=== PATIENT | male | born 1970 | race Caucasian/White ===

== ENCOUNTER 2017-11-04 12:44 | Inpatient (IN) | payer OTHER ==
[2017-11-04 14:03] VITALS: BMI 29.7
--- NOTE | 2017-11-04 16:39 | HP ---
CIWA Score - CIWA Score Nausea/Vomitin Muscle Tremors: 3 Anxiety: 3 Agitation: 2 Paroxysmal Sweats: 4-Forehead w/Sweat Beads Orientation: 0-Oriented Tacttile Disturbances: 1-Very Mild Itch/Numbness Auditory Disturbances: 0-None Visual Disturbances: 0-None Headache: 2-Mild CIWA-Ar Total Score: 20 Admission ROS BHS - HPI Chief Complaint: alcohol withdrawal symptoms Allergies/Adverse Reactions: Allergies Allergy/AdvReac Type Severity Reaction Status Date / Time No Known Allergies Allergy Verified 11/04/17 16:18 History of Present Illness: 47 yo male with hx of nicotine, cocaine and alcohol dependence is here seeking detox. Last detox 10 years ago [facility]. PMHX: HTN, hypelipidemia, anxiety. Denies suicidal / homicidal ideation. Denies hx of suicide attempts. Denies hx seizures, reports frequent blackouts unable to recall last episode. Reports no significant period of sobriety . Exam Limitations: No Limitations - Ebola screening Have you traveled outside of the country in the last 21 days: No (N) Have you had contact with anyone from an Ebola affected area: No Have you been sick,other than usual withdrawal symptoms: No Do you have a fever: No - Review of Systems Constitutional: Diaphoresis, Changes in sleep, Unintentional Wgt. Loss EENT: reports: Blurred Vision Respiratory: reports: No Symptoms reported Cardiac: reports: No Symptoms Reported GI: reports: Diarrhea, Nausea, Poor Appetite, Poor Fluid Intake, Vomiting, Abdominal cramping : reports: No Symptoms Reported Musculoskeletal: reports: Back Pain, Joint Pain Integumentary: reports: No Symptoms Reported Neuro: reports: See HPI, Headache Endocrine: reports: Increased Thirst Hematology: reports: No Symptoms Reported Psychiatric: reports: Orientated x3, Anxious Other Systems: Reviewed and Negative Patient History - Patient Medical History Hx Anemia: No Hx Asthma: No Hx Chronic Obstructive Pulmonary Disease (COPD): No Hx Cancer: No Hx Cardiac Disorders: No Hx Congestive Heart Failure: No Hx Hypertension: Yes (non compliant with meds.) Hx Hypercholesterolemia: Yes Hx Pacemaker: No HX Cerebrovascular Accident: No Hx Seizures: No Hx Dementia: No Hx Diabetes: No Hx Gastrointestinal Disorders: No Hx Genitourinary Disorders: No Hx Sexually Transmitted Disorders: No Hx Renal Disease (ESRD): No Hx Thyroid Disease: No Hx Human Immunodeficiency Virus (HIV): No Hx Hepatitis C: No Hx Depression: No Hx Suicide Attempt: No Hx Bipolar Disorder: No Hx Schizophrenia: No - Patient Surgical History Past Surgical History: No - PPD History Previous Implant?: Yes Documented Results: Negative w/o proof Implanted On Prior [facility] Admission?: No PPD to be Administered?: Yes - Smoking Cessation Smoking history: Current some day smoker Have you smoked in the past 12 months: Yes Aproximately how many cigarettes per day: 20 Hx Chewing Tobacco Use: No Initiated information on smoking cessation: Yes 'Breaking Loose' booklet given: 11/04/17 - Substance & Tx. History Hx Alcohol Use: Yes Hx Substance Use: Yes Substance Use Type: Alcohol, Cocaine Hx Substance Use Treatment: Yes (Last detox 10 years ago ) - Substances Abused Alcohol Route: Oral Frequency: Daily Amount used: 20 BEERS Age of first use: 13 Date of Last Use: 11/04/17 Cocaine Route: Inhalation Frequency: 1-3 times last 30 days Amount used: $200 Age of first use: 13 Date of Last Use: 11/03/17 Family Disease History - Family Disease History Family Disease History: Other: Father (alive, hx of chronic alcoholism ), Mother (, HIV) Admission Physical Exam BHS - Vital Signs Vital Signs: Vital Signs - 24 hr 11/04/17 14:00 Temperature 97.6 F Pulse Rate 96 H Respiratory 20 Rate Blood Pressure 154/86 - Physical General Appearance: Yes: Appropriately Dressed, Mild Distress, Tremorous, Sweating, Anxious HEENTM: Yes: Hearing grossly Normal, Normal ENT Inspection, Normocephalic, Normal Voice, ALEXA Respiratory: Yes: Chest Non-Tender, Lungs Clear, Normal Breath Sounds, No Respiratory Distress, No Accessory Muscle Use Neck: Yes: No masses,lesions,Nodules, Trachea in good position Breast: Yes: Breast Exam Deferred Cardiology: Yes: Regular Rhythm, Regular Rate Abdominal: Yes: Normal Bowel Sounds, Non Tender, Soft, Protuberent Genitourinary: Yes: Within Normal Limits Back: Yes: Normal Inspection Musculoskeletal: Yes: full range of Motion, Gait Steady, Pelvis Stable, Back pain Extremities: Yes: Normal Capillary Refill, Normal Inspection, Normal Range of Motion Neurological: Yes: concrete rubber II-XII NML intact, 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, Alert, Motor Strength 5/5, Depressed Affect Integumentary: Yes: Normal Color, Warm, Diaphoresis Lymphatic: Yes: Within Normal Limits - Diagnostic (1) Alcohol dependence with withdrawal Current Visit: Yes Status: Acute Qualifiers: Complication of substance-induced condition: uncomplicated Qualified Code(s ): F10.230 - Alcohol dependence with withdrawal, uncomplicated (2) Anxious mood Current Visit: Yes Status: Acute (3) Nausea and vomiting Current Visit: Yes Status: Acute Qualifiers: Vomiting type: unspecified Vomiting Intractability: unspecified Qualified Code(s): R11.2 - Nausea with vomiting, unspecified (4) Back pain Current Visit: Yes Status: Acute Qualifiers: Back pain location: low back pain Back pain laterality: midline Sciatica presence: without sciatica (5) Hypertension Current Visit: Yes Status: Chronic Qualifiers: Hypertension type: essential hypertension Qualified Code(s): I10 - Essential (primary) hypertension Cleared for Admission S - [facility] Level of Care: Medically Managed Detox Regimen/Protocol: Librium S Breath Alcohol Content Breath Alcohol Content: 0 Urine Drug Screen - Results Drug Screen Negative: No Urine Drug Screen Results: RICKI-Cocaine
[2017-11-04] MEDS ORDERED: MENTHOL/PHENOL 1 EACH UD MM PRN (16:41)
[2017-11-04] MEDS ORDERED: MAGNESIUM HYDROX 2400MG/30ML ORAL SUSPENSION 30 ML CUP PO PRN (16:41)
[2017-11-04] MEDS ORDERED: IBUPROFEN 400 MG TABLET (FP) PO PRN (16:41)
[2017-11-04] MEDS ORDERED: MAGNESIUM CITRATE 300 ML BOTTLE PO PRN (16:41)
[2017-11-04] MEDS ORDERED: NICOTINE POLACRILEX 2 MG GUM BC PRN (16:41)
[2017-11-04] MEDS ORDERED: ACETAMINOPHEN 325 MG TABLET (FP) PO PRN (16:41)
[2017-11-04] MEDS ORDERED: LOPERAMIDE HCL 2 MG CAPSULE PO PRN (16:41)
[2017-11-04] MEDS ORDERED: chlordiazePOXIDE HCL 25 MG CAPSULE PO PRN (16:41)
[2017-11-04] MEDS ORDERED: guaiFENesin/D-METHORPHAN HB 10 ML UNIT-DOSE CUPS PO PRN (16:41)
[2017-11-04] MEDS ORDERED: MAG HYDROX/AL HYDROX/SIMETH 30 ML UNIT-DOSE CUP PO PRN (16:41)
[2017-11-04] MEDS ORDERED: P-EPHED 60MG/TRIPROLIDI 2.5MG TABLET PO PRN (16:41)
[2017-11-04] MEDS ORDERED: ONDANSETRON *ODT* 4 MG TABLET SL PRN (16:53)
[2017-11-04] MEDS ORDERED: chlordiazePOXIDE HCL 25 MG CAPSULE PO ONE (18:00)
[2017-11-04] MEDS: LIDOCAINE 5% TOPICAL PATCH TP SCH (20:28)
[2017-11-04] MEDS ORDERED: MELATONIN 5 MG TABLETS PO PRN (22:00)
[2017-11-04] MEDS ORDERED: CYCLOBENZAPRINE HCL 10 MG TABLET (FP) PO SCH (22:00)
[2017-11-04] MEDS: THIAMINE HCL 100 MG TABLET (FP) PO SCH (22:38)
[2017-11-04] MEDS: LORATADINE 10 MG TABLET PO SCH (22:39)
[2017-11-04] MEDS: chlordiazePOXIDE HCL 25 MG CAPSULE PO SCH (22:40)
[2017-11-04] MEDS: LIDOCAINE PATCH REMOVAL MC SCH (22:40)
[2017-11-05] MEDS: chlordiazePOXIDE HCL 25 MG CAPSULE PO SCH ×4 (06:23→22:32)
[2017-11-05] MEDS: CYCLOBENZAPRINE HCL 5 MG TABLET PO SCH ×3 (06:23→22:32)
[2017-11-05 09:35] LABS: HEMATOCRIT 41.3 % (35.4-49); HEMOGLOBIN 13.7 GM/dL (11.7-16.9); MCH 28.6 pg (25.7-33.7); MCHC 33.1 g/dl (32.0-35.9); MEAN CELL VOLUME 86.4 fl (80-96); MEAN PLT VOLUME 10.2 fl (7.5-11.1); PLATELET COUNT 190 K/MM3 (134-434); RBC 4.78 M/mm3 (4.00-5.60); RDW 14.5 % (11.9-15.9); WHITE BLOOD COUNT 9.8 K/mm3 (4.0-10.0)
[2017-11-05 09:39] LABS: ALBUMIN 3.1 g/dl (3.4-5.0); ANION GAP 7 (8-16); BLOOD UREA NITROGEN 13 mg/dL (7-18); CALCIUM 7.9 mg/dL (8.5-10.1); CHLORIDE 104 mmol/L (98-107); CO2 31 mmol/L (21-32); CREATININE 0.8 mg/dL (0.7-1.3); GLUCOSE,RANDOM 87 mg/dL (74-106); POTASSIUM 3.8 mmol/L (3.5-5.1); SGOT/AST 17 U/L (15-37); SGPT/ALT 24 U/L (12-78); SODIUM 142 mmol/L (136-145)
[2017-11-05 09:41] LABS: ALK PHOS 94 U/L (45-117); BILIRUBIN,TOTAL 0.2 mg/dL (0.2-1.0); TOT PROT 6.5 g/dl (6.4-8.2)
--- NOTE | 2017-11-05 10:13 | CONSULT ---
[facility] Psychiatric Consult - Data Date of interview: 11/05/17 Admission source: [facility] Identifying data: Patient is a 47 year old single male, father of six, unemployed and currently homeless. This is patient's first admission to detox. Pt. admitted to for alcohol dependence. Substance Abuse History: Smoking Cessation. Smoking history: Current some day smoker. Have you smoked in the past 12 months: Yes. Aproximately how many cigarettes per day: 20. Hx Chewing Tobacco Use: No. Initiated information on smoking cessation: Yes. 'Breaking Loose' booklet given: 11/04/17. - Substance & Tx. History. Hx Alcohol Use: Yes. Hx Substance Use: Yes. Substance Use Type : Alcohol, Cocaine. Hx Substance Use Treatment: Yes (Last detox 10 years ago [facility] - Substances Abused. Alcohol. Route: Oral. Frequency: Daily. Amount used: 20 BEERS. Age of first use: 13. Date of Last Use: . Cocaine. Route: Inhalation. Frequency: 1-3 times last 30 days. Amount used: $200. Age of first use: 13. Date of Last Use: 11/03/17 Medical History: hypertension, hypercholesterolemia Psychiatric History: Patient denies h/o psychiatric hospitalization, outpatient care, and suicide attempt. Physical/Sexual Abuse/Trauma History: Denies. Mental Status Exam - Mental Status Exam Alert and Oriented to: Time, Place, Person Cognitive Function: Good Patient Appearance: Well Groomed Mood: Withdrawn Affect: Mood Congruent Patient Behavior: Fatigued, Asleep (Patient awaken several times to complete interview. ) Speech Pattern: Delayed Voice Loudness: Moderately Soft/Quiet Thought Process: Intact Thought Disorder: Not Present Hallucinations: Denies Suicidal Ideation: Denies Homicidal Ideation: Denies Insight/Judgement: Poor Sleep: Well Appetite: Good Muscle strength/Tone: Normal Gait/Station: Other (Did not observe patient's gait.) Psychiatric Findings - Problem List ([place] 1, 2,3) (1) Cocaine dependence Current Visit: Yes Status: Acute (2) Alcohol dependence with withdrawal Current Visit: Yes Status: Acute Qualifiers: Complication of substance-induced condition: uncomplicated Qualified Code(s ): F10.230 - Alcohol dependence with withdrawal, uncomplicated (3) Hypertension Current Visit: Yes Status: Chronic Qualifiers: Hypertension type: essential hypertension Qualified Code(s): I10 - Essential (primary) hypertension - Initial Treatment Plan Initial Treatment Plan: Psychoeducation provided. Detoxification in progress. Observation.
[2017-11-05] MEDS: LORATADINE 10 MG TABLET PO SCH (11:28)
[2017-11-05] MEDS: PRENATAL VITAMINS W/ FOLIC ACID TABLET (FP) PO SCH (11:28)
[2017-11-05] MEDS: NICOTINE 14 MG/24 HOURS TOPICAL PATCH TD SCH (11:29)
[2017-11-05] MEDS: LIDOCAINE 5% TOPICAL PATCH TP SCH (11:29)
--- NOTE | 2017-11-05 15:46 | EKG ---
Test Reason : Blood Pressure : / mmHG Vent. Rate : 075 BPM Atrial Rate : 075 BPM P-R Int : 106 ms QRS Dur : 094 ms QT Int : 432 ms P-R-T Axes : 057 026 072 degrees QTc Int : 482 ms SINUS RHYTHM WITH SHORT DC NONSPECIFIC T WAVE ABNORMALITY PROLONGED QT ABNORMAL ECG NO PREVIOUS ECGS AVAILABLE Confirmed by ADI GUAN MD ([id number]) on 11/05/2017 3:46:23 PM Referred By: Confirmed By:ADI GUAN MD
--- NOTE | 2017-11-05 16:44 | PN ---
[facility] CIWA - CIWA Score Nausea/Vomitin-No Nausea/No Vomiting Muscle Tremors: None Anxiety: 4-Mod. Anxious/Guarded Agitation: 3 Paroxysmal Sweats: 3 Orientation: 0-Oriented Tacttile Disturbances: 3-Moderate Itch/Numb/Burn Auditory Disturbances: 2-Mild Harshness/Frighten Visual Disturbances: 1-Very Mild Sensitivity Headache: 0-None Present CIWA-Ar Total Score: 16 BHS Progress Note (SOAP) Subjective: Sweating, Fatigue, Body Aches. Objective: PATIENT A & O X 3. NO ACUTE DISTRESS. 11/05/17 16:43 Vital Signs Temperature 98.2 F 11/05/17 14:08 Pulse Rate 70 11/05/17 14:08 Respiratory Rate 18 11/05/17 14:08 Blood Pressure 112/80 11/05/17 14:08 O2 Sat by Pulse Oximetry (%) Laboratory Tests 11/05/17 11/05/17 11/05/17 08:00 08:00 08:00 WBC 9.8 RBC 4.78 Hgb 13.7 Hct 41.3 MCV 86.4 MCH 28.6 MCHC 33.1 RDW 14.5 Plt Count 190 MPV 10.2 Sodium 142 Potassium 3.8 Chloride 104 Carbon Dioxide 31 Anion Gap 7 L BUN 13 Creatinine 0.8 Creat Clearance w eGFR > 60 Random Glucose 87 Calcium 7.9 L Total Bilirubin 0.2 AST 17 ALT 24 Alkaline Phosphatase 94 Total Protein 6.5 Albumin 3.1 L RPR Titer Nonreactive LABS NOTED. UA RESULTS PENDING. 11/05/17 16:44 Assessment: 11/05/17 16:44 WITHDRAWAL SYMPTOMS. Plan: CONTINUE DETOX.
[2017-11-05] MEDS: THIAMINE HCL 100 MG TABLET (FP) PO SCH (22:32)
[2017-11-05] MEDS: LIDOCAINE PATCH REMOVAL MC SCH (22:33)
[2017-11-06] MEDS: chlordiazePOXIDE HCL 25 MG CAPSULE PO SCH ×3 (06:00→18:22)
[2017-11-06] MEDS: CYCLOBENZAPRINE HCL 5 MG TABLET PO SCH ×3 (06:37→23:46)
--- NOTE | 2017-11-06 13:07 | PN ---
S CIWA - CIWA Score Nausea/Vomitin Muscle Tremors: 3 Anxiety: 3 Agitation: 2 Paroxysmal Sweats: 3 Orientation: 2-Disoriented Date<2 days Tacttile Disturbances: 0-None Auditory Disturbances: 0-None Visual Disturbances: 0-None Headache: 0-None Present CIWA-Ar Total Score: 16 BHS Progress Note (SOAP) Subjective: Nausea, Tremors, Body Aches, Fatigue, Sweating. Objective: PATIENT A & O X 2 (UNCERTAIN ABOUT CURRENT DAY / DATE). PATIENT OBSERVED AMBULATING ON UNIT. NO ACUTE DISTRESS. 11/06/17 13:05 Vital Signs Temperature 96.4 F L 11/06/17 09:24 Pulse Rate 76 11/06/17 09:24 Respiratory Rate 16 11/06/17 09:24 Blood Pressure 124/75 11/06/17 09:24 O2 Sat by Pulse Oximetry (%) Laboratory Tests 11/05/17 11/05/17 11/05/17 08:00 08:00 08:00 WBC 9.8 RBC 4.78 Hgb 13.7 Hct 41.3 MCV 86.4 MCH 28.6 MCHC 33.1 RDW 14.5 Plt Count 190 MPV 10.2 Sodium 142 Potassium 3.8 Chloride 104 Carbon Dioxide 31 Anion Gap 7 L BUN 13 Creatinine 0.8 Creat Clearance w eGFR > 60 Random Glucose 87 Calcium 7.9 L Total Bilirubin 0.2 AST 17 ALT 24 Alkaline Phosphatase 94 Total Protein 6.5 Albumin 3.1 L RPR Titer Nonreactive LABS NOTED. UA RESULTS PENDING. 11/06/17 13:06 Assessment: 11/06/17 13:05 WITHDRAWAL SYMPTOMS. Plan: CONTINUE DETOX. ENCOURAGE AMBULATION. INCREASE DAILY PO FLUID INTAKE.
[2017-11-06] MEDS: LIDOCAINE 5% TOPICAL PATCH TP SCH (13:28)
[2017-11-06] MEDS: LORATADINE 10 MG TABLET PO SCH (13:28)
[2017-11-06] MEDS: NICOTINE 14 MG/24 HOURS TOPICAL PATCH TD SCH (13:29)
[2017-11-06] MEDS: PRENATAL VITAMINS W/ FOLIC ACID TABLET (FP) PO SCH (13:29)
[2017-11-06] MEDS: LIDOCAINE PATCH REMOVAL MC SCH (23:46)
[2017-11-06] MEDS: chlordiazePOXIDE 5 MG CAPSULE PO SCH (23:46)
[2017-11-06] MEDS: THIAMINE HCL 100 MG TABLET (FP) PO SCH (23:46)
[2017-11-07] MEDS: chlordiazePOXIDE 5 MG CAPSULE PO SCH ×3 (06:35→17:34)
[2017-11-07] MEDS: CYCLOBENZAPRINE HCL 5 MG TABLET PO SCH ×3 (08:11→22:37)
[2017-11-07] MEDS: PRENATAL VITAMINS W/ FOLIC ACID TABLET (FP) PO SCH (10:15)
[2017-11-07] MEDS: LORATADINE 10 MG TABLET PO SCH (10:15)
[2017-11-07] MEDS: NICOTINE 14 MG/24 HOURS TOPICAL PATCH TD SCH (10:16)
[2017-11-07] MEDS: LIDOCAINE 5% TOPICAL PATCH TP SCH (10:16)
[2017-11-07] MEDS: hydrOXYzine PAMOATE 50 MG CAPSULE (FP) PO PRN ×2 (11:59→15:24)
--- NOTE | 2017-11-07 13:50 | PN ---
BHS Progress Note (SOAP) Subjective: Sweating, Nausea, Anxious, Tremors. Objective: PATIENT A & O X 3, OBSERVED AMBULATING ON UNIT. NO ACUTE DISTRESS. 11/07/17 13:48 Vital Signs Temperature 98.7 F 11/07/17 13:11 Pulse Rate 90 11/07/17 13:11 Respiratory Rate 16 11/07/17 13:11 Blood Pressure 145/95 11/07/17 13:11 O2 Sat by Pulse Oximetry (%) Laboratory Tests 11/05/17 11/05/17 11/05/17 08:00 08:00 08:00 WBC 9.8 RBC 4.78 Hgb 13.7 Hct 41.3 MCV 86.4 MCH 28.6 MCHC 33.1 RDW 14.5 Plt Count 190 MPV 10.2 Sodium 142 Potassium 3.8 Chloride 104 Carbon Dioxide 31 Anion Gap 7 L BUN 13 Creatinine 0.8 Creat Clearance w eGFR > 60 Random Glucose 87 Calcium 7.9 L Total Bilirubin 0.2 AST 17 ALT 24 Alkaline Phosphatase 94 Total Protein 6.5 Albumin 3.1 L RPR Titer Nonreactive LABS NOTED. UA RESULTS PENDING. 11/07/17 13:49 Assessment: 11/07/17 13:49 WITHDRAWAL SYMPTOMS. Plan: CONTINUE DETOX. INCREASE DAILY PO FLUID INTAKE. CLONIDINE, 0.1 MG PO X 1 FOR ELEVATED BP AND FOR WITHDRAWAL SYMPTOMS. PATIENT SCHEDULED FOR D/C TOMORROW.
[2017-11-07] MEDS ORDERED: cloNIDine HCL 0.1 MG TABLET PO ONE (14:00)
[2017-11-07] MEDS: LIDOCAINE PATCH REMOVAL MC SCH (21:47)
[2017-11-07] MEDS: THIAMINE HCL 100 MG TABLET (FP) PO SCH (22:37)
[2017-11-07] MEDS: chlordiazePOXIDE HCL 10 MG CAPSULE PO SCH (22:38)
[2017-11-08 06:18] VITALS: BP 96/60; PULSE 75; TEMP 97.1
[2017-11-08] MEDS: CYCLOBENZAPRINE HCL 5 MG TABLET PO SCH (07:02)
[2017-11-08] MEDS: chlordiazePOXIDE HCL 10 MG CAPSULE PO SCH (07:02)
--- NOTE | 2017-11-08 17:50 | PN ---
S Progress Note (SOAP) Subjective: Patient denies current Detox symptoms and reports that he feels well overall. Objective: PATIENT A & O X 3, OBSERVED AMBULATING ON UNIT. NO ACUTE DISTRESS. 11/08/17 17:49 Vital Signs Temperature 97.1 F L 11/08/17 06:17 Pulse Rate 75 11/08/17 06:17 Respiratory Rate 20 11/08/17 06:17 Blood Pressure 96/60 11/08/17 06:17 O2 Sat by Pulse Oximetry (%) Laboratory Tests 11/05/17 11/05/17 11/05/17 08:00 08:00 08:00 WBC 9.8 RBC 4.78 Hgb 13.7 Hct 41.3 MCV 86.4 MCH 28.6 MCHC 33.1 RDW 14.5 Plt Count 190 MPV 10.2 Sodium 142 Potassium 3.8 Chloride 104 Carbon Dioxide 31 Anion Gap 7 L BUN 13 Creatinine 0.8 Creat Clearance w eGFR > 60 Random Glucose 87 Calcium 7.9 L Total Bilirubin 0.2 AST 17 ALT 24 Alkaline Phosphatase 94 Total Protein 6.5 Albumin 3.1 L RPR Titer Nonreactive LABS NOTED. Assessment: 11/08/17 17:50 COMPLETION OF DETOX REGIMEN. Plan: PATIENT SCHEDULED FOR DISCHARGE FROM DETOX UNIT TODAY.
--- NOTE | 2017-11-08 17:54 | DS ---
[facility] Detox Discharge Summary Admission Date: 11/04/17 Discharge Date: 11/08/17 - History Present History: Alcohol Dependence, Cocaine Dependence Additional Comments: PATIENT GOING TO [facility] ([place], [place] FOR AFTERCARE. PATIENT WAS DISCHARGED FROM DETOX UNIT IN STABLE MEDICAL CONDITION. Pertinent Past History: HTN, Nausea / Vomiting, Anxiety, Back Pain. - Physical Exam Results Vital Signs: Vital Signs Temperature 97.1 F L 11/08/17 06:17 Pulse Rate 75 11/08/17 06:17 Respiratory Rate 20 11/08/17 06:17 Blood Pressure 96/60 11/08/17 06:17 O2 Sat by Pulse Oximetry (%) Pertinent Admission Physical Exam Findings: WITHDRAWAL SYMPTOMS. Laboratory Tests 11/05/17 11/05/17 11/05/17 08:00 08:00 08:00 WBC 9.8 RBC 4.78 Hgb 13.7 Hct 41.3 MCV 86.4 MCH 28.6 MCHC 33.1 RDW 14.5 Plt Count 190 MPV 10.2 Sodium 142 Potassium 3.8 Chloride 104 Carbon Dioxide 31 Anion Gap 7 L BUN 13 Creatinine 0.8 Creat Clearance w eGFR > 60 Random Glucose 87 Calcium 7.9 L Total Bilirubin 0.2 AST 17 ALT 24 Alkaline Phosphatase 94 Total Protein 6.5 Albumin 3.1 L RPR Titer Nonreactive LABS NOTED. - Treatment Hospital Course: Detox Protocol Followed, Detoxed Safely, Responded well, Discharged Condition Good, Rehab Referral Accepted Patient has Accepted a Rehab Referral to: [facility] ([place], [place] - Medication Discharge Medications: Ambulatory Orders NK [No Known Home Medication] 11/04/17 - Diagnosis (1) Alcohol dependence with withdrawal Status: Acute Qualifiers: Complication of substance-induced condition: uncomplicated Qualified Code(s ): F10.230 - Alcohol dependence with withdrawal, uncomplicated (2) Anxious mood Status: Acute (3) Back pain Status: Acute Qualifiers: Back pain location: low back pain Chronicity: acute Back pain laterality : midline Sciatica presence: without sciatica Qualified Code(s): M54.5 - Low back pain (4) Nausea and vomiting Status: Acute Qualifiers: Vomiting type: unspecified Vomiting Intractability: unspecified Qualified Code(s): R11.2 - Nausea with vomiting, unspecified (5) Hypertension Status: Chronic Qualifiers: Hypertension type: essential hypertension Qualified Code(s): I10 - Essential (primary) hypertension (6) Cocaine dependence Status: Acute Qualifiers: Substance use status: uncomplicated Qualified Code(s): F14.20 - Cocaine dependence, uncomplicated - AMA Did Patient Leave Against Medical Advice: No
== END 2017-11-08 09:50 | disposition home or self-care (01) | DRG 774 ==
LOC: YASAS 12:44 → Y3N 17:27
PROVIDERS: ADMIT Surgery; ATTEND Surgery
PROC: HZ2ZZZZ Detoxification Services for Substance Abuse Treatment (ICD-10-PCS; principal; 2017-11-04)
DX: F10.230 Alcohol dependence with withdrawal, uncomplicated (principal); F14.20 Cocaine dependence, uncomplicated; F41.9 Anxiety disorder, unspecified; I10 Essential (primary) hypertension; E78.00 Pure hypercholesterolemia, unspecified; R11.2 Nausea with vomiting, unspecified; M54.5 Low back pain
CPT/HCPCS: 36415; 80053; 85027; 86593; 93005; 93010; J0735

== ENCOUNTER 2018-02-22 16:54 | Inpatient (IN) | payer OTHER ==
[2018-02-22 18:32] VITALS: BMI 29.9
[2018-02-22] MEDS ORDERED: MAG HYDROX/AL HYDROX/SIMETH 30 ML UNIT-DOSE CUP PO PRN (20:39)
[2018-02-22] MEDS ORDERED: MAGNESIUM HYDROX 2400MG/30ML ORAL SUSPENSION 30 ML CUP PO PRN (20:39)
[2018-02-22] MEDS ORDERED: IBUPROFEN 400 MG TABLET (FP) PO PRN (20:39)
[2018-02-22] MEDS ORDERED: MAGNESIUM CITRATE 300 ML BOTTLE PO PRN (20:39)
[2018-02-22] MEDS ORDERED: NICOTINE POLACRILEX 4 MG GUM BC PRN (20:39)
[2018-02-22] MEDS ORDERED: MENTHOL/PHENOL 1 EACH UD MM PRN (20:39)
[2018-02-22] MEDS ORDERED: hydrOXYzine PAMOATE 25 MG CAPSULE (FP) PO PRN (20:39)
[2018-02-22] MEDS ORDERED: ACETAMINOPHEN 325 MG TABLET (FP) PO PRN (20:39)
[2018-02-22] MEDS ORDERED: chlordiazePOXIDE HCL 25 MG CAPSULE PO PRN (20:39)
[2018-02-22] MEDS ORDERED: guaiFENesin/D-METHORPHAN HB 10 ML UNIT-DOSE CUPS PO PRN (20:39)
[2018-02-22] MEDS ORDERED: chlordiazePOXIDE HCL 25 MG CAPSULE PO ONE (20:39)
[2018-02-22] MEDS ORDERED: P-EPHED 60MG/TRIPROLIDI 2.5MG TABLET PO PRN (20:39)
[2018-02-22] MEDS ORDERED: LOPERAMIDE HCL 2 MG CAPSULE PO PRN (20:39)
--- NOTE | 2018-02-22 20:46 | HP ---
CIWA Score - CIWA Score Nausea/Vomitin Muscle Tremors: 3 Anxiety: 2 Agitation: 2 Paroxysmal Sweats: 3 Orientation: 0-Oriented Tacttile Disturbances: 2-Mild Itch/Numbness/Burn Auditory Disturbances: 2-Mild Harshness/Frighten Visual Disturbances: 2-Mild Sensitivity Headache: 2-Mild CIWA-Ar Total Score: 20 Admission ROS BHS - HPI Allergies/Adverse Reactions: Allergies Allergy/AdvReac Type Severity Reaction Status Date / Time No Known Allergies Allergy Verified 02/22/18 20:25 - Ebola screening Have you traveled outside of the country in the last 21 days: No Have you had contact with anyone from an Ebola affected area: No Have you been sick,other than usual withdrawal symptoms: No Do you have a fever: No Patient History - Patient Medical History Hx Anemia: No Hx Asthma: No Hx Chronic Obstructive Pulmonary Disease (COPD): No Hx Cancer: No Hx Cardiac Disorders: No Hx Congestive Heart Failure: No Hx Hypertension: No Hx Hypercholesterolemia: Yes Hx Pacemaker: No HX Cerebrovascular Accident: No Hx Seizures: Yes (WITHDRAWAL SEIZURES - LAST EPISODE 2 WKS AGO) Hx Dementia: No Hx Diabetes: No Hx Gastrointestinal Disorders: No Hx Genitourinary Disorders: No Hx Sexually Transmitted Disorders: No Hx Renal Disease (ESRD): No Hx Thyroid Disease: No Hx Human Immunodeficiency Virus (HIV): No Hx Hepatitis C: No Hx Depression: No Hx Suicide Attempt: No Hx Bipolar Disorder: No Hx Schizophrenia: No - Patient Surgical History Past Surgical History: No Hx Neurologic Surgery: No Hx Cataract Extraction: No Hx Cardiac Surgery: No Hx Lung Surgery: No Hx Breast Surgery: No Hx Breast Biopsy: No Hx Abdominal Surgery: No Hx Appendectomy: No Hx Cholecystectomy: No Hx Genitourinary Surgery: No Hx Section: No Hx Orthopedic Surgery: No Anesthesia Reaction: No - PPD History Previous Implant?: Yes Date: 11/07/17 - Smoking Cessation Smoking history: Current some day smoker Have you smoked in the past 12 months: Yes Aproximately how many cigarettes per day: 20 Hx Chewing Tobacco Use: No Initiated information on smoking cessation: Yes 'Breaking Loose' booklet given: 02/22/18 - Substance & Tx. History Hx Alcohol Use: Yes Hx Substance Use: Yes Substance Use Type: Alcohol, Cocaine Hx Substance Use Treatment: Yes - Substances Abused Alcohol Route: Oral Frequency: Daily Amount used: 1 gallon of [place] daily Age of first use: 13 Date of Last Use: 02/21/18 Cocaine Route: Inhalation Frequency: Daily Amount used: $80/D Age of first use: 16 Date of Last Use: 02/22/18 Family Disease History - Family Disease History Family Disease History: Other: Father (alive, hx of chronic alcoholism ), Mother (, HIV) Admission Physical Exam [facility] - Vital Signs Vital Signs: Vital Signs - 24 hr 02/22/18 18:28 Temperature 97.5 F L Pulse Rate 92 H Respiratory 16 Rate Blood Pressure 141/83 - Physical General Appearance: Yes: No Apparent Distress, Nourished, Appropriately Dressed , Tremorous, Sweating, Anxious HEENTM: Yes: Hearing grossly Normal, Normocephalic, Normal Voice, ALEXA, Pharynx Normal Respiratory: Yes: Chest Non-Tender, Lungs Clear, Normal Breath Sounds, No Respiratory Distress, No Accessory Muscle Use Neck: Yes: No masses,lesions,Nodules, Supple, Trachea in good position Breast: Yes: Breast Exam Deferred, Axillae without masses Cardiology: Yes: Regular Rhythm, S1, S2, Tachycardia Abdominal: Yes: Normal Bowel Sounds, Non Tender, Protuberent Back: Yes: Normal Inspection Musculoskeletal: Yes: full range of Motion, Muscle Pain, Muscle weakness Extremities: Yes: Normal Capillary Refill, Tremors Neurological: Yes: 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, Alert, Normal Response, Depressed Affect Integumentary: Yes: Warm, Moist Lymphatic: Yes: Within Normal Limits - Diagnostic (1) Nicotine dependence Current Visit: Yes Status: Chronic Qualifiers: Nicotine product type: cigarettes (2) Alcohol dependence with withdrawal Current Visit: No Status: Chronic Qualifiers: Complication of substance-induced condition: uncomplicated (3) Cocaine dependence Current Visit: No Status: Chronic Qualifiers: Substance use status: uncomplicated Cleared for Admission [facility] - Detox or Rehab [facility] Level of Care: Medically Managed Detox Regimen/Protocol: Librium [facility] Breath Alcohol Content Breath Alcohol Content: 0 Urine Drug Screen - Results Drug Screen Negative: No Urine Drug Screen Results: RICKI-Cocaine
[2018-02-22] MEDS: chlordiazePOXIDE HCL 25 MG CAPSULE PO SCH (21:49)
[2018-02-22] MEDS: THIAMINE HCL 100 MG TABLET (FP) PO SCH (22:50)
[2018-02-23] MEDS: chlordiazePOXIDE HCL 25 MG CAPSULE PO SCH ×4 (06:03→22:24)
[2018-02-23] MEDS: NICOTINE 21 MG/24 HOURS TOPICAL PATCH TD SCH (10:42)
[2018-02-23] MEDS: PRENATAL VITAMINS W/ FOLIC ACID TABLET (FP) PO SCH (10:42)
[2018-02-23 11:14] LABS: HEMATOCRIT 46.4 % (35.4-49); HEMOGLOBIN 15.2 GM/dL (11.7-16.9); MCH 27.6 pg (25.7-33.7); MCHC 32.7 g/dl (32.0-35.9); MEAN CELL VOLUME 84.4 fl (80-96); MEAN PLT VOLUME 9.9 fl (7.5-11.1); PLATELET COUNT 170 K/MM3 (134-434); RDW 14.3 % (11.9-15.9); WHITE BLOOD COUNT 8.7 K/mm3 (4.0-10.0)
[2018-02-23 11:31] LABS: ALBUMIN 3.4 g/dl (3.4-5.0); ALK PHOS 80 U/L (45-117); ANION GAP 6 MMOL/L (8-16); BILIRUBIN,TOTAL 0.6 mg/dL (0.2-1); BLOOD UREA NITROGEN 16 mg/dL (7-18); CALCIUM 8.1 mg/dL (8.5-10.1); CHLORIDE 104 mmol/L (98-107); CO2 28 mmol/L (21-32); CREATININE 0.8 mg/dL (0.55-1.3); GLUCOSE,RANDOM 109 mg/dL (74-106); POTASSIUM 3.9 mmol/L (3.5-5.1); SGOT/AST 17 U/L (15-37); SGPT/ALT 25 U/L (13-61); SODIUM 137 mmol/L (136-145); TOT PROT 6.9 g/dl (6.4-8.2)
--- NOTE | 2018-02-23 14:33 | PN ---
[facility] CIWA - CIWA Score Nausea/Vomitin-Mild Nausea/No Vomiting Muscle Tremors: 4-Moderate,w/Arms Extend Anxiety: 3 Agitation: 3 Paroxysmal Sweats: 1-Minimal Palms Moist Orientation: 1-Uncertain about Date Tacttile Disturbances: 1-Very Mild Itch/Numbness Auditory Disturbances: 0-None Visual Disturbances: 0-None Headache: 0-None Present CIWA-Ar Total Score: 14 BHS Progress Note (SOAP) Subjective: sweat tremor gi distress diarrhea anxiety Objective: 02/23/18 14:34 Vital Signs Temperature 97.9 F 02/23/18 14:20 Pulse Rate 81 02/23/18 14:20 Respiratory Rate 20 02/23/18 14:20 Blood Pressure 100/59 L 02/23/18 14:20 O2 Sat by Pulse Oximetry (%) Laboratory Last Values WBC 8.7 K/mm3 (4.0-10.0) 02/23/18 07:20 RBC 5.50 M/mm3 (4.00-5.60) 02/23/18 07:20 Hgb 15.2 GM/dL (11.7-16.9) 02/23/18 07:20 Hct 46.4 % (35.4-49) 02/23/18 07:20 MCV 84.4 fl (80-96) 02/23/18 07:20 MCH 27.6 pg (25.7-33.7) 02/23/18 07:20 MCHC 32.7 g/dl (32.0-35.9) 02/23/18 07:20 RDW 14.3 % (11.9-15.9) 02/23/18 07:20 Plt Count 170 K/MM3 (134-434) 02/23/18 07:20 MPV 9.9 fl (7.5-11.1) 02/23/18 07:20 Sodium 137 mmol/L (136-145) 02/23/18 07:20 Potassium 3.9 mmol/L (3.5-5.1) 02/23/18 07:20 Chloride 104 mmol/L (98-107) 02/23/18 07:20 Carbon Dioxide 28 mmol/L (21-32) 02/23/18 07:20 Anion Gap 6 MMOL/L (8-16) L 02/23/18 07:20 BUN 16 mg/dL (7-18) 02/23/18 07:20 Creatinine 0.8 mg/dL (0.55-1.3) 02/23/18 07:20 Creat Clearance w eGFR > 60 (>60) 02/23/18 07:20 Random Glucose 109 mg/dL (74-106) H 02/23/18 07:20 Calcium 8.1 mg/dL (8.5-10.1) L 02/23/18 07:20 Total Bilirubin 0.6 mg/dL (0.2-1) 02/23/18 07:20 AST 17 U/L (15-37) 02/23/18 07:20 ALT 25 U/L (13-61) 02/23/18 07:20 Alkaline Phosphatase 80 U/L (45-117) 02/23/18 07:20 Total Protein 6.9 g/dl (6.4-8.2) 02/23/18 07:20 Albumin 3.4 g/dl (3.4-5.0) 02/23/18 07:20 RPR Titer Nonreactive (NONREACTIVE) 02/23/18 07:20 lab noted Assessment: 02/23/18 14:35 withdrawal sx Plan: continue detox
[2018-02-23] MEDS: THIAMINE HCL 100 MG TABLET (FP) PO SCH (22:24)
[2018-02-24] MEDS: chlordiazePOXIDE HCL 25 MG CAPSULE PO SCH ×3 (07:23→17:26)
[2018-02-24] MEDS: NICOTINE 21 MG/24 HOURS TOPICAL PATCH TD SCH (12:24)
[2018-02-24] MEDS: PRENATAL VITAMINS W/ FOLIC ACID TABLET (FP) PO SCH (12:24)
--- NOTE | 2018-02-24 12:43 | PN ---
S CIWA - CIWA Score Nausea/Vomitin-No Nausea/No Vomiting Muscle Tremors: 1-None Visible, but [place] Anxiety: 2 Agitation: 2 Paroxysmal Sweats: 3 Orientation: 0-Oriented Tacttile Disturbances: 0-None Auditory Disturbances: 0-None Visual Disturbances: 0-None Headache: 0-None Present CIWA-Ar Total Score: 8 BHS Progress Note (SOAP) Subjective: PATIENT WITH SHAKES AND SWEATING. Objective: 02/24/18 12:40 Vital Signs Temperature 98.7 F 02/24/18 09:36 Pulse Rate 75 02/24/18 09:36 Respiratory Rate 20 02/24/18 09:36 Blood Pressure 144/76 02/24/18 09:36 O2 Sat by Pulse Oximetry (%) Laboratory Tests 02/23/18 02/23/18 02/23/18 07:20 07:20 07:20 WBC 8.7 RBC 5.50 Hgb 15.2 Hct 46.4 MCV 84.4 MCH 27.6 MCHC 32.7 RDW 14.3 Plt Count 170 MPV 9.9 Sodium 137 Potassium 3.9 Chloride 104 Carbon Dioxide 28 Anion Gap 6 L BUN 16 Creatinine 0.8 Creat Clearance w eGFR > 60 Random Glucose 109 H Calcium 8.1 L Total Bilirubin 0.6 AST 17 ALT 25 Alkaline Phosphatase 80 Total Protein 6.9 Albumin 3.4 RPR Titer Nonreactive SKIN WARM AND MOIST, +FLUSHING CAR S1S2 RESP CTA BL EXT FULL ROM Assessment: 02/24/18 12:42 WITHDRAWAL SX Plan: CONTINUE DETOX ORDERED CONTINUE TO MONITOR
[2018-02-24] MEDS: chlordiazePOXIDE 5 MG CAPSULE PO SCH (22:42)
[2018-02-24] MEDS: THIAMINE HCL 100 MG TABLET (FP) PO SCH (22:42)
[2018-02-24] MEDS: MELATONIN 5 MG TABLETS PO PRN (22:43)
[2018-02-24 23:45] LABS: URINE APPEARANCE CLEAR; URINE BILIRUBIN NEGATIVE (<2.0 mg/dL); URINE COLOR LTYELLOW; URINE GLUCOSE (UA) NEGATIVE (NEGATIVE); URINE KETONE NEGATIVE (NEGATIVE); URINE LEUK ESTERASE NEGATIVE (NEGATIVE); URINE NITRITE NEGATIVE (NEGATIVE); URINE PROTEIN NEGATIVE (NEGATIVE); URINE UROBILINOGEN NEGATIVE mg/dL (0.2-1.0)
[2018-02-25] MEDS: chlordiazePOXIDE 5 MG CAPSULE PO SCH ×3 (06:13→18:30)
--- NOTE | 2018-02-25 10:40 | PN ---
[facility] Progress Note (SOAP) Subjective: interrupted sleep, shakes, nausea Objective: 02/25/18 10:36 Vital Signs Temperature 97.7 F 02/25/18 09:29 Pulse Rate 87 02/25/18 09:29 Respiratory Rate 18 02/25/18 09:29 Blood Pressure 121/81 02/25/18 09:29 O2 Sat by Pulse Oximetry (%) Laboratory Tests 02/23/18 02/23/18 02/23/18 07:20 07:20 07:20 WBC 8.7 RBC 5.50 Hgb 15.2 Hct 46.4 MCV 84.4 MCH 27.6 MCHC 32.7 RDW 14.3 Plt Count 170 MPV 9.9 Sodium 137 Potassium 3.9 Chloride 104 Carbon Dioxide 28 Anion Gap 6 L BUN 16 Creatinine 0.8 Creat Clearance w eGFR > 60 Random Glucose 109 H Calcium 8.1 L Total Bilirubin 0.6 AST 17 ALT 25 Alkaline Phosphatase 80 Total Protein 6.9 Albumin 3.4 Urine Color Urine Appearance Urine pH Ur Specific [place] Urine Protein Urine Glucose (UA) Urine Ketones Urine Blood Urine Nitrite Urine Bilirubin Urine Urobilinogen Ur Leukocyte Esterase RPR Titer Nonreactive 02/24/18 Unknown WBC RBC Hgb Hct MCV MCH MCHC RDW Plt Count MPV Sodium Potassium Chloride Carbon Dioxide Anion Gap BUN Creatinine Creat Clearance w eGFR Random Glucose Calcium Total Bilirubin AST ALT Alkaline Phosphatase Total Protein Albumin Urine Color Ltyellow Urine Appearance Clear Urine pH 6.0 Ur Specific [place] 1.018 Urine Protein Negative Urine Glucose (UA) Negative Urine Ketones Negative Urine Blood Negative Urine Nitrite Negative Urine Bilirubin Negative Urine Urobilinogen Negative Ur Leukocyte Esterase Negative RPR Titer pt aox3 in nad ambulating Assessment: 02/25/18 10:37 withdrawal sx's Plan: cont. detox increase fluids
[2018-02-25] MEDS: NICOTINE 21 MG/24 HOURS TOPICAL PATCH TD SCH (10:53)
[2018-02-25] MEDS: PRENATAL VITAMINS W/ FOLIC ACID TABLET (FP) PO SCH (10:53)
[2018-02-25] MEDS ORDERED: BACITRACIN 0.9 GM PACKET TP SCH (22:00)
[2018-02-25] MEDS: MELATONIN 5 MG TABLETS PO PRN (22:03)
[2018-02-25] MEDS: chlordiazePOXIDE HCL 10 MG CAPSULE PO SCH (22:03)
[2018-02-25] MEDS: THIAMINE HCL 100 MG TABLET (FP) PO SCH (22:03)
[2018-02-25 22:20] VITALS: TEMP 97.5
[2018-02-26] MEDS: chlordiazePOXIDE HCL 10 MG CAPSULE PO SCH (06:30)
[2018-02-26 07:48] VITALS: BP 149/95; PULSE 84
--- NOTE | 2018-02-26 08:53 | DS ---
[facility] Detox Discharge Summary Admission Date: 02/22/18 Discharge Date: 02/26/18 - History Present History: Alcohol Dependence Additional Comments: 48 years old male admitted on 02/22/18 for alcohol withdrawal sx completed alcohol detox regimen tolerated well denies alcohol withdrawal sx alert oriented x 3 no acute distress aftercare [facility] - Physical Exam Results Vital Signs: Vital Signs Temperature 97.5 F L 02/26/18 07:12 Pulse Rate 84 02/26/18 07:47 Respiratory Rate 20 02/26/18 07:47 Blood Pressure 149/95 02/26/18 07:47 O2 Sat by Pulse Oximetry (%) Pertinent Admission Physical Exam Findings: alcohol withdrawal sx Vital Signs Temperature 97.5 F L 02/26/18 07:12 Pulse Rate 84 02/26/18 07:47 Respiratory Rate 20 02/26/18 07:47 Blood Pressure 149/95 02/26/18 07:47 O2 Sat by Pulse Oximetry (%) Laboratory Last Values WBC 8.7 K/mm3 (4.0-10.0) 02/23/18 07:20 RBC 5.50 M/mm3 (4.00-5.60) 02/23/18 07:20 Hgb 15.2 GM/dL (11.7-16.9) 02/23/18 07:20 Hct 46.4 % (35.4-49) 02/23/18 07:20 MCV 84.4 fl (80-96) 02/23/18 07:20 MCH 27.6 pg (25.7-33.7) 02/23/18 07:20 MCHC 32.7 g/dl (32.0-35.9) 02/23/18 07:20 RDW 14.3 % (11.9-15.9) 02/23/18 07:20 Plt Count 170 K/MM3 (134-434) 02/23/18 07:20 MPV 9.9 fl (7.5-11.1) 02/23/18 07:20 Sodium 137 mmol/L (136-145) 02/23/18 07:20 Potassium 3.9 mmol/L (3.5-5.1) 02/23/18 07:20 Chloride 104 mmol/L (98-107) 02/23/18 07:20 Carbon Dioxide 28 mmol/L (21-32) 02/23/18 07:20 Anion Gap 6 MMOL/L (8-16) L 02/23/18 07:20 BUN 16 mg/dL (7-18) 02/23/18 07:20 Creatinine 0.8 mg/dL (0.55-1.3) 02/23/18 07:20 Creat Clearance w eGFR > 60 (>60) 02/23/18 07:20 Random Glucose 109 mg/dL (74-106) H 02/23/18 07:20 Calcium 8.1 mg/dL (8.5-10.1) L 02/23/18 07:20 Total Bilirubin 0.6 mg/dL (0.2-1) 02/23/18 07:20 AST 17 U/L (15-37) 02/23/18 07:20 ALT 25 U/L (13-61) 02/23/18 07:20 Alkaline Phosphatase 80 U/L (45-117) 02/23/18 07:20 Total Protein 6.9 g/dl (6.4-8.2) 02/23/18 07:20 Albumin 3.4 g/dl (3.4-5.0) 02/23/18 07:20 Urine Color Ltyellow 02/24/18 Unknown Urine Appearance Clear 02/24/18 Unknown Urine pH 6.0 (5.0-8.0) 02/24/18 Unknown Ur Specific [place] 1.018 (1.010-1.035) 02/24/18 Unknown Urine Protein Negative (NEGATIVE) 02/24/18 Unknown Urine Glucose (UA) Negative (NEGATIVE) 02/24/18 Unknown Urine Ketones Negative (NEGATIVE) 02/24/18 Unknown Urine Blood Negative (NEGATIVE) 02/24/18 Unknown Urine Nitrite Negative (NEGATIVE) 02/24/18 Unknown Urine Bilirubin Negative (<2.0 mg/dL) 02/24/18 Unknown Urine Urobilinogen Negative mg/dL (0.2-1.0) 02/24/18 Unknown Ur Leukocyte Esterase Negative (NEGATIVE) 02/24/18 Unknown RPR Titer Nonreactive (NONREACTIVE) 02/23/18 07:20 lab noted calcium rich food - Treatment Hospital Course: Detox Protocol Followed, Detoxed Safely, Responded well, Discharged Condition Good, Rehab Referral Accepted Patient has Accepted a Rehab Referral to: [facility] - Medication Discharge Medications: Ambulatory Orders NK [No Known Home Medication] 11/04/17 - Diagnosis (1) Alcohol dependence with withdrawal Status: Acute Qualifiers: Complication of substance-induced condition: uncomplicated (2) Hypertension Status: Chronic Qualifiers: Hypertension type: essential hypertension Qualified Code(s): I10 - Essential (primary) hypertension (3) Nicotine dependence Status: Acute Qualifiers: Nicotine product type: cigarettes Substance use status: in withdrawal Qualified Code(s): F17.213 - Nicotine dependence, cigarettes, with withdrawal - AMA Did Patient Leave Against Medical Advice: No
== END 2018-02-26 08:59 | disposition home or self-care (01) | DRG 774 ==
LOC: YASAS 16:54 → Y6N 20:51
PROC: HZ2ZZZZ Detoxification Services for Substance Abuse Treatment (ICD-10-PCS; principal; 2018-02-22)
DX: F10.230 Alcohol dependence with withdrawal, uncomplicated (principal); F14.20 Cocaine dependence, uncomplicated; F17.213 Nicotine dependence, cigarettes, with withdrawal; I10 Essential (primary) hypertension; R00.0 Tachycardia, unspecified; Z86.69 Personal history of other diseases of the nervous system and sense organs
CPT/HCPCS: 36415; 80053; 81003; 85027; 86593

== ENCOUNTER 2018-06-03 13:51 | Inpatient (IN) | payer OTHER ==
[2018-06-03 14:27] VITALS: BMI 30.1
--- NOTE | 2018-06-03 15:01 | HP ---
CIWA Score Nausea/Vomitin-Mild Nausea/No Vomiting Muscle Tremors: 4-Moderate,w/Arms Extend Anxiety: 3 Agitation: 3 Paroxysmal Sweats: 1-Minimal Palms Moist Orientation: 1-Uncertain about Date Tacttile Disturbances: 0-None Auditory Disturbances: 0-None Visual Disturbances: 0-None Headache: 0-None Present CIWA-Ar Total Score: 13 - Admission Criteria OASAS Guidelines: Admission for Medically Managed Detox: Requires at least one of the followin. CIWA greater than 12 2. Seizures within the past 24 hours 3. Delirium tremens within the past 24 hours 4. Hallucinations within the past 24 hours 5. Acute intervention needed for co occurring medical disorder 6. Acute intervention needed for co occurring psychiatric disorder 7. Severe withdrawal that cannot be handled at a lower level of care (continued vomiting, continued diarrhea, abnormal vital signs) requiring intravenous medication and/or fluids 8. Patient presents the following: Seizures, delirium tremens or hallucinations in the past 12 hours Admission Criteria Met: Admission criteria met Admission ROS S - HPI Chief Complaint: alcohol withdrawal sx Allergies/Adverse Reactions: Allergies Allergy/AdvReac Type Severity Reaction Status Date / Time No Known Allergies Allergy Verified 02/22/18 20:25 History of Present Illness: 48 years old male with long history of alcohol misuse beer 40 oz x 24 can / cognac 1 pint since age 13 last drink 06/03/18 taking claritin for running nose and "sometimes has elevated blood pressure" no taking antihypertensant medication denies mental illness denies taking psychotropic medication alcohol withdrawal induced seizure early 2017 no follow up treatment Exam Limitations: No Limitations - Ebola screening Have you traveled outside of the country in the last 21 days: No Have you had contact with anyone from an Ebola affected area: No Have you been sick,other than usual withdrawal symptoms: No Do you have a fever: No - Review of Systems Constitutional: See HPI, Changes in sleep EENT: reports: No Symptoms Reported Respiratory: reports: SOB with Exertion Cardiac: reports: No Symptoms Reported GI: reports: Nausea, Poor Fluid Intake, Indigestion, Abdominal cramping : reports: No Symptoms Reported Musculoskeletal: reports: Back Pain, Joint Pain (legs arms), Muscle Pain ( scoliosis) Integumentary: reports: No Symptoms Reported Neuro: reports: Seizure (2018), Tremors Endocrine: reports: No Symptoms Reported Hematology: reports: No Symptoms Reported Psychiatric: reports: Judgement Intact, Anxious, Depressed Other Systems: Reviewed and Negative Patient History - Patient Medical History Hx Anemia: No Hx Asthma: No Hx Chronic Obstructive Pulmonary Disease (COPD): No Hx Cancer: No Hx Cardiac Disorders: No Hx Congestive Heart Failure: No Hx Hypertension: No Hx Hypercholesterolemia: Yes (no treatment) Hx Pacemaker: No HX Cerebrovascular Accident: No Hx Seizures: Yes (WITHDRAWAL SEIZURES - LAST EPISODE 2 WKS AGO) Hx Dementia: No Hx Diabetes: No Hx Gastrointestinal Disorders: No Hx Liver Disease: No Hx Genitourinary Disorders: No Hx Sexually Transmitted Disorders: No Hx Renal Disease (ESRD): No Hx Thyroid Disease: No Hx Human Immunodeficiency Virus (HIV): No Hx Hepatitis C: No Hx Depression: No Hx Suicide Attempt: No Hx Bipolar Disorder: No Hx Schizophrenia: No - Patient Surgical History Past Surgical History: No Hx Neurologic Surgery: No Hx Cataract Extraction: No Hx Cardiac Surgery: No Hx Lung Surgery: No Hx Breast Surgery: No Hx Breast Biopsy: No Hx Abdominal Surgery: No Hx Appendectomy: No Hx Cholecystectomy: No Hx Genitourinary Surgery: No Hx Orthopedic Surgery: No Anesthesia Reaction: No - PPD History Previous Implant?: Yes Documented Results: Negative w/proof Implanted On Prior R Admission?: No Date: 11/07/17 PPD to be Administered?: No - Smoking Cessation Smoking history: Current some day smoker Have you smoked in the past 12 months: Yes Aproximately how many cigarettes per day: 20 Hx Chewing Tobacco Use: No Initiated information on smoking cessation: Yes 'Breaking Loose' booklet given: 06/03/18 - Substance & Tx. History Hx Alcohol Use: Yes Hx Substance Use: Yes Substance Use Type: Alcohol, Cocaine Hx Substance Use Treatment: Yes (02/2018) - Substances Abused Alcohol Route: Oral Frequency: Daily Amount used: beer 40oz x 24 Age of first use: 13 Date of Last Use: 06/03/18 Cocaine Route: Inhalation Frequency: 1-2 times per week Amount used: 50$ Age of first use: 13 Date of Last Use: 06/02/18 Family Disease History - Family Disease History Family Disease History: Other: Father (alive, hx of chronic alcoholism ), Mother (, HIV) Admission Physical Exam [facility] - Vital Signs Vital Signs: Vital Signs - 24 hr 06/03/18 14:25 Temperature 98.0 F Pulse Rate 84 Respiratory 18 Rate Blood Pressure 158/96 - Physical General Appearance: Yes: Nourished, Appropriately Dressed, Mild Distress, Alcohol on Breath, Tremorous, Irritable, Sweating, Anxious HEENTM: Yes: Hearing grossly Normal, Normocephalic, Normal Voice Respiratory: Yes: Chest Non-Tender, Lungs Clear, Normal Breath Sounds, No Respiratory Distress, No Accessory Muscle Use Neck: Yes: Supple, Trachea in good position Breast: Yes: Breasts Symetrical, No Discharge Cardiology: Yes: Regular Rate, S1, S2 Abdominal: Yes: Non Tender, Soft, Increased Bowel Sounds Genitourinary: Yes: Within Normal Limits Back: Yes: Normal Inspection Musculoskeletal: Yes: full range of Motion, Gait Steady, Back pain, Muscle Pain Extremities: Yes: Normal Inspection, Normal Range of Motion, Non-Tender, Tremors Neurological: Yes: Alert, Motor Strength 5/5, Normal Response, Depressed Affect Integumentary: Yes: Normal Color, Warm Lymphatic: Yes: Within Normal Limits - Diagnostic (1) Seasonal allergic rhinitis Current Visit: Yes Status: Chronic (2) Alcohol dependence with withdrawal Current Visit: Yes Status: Acute Qualifiers: Complication of substance-induced condition: uncomplicated (3) Nicotine dependence Current Visit: Yes Status: Acute Qualifiers: Nicotine product type: cigarettes Substance use status: in withdrawal Qualified Code(s): F17.213 - Nicotine dependence, cigarettes, with withdrawal (4) Cocaine dependence Current Visit: Yes Status: Chronic Qualifiers: Substance use status: uncomplicated (5) Hypertension Current Visit: Yes Status: Chronic Qualifiers: Hypertension type: essential hypertension Qualified Code(s): I10 - Essential (primary) hypertension Cleared for Admission [facility] - Detox or Rehab [facility] Level of Care: Medically Managed Detox Regimen/Protocol: Librium [facility] Breath Alcohol Content Breath Alcohol Content: 0.074 Urine Drug Screen - Results Drug Screen Negative: No Urine Drug Screen Results: RICKI-Cocaine
[2018-06-03] MEDS ORDERED: NICOTINE POLACRILEX 4 MG GUM BC PRN (15:23)
[2018-06-03] MEDS ORDERED: MENTHOL/PHENOL 1 EACH UD MM PRN (15:23)
[2018-06-03] MEDS ORDERED: ACETAMINOPHEN 325 MG TABLET (FP) PO PRN (15:23)
[2018-06-03] MEDS ORDERED: LOPERAMIDE HCL 2 MG CAPSULE PO PRN (15:23)
[2018-06-03] MEDS ORDERED: IBUPROFEN 400 MG TABLET (FP) PO PRN (15:23)
[2018-06-03] MEDS ORDERED: guaiFENesin/D-METHORPHAN HB 10 ML UNIT-DOSE CUPS PO PRN (15:23)
[2018-06-03] MEDS ORDERED: P-EPHED 60MG/TRIPROLIDI 2.5MG TABLET PO PRN (15:23)
[2018-06-03] MEDS ORDERED: MAGNESIUM HYDROX 2400MG/30ML ORAL SUSPENSION 30 ML CUP PO PRN (15:23)
[2018-06-03] MEDS ORDERED: MAGNESIUM CITRATE 300 ML BOTTLE PO PRN (15:23)
[2018-06-03] MEDS ORDERED: MAG HYDROX/AL HYDROX/SIMETH 30 ML UNIT-DOSE CUP PO PRN (15:23)
[2018-06-03] MEDS ORDERED: chlordiazePOXIDE HCL 25 MG CAPSULE PO PRN (15:23)
[2018-06-03] MEDS: chlordiazePOXIDE HCL 25 MG CAPSULE PO SCH ×2 (18:22→23:44)
[2018-06-03] MEDS: LISINOPRIL 20 MG TABLET (FP) PO SCH (18:23)
[2018-06-03] MEDS: NICOTINE 21 MG/24 HOURS TOPICAL PATCH TD SCH (18:23)
[2018-06-03] MEDS: LORATADINE 10 MG TABLET PO SCH (18:23)
[2018-06-03] MEDS ORDERED: MELATONIN 5 MG TABLETS PO PRN (22:00)
[2018-06-03] MEDS: THIAMINE HCL 100 MG TABLET (FP) PO SCH (23:44)
[2018-06-04] MEDS: chlordiazePOXIDE HCL 25 MG CAPSULE PO SCH ×4 (05:09→22:31)
[2018-06-04 10:30] LABS: HEMATOCRIT 44.1 % (35.4-49); MCH 29.7 pg (25.7-33.7); MCHC 34.1 g/dl (32.0-35.9); PLATELET COUNT 195 K/MM3 (134-434); RBC 5.07 M/mm3 (4.00-5.60); RDW 14.7 % (11.9-15.9); WHITE BLOOD COUNT 12.2 K/mm3 (4.0-10.0)
--- NOTE | 2018-06-04 10:42 | PN ---
S CIWA - CIWA Score Nausea/Vomitin-No Nausea/No Vomiting Muscle Tremors: 4-Moderate,w/Arms Extend Anxiety: 3 Agitation: 3 Paroxysmal Sweats: 3 Orientation: 0-Oriented Tacttile Disturbances: 0-None Auditory Disturbances: 0-None Visual Disturbances: 0-None Headache: 0-None Present CIWA-Ar Total Score: 13 [facility] Progress Note (SOAP) Subjective: sweats tired sleepy interrupted sleep irritable nausea i have a rash on the shaft of my private area (penis) Objective: 06/04/18 10:38 Vital Signs Temperature 97.9 F 06/04/18 09:28 Pulse Rate 80 06/04/18 09:28 Respiratory Rate 18 06/04/18 09:28 Blood Pressure 140/73 06/04/18 09:28 O2 Sat by Pulse Oximetry (%) Laboratory Tests 06/04/18 06:00 WBC 12.2 H RBC 5.07 Hgb 15.0 Hct 44.1 MCV 87.0 MCH 29.7 MCHC 34.1 RDW 14.7 Plt Count 195 MPV 11.0 D labs pending aaox3 ambulating no acute distress Assessment: 06/04/18 10:42 withdrawal sx Plan: continue detox increase fluids nystatin cream labs pending
[2018-06-04] MEDS: PRENATAL VITAMINS W/ FOLIC ACID TABLET (FP) PO SCH (10:56)
[2018-06-04] MEDS: LORATADINE 10 MG TABLET PO SCH (10:56)
[2018-06-04] MEDS: NICOTINE 21 MG/24 HOURS TOPICAL PATCH TD SCH (10:56)
[2018-06-04] MEDS: LISINOPRIL 20 MG TABLET (FP) PO SCH (10:59)
[2018-06-04] MEDS ORDERED: ONDANSETRON *ODT* 4 MG TABLET SL PRN (11:06)
[2018-06-04 11:13] LABS: ALBUMIN 4.1 g/dl (3.4-5.0); ALK PHOS 93 U/L (45-117); ANION GAP 9 MMOL/L (8-16); BILIRUBIN,TOTAL 0.5 mg/dL (0.2-1); BLOOD UREA NITROGEN 9 mg/dL (7-18); CHLORIDE 104 mmol/L (98-107); CO2 26 mmol/L (21-32); CREATININE 0.8 mg/dL (0.55-1.3); GLUCOSE,RANDOM 101 mg/dL (74-106); SGOT/AST 21 U/L (15-37); SGPT/ALT 36 U/L (13-61); SODIUM 140 mmol/L (136-145)
[2018-06-04] MEDS: NYSTATIN/TRIAMCINOLONE TOPICAL CREAM 15 GM TUBE TP SCH ×2 (13:19→22:30)
[2018-06-04] MEDS: THIAMINE HCL 100 MG TABLET (FP) PO SCH (22:30)
[2018-06-05] MEDS: chlordiazePOXIDE HCL 25 MG CAPSULE PO SCH ×2 (07:36→10:09)
[2018-06-05] MEDS: LORATADINE 10 MG TABLET PO SCH (10:09)
[2018-06-05] MEDS: PRENATAL VITAMINS W/ FOLIC ACID TABLET (FP) PO SCH (10:09)
[2018-06-05] MEDS: LISINOPRIL 20 MG TABLET (FP) PO SCH (10:09)
[2018-06-05] MEDS: NICOTINE 21 MG/24 HOURS TOPICAL PATCH TD SCH (10:09)
[2018-06-05] MEDS: NYSTATIN/TRIAMCINOLONE TOPICAL CREAM 15 GM TUBE TP SCH ×2 (10:10→23:22)
--- NOTE | 2018-06-05 12:00 | PN ---
[facility] CIWA - CIWA Score Nausea/Vomitin-No Nausea/No Vomiting Muscle Tremors: 3 Anxiety: 3 Agitation: 3 Paroxysmal Sweats: 2 Orientation: 0-Oriented Tacttile Disturbances: 0-None Auditory Disturbances: 0-None Visual Disturbances: 0-None Headache: 0-None Present CIWA-Ar Total Score: 11 S Progress Note (SOAP) Subjective: tired feeling much better some sweats Objective: 06/05/18 11:58 Vital Signs Temperature 98.8 F 06/05/18 09:56 Pulse Rate 76 06/05/18 09:56 Respiratory Rate 16 06/05/18 09:56 Blood Pressure 147/91 06/05/18 09:56 O2 Sat by Pulse Oximetry (%) Laboratory Tests 06/04/18 06/04/18 06/04/18 06:00 06:00 06:00 WBC 12.2 H RBC 5.07 Hgb 15.0 Hct 44.1 MCV 87.0 MCH 29.7 MCHC 34.1 RDW 14.7 Plt Count 195 MPV 11.0 D Sodium 140 Potassium 4.0 Chloride 104 Carbon Dioxide 26 Anion Gap 9 BUN 9 Creatinine 0.8 Creat Clearance w eGFR > 60 Random Glucose 101 Calcium 9.0 Total Bilirubin 0.5 AST 21 ALT 36 Alkaline Phosphatase 93 Total Protein 8.0 Albumin 4.1 RPR Titer Nonreactive aaox3 ambulating no acute distress Assessment: 06/05/18 11:59 withdrawal sx Plan: continue detox increase fluids
[2018-06-05] MEDS ORDERED: CYCLOBENZAPRINE HCL 10 MG TABLET (FP) PO PRN (15:53)
[2018-06-05] MEDS: chlordiazePOXIDE 5 MG CAPSULE PO SCH ×2 (17:27→23:22)
[2018-06-05] MEDS: THIAMINE HCL 100 MG TABLET (FP) PO SCH (23:22)
[2018-06-06] MEDS: chlordiazePOXIDE 5 MG CAPSULE PO SCH (06:23)
[2018-06-06 06:48] VITALS: BP 146/60; PULSE 64; TEMP 97
[2018-06-06] MEDS: PRENATAL VITAMINS W/ FOLIC ACID TABLET (FP) PO SCH (09:55)
[2018-06-06] MEDS: LISINOPRIL 20 MG TABLET (FP) PO SCH (09:55)
[2018-06-06] MEDS: NYSTATIN/TRIAMCINOLONE TOPICAL CREAM 15 GM TUBE TP SCH (09:56)
[2018-06-06] MEDS: LORATADINE 10 MG TABLET PO SCH (09:56)
[2018-06-06] MEDS: NICOTINE 21 MG/24 HOURS TOPICAL PATCH TD SCH (09:56)
--- NOTE | 2018-06-06 15:30 | DS ---
[facility] Detox Discharge Summary Admission Date: 06/03/18 Discharge Date: 06/06/18 - History Present History: Alcohol Dependence Pertinent Past History: Hypercholesteremia, seizures related to withdrawal - Physical Exam Results Vital Signs: Vital Signs Temperature 97 F L 06/06/18 06:48 Pulse Rate 64 06/06/18 06:48 Respiratory Rate 18 06/06/18 06:48 Blood Pressure 146/60 06/06/18 06:48 O2 Sat by Pulse Oximetry (%) Pertinent Admission Physical Exam Findings: Withdrawal sx Laboratory Last Values WBC 12.2 K/mm3 (4.0-10.0) H 06/04/18 06:00 RBC 5.07 M/mm3 (4.00-5.60) 06/04/18 06:00 Hgb 15.0 GM/dL (11.7-16.9) 06/04/18 06:00 Hct 44.1 % (35.4-49) 06/04/18 06:00 MCV 87.0 fl (80-96) 06/04/18 06:00 MCH 29.7 pg (25.7-33.7) 06/04/18 06:00 MCHC 34.1 g/dl (32.0-35.9) 06/04/18 06:00 RDW 14.7 % (11.9-15.9) 06/04/18 06:00 Plt Count 195 K/MM3 (134-434) 06/04/18 06:00 MPV 11.0 fl (7.5-11.1) D 06/04/18 06:00 Sodium 140 mmol/L (136-145) 06/04/18 06:00 Potassium 4.0 mmol/L (3.5-5.1) 06/04/18 06:00 Chloride 104 mmol/L (98-107) 06/04/18 06:00 Carbon Dioxide 26 mmol/L (21-32) 06/04/18 06:00 Anion Gap 9 MMOL/L (8-16) 06/04/18 06:00 BUN 9 mg/dL (7-18) 06/04/18 06:00 Creatinine 0.8 mg/dL (0.55-1.3) 06/04/18 06:00 Creat Clearance w eGFR > 60 (>60) 06/04/18 06:00 Random Glucose 101 mg/dL (74-106) 06/04/18 06:00 Calcium 9.0 mg/dL (8.5-10.1) 06/04/18 06:00 Total Bilirubin 0.5 mg/dL (0.2-1) 06/04/18 06:00 AST 21 U/L (15-37) 06/04/18 06:00 ALT 36 U/L (13-61) 06/04/18 06:00 Alkaline Phosphatase 93 U/L (45-117) 06/04/18 06:00 Total Protein 8.0 g/dl (6.4-8.2) 06/04/18 06:00 Albumin 4.1 g/dl (3.4-5.0) 06/04/18 06:00 RPR Titer Nonreactive (NONREACTIVE) 06/04/18 06:00 Labs noted - Medication Discharge Medications: Ambulatory Orders NK [No Known Home Medication] 11/04/17 - Diagnosis (1) Alcohol dependence with withdrawal Status: Acute Qualifiers: Complication of substance-induced condition: uncomplicated (2) Back pain Status: Acute Qualifiers: Back pain location: low back pain Chronicity: acute Back pain laterality : midline Sciatica presence: without sciatica Qualified Code(s): M54.5 - Low back pain (3) Nicotine dependence Status: Acute Qualifiers: Nicotine product type: cigarettes Substance use status: in withdrawal Qualified Code(s): F17.213 - Nicotine dependence, cigarettes, with withdrawal (4) Cocaine dependence Status: Chronic Qualifiers: Substance use status: uncomplicated (5) Hypertension Status: Chronic Qualifiers: Hypertension type: essential hypertension Qualified Code(s): I10 - Essential (primary) hypertension (6) Hypercholesteremia Status: Acute - AMA Did Patient Leave Against Medical Advice: Yes
[2018-06-06] MEDS ORDERED: chlordiazePOXIDE HCL 10 MG CAPSULE PO SCH (17:00)
== END 2018-06-06 09:57 | disposition left against medical advice (07) | DRG 770 ==
LOC: YASAS 13:51 → Y6N 17:16
PROVIDERS: ADMIT Neuromusculoskeletal Medicine & OMM; ATTEND Neuromusculoskeletal Medicine & OMM
PROC: HZ2ZZZZ Detoxification Services for Substance Abuse Treatment (ICD-10-PCS; principal; 2018-06-03)
DX: F10.230 Alcohol dependence with withdrawal, uncomplicated (principal); F14.20 Cocaine dependence, uncomplicated; F17.213 Nicotine dependence, cigarettes, with withdrawal; I10 Essential (primary) hypertension; E78.00 Pure hypercholesterolemia, unspecified; M54.5 Low back pain; N48.89 Other specified disorders of penis; J30.2 Other seasonal allergic rhinitis; Z86.69 Personal history of other diseases of the nervous system and sense organs
CPT/HCPCS: 36415; 80053; 85027; 86593

== ENCOUNTER 2018-07-03 14:37 | Inpatient (IN) | payer OTHER ==
--- NOTE | 2018-07-03 20:57 | HP ---
CIWA Score Nausea/Vomitin Muscle Tremors: 7-Severe,w/o Arm Extended Anxiety: 4-Mod. Anxious/Guarded Agitation: 4-Moderately Restless Paroxysmal Sweats: 3 (Increased facial moisture) Orientation: 2-Disoriented Date<2 days Tacttile Disturbances: 0-None Auditory Disturbances: 0-None Visual Disturbances: 0-None Headache: 2-Mild CIWA-Ar Total Score: 25 - Admission Criteria OASAS Guidelines: Admission for Medically Managed Detox: Requires at least one of the followin. CIWA greater than 12 2. Seizures within the past 24 hours 3. Delirium tremens within the past 24 hours 4. Hallucinations within the past 24 hours 5. Acute intervention needed for co occurring medical disorder 6. Acute intervention needed for co occurring psychiatric disorder 7. Severe withdrawal that cannot be handled at a lower level of care (continued vomiting, continued diarrhea, abnormal vital signs) requiring intravenous medication and/or fluids 8. Patient presents the following: CIWA greater than 12 Admission Criteria Met: Admission criteria met Admission ROS S - [facility] Chief Complaint: Here wioth alcohol withdrawal symptoms. Allergies/Adverse Reactions: Allergies Allergy/AdvReac Type Severity Reaction Status Date / Time No Known Allergies Allergy Verified 07/03/18 21:19 History of Present Illness: States I came for detox, but I'm not sure if I want to stay. Alcohol use since age 13. Drinks as much as can get. Nicotine use since age 13. Cocaine use - intermittent since age 20. UDS positive for cocaine and benzo's. Hx seizures - last 1 year ago. Hx Blackouts. Longest length of sobriety less than 1 week. States family stress and anger triggers relapse. PMH: HTN (sometimes), Arthritis - generalized, Takes oxycodone for pain. Frequent SOB relieved w/ inhaler. (medicates self using unprescribed MDI) States never told he has asthma or given a precription for asthma or COPD meds. Hands swollen x 1 day. Denies current medications. MHHx: Denies depression, thoughts of harming self or others. Last EKG 11/2017 @ [facility] abnormal: Patient's tremors are extensive, will order EKG for am. Patient Name: Jorge Dhillon Date: 1970 Address: [address] [place] [address] Sex: Male Rx Written Rx Dispensed Drug Quantity Days Supply Prescriber Name 05/06/2018 05/06/2018 oxycodone-acetaminophen 10-325 mg tab 90 30 Jonathan Goodman M D 04/06/2018 04/06/2018 oxycodone-acetaminophen 10-325 mg tab 90 30 Jonathan Goodman M D 03/06/2018 03/06/2018 oxycodone-acetaminophen 10-325 mg tab 90 30 Jonathan Goodman M D 02/03/2018 02/04/2018 oxycodone-acetaminophen 10-325 mg tab 90 30 Jonathan Goodman M D 12/25/2017 12/26/2017 oxycodone-acetaminophen 10-325 mg tab 60 30 Jonathan Goodman M D Patient Name: Jorge Dhillon Date: 1970 Address: [address] [place] [address] Sex: Male Rx Written Rx Dispensed Drug Quantity Days Supply Prescriber Name 10/10/2017 10/13/2017 oxycodone hcl 15 mg tablet 60 30 Rodríguez Estrada MD 09/09/2017 09/10/2017 oxycodone hcl 15 mg tablet 60 30 Rodríguez Estrada MD 08/12/2017 08/12/2017 oxycodone hcl 15 mg tablet 60 30 Rodríguez Estrada MD 07/08/2017 07/12/2017 oxycodone hcl 15 mg tablet 60 30 Rodríguez Estrada MD Exam Limitations: No Limitations - Ebola screening Have you traveled outside of the country in the last 21 days: No Have you had contact with anyone from an Ebola affected area: No Have you been sick,other than usual withdrawal symptoms: No Do you have a fever: No - Review of Systems Constitutional: Diaphoresis, Changes in sleep (Difficulty falling and staying asleep) EENT: reports: Blurred Vision Respiratory: reports: Shortness of Breath (State throat locks up sometimes) Cardiac: reports: Edema (My hands are swollen x 1 day.) GI: reports: Diarrhea, Nausea, Vomiting : reports: No Symptoms Reported Musculoskeletal: reports: No Symptoms Reported Integumentary: reports: No Symptoms Reported Neuro: reports: Headache, Tremors Endocrine: reports: Intolerance to Heat, Increased Thirst Hematology: reports: No Symptoms Reported Psychiatric: reports: Judgement Intact, Agitated, Anxious, Disorientated Patient History - Patient Medical History Hx Anemia: No Hx Asthma: No Hx Chronic Obstructive Pulmonary Disease (COPD): No Hx Cancer: No Hx Cardiac Disorders: No Hx Congestive Heart Failure: No Hx Hypertension: No Hx Hypercholesterolemia: Yes (no treatment) Hx Pacemaker: No HX Cerebrovascular Accident: No Hx Seizures: Yes (WITHDRAWAL SEIZURES - LAST EPISODE 2 WKS AGO) Hx Dementia: No Hx Diabetes: No Hx Gastrointestinal Disorders: No Hx Liver Disease: No Hx Genitourinary Disorders: No Hx Sexually Transmitted Disorders: No Hx Renal Disease (ESRD): No Hx Thyroid Disease: No Hx Human Immunodeficiency Virus (HIV): No Hx Hepatitis C: No Hx Depression: No Hx Suicide Attempt: No Hx Bipolar Disorder: No Hx Schizophrenia: No - Patient Surgical History Past Surgical History: No Hx Neurologic Surgery: No Hx Cataract Extraction: No Hx Cardiac Surgery: No Hx Lung Surgery: No Hx Breast Surgery: No Hx Breast Biopsy: No Hx Abdominal Surgery: No Hx Appendectomy: No Hx Cholecystectomy: No Hx Genitourinary Surgery: No Hx Section: No Hx Orthopedic Surgery: No Anesthesia Reaction: No - PPD History Previous Implant?: Yes Documented Results: Negative w/proof Implanted On Prior R Admission?: Yes Date: 11/07/17 PPD to be Administered?: No - Smoking Cessation Smoking history: Current some day smoker Have you smoked in the past 12 months: Yes Aproximately how many cigarettes per day: 20 Hx Chewing Tobacco Use: No Initiated information on smoking cessation: Yes 'Breaking Loose' booklet given: 07/03/18 - Substance & Tx. History Hx Alcohol Use: Yes Hx Substance Use: Yes Substance Use Type: Alcohol, Cocaine Hx Substance Use Treatment: Yes (multiple detox admissions) - Substances Abused Alcohol Route: Oral Frequency: Daily Amount used: LIQUOR- 3 PINTS Age of first use: 13 Date of Last Use: 07/03/18 Family Disease History - Family Disease History Family Disease History: Other: Father (alive, hx of chronic alcoholism ), Mother (, HIV) Admission Physical Exam [facility] - Physical General Appearance: Yes: Nourished, Severe Distress, Tremorous, Sweating, Anxious HEENTM: Yes: EOMI, Hearing grossly Normal, Normal Voice, ALEXA, Pharynx Normal Respiratory: Yes: Lungs Clear, Normal Breath Sounds, No Respiratory Distress Neck: Yes: No masses,lesions,Nodules, Supple Breast: Yes: Breast Exam Deferred Cardiology: Yes: Regular Rhythm, Regular Rate, S1, S2 Abdominal: Yes: Soft, Increased Bowel Sounds, Protuberent (Increased abdominal adiposity.), Tenderness (Abdominal tendederness (L) and (R) upper quadrants upon deep palpation. No rebound tenderness. No guarding.) Genitourinary: Yes: Within Normal Limits Back: Yes: Normal Inspection Musculoskeletal: Yes: full range of Motion, Other (Gait unsteady.) Extremities: Yes: Normal Capillary Refill, Normal Range of Motion, Tremors ( Gross tremors at rest and increases w/ movement.) Neurological: Yes: pyrometer temperature regulator II-XII NML intact, Motor Strength 5/5 Integumentary: Yes: Normal Color, Warm, Other (Swelling of hands noted. Cap refill < 3 sec. Fingers warm and mobile.) Lymphatic: Yes: Within Normal Limits - Diagnostic (1) Alcohol dependence with withdrawal Current Visit: Yes Status: Acute Qualifiers: Complication of substance-induced condition: uncomplicated Qualified Code(s ): F10.230 - Alcohol dependence with withdrawal, uncomplicated (2) Nicotine dependence Current Visit: Yes Status: Chronic Qualifiers: Nicotine product type: cigarettes Substance use status: in withdrawal Qualified Code(s): F17.213 - Nicotine dependence, cigarettes, with withdrawal (3) Cocaine dependence Current Visit: Yes Status: Chronic Qualifiers: Substance use status: uncomplicated Qualified Code(s): F14.20 - Cocaine dependence, uncomplicated (4) Hypertension Current Visit: Yes Status: Chronic Qualifiers: Hypertension type: unspecified Qualified Code(s): I10 - Essential (primary ) hypertension (5) Unspecified osteoarthritis, unspecified site Current Visit: Yes Status: Chronic Qualifiers: Osteoarthritis location: unspecified site Osteoarthritis type: unspecified Qualified Code(s): M19.90 - Unspecified osteoarthritis, unspecified site Comment: States has arthritis in back and joints. (6) Nonspecific abdominal pain Current Visit: Yes Status: Chronic Cleared for Admission [facility] - Detox or Rehab [facility] Level of Care: Medically Managed Detox Regimen/Protocol: Librium [facility] Breath Alcohol Content Breath Alcohol Content: 0.074 Inpatient Rehab Admission - Rehab Decision to Admit Inpatient rehab admission?: No
[2018-07-03 21:18] VITALS: BMI 31.9
[2018-07-03] MEDS ORDERED: LOPERAMIDE HCL 2 MG CAPSULE PO PRN (21:54)
[2018-07-03] MEDS ORDERED: chlordiazePOXIDE HCL 25 MG CAPSULE PO PRN (21:54)
[2018-07-03] MEDS ORDERED: NICOTINE POLACRILEX 2 MG GUM BC PRN (21:54)
[2018-07-03] MEDS ORDERED: MAGNESIUM CITRATE 300 ML BOTTLE PO PRN (21:54)
[2018-07-03] MEDS ORDERED: MAGNESIUM HYDROX 2400MG/30ML ORAL SUSPENSION 30 ML CUP PO PRN (21:54)
[2018-07-03] MEDS ORDERED: MENTHOL/PHENOL 1 EACH UD MM PRN (21:54)
[2018-07-03] MEDS ORDERED: chlordiazePOXIDE HCL 25 MG CAPSULE PO ONE (21:54)
[2018-07-03] MEDS ORDERED: ACETAMINOPHEN 325 MG TABLET (FP) PO PRN (21:54)
[2018-07-03] MEDS ORDERED: MAG HYDROX/AL HYDROX/SIMETH 30 ML UNIT-DOSE CUP PO PRN (21:54)
[2018-07-03] MEDS ORDERED: MELATONIN 5 MG TABLETS PO PRN (22:00)
[2018-07-03] MEDS: THIAMINE HCL 100 MG TABLET (FP) PO SCH (22:41)
[2018-07-03] MEDS: chlordiazePOXIDE HCL 25 MG CAPSULE PO SCH (23:03)
[2018-07-04] MEDS: chlordiazePOXIDE HCL 25 MG CAPSULE PO SCH ×4 (06:48→22:43)
[2018-07-04 10:34] LABS: ALBUMIN 3.2 g/dl (3.4-5.0); ALK PHOS 94 U/L (45-117); ANION GAP 6 MMOL/L (8-16); BILIRUBIN,TOTAL 0.4 mg/dL (0.2-1); BLOOD UREA NITROGEN 11 mg/dL (7-18); CALCIUM 8.1 mg/dL (8.5-10.1); CHLORIDE 104 mmol/L (98-107); CO2 28 mmol/L (21-32); CREATININE 0.8 mg/dL (0.55-1.3); GLUCOSE,RANDOM 98 mg/dL (74-106); POTASSIUM 3.9 mmol/L (3.5-5.1); SGOT/AST 26 U/L (15-37); SGPT/ALT 25 U/L (13-61); SODIUM 138 mmol/L (136-145); TOT PROT 6.5 g/dl (6.4-8.2)
[2018-07-04 10:51] LABS: HEMATOCRIT 43.3 % (35.4-49); HEMOGLOBIN 14.9 GM/dL (11.7-16.9); MCH 30.5 pg (25.7-33.7); MCHC 34.5 g/dl (32.0-35.9); MEAN CELL VOLUME 88.4 fl (80-96); WHITE BLOOD COUNT 9.9 K/mm3 (4.0-10.0)
[2018-07-04] MEDS: PRENATAL VITAMINS W/ FOLIC ACID TABLET (FP) PO SCH (11:17)
[2018-07-04] MEDS: NICOTINE 21 MG/24 HOURS TOPICAL PATCH TD SCH (11:17)
[2018-07-04 13:05] LABS: PLATELET COUNT 166 K/MM3 (134-434)
--- NOTE | 2018-07-04 14:38 | PN ---
S CIWA - CIWA Score Nausea/Vomitin-No Nausea/No Vomiting Muscle Tremors: 4-Moderate,w/Arms Extend Anxiety: 3 Agitation: 1-Slight > Activity Paroxysmal Sweats: 3 Orientation: 0-Oriented Tacttile Disturbances: 1-Very Mild Itch/Numbness Auditory Disturbances: 0-None Visual Disturbances: 3-Moderate Sensitivity Headache: 0-None Present CIWA-Ar Total Score: 15 BHS Progress Note (SOAP) Subjective: Anxious, Fatigue, Tremors, Sweating. Objective: PATIENT A & O X 3. IN NO ACUTE DISTRESS. 07/04/18 14:39 Vital Signs Temperature 98.3 F 07/04/18 13:58 Pulse Rate 77 07/04/18 13:58 Respiratory Rate 18 07/04/18 13:58 Blood Pressure 116/65 07/04/18 13:58 O2 Sat by Pulse Oximetry (%) Laboratory Tests 07/04/18 07/04/18 07/04/18 07:50 07:50 07:50 WBC 9.9 RBC 4.90 Hgb 14.9 Hct 43.3 MCV 88.4 MCH 30.5 MCHC 34.5 RDW 14.0 Plt Count 166 MPV 11.0 Manual Slide Review Sodium 138 Potassium 3.9 Chloride 104 Carbon Dioxide 28 Anion Gap 6 L BUN 11 Creatinine 0.8 Creat Clearance w eGFR > 60 Random Glucose 98 Calcium 8.1 L Total Bilirubin 0.4 AST 26 ALT 25 Alkaline Phosphatase 94 Total Protein 6.5 Albumin 3.2 L RPR Titer Nonreactive LABS NOTED. Assessment: 07/04/18 14:40 WITHDRAWAL SYMPTOMS. Plan: CONTINUE DETOX. INCREASE DAILY PO FLUID INTAKE.
[2018-07-04] MEDS: THIAMINE HCL 100 MG TABLET (FP) PO SCH (23:11)
[2018-07-05] MEDS: chlordiazePOXIDE HCL 25 MG CAPSULE PO SCH ×3 (06:15→17:45)
[2018-07-05] MEDS: PRENATAL VITAMINS W/ FOLIC ACID TABLET (FP) PO SCH (11:28)
[2018-07-05] MEDS: NICOTINE 21 MG/24 HOURS TOPICAL PATCH TD SCH (11:28)
[2018-07-05] MEDS: IBUPROFEN 400 MG TABLET (FP) PO PRN (12:33)
--- NOTE | 2018-07-05 15:07 | PN ---
[facility] CIWA - CIWA Score Nausea/Vomitin-No Nausea/No Vomiting Muscle Tremors: 3 Anxiety: 2 Agitation: 3 Paroxysmal Sweats: 1-Minimal Palms Moist Orientation: 1-Uncertain about Date Tacttile Disturbances: 0-None Auditory Disturbances: 0-None Visual Disturbances: 0-None Headache: 1-Very Mild CIWA-Ar Total Score: 11 S Progress Note (SOAP) Subjective: tremor sweating low energy but tolerate food and fluid well Objective: 07/05/18 15:09 Vital Signs Temperature 97.9 F 07/05/18 14:34 Pulse Rate 91 H 07/05/18 14:34 Respiratory Rate 18 07/05/18 14:34 Blood Pressure 135/90 07/05/18 14:34 O2 Sat by Pulse Oximetry (%) Laboratory Last Values WBC 9.9 K/mm3 (4.0-10.0) 07/04/18 07:50 RBC 4.90 M/mm3 (4.00-5.60) 07/04/18 07:50 Hgb 14.9 GM/dL (11.7-16.9) 07/04/18 07:50 Hct 43.3 % (35.4-49) 07/04/18 07:50 MCV 88.4 fl (80-96) 07/04/18 07:50 MCH 30.5 pg (25.7-33.7) 07/04/18 07:50 MCHC 34.5 g/dl (32.0-35.9) 07/04/18 07:50 RDW 14.0 % (11.9-15.9) 07/04/18 07:50 Plt Count 166 K/MM3 (134-434) 07/04/18 07:50 MPV 11.0 fl (7.5-11.1) 07/04/18 07:50 Manual Slide Review 07/04/18 07:50 Sodium 138 mmol/L (136-145) 07/04/18 07:50 Potassium 3.9 mmol/L (3.5-5.1) 07/04/18 07:50 Chloride 104 mmol/L (98-107) 07/04/18 07:50 Carbon Dioxide 28 mmol/L (21-32) 07/04/18 07:50 Anion Gap 6 MMOL/L (8-16) L 07/04/18 07:50 BUN 11 mg/dL (7-18) 07/04/18 07:50 Creatinine 0.8 mg/dL (0.55-1.3) 07/04/18 07:50 Creat Clearance w eGFR > 60 (>60) 07/04/18 07:50 Random Glucose 98 mg/dL (74-106) 07/04/18 07:50 Calcium 8.1 mg/dL (8.5-10.1) L 07/04/18 07:50 Total Bilirubin 0.4 mg/dL (0.2-1) 07/04/18 07:50 AST 26 U/L (15-37) 07/04/18 07:50 ALT 25 U/L (13-61) 07/04/18 07:50 Alkaline Phosphatase 94 U/L (45-117) 07/04/18 07:50 Total Protein 6.5 g/dl (6.4-8.2) 07/04/18 07:50 Albumin 3.2 g/dl (3.4-5.0) L 07/04/18 07:50 RPR Titer Nonreactive (NONREACTIVE) 07/04/18 07:50 lab noted Assessment: 07/05/18 15:09 withdrawal sx Plan: continue detox
[2018-07-05] MEDS: LORATADINE 10 MG TABLET PO SCH (15:12)
[2018-07-05] MEDS: chlordiazePOXIDE 5 MG CAPSULE PO SCH (23:22)
[2018-07-05] MEDS: THIAMINE HCL 100 MG TABLET (FP) PO SCH (23:23)
[2018-07-06] MEDS: chlordiazePOXIDE 5 MG CAPSULE PO SCH ×3 (05:51→17:31)
[2018-07-06 09:56] LABS: URINE APPEARANCE SLCLOUDY; URINE BILIRUBIN NEGATIVE (<2.0 mg/dL); URINE COLOR YELLOW; URINE GLUCOSE (UA) NEGATIVE (NEGATIVE); URINE KETONE NEGATIVE (NEGATIVE); URINE LEUK ESTERASE NEGATIVE (NEGATIVE); URINE NITRITE NEGATIVE (NEGATIVE); URINE PROTEIN NEGATIVE (NEGATIVE); URINE UROBILINOGEN 4.0 E.U/dl mg/dL (0.2-1.0)
--- NOTE | 2018-07-06 10:09 | PN ---
[facility] CIWA - CIWA Score Nausea/Vomitin-No Nausea/No Vomiting Muscle Tremors: 2 Anxiety: 1-Mildly Anxious Agitation: 1-Slight > Activity Paroxysmal Sweats: 1-Minimal Palms Moist Orientation: 1-Uncertain about Date Tacttile Disturbances: 0-None Auditory Disturbances: 0-None Visual Disturbances: 0-None Headache: 1-Very Mild CIWA-Ar Total Score: 7 S Progress Note (SOAP) Subjective: feeling better less tremor mild sweating feeling sad without apparent reason denies suicidal ideation no history of psychiatric hospitalization never on psychotropic medication Objective: 07/06/18 10:08 Vital Signs Temperature 97.2 F L 07/06/18 09:22 Pulse Rate 94 H 07/06/18 09:22 Respiratory Rate 18 07/06/18 09:22 Blood Pressure 134/87 07/06/18 09:22 O2 Sat by Pulse Oximetry (%) Laboratory Last Values WBC 9.9 K/mm3 (4.0-10.0) 07/04/18 07:50 RBC 4.90 M/mm3 (4.00-5.60) 07/04/18 07:50 Hgb 14.9 GM/dL (11.7-16.9) 07/04/18 07:50 Hct 43.3 % (35.4-49) 07/04/18 07:50 MCV 88.4 fl (80-96) 07/04/18 07:50 MCH 30.5 pg (25.7-33.7) 07/04/18 07:50 MCHC 34.5 g/dl (32.0-35.9) 07/04/18 07:50 RDW 14.0 % (11.9-15.9) 07/04/18 07:50 Plt Count 166 K/MM3 (134-434) 07/04/18 07:50 MPV 11.0 fl (7.5-11.1) 07/04/18 07:50 Manual Slide Review 07/04/18 07:50 Sodium 138 mmol/L (136-145) 07/04/18 07:50 Potassium 3.9 mmol/L (3.5-5.1) 07/04/18 07:50 Chloride 104 mmol/L (98-107) 07/04/18 07:50 Carbon Dioxide 28 mmol/L (21-32) 07/04/18 07:50 Anion Gap 6 MMOL/L (8-16) L 07/04/18 07:50 BUN 11 mg/dL (7-18) 07/04/18 07:50 Creatinine 0.8 mg/dL (0.55-1.3) 07/04/18 07:50 Creat Clearance w eGFR > 60 (>60) 07/04/18 07:50 Random Glucose 98 mg/dL (74-106) 07/04/18 07:50 Calcium 8.1 mg/dL (8.5-10.1) L 07/04/18 07:50 Total Bilirubin 0.4 mg/dL (0.2-1) 07/04/18 07:50 AST 26 U/L (15-37) 07/04/18 07:50 ALT 25 U/L (13-61) 07/04/18 07:50 Alkaline Phosphatase 94 U/L (45-117) 07/04/18 07:50 Total Protein 6.5 g/dl (6.4-8.2) 07/04/18 07:50 Albumin 3.2 g/dl (3.4-5.0) L 07/04/18 07:50 RPR Titer Nonreactive (NONREACTIVE) 07/04/18 07:50 lab noted Assessment: 07/06/18 10:09 mild alcohol withdrawal sx Plan: continue detox
[2018-07-06] MEDS: PRENATAL VITAMINS W/ FOLIC ACID TABLET (FP) PO SCH (10:19)
[2018-07-06] MEDS: NICOTINE 21 MG/24 HOURS TOPICAL PATCH TD SCH (10:19)
[2018-07-06] MEDS: LORATADINE 10 MG TABLET PO SCH (10:19)
--- NOTE | 2018-07-06 13:59 | EKG ---
Test Reason : Blood Pressure : / mmHG Vent. Rate : 081 BPM Atrial Rate : 081 BPM P-R Int : 116 ms QRS Dur : 094 ms QT Int : 404 ms P-R-T Axes : 057 020 048 degrees QTc Int : 469 ms NORMAL SINUS RHYTHM MINIMAL VOLTAGE CRITERIA FOR LVH, MAY BE NORMAL VARIANT NONSPECIFIC T WAVE ABNORMALITY PROLONGED QT ABNORMAL ECG WHEN COMPARED WITH ECG OF 04-NOV-2017 20:01, NO SIGNIFICANT CHANGE WAS FOUND Confirmed by TAMIKA BENITES, PAYAM ([id number]) on 07/06/2018 1:59:23 PM Referred By: Confirmed By:PAYAM LUNDBERG MD
[2018-07-06] MEDS: chlordiazePOXIDE HCL 10 MG CAPSULE PO SCH (22:17)
[2018-07-06] MEDS: THIAMINE HCL 100 MG TABLET (FP) PO SCH (22:17)
[2018-07-07] MEDS: chlordiazePOXIDE HCL 10 MG CAPSULE PO SCH (06:59)
[2018-07-07] MEDS: IBUPROFEN 400 MG TABLET (FP) PO PRN (08:37)
[2018-07-07 09:20] VITALS: BP 132/88; PULSE 94; TEMP 97.2
[2018-07-07] MEDS ORDERED: LIDOCAINE 5% TOPICAL PATCH TP SCH (10:00)
--- NOTE | 2018-07-07 10:03 | DS ---
[facility] Detox Discharge Summary Admission Date: 07/03/18 Discharge Date: 07/07/18 - History Present History: Alcohol Dependence Additional Comments: 48 years old male admitted on 07/03/18 for alcohol withdrawal stabilization completed alcohol detox regimen [facility] Pertinent Past History: patient reported that he is in pain management program x 6 months taking prococet daily for chronic back pain health teaching on negative consequences of opiate based medication - Physical Exam Results Vital Signs: Vital Signs Temperature 97.2 F L 07/07/18 09:19 Pulse Rate 94 H 07/07/18 09:19 Respiratory Rate 18 07/07/18 09:19 Blood Pressure 132/88 07/07/18 09:19 O2 Sat by Pulse Oximetry (%) Pertinent Admission Physical Exam Findings: alcohol withdrawal sx Laboratory Last Values WBC 9.9 K/mm3 (4.0-10.0) 07/04/18 07:50 RBC 4.90 M/mm3 (4.00-5.60) 07/04/18 07:50 Hgb 14.9 GM/dL (11.7-16.9) 07/04/18 07:50 Hct 43.3 % (35.4-49) 07/04/18 07:50 MCV 88.4 fl (80-96) 07/04/18 07:50 MCH 30.5 pg (25.7-33.7) 07/04/18 07:50 MCHC 34.5 g/dl (32.0-35.9) 07/04/18 07:50 RDW 14.0 % (11.9-15.9) 07/04/18 07:50 Plt Count 166 K/MM3 (134-434) 07/04/18 07:50 MPV 11.0 fl (7.5-11.1) 07/04/18 07:50 Manual Slide Review 07/04/18 07:50 Sodium 138 mmol/L (136-145) 07/04/18 07:50 Potassium 3.9 mmol/L (3.5-5.1) 07/04/18 07:50 Chloride 104 mmol/L (98-107) 07/04/18 07:50 Carbon Dioxide 28 mmol/L (21-32) 07/04/18 07:50 Anion Gap 6 MMOL/L (8-16) L 07/04/18 07:50 BUN 11 mg/dL (7-18) 07/04/18 07:50 Creatinine 0.8 mg/dL (0.55-1.3) 07/04/18 07:50 Creat Clearance w eGFR > 60 (>60) 07/04/18 07:50 Random Glucose 98 mg/dL (74-106) 07/04/18 07:50 Calcium 8.1 mg/dL (8.5-10.1) L 07/04/18 07:50 Total Bilirubin 0.4 mg/dL (0.2-1) 07/04/18 07:50 AST 26 U/L (15-37) 07/04/18 07:50 ALT 25 U/L (13-61) 07/04/18 07:50 Alkaline Phosphatase 94 U/L (45-117) 07/04/18 07:50 Total Protein 6.5 g/dl (6.4-8.2) 07/04/18 07:50 Albumin 3.2 g/dl (3.4-5.0) L 07/04/18 07:50 Urine Color Yellow 07/06/18 08:00 Urine Appearance Slcloudy 07/06/18 08:00 Urine pH 6.0 (5.0-8.0) 07/06/18 08:00 Ur Specific [place] 1.020 (1.010-1.035) 07/06/18 08:00 Urine Protein Negative (NEGATIVE) 07/06/18 08:00 Urine Glucose (UA) Negative (NEGATIVE) 07/06/18 08:00 Urine Ketones Negative (NEGATIVE) 07/06/18 08:00 Urine Blood Negative (NEGATIVE) 07/06/18 08:00 Urine Nitrite Negative (NEGATIVE) 07/06/18 08:00 Urine Bilirubin Negative (<2.0 mg/dL) 07/06/18 08:00 Urine Urobilinogen 4.0 e.u/dl mg/dL (0.2-1.0) 07/06/18 08:00 Ur Leukocyte Esterase Negative (NEGATIVE) 07/06/18 08:00 RPR Titer Nonreactive (NONREACTIVE) 07/04/18 07:50 lab noted - Treatment Hospital Course: Detox Protocol Followed, Detoxed Safely, Responded well, Discharged Condition Good, Rehab Referral Accepted Patient has Accepted a Rehab Referral to: [facility] - Medication Discharge Medications: Ambulatory Orders NK [No Known Home Medication] 11/04/17 - Diagnosis (1) Alcohol dependence with withdrawal Current Visit: Yes Status: Acute Qualifiers: Complication of substance-induced condition: uncomplicated Qualified Code(s ): F10.230 - Alcohol dependence with withdrawal, uncomplicated (2) Hypertension Current Visit: Yes Status: Chronic Qualifiers: Hypertension type: unspecified Qualified Code(s): I10 - Essential (primary ) hypertension (3) Nicotine dependence Current Visit: Yes Status: Acute Qualifiers: Nicotine product type: cigarettes Substance use status: in withdrawal Qualified Code(s): F17.213 - Nicotine dependence, cigarettes, with withdrawal - AMA Did Patient Leave Against Medical Advice: No
[2018-07-07] MEDS ORDERED: LIDOCAINE PATCH REMOVAL MC SCH (22:00)
== END 2018-07-07 09:42 | disposition home or self-care (01) | DRG 774 ==
LOC: YASAS 14:37 → Y3N 21:17
PROVIDERS: ADMIT Surgery; ATTEND Surgery
PROC: HZ2ZZZZ Detoxification Services for Substance Abuse Treatment (ICD-10-PCS; principal; 2018-07-03)
DX: F10.230 Alcohol dependence with withdrawal, uncomplicated (principal); F14.20 Cocaine dependence, uncomplicated; F17.210 Nicotine dependence, cigarettes, uncomplicated; I10 Essential (primary) hypertension; G40.509 Epileptic seizures related to external causes, not intractable, without status epilepticus; M12.9 Arthropathy, unspecified; E78.00 Pure hypercholesterolemia, unspecified; R10.9 Unspecified abdominal pain
CPT/HCPCS: 36415; 80053; 81003; 85027; 86593; 93005; 93010

== ENCOUNTER 2018-08-11 10:01 | Inpatient (IN) | payer OTHER ==
[2018-08-11 10:54] VITALS: BMI 29.7
--- NOTE | 2018-08-11 11:20 | HP ---
"CIWA Score Nausea/Vomitin-Int. Nausea w/Dry Heave Muscle Tremors: 2 Anxiety: 4-Mod. Anxious/Guarded Agitation: 1-Slight > Activity Paroxysmal Sweats: 3 Orientation: 0-Oriented Tacttile Disturbances: 1-Very Mild Itch/Numbness Auditory Disturbances: 2-Mild Harshness/Frighten Visual Disturbances: 3-Moderate Sensitivity Headache: 4-Moderately Severe CIWA-Ar Total Score: 24 - Admission Criteria OASAS Guidelines: Admission for Medically Managed Detox: Requires at least one of the followin. CIWA greater than 12 2. Seizures within the past 24 hours 3. Delirium tremens within the past 24 hours 4. Hallucinations within the past 24 hours 5. Acute intervention needed for co occurring medical disorder 6. Acute intervention needed for co occurring psychiatric disorder 7. Severe withdrawal that cannot be handled at a lower level of care (continued vomiting, continued diarrhea, abnormal vital signs) requiring intravenous medication and/or fluids 8. Admission ROS [facility] Allergies/Adverse Reactions: Allergies Allergy/AdvReac Type Severity Reaction Status Date / Time No Known Allergies Allergy Verified 08/11/18 10:31 History of Present Illness: pt here requesting detox from etoh use , reports 1/4 liquor daily , starts drinking around noon , first age of use 13 , current symptoms as above , + w /d seizure years ago , occasional blackouts, reports tremors if not drinking . Pt is very irritable when questioned about use etc. latest reported etoh use : today tobacco : 1 ppd meds : Percocet , Claritin Search Terms: jennifer dhillon, 1970 Search Date: 08/11/2018 11:22:15 AM The Drug Utilization Report below displays all of the controlled substance prescriptions, if any, that your patient has filled in the last twelve months. The information displayed on this report is compiled from pharmacy submissions to the Department, and accurately reflects the information as submitted by the pharmacies. This report was requested by: Lindsey Brewster | Reference #: [id number] Others' Prescriptions Patient Name: Jennifer Dhillon Date: 1970 Address: [address] [place] [address] Sex: Male Rx Written Rx Dispensed Drug Quantity Days Supply Prescriber Name 05/06/2018 05/06/2018 oxycodone-acetaminophen 10-325 mg tab 90 30 Jonathan Goodman M D 04/06/2018 04/06/2018 oxycodone-acetaminophen 10-325 mg tab 90 30 Jonathan Goodman M D 03/06/2018 03/06/2018 oxycodone-acetaminophen 10-325 mg tab 90 30 Jonathan Goodman M D 02/03/2018 02/04/2018 oxycodone-acetaminophen 10-325 mg tab 90 30 Jonathan Goodman M D 12/25/2017 12/26/2017 oxycodone-acetaminophen 10-325 mg tab 60 30 Jonathan Goodman M D Patient Name: Jennifer Dhillon Date: 1970 Address: [address] [place] [address] Sex: Male Rx Written Rx Dispensed Drug Quantity Days Supply Prescriber Name 10/10/2017 10/13/2017 oxycodone hcl 15 mg tablet 60 30 Rodríguez Estrada MD 09/09/2017 09/10/2017 oxycodone hcl 15 mg tablet 60 30 Rodríguez Estrada MD 08/12/2017 08/12/2017 oxycodone hcl 15 mg tablet 60 30 Rodríguez Estrada MD * - Drugs marked with an asterisk are compound drugs. If the compound drug is made up of more than one controlled substance, then each controlled Exam Limitations: Clinical Condition - Ebola screening Have you traveled outside of the country in the last 21 days: No (N) Have you had contact with anyone from an Ebola affected area: No Do you have a fever: No - Review of Systems Constitutional: See HPI EENT: reports: See HPI Respiratory: reports: No Symptoms reported Cardiac: reports: No Symptoms Reported GI: reports: See HPI : reports: No Symptoms Reported Musculoskeletal: reports: Back Pain Integumentary: reports: No Symptoms Reported Neuro: reports: See HPI Endocrine: reports: No Symptoms Reported Psychiatric: reports: Orientated x3, Anxious Patient History - Patient Medical History Hx Anemia: No Hx Asthma: No Hx Chronic Obstructive Pulmonary Disease (COPD): No Hx Cancer: No Hx Cardiac Disorders: No Hx Congestive Heart Failure: No Hx Hypertension: No Hx Hypercholesterolemia: Yes (no treatment) Hx Pacemaker: No HX Cerebrovascular Accident: No Hx Seizures: Yes (WITHDRAWAL SEIZURES - LAST EPISODE 2 WKS AGO) Hx Dementia: No Hx Diabetes: No Hx Gastrointestinal Disorders: No Hx Liver Disease: No Hx Genitourinary Disorders: No Hx Sexually Transmitted Disorders: No Hx Renal Disease (ESRD): No Hx Thyroid Disease: No Hx Human Immunodeficiency Virus (HIV): No Hx Hepatitis C: No Hx Depression: No Hx Suicide Attempt: No Hx Bipolar Disorder: No Hx Schizophrenia: No - Patient Surgical History Past Surgical History: No Hx Neurologic Surgery: No Hx Cataract Extraction: No Hx Cardiac Surgery: No Hx Lung Surgery: No Hx Breast Surgery: No Hx Breast Biopsy: No Hx Abdominal Surgery: No Hx Appendectomy: No Hx Cholecystectomy: No Hx Genitourinary Surgery: No Hx Section: No Hx Orthopedic Surgery: No Anesthesia Reaction: No - PPD History Date: 11/07/17 - Smoking Cessation Smoking history: Current some day smoker Have you smoked in the past 12 months: Yes Aproximately how many cigarettes per day: 20 Hx Chewing Tobacco Use: No Initiated information on smoking cessation: No - Substances abused Alcohol Substance route: Oral Frequency: Daily Amount used: liter irasema/cognac/ beer 2 beers 40oz Age of first use: 13 Date of last use: 08/11/18 Family Disease History - Family Disease History Family Disease History: Other: Father (alive, hx of chronic alcoholism ), Mother (, HIV) Admission Physical Exam BHS - Vital Signs Vital Signs: Vital Signs - 24 hr 08/11/18 08/11/18 10:38 11:06 Temperature 98.6 F Pulse Rate 93 H 93 H Respiratory 18 18 Rate Blood Pressure 153/85 153/85 - Physical General Appearance: Yes: Moderate Distress, Irritable, Anxious HEENTM: Yes: EOMI, Hearing grossly Normal, Normocephalic, Normal Voice Respiratory: Yes: Chest Non-Tender, Lungs Clear, Normal Breath Sounds, No Respiratory Distress Neck: Yes: No masses,lesions,Nodules, Trachea in good position Cardiology: Yes: Regular Rhythm, Regular Rate, S1, S2, Tachycardia Abdominal: Yes: Non Tender, Soft, Protuberent Back: Yes: Other (chronic back pain) Musculoskeletal: Yes: Back pain Extremities: Yes: Non-Tender, Tremors Neurological: Yes: 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, Motor Strength 5/5, Finger to Nose ( difficulty completing), Depressed Affect Integumentary: Yes: Normal Color, Warm - Diagnostic (1) Alcohol dependence with withdrawal Current Visit: Yes Status: Acute Qualifiers: Complication of substance-induced condition: uncomplicated Qualified Code(s ): F10.230 - Alcohol dependence with withdrawal, uncomplicated (2) Nicotine dependence Current Visit: Yes Status: Chronic Qualifiers: Nicotine product type: cigarettes (3) Cocaine dependence Current Visit: No Status: Chronic Qualifiers: Breathalyzer - Breathalyzer Breathalyzer: 0.082 Urine Drug Screen - Test Device Lot number: [id number] Expiration date: 04/03/20 - Control Is test valid?: Yes - Results Drug screen NEGATIVE: No Urine drug screen results: [facility] Inpatient Re[facility] Admission - Rehab Decision to Admit Inpatient rehab admission?: No"
[2018-08-11] MEDS ORDERED: MAGNESIUM CITRATE 300 ML BOTTLE PO PRN (11:38)
[2018-08-11] MEDS ORDERED: MAGNESIUM HYDROX 2400MG/30ML ORAL SUSPENSION 30 ML CUP PO PRN (11:38)
[2018-08-11] MEDS ORDERED: IBUPROFEN 400 MG TABLET (FP) PO PRN (11:38)
[2018-08-11] MEDS ORDERED: chlordiazePOXIDE HCL 10 MG CAPSULE PO PRN (11:38)
[2018-08-11] MEDS ORDERED: MENTHOL/PHENOL 1 EACH UD MM PRN (11:38)
[2018-08-11] MEDS ORDERED: ACETAMINOPHEN 325 MG TABLET (FP) PO PRN ×2 (11:38)
[2018-08-11] MEDS ORDERED: METHOCARBAMOL 500 MG TABLET PO PRN (11:38)
[2018-08-11] MEDS ORDERED: NICOTINE POLACRILEX 2 MG GUM BUC PRN (11:38)
[2018-08-11] MEDS ORDERED: MELATONIN 5 MG TABLETS PO PRN (11:38)
[2018-08-11] MEDS ORDERED: BISMUTH SUBSALICYLATE 262 MG/15 ML BTL PO PRN (11:38)
[2018-08-11] MEDS ORDERED: MAG HYDROX/AL HYDROX/SIMETH 30 ML UNIT-DOSE CUP PO PRN (11:38)
[2018-08-11] MEDS: chlordiazePOXIDE HCL 25 MG CAPSULE PO SCH ×2 (13:12→22:42)
[2018-08-11 15:11] LABS: HEMATOCRIT 47.1 % (35.4-49); HEMOGLOBIN 15.7 GM/dL (11.7-16.9); MCH 28.5 pg (25.7-33.7); MCHC 33.4 g/dl (32.0-35.9); MEAN CELL VOLUME 85.2 fl (80-96); MEAN PLT VOLUME 10.7 fl (7.5-11.1); PLATELET COUNT 193 K/MM3 (134-434); RBC 5.53 M/mm3 (4.00-5.60); RDW 13.9 % (11.9-15.9); WHITE BLOOD COUNT 14.9 K/mm3 (4.0-10.0)
[2018-08-11 15:59] LABS: ALBUMIN 4.2 g/dl (3.4-5.0); ALK PHOS 92 U/L (45-117); ANION GAP 12 MMOL/L (8-16); BILIRUBIN,TOTAL 0.9 mg/dL (0.2-1); BLOOD UREA NITROGEN 13 mg/dL (7-18); CALCIUM 8.8 mg/dL (8.5-10.1); CHLORIDE 103 mmol/L (98-107); CO2 23 mmol/L (21-32); CREATININE 0.9 mg/dL (0.55-1.3); GLUCOSE,RANDOM 81 mg/dL (74-106); POTASSIUM 3.7 mmol/L (3.5-5.1); SGOT/AST 35 U/L (15-37); SGPT/ALT 26 U/L (13-61); SODIUM 138 mmol/L (136-145); TOT PROT 8.2 g/dl (6.4-8.2)
[2018-08-11] MEDS: THIAMINE HCL 100 MG TABLET (FP) PO SCH (22:43)
[2018-08-12] MEDS: chlordiazePOXIDE HCL 25 MG CAPSULE PO SCH (06:11)
[2018-08-12] MEDS: PRENATAL VITAMINS W/ FOLIC ACID TABLET (FP) PO SCH ×2 (11:09→11:10)
--- NOTE | 2018-08-12 11:41 | PN ---
S CIWA - CIWA Score Nausea/Vomitin-No Nausea/No Vomiting Muscle Tremors: 3 Anxiety: 3 Agitation: 3 Paroxysmal Sweats: 3 Orientation: 0-Oriented Tacttile Disturbances: 0-None Auditory Disturbances: 0-None Visual Disturbances: 0-None Headache: 0-None Present CIWA-Ar Total Score: 12 BHS Progress Note (SOAP) Subjective: sweats shakes tired interrupted sleep body aches Objective: 08/12/18 11:40 Vital Signs Temperature 97.3 F L 08/12/18 09:01 Pulse Rate 71 08/12/18 09:01 Respiratory Rate 18 08/12/18 09:01 Blood Pressure 123/70 08/12/18 09:01 O2 Sat by Pulse Oximetry (%) Laboratory Tests 08/11/18 08/11/18 08/11/18 12:15 12:15 12:15 WBC 14.9 H RBC 5.53 Hgb 15.7 Hct 47.1 MCV 85.2 MCH 28.5 MCHC 33.4 RDW 13.9 Plt Count 193 MPV 10.7 Sodium 138 Potassium 3.7 Chloride 103 Carbon Dioxide 23 Anion Gap 12 BUN 13 Creatinine 0.9 Creat Clearance w eGFR 90.06 Random Glucose 81 Calcium 8.8 Total Bilirubin 0.9 AST 35 ALT 26 Alkaline Phosphatase 92 Total Protein 8.2 Albumin 4.2 RPR Titer Nonreactive HIV 1&2 Antibody Screen HIV P24 Antigen 08/11/18 12:15 WBC RBC Hgb Hct MCV MCH MCHC RDW Plt Count MPV Sodium Potassium Chloride Carbon Dioxide Anion Gap BUN Creatinine Creat Clearance w eGFR Random Glucose Calcium Total Bilirubin AST ALT Alkaline Phosphatase Total Protein Albumin RPR Titer HIV 1&2 Antibody Screen Negative HIV P24 Antigen Negative aaox3 ambulating no acute distress Assessment: 08/12/18 11:40 withdrawal sx Plan: continue detox increase fluids
[2018-08-12] MEDS: chlordiazePOXIDE 5 MG CAPSULE PO SCH ×2 (14:39→23:27)
[2018-08-12] MEDS: THIAMINE HCL 100 MG TABLET (FP) PO SCH (23:28)
[2018-08-13] MEDS: chlordiazePOXIDE 5 MG CAPSULE PO SCH (06:23)
[2018-08-13] MEDS: PRENATAL VITAMINS W/ FOLIC ACID TABLET (FP) PO SCH (10:34)
--- NOTE | 2018-08-13 11:41 | PN ---
[facility] CIWA - CIWA Score Nausea/Vomitin-No Nausea/No Vomiting Muscle Tremors: 3 Anxiety: 2 Agitation: 3 Paroxysmal Sweats: 2 Orientation: 0-Oriented Tacttile Disturbances: 0-None Auditory Disturbances: 0-None Visual Disturbances: 0-None Headache: 0-None Present CIWA-Ar Total Score: 10 S Progress Note (SOAP) Subjective: sweats tired interrupted sleep body aches Objective: 08/13/18 11:47 Vital Signs Temperature 97.0 F L 08/13/18 09:23 Pulse Rate 66 08/13/18 09:23 Respiratory Rate 18 08/13/18 09:23 Blood Pressure 124/68 08/13/18 09:23 O2 Sat by Pulse Oximetry (%) Laboratory Tests 08/11/18 08/11/18 08/11/18 12:15 12:15 12:15 WBC 14.9 H RBC 5.53 Hgb 15.7 Hct 47.1 MCV 85.2 MCH 28.5 MCHC 33.4 RDW 13.9 Plt Count 193 MPV 10.7 Sodium 138 Potassium 3.7 Chloride 103 Carbon Dioxide 23 Anion Gap 12 BUN 13 Creatinine 0.9 Creat Clearance w eGFR 90.06 Random Glucose 81 Calcium 8.8 Total Bilirubin 0.9 AST 35 ALT 26 Alkaline Phosphatase 92 Total Protein 8.2 Albumin 4.2 RPR Titer Nonreactive HIV 1&2 Antibody Screen HIV P24 Antigen 08/11/18 12:15 WBC RBC Hgb Hct MCV MCH MCHC RDW Plt Count MPV Sodium Potassium Chloride Carbon Dioxide Anion Gap BUN Creatinine Creat Clearance w eGFR Random Glucose Calcium Total Bilirubin AST ALT Alkaline Phosphatase Total Protein Albumin RPR Titer HIV 1&2 Antibody Screen Negative HIV P24 Antigen Negative aaox3 ambulating no acute distress Assessment: 08/13/18 11:47 withdrawal sx Plan: continue detox increase fluids
[2018-08-13] MEDS ORDERED: chlordiazePOXIDE HCL 10 MG CAPSULE PO PRN (13:00)
[2018-08-13] MEDS: chlordiazePOXIDE HCL 10 MG CAPSULE PO SCH ×2 (13:33→22:29)
--- NOTE | 2018-08-13 13:48 | PN ---
[facility] Progress Note Note: pt states he was exposed to chlamydia before coming to detox. Pt states his penile area is lalito and it burn when he voids. Pt states this has happened before and was examined by his doctor and he was exposed to same STD. Pt insisting on ABX and will follow up with his PCP. Pt was ordered 1gm of Azithromycin single dose po x one. pt was advised to see his PCP and follow up after his completion of detox. pt in agreement.
[2018-08-13] MEDS ORDERED: LORATADINE 10 MG TABLET PO SCH (14:30)
[2018-08-13] MEDS ORDERED: AZITHROMYCIN 250 MG TABLET PO ONE (14:45)
[2018-08-13] MEDS: THIAMINE HCL 100 MG TABLET (FP) PO SCH (22:29)
[2018-08-14] MEDS: chlordiazePOXIDE HCL 10 MG CAPSULE PO SCH (06:36)
[2018-08-14 07:15] VITALS: BP 140/78; PULSE 78; TEMP 97
== END 2018-08-14 06:42 | disposition home or self-care (01) | DRG 774 ==
LOC: YASAS 10:01 → Y6N 11:49
PROVIDERS: ADMIT Surgery; ATTEND Surgery
PROC: HZ2ZZZZ Detoxification Services for Substance Abuse Treatment (ICD-10-PCS; principal; 2018-08-11)
DX: F10.230 Alcohol dependence with withdrawal, uncomplicated (principal); F14.20 Cocaine dependence, uncomplicated; F17.210 Nicotine dependence, cigarettes, uncomplicated; Z20.2 Contact with and (suspected) exposure to infections with a predominantly sexual mode of transmission; Z86.69 Personal history of other diseases of the nervous system and sense organs
CPT/HCPCS: 36415; 80053; 85027; 86593; 87389

== ENCOUNTER 2018-09-21 11:55 | Inpatient (IN) | payer OTHER ==
[2018-09-21 19:28] VITALS: BMI 28.8
--- NOTE | 2018-09-21 20:34 | HP ---
CIWA Score Nausea/Vomitin Muscle Tremors: 4-Moderate,w/Arms Extend Anxiety: 2 Agitation: 2 Paroxysmal Sweats: 1-Minimal Palms Moist Orientation: 0-Oriented Tacttile Disturbances: 0-None Auditory Disturbances: 0-None Visual Disturbances: 0-None Headache: 1-Very Mild CIWA-Ar Total Score: 12 - Admission Criteria OASAS Guidelines: Admission for Medically Managed Detox: Requires at least one of the followin. CIWA greater than 12 2. Seizures within the past 24 hours 3. Delirium tremens within the past 24 hours 4. Hallucinations within the past 24 hours 5. Acute intervention needed for co occurring medical disorder 6. Acute intervention needed for co occurring psychiatric disorder 7. Severe withdrawal that cannot be handled at a lower level of care (continued vomiting, continued diarrhea, abnormal vital signs) requiring intravenous medication and/or fluids 8. Admission ROS [facility] Chief Complaint: alcohol detox, cocaine use 48 yo with no chronic medical problems, left detox in 08/2018, says he was rejected by [facility] rehab b/c of "dirty urine". Pt states he restarted drinking alcohol immediately. c/o itchy feet and also c/o allergies PCP- Dr. Choi [address] Alcohol- 1 pint of liquor plus beers daily, one seizure episode last year and no DT's cocaine- $200/week denies other drug use UTox- pos for cocaine BRYAN-0.10 Allergies/Adverse Reactions: Allergies Allergy/AdvReac Type Severity Reaction Status Date / Time No Known Allergies Allergy Verified 09/21/18 19:23 - Ebola screening Have you traveled outside of the country in the last 21 days: No (N) Have you had contact with anyone from an Ebola affected area: No Do you have a fever: No Patient History - Patient Medical History Hx Anemia: No Hx Asthma: No Hx Chronic Obstructive Pulmonary Disease (COPD): No Hx Cancer: No Hx Cardiac Disorders: No Hx Congestive Heart Failure: No Hx Hypertension: No Hx Hypercholesterolemia: Yes (no treatment) Hx Pacemaker: No HX Cerebrovascular Accident: No Hx Seizures: Yes (WITHDRAWAL SEIZURES - LAST EPISODE 2 WKS AGO) Hx Dementia: No Hx Diabetes: No Hx Gastrointestinal Disorders: No Hx Liver Disease: No Hx Genitourinary Disorders: No Hx Sexually Transmitted Disorders: No Hx Renal Disease (ESRD): No Hx Thyroid Disease: No Hx Human Immunodeficiency Virus (HIV): No Hx Hepatitis C: No Hx Depression: No Hx Suicide Attempt: No Hx Bipolar Disorder: No Hx Schizophrenia: No - Patient Surgical History Past Surgical History: No Hx Neurologic Surgery: No Hx Cataract Extraction: No Hx Cardiac Surgery: No Hx Lung Surgery: No Hx Breast Surgery: No Hx Breast Biopsy: No Hx Abdominal Surgery: No Hx Appendectomy: No Hx Cholecystectomy: No Hx Genitourinary Surgery: No Hx Section: No Hx Orthopedic Surgery: No Anesthesia Reaction: No - PPD History Date: 11/07/17 - Smoking Cessation Smoking history: Current some day smoker Have you smoked in the past 12 months: Yes Aproximately how many cigarettes per day: 20 Hx Chewing Tobacco Use: No Initiated information on smoking cessation: Yes 'Breaking Loose' booklet given: 09/21/18 - Substance & Tx. History Hx Alcohol Use: Yes Hx Substance Use: Yes Substance Use Type: Alcohol, Cocaine - Substances abused Alcohol Substance route: Oral Frequency: Daily Amount used: liter irasema/cognac/ beer 2 beers 40oz Age of first use: 13 Date of last use: 09/21/18 Cocaine Substance route: Inhalation Frequency: Daily Amount used: $50-200 Age of first use: 15 Date of last use: 09/20/18 Family Disease History - Family Disease History Family Disease History: Other: Father (alive, hx of chronic alcoholism ), Mother (, HIV) Admission Physical Exam BHS - Vital Signs Vital Signs: Vital Signs - 24 hr 09/21/18 19:25 Temperature 97.5 F L Pulse Rate 67 Respiratory 20 Rate Blood Pressure 136/86 - Physical General Appearance: Yes: Moderate Distress, Irritable, Anxious HEENTM: Yes: Within Normal Limits, EOMI, Hearing grossly Normal, Normal ENT Inspection, Pharynx Normal Respiratory: Yes: Within Normal Limits, Lungs Clear Neck: Yes: Within Normal Limits, No masses,lesions,Nodules Cardiology: Yes: Within Normal Limits, Regular Rhythm, Regular Rate Abdominal: Yes: Within Normal Limits, Normal Bowel Sounds, Non Tender Back: Yes: Within Normal Limits, Normal Inspection Musculoskeletal: Yes: Within Normal Limits, full range of Motion Extremities: Yes: Within Normal Limits Neurological: Yes: Within Normal Limits Integumentary: Yes: Within Normal Limits, Other (normal feet) Lymphatic: Yes: Within Normal Limits - Diagnostic (1) Tinea pedis Current Visit: Yes Status: Acute (2) Alcohol dependence with withdrawal Current Visit: No Status: Acute Qualifiers: Complication of substance-induced condition: uncomplicated Qualified Code(s ): F10.230 - Alcohol dependence with withdrawal, uncomplicated (3) Anxious mood Current Visit: No Status: Acute (4) Cocaine dependence Current Visit: No Status: Chronic Qualifiers: (5) Nicotine dependence Current Visit: No Status: Chronic Qualifiers: Nicotine product type: cigarettes (6) Seasonal allergic rhinitis Current Visit: No Status: Chronic Breathalyzer - Breathalyzer Breathalyzer: 0.010 Urine Drug Screen - Test Device Lot number: [id number] Expiration date: 08/02/19 - Control Is test valid?: Yes - Results Drug screen NEGATIVE: No Urine drug screen results: [facility] Inpatient Rehab Admission - Rehab Decision to Admit Inpatient rehab admission?: No
[2018-09-21] MEDS ORDERED: MENTHOL/PHENOL 1 EACH UD MM PRN (20:35)
[2018-09-21] MEDS ORDERED: BISMUTH SUBSALICYLATE 524 MG/30 ML UD PO PRN (20:35)
[2018-09-21] MEDS ORDERED: hydrOXYzine PAMOATE 25 MG CAPSULE (FP) PO PRN (20:35)
[2018-09-21] MEDS ORDERED: MAG HYDROX/AL HYDROX/SIMETH 30 ML UNIT-DOSE CUP PO PRN (20:35)
[2018-09-21] MEDS ORDERED: chlordiazePOXIDE HCL 25 MG CAPSULE PO ONE (20:35)
[2018-09-21] MEDS ORDERED: MAGNESIUM HYDROX 2400MG/30ML ORAL SUSPENSION 30 ML CUP PO PRN (20:35)
[2018-09-21] MEDS ORDERED: METHOCARBAMOL 500 MG TABLET PO PRN (20:35)
[2018-09-21] MEDS ORDERED: MELATONIN 5 MG TABLETS PO PRN (20:35)
[2018-09-21] MEDS ORDERED: chlordiazePOXIDE HCL 25 MG CAPSULE PO PRN (20:35)
[2018-09-21] MEDS ORDERED: IBUPROFEN 400 MG TABLET (FP) PO PRN (20:35)
[2018-09-21] MEDS ORDERED: ACETAMINOPHEN 325 MG TABLET (FP) PO PRN ×2 (20:35)
[2018-09-21] MEDS ORDERED: MAGNESIUM CITRATE 300 ML BOTTLE PO PRN (20:35)
[2018-09-21] MEDS ORDERED: LORATADINE 10 MG TABLET PO ONE (20:37)
[2018-09-21] MEDS: THIAMINE HCL 100 MG TABLET (FP) PO SCH (21:43)
[2018-09-21] MEDS: chlordiazePOXIDE HCL 25 MG CAPSULE PO SCH (22:26)
[2018-09-21 23:06] LABS: PH,URINE 5.5 (5.0-8.0); URINE APPEARANCE CLEAR; URINE BILIRUBIN NEGATIVE (NEGATIVE); URINE COLOR YELLOW; URINE GLUCOSE (UA) NEGATIVE (NEGATIVE); URINE KETONE NEGATIVE (NEGATIVE); URINE LEUK ESTERASE NEGATIVE (NEGATIVE); URINE NITRITE NEGATIVE (NEGATIVE); URINE PROTEIN NEGATIVE (NEGATIVE); URINE UROBILINOGEN 0.2 mg/dL (0.2-1.0)
[2018-09-21] MEDS: CLOTRIMAZOLE 1% CREAM 15 GM TUBE TP SCH (23:17)
[2018-09-22] MEDS: chlordiazePOXIDE HCL 25 MG CAPSULE PO SCH ×4 (06:27→22:08)
[2018-09-22 10:08] LABS: ALBUMIN 3.3 g/dl (3.4-5.0); BILIRUBIN,TOTAL 0.4 mg/dL (0.2-1); CALCIUM 8.6 mg/dL (8.5-10.1); CREATININE 0.8 mg/dL (0.55-1.3); HEMATOCRIT 43.6 % (35.4-49); HEMOGLOBIN 14.6 GM/dL (11.7-16.9); MCHC 33.5 g/dl (32.0-35.9); MEAN CELL VOLUME 86.6 fl (80-96); PLATELET COUNT 190 K/MM3 (134-434); RBC 5.03 M/mm3 (4.00-5.60); RDW 14.6 % (11.9-15.9); TOT PROT 6.5 g/dl (6.4-8.2); WHITE BLOOD COUNT 9.4 K/mm3 (4.0-10.0)
[2018-09-22] MEDS: LORATADINE 10 MG TABLET PO SCH (11:45)
[2018-09-22] MEDS: PRENATAL VITAMINS W/ FOLIC ACID TABLET (FP) PO SCH (11:45)
[2018-09-22] MEDS: NICOTINE 21 MG/24 HOURS TOPICAL PATCH TD SCH (11:45)
[2018-09-22] MEDS: CLOTRIMAZOLE 1% CREAM 15 GM TUBE TP SCH ×2 (11:45→22:08)
--- NOTE | 2018-09-22 12:54 | PN ---
S CIWA - CIWA Score Nausea/Vomitin-Mild Nausea/No Vomiting Muscle Tremors: 3 Anxiety: 2 Agitation: 2 Paroxysmal Sweats: 1-Minimal Palms Moist Orientation: 2-Disoriented Date<2 days Tacttile Disturbances: 0-None Auditory Disturbances: 0-None Visual Disturbances: 0-None Headache: 1-Very Mild CIWA-Ar Total Score: 12 BHS Progress Note (SOAP) Subjective: tremor tired preferring resting on bed Objective: 09/22/18 12:55 Vital Signs Temperature 96.6 F L 09/22/18 09:15 Pulse Rate 83 09/22/18 09:15 Respiratory Rate 16 09/22/18 09:15 Blood Pressure 112/66 09/22/18 09:15 O2 Sat by Pulse Oximetry (%) Laboratory Last Values WBC 9.4 K/mm3 (4.0-10.0) 09/22/18 07:00 RBC 5.03 M/mm3 (4.00-5.60) 09/22/18 07:00 Hgb 14.6 GM/dL (11.7-16.9) 09/22/18 07:00 Hct 43.6 % (35.4-49) 09/22/18 07:00 MCV 86.6 fl (80-96) 09/22/18 07:00 MCH 29.0 pg (25.7-33.7) 09/22/18 07:00 MCHC 33.5 g/dl (32.0-35.9) 09/22/18 07:00 RDW 14.6 % (11.9-15.9) 09/22/18 07:00 Plt Count 190 K/MM3 (134-434) 09/22/18 07:00 MPV 10.0 fl (7.5-11.1) 09/22/18 07:00 Sodium 138 mmol/L (136-145) 09/22/18 07:00 Potassium 4.0 mmol/L (3.5-5.1) 09/22/18 07:00 Chloride 105 mmol/L (98-107) 09/22/18 07:00 Carbon Dioxide 28 mmol/L (21-32) 09/22/18 07:00 Anion Gap 5 MMOL/L (8-16) L 09/22/18 07:00 BUN 12 mg/dL (7-18) 09/22/18 07:00 Creatinine 0.8 mg/dL (0.55-1.3) 09/22/18 07:00 Est GFR (CKD-EPI)AfAm 122.43 09/22/18 07:00 Est GFR (CKD-EPI)NonAf 105.63 09/22/18 07:00 Random Glucose 90 mg/dL (74-106) 09/22/18 07:00 Calcium 8.6 mg/dL (8.5-10.1) 09/22/18 07:00 Total Bilirubin 0.4 mg/dL (0.2-1) 09/22/18 07:00 AST 18 U/L (15-37) 09/22/18 07:00 ALT 23 U/L (13-61) 09/22/18 07:00 Alkaline Phosphatase 78 U/L (45-117) 09/22/18 07:00 Total Protein 6.5 g/dl (6.4-8.2) 09/22/18 07:00 Albumin 3.3 g/dl (3.4-5.0) L 09/22/18 07:00 Urine Color Yellow 09/21/18 23:00 Urine Appearance Clear 09/21/18 23:00 Urine pH 5.5 (5.0-8.0) 09/21/18 23:00 Ur Specific [place] 1.019 (1.010-1.035) 09/21/18 23:00 Urine Protein Negative (NEGATIVE) 09/21/18 23:00 Urine Glucose (UA) Negative (NEGATIVE) 09/21/18 23:00 Urine Ketones Negative (NEGATIVE) 09/21/18 23:00 Urine Blood Negative (NEGATIVE) 09/21/18 23:00 Urine Nitrite Negative (NEGATIVE) 09/21/18 23:00 Urine Bilirubin Negative (NEGATIVE) 09/21/18 23:00 Urine Urobilinogen 0.2 mg/dL (0.2-1.0) 09/21/18 23:00 Ur Leukocyte Esterase Negative (NEGATIVE) 09/21/18 23:00 RPR Titer Nonreactive (NONREACTIVE) 09/22/18 07:00 lab noted Assessment: 09/22/18 12:55 withdrawal sx Plan: continue detox
[2018-09-22] MEDS: THIAMINE HCL 100 MG TABLET (FP) PO SCH (22:08)
[2018-09-23] MEDS: chlordiazePOXIDE HCL 25 MG CAPSULE PO SCH ×3 (06:32→17:19)
[2018-09-23] MEDS: CLOTRIMAZOLE 1% CREAM 15 GM TUBE TP SCH ×2 (10:11→23:10)
[2018-09-23] MEDS: LORATADINE 10 MG TABLET PO SCH (10:11)
[2018-09-23] MEDS: PRENATAL VITAMINS W/ FOLIC ACID TABLET (FP) PO SCH (10:11)
[2018-09-23] MEDS: NICOTINE 21 MG/24 HOURS TOPICAL PATCH TD SCH (10:13)
--- NOTE | 2018-09-23 12:37 | PN ---
[facility] CIWA - CIWA Score Nausea/Vomitin-Mild Nausea/No Vomiting Muscle Tremors: 3 Anxiety: 2 Agitation: 2 Paroxysmal Sweats: 1-Minimal Palms Moist Orientation: 0-Oriented Tacttile Disturbances: 0-None Auditory Disturbances: 0-None Visual Disturbances: 0-None Headache: 1-Very Mild CIWA-Ar Total Score: 10 [facility] Progress Note (SOAP) Subjective: trouble sleep at night otherwise doing ok with librium detox regimen Objective: 09/23/18 12:38 Vital Signs Temperature 96.3 F L 09/23/18 09:36 Pulse Rate 84 09/23/18 09:36 Respiratory Rate 18 09/23/18 09:36 Blood Pressure 132/75 09/23/18 09:36 O2 Sat by Pulse Oximetry (%) Laboratory Last Values WBC 9.4 K/mm3 (4.0-10.0) 09/22/18 07:00 RBC 5.03 M/mm3 (4.00-5.60) 09/22/18 07:00 Hgb 14.6 GM/dL (11.7-16.9) 09/22/18 07:00 Hct 43.6 % (35.4-49) 09/22/18 07:00 MCV 86.6 fl (80-96) 09/22/18 07:00 MCH 29.0 pg (25.7-33.7) 09/22/18 07:00 MCHC 33.5 g/dl (32.0-35.9) 09/22/18 07:00 RDW 14.6 % (11.9-15.9) 09/22/18 07:00 Plt Count 190 K/MM3 (134-434) 09/22/18 07:00 MPV 10.0 fl (7.5-11.1) 09/22/18 07:00 Sodium 138 mmol/L (136-145) 09/22/18 07:00 Potassium 4.0 mmol/L (3.5-5.1) 09/22/18 07:00 Chloride 105 mmol/L (98-107) 09/22/18 07:00 Carbon Dioxide 28 mmol/L (21-32) 09/22/18 07:00 Anion Gap 5 MMOL/L (8-16) L 09/22/18 07:00 BUN 12 mg/dL (7-18) 09/22/18 07:00 Creatinine 0.8 mg/dL (0.55-1.3) 09/22/18 07:00 Est GFR (CKD-EPI)AfAm 122.43 09/22/18 07:00 Est GFR (CKD-EPI)NonAf 105.63 09/22/18 07:00 Random Glucose 90 mg/dL (74-106) 09/22/18 07:00 Calcium 8.6 mg/dL (8.5-10.1) 09/22/18 07:00 Total Bilirubin 0.4 mg/dL (0.2-1) 09/22/18 07:00 AST 18 U/L (15-37) 09/22/18 07:00 ALT 23 U/L (13-61) 09/22/18 07:00 Alkaline Phosphatase 78 U/L (45-117) 09/22/18 07:00 Total Protein 6.5 g/dl (6.4-8.2) 09/22/18 07:00 Albumin 3.3 g/dl (3.4-5.0) L 09/22/18 07:00 Urine Color Yellow 09/21/18 23:00 Urine Appearance Clear 09/21/18 23:00 Urine pH 5.5 (5.0-8.0) 09/21/18 23:00 Ur Specific [place] 1.019 (1.010-1.035) 09/21/18 23:00 Urine Protein Negative (NEGATIVE) 09/21/18 23:00 Urine Glucose (UA) Negative (NEGATIVE) 09/21/18 23:00 Urine Ketones Negative (NEGATIVE) 09/21/18 23:00 Urine Blood Negative (NEGATIVE) 09/21/18 23:00 Urine Nitrite Negative (NEGATIVE) 09/21/18 23:00 Urine Bilirubin Negative (NEGATIVE) 09/21/18 23:00 Urine Urobilinogen 0.2 mg/dL (0.2-1.0) 09/21/18 23:00 Ur Leukocyte Esterase Negative (NEGATIVE) 09/21/18 23:00 RPR Titer Nonreactive (NONREACTIVE) 09/22/18 07:00 lab noted Assessment: 09/23/18 12:38 withdrawal sx Plan: continue detox
[2018-09-23] MEDS ORDERED: QUEtiapine FUMARATE 50 MG TABLET PO ONE (22:00)
[2018-09-23] MEDS ORDERED: chlordiazePOXIDE HCL 10 MG CAPSULE PO PRN (23:00)
[2018-09-23] MEDS: THIAMINE HCL 100 MG TABLET (FP) PO SCH (23:11)
[2018-09-23] MEDS: chlordiazePOXIDE HCL 10 MG CAPSULE PO SCH (23:11)
[2018-09-24] MEDS: chlordiazePOXIDE HCL 10 MG CAPSULE PO SCH ×3 (06:10→18:15)
[2018-09-24] MEDS: NICOTINE 21 MG/24 HOURS TOPICAL PATCH TD SCH (11:21)
[2018-09-24] MEDS: PRENATAL VITAMINS W/ FOLIC ACID TABLET (FP) PO SCH (11:21)
[2018-09-24] MEDS: LORATADINE 10 MG TABLET PO SCH (11:21)
[2018-09-24] MEDS: CLOTRIMAZOLE 1% CREAM 15 GM TUBE TP SCH ×2 (11:21→22:31)
--- NOTE | 2018-09-24 16:10 | PN ---
[facility] CIWA - CIWA Score Nausea/Vomitin-Mild Nausea/No Vomiting Muscle Tremors: 1-None Visible, but [place] Anxiety: 2 Agitation: 2 Paroxysmal Sweats: 1-Minimal Palms Moist Orientation: 0-Oriented Tacttile Disturbances: 0-None Auditory Disturbances: 0-None Visual Disturbances: 0-None Headache: 0-None Present CIWA-Ar Total Score: 7 S Progress Note (SOAP) Subjective: feeling ok today discuss aftercare with staff encourage to attend community 12 step group Objective: 09/24/18 16:10 Vital Signs Temperature 96.8 F L 09/24/18 13:30 Pulse Rate 60 09/24/18 13:30 Respiratory Rate 20 09/24/18 13:30 Blood Pressure 108/78 09/24/18 13:30 O2 Sat by Pulse Oximetry (%) Laboratory Last Values WBC 9.4 K/mm3 (4.0-10.0) 09/22/18 07:00 RBC 5.03 M/mm3 (4.00-5.60) 09/22/18 07:00 Hgb 14.6 GM/dL (11.7-16.9) 09/22/18 07:00 Hct 43.6 % (35.4-49) 09/22/18 07:00 MCV 86.6 fl (80-96) 09/22/18 07:00 MCH 29.0 pg (25.7-33.7) 09/22/18 07:00 MCHC 33.5 g/dl (32.0-35.9) 09/22/18 07:00 RDW 14.6 % (11.9-15.9) 09/22/18 07:00 Plt Count 190 K/MM3 (134-434) 09/22/18 07:00 MPV 10.0 fl (7.5-11.1) 09/22/18 07:00 Sodium 138 mmol/L (136-145) 09/22/18 07:00 Potassium 4.0 mmol/L (3.5-5.1) 09/22/18 07:00 Chloride 105 mmol/L (98-107) 09/22/18 07:00 Carbon Dioxide 28 mmol/L (21-32) 09/22/18 07:00 Anion Gap 5 MMOL/L (8-16) L 09/22/18 07:00 BUN 12 mg/dL (7-18) 09/22/18 07:00 Creatinine 0.8 mg/dL (0.55-1.3) 09/22/18 07:00 Est GFR (CKD-EPI)AfAm 122.43 09/22/18 07:00 Est GFR (CKD-EPI)NonAf 105.63 09/22/18 07:00 Random Glucose 90 mg/dL (74-106) 09/22/18 07:00 Calcium 8.6 mg/dL (8.5-10.1) 09/22/18 07:00 Total Bilirubin 0.4 mg/dL (0.2-1) 09/22/18 07:00 AST 18 U/L (15-37) 09/22/18 07:00 ALT 23 U/L (13-61) 09/22/18 07:00 Alkaline Phosphatase 78 U/L (45-117) 09/22/18 07:00 Total Protein 6.5 g/dl (6.4-8.2) 09/22/18 07:00 Albumin 3.3 g/dl (3.4-5.0) L 09/22/18 07:00 Urine Color Yellow 09/21/18 23:00 Urine Appearance Clear 09/21/18 23:00 Urine pH 5.5 (5.0-8.0) 09/21/18 23:00 Ur Specific [place] 1.019 (1.010-1.035) 09/21/18 23:00 Urine Protein Negative (NEGATIVE) 09/21/18 23:00 Urine Glucose (UA) Negative (NEGATIVE) 09/21/18 23:00 Urine Ketones Negative (NEGATIVE) 09/21/18 23:00 Urine Blood Negative (NEGATIVE) 09/21/18 23:00 Urine Nitrite Negative (NEGATIVE) 09/21/18 23:00 Urine Bilirubin Negative (NEGATIVE) 09/21/18 23:00 Urine Urobilinogen 0.2 mg/dL (0.2-1.0) 09/21/18 23:00 Ur Leukocyte Esterase Negative (NEGATIVE) 09/21/18 23:00 RPR Titer Nonreactive (NONREACTIVE) 09/22/18 07:00 lab noted Assessment: 09/24/18 16:10 withdrawal sx Plan: continue detox
[2018-09-24] MEDS: THIAMINE HCL 100 MG TABLET (FP) PO SCH (22:30)
[2018-09-24] MEDS ORDERED: chlordiazePOXIDE HCL 10 MG CAPSULE PO SCH (23:00)
[2018-09-25 09:18] VITALS: BP 150/97; PULSE 93; TEMP 98.1
--- NOTE | 2018-09-25 19:18 | DS ---
[facility] Detox Discharge Summary Admission Date: 09/21/18 Discharge Date: 09/25/18 - History Present History: Alcohol Dependence, Cocaine Dependence Additional Comments: PAT[facility]ING [facility] ([place], [place]) FOR AFTERCARE. PATIENT WAS DISCHARGED FROM DETOX UNIT IN STABLE MEDICAL CONDITION. Pertinent Past History: History Of Seizures (Due To Withdrawal), History Of Allergic Rhinitis, Tinea Pedis, History Of Hypercholesterolemia, Anxiety, Nicotine Dependence. - Physical Exam Results Vital Signs: Vital Signs Temperature 98.1 F 09/25/18 09:17 Pulse Rate 93 H 09/25/18 09:17 Respiratory Rate 18 09/25/18 09:17 Blood Pressure 150/97 09/25/18 09:17 O2 Sat by Pulse Oximetry (%) Pertinent Admission Physical Exam Findings: WITHDRAWAL SYMPTOMS. Laboratory Tests 09/21/18 09/22/18 09/22/18 23:00 07:00 07:00 WBC 9.4 RBC 5.03 Hgb 14.6 Hct 43.6 MCV 86.6 MCH 29.0 MCHC 33.5 RDW 14.6 Plt Count 190 MPV 10.0 Sodium 138 Potassium 4.0 Chloride 105 Carbon Dioxide 28 Anion Gap 5 L BUN 12 Creatinine 0.8 Est GFR (CKD-EPI)AfAm 122.43 Est GFR (CKD-EPI)NonAf 105.63 Random Glucose 90 Calcium 8.6 Total Bilirubin 0.4 AST 18 ALT 23 Alkaline Phosphatase 78 Total Protein 6.5 Albumin 3.3 L Urine Color Yellow Urine Appearance Clear Urine pH 5.5 Ur Specific [place] 1.019 Urine Protein Negative Urine Glucose (UA) Negative Urine Ketones Negative Urine Blood Negative Urine Nitrite Negative Urine Bilirubin Negative Urine Urobilinogen 0.2 Ur Leukocyte Esterase Negative RPR Titer 09/22/18 07:00 WBC RBC Hgb Hct MCV MCH MCHC RDW Plt Count MPV Sodium Potassium Chloride Carbon Dioxide Anion Gap BUN Creatinine Est GFR (CKD-EPI)AfAm Est GFR (CKD-EPI)NonAf Random Glucose Calcium Total Bilirubin AST ALT Alkaline Phosphatase Total Protein Albumin Urine Color Urine Appearance Urine pH Ur Specific [place] Urine Protein Urine Glucose (UA) Urine Ketones Urine Blood Urine Nitrite Urine Bilirubin Urine Urobilinogen Ur Leukocyte Esterase RPR Titer Nonreactive LABS NOTED. - Treatment Hospital Course: Detox Protocol Followed, Detoxed Safely, Responded well, Discharged Condition Good Patient has Accepted a Rehab Referral to: [facility] ([place], [place]) - Medication Discharge Medications: Ambulatory Orders NK [No Known Home Medication] 09/21/18 - Diagnosis (1) Alcohol dependence with withdrawal Status: Acute Qualifiers: Complication of substance-induced condition: uncomplicated Qualified Code(s ): F10.230 - Alcohol dependence with withdrawal, uncomplicated (2) Anxious mood Status: Acute (3) Tinea pedis Status: Acute Qualifiers: Laterality: unspecified laterality Qualified Code(s): B35.3 - Tinea pedis (4) Cocaine dependence Status: Chronic Qualifiers: Substance use status: in withdrawal Qualified Code(s): F14.23 - Cocaine dependence with withdrawal (5) Nicotine dependence Status: Chronic Qualifiers: Nicotine product type: cigarettes Substance use status: uncomplicated Qualified Code(s): F17.210 - Nicotine dependence, cigarettes, uncomplicated (6) Seasonal allergic rhinitis Status: Chronic Qualifiers: Allergic rhinitis trigger: unspecified Qualified Code(s): J30.2 - Other seasonal allergic rhinitis - AMA Did Patient Leave Against Medical Advice: No
== END 2018-09-25 08:58 | disposition home or self-care (01) | DRG 774 ==
LOC: YASAS 11:55 → Y3N 20:46
PROVIDERS: ADMIT Surgery; ATTEND Surgery
PROC: HZ2ZZZZ Detoxification Services for Substance Abuse Treatment (ICD-10-PCS; principal; 2018-09-21)
DX: F10.230 Alcohol dependence with withdrawal, uncomplicated (principal); F14.20 Cocaine dependence, uncomplicated; F17.210 Nicotine dependence, cigarettes, uncomplicated; F41.9 Anxiety disorder, unspecified; G40.509 Epileptic seizures related to external causes, not intractable, without status epilepticus; J30.9 Allergic rhinitis, unspecified; E78.00 Pure hypercholesterolemia, unspecified; B35.3 Tinea pedis
CPT/HCPCS: 36415; 80053; 81003; 85027; 86593

== ENCOUNTER 2019-01-24 09:02 | Inpatient (IN) | payer OTHER ==
[2019-01-24 09:49] VITALS: BMI 31.9
--- NOTE | 2019-01-24 10:13 | HP ---
CIWA Score Nausea/Vomitin-Int. Nausea w/Dry Heave Muscle Tremors: 3 Anxiety: 7-Acute Panic/Severe Agitation: 2 Paroxysmal Sweats: 2 Orientation: 1-Uncertain about Date Tacttile Disturbances: 0-None Auditory Disturbances: 0-None Visual Disturbances: 3-Moderate Sensitivity Headache: 3-Moderate CIWA-Ar Total Score: 25 - Admission Criteria OASAS Guidelines: Admission for Medically Managed Detox: Requires at least one of the followin. CIWA greater than 12 2. Seizures within the past 24 hours 3. Delirium tremens within the past 24 hours 4. Hallucinations within the past 24 hours 5. Acute intervention needed for co occurring medical disorder 6. Acute intervention needed for co occurring psychiatric disorder 7. Severe withdrawal that cannot be handled at a lower level of care (continued vomiting, continued diarrhea, abnormal vital signs) requiring intravenous medication and/or fluids 8. Patient presents the following: CIWA greater than 12 Admission Criteria Met: Admission criteria met Admission ROS S - HPI Chief Complaint: IM GIVING MYSELF THIS GIFT Allergies/Adverse Reactions: Allergies Allergy/AdvReac Type Severity Reaction Status Date / Time No Known Allergies Allergy Verified 01/24/19 09:45 History of Present Illness: LAST DETOX 09/20 1 MO ABSTINENCE DENIES OTHER HO TX DECREASED COCAINE BUT ONGING HENESSEY 1 BOTTLE DAILY AND 12 BEERS - Ebola screening Have you traveled outside of the country in the last 21 days: No (N) Have you had contact with anyone from an Ebola affected area: No Do you have a fever: No - Review of Systems Constitutional: Changes in sleep EENT: reports: No Symptoms Reported Respiratory: reports: No Symptoms reported Cardiac: reports: No Symptoms Reported GI: reports: Nausea, Vomiting : reports: No Symptoms Reported Musculoskeletal: reports: No Symptoms Reported Integumentary: reports: No Symptoms Reported Neuro: reports: No Symptoms reported Endocrine: reports: No Symptoms Reported Hematology: reports: No Symptoms Reported Psychiatric: reports: Agitated, Anxious Patient History - Patient Medical History Hx Anemia: No Hx Asthma: No Hx Chronic Obstructive Pulmonary Disease (COPD): No Hx Cancer: No Hx Cardiac Disorders: No Hx Congestive Heart Failure: No Hx Hypertension: No Hx Hypercholesterolemia: Yes (no treatment) Hx Pacemaker: No HX Cerebrovascular Accident: No Hx Seizures: Yes (WITHDRAWAL SEIZURES 3 MOS AGO) Hx Dementia: No Hx Diabetes: No Hx Gastrointestinal Disorders: No Hx Liver Disease: No Hx Genitourinary Disorders: No Hx Sexually Transmitted Disorders: No Hx Renal Disease (ESRD): No Hx Thyroid Disease: No Hx Human Immunodeficiency Virus (HIV): No Hx Hepatitis C: No Hx Depression: No Hx Suicide Attempt: No Hx Bipolar Disorder: No Hx Schizophrenia: No - Patient Surgical History Past Surgical History: No Hx Neurologic Surgery: No Hx Cataract Extraction: No Hx Cardiac Surgery: No Hx Lung Surgery: No Hx Breast Surgery: No Hx Breast Biopsy: No Hx Abdominal Surgery: No Hx Appendectomy: No Hx Cholecystectomy: No Hx Genitourinary Surgery: No Hx Section: No Hx Orthopedic Surgery: No Anesthesia Reaction: No - PPD History Date: 11/07/17 - Smoking Cessation Smoking history: Current some day smoker Have you smoked in the past 12 months: Yes Aproximately how many cigarettes per day: 20 Hx Chewing Tobacco Use: No Initiated information on smoking cessation: Yes 'Breaking Loose' booklet given: 01/24/19 - Substances abused Alcohol Substance route: Oral Frequency: Daily Amount used: liter irasema/cognac/ beer 2 beers 40oz Age of first use: 13 Date of last use: 01/24/19 Cocaine Substance route: Inhalation Frequency: Daily Amount used: $10-20 Age of first use: 15 Date of last use: 01/23/19 Admission Physical Exam BHS - Vital Signs Vital Signs: Vital Signs - 24 hr 01/24/19 09:44 Temperature 97.4 F L Pulse Rate 106 H Respiratory 18 Rate Blood Pressure 150/95 - Physical General Appearance: Yes: Tremorous, Irritable, Sweating, Anxious HEENTM: Yes: EOMI, Normocephalic Respiratory: Yes: Decreased Breath Sounds (DECREASED INSP EFFORT) Neck: Yes: Within Normal Limits Breast: Yes: Breast Exam Deferred Cardiology: Yes: Within Normal Limits, Regular Rhythm, Regular Rate, S1, S2 Abdominal: Yes: Normal Bowel Sounds, Non Tender Back: Yes: Within Normal Limits, Normal Inspection Musculoskeletal: Yes: Within Normal Limits, full range of Motion, Gait Steady Extremities: Yes: Within Normal Limits, Normal Range of Motion, Non-Tender Neurological: Yes: Other (TEARFUL) Integumentary: Yes: Normal Color, Dry Lymphatic: Yes: Within Normal Limits - Diagnostic (1) Alcohol dependence with withdrawal Current Visit: Yes Status: Acute Qualifiers: Complication of substance-induced condition: with unspecified complication Qualified Code(s): F10.239 - Alcohol dependence with withdrawal, unspecified (2) Anxious mood Current Visit: Yes Status: Acute (3) Nausea and vomiting Current Visit: Yes Status: Acute Qualifiers: Vomiting type: unspecified Vomiting Intractability: unspecified Qualified Code(s): R11.2 - Nausea with vomiting, unspecified (4) Cocaine dependence Current Visit: Yes Status: Chronic Qualifiers: Substance use status: in withdrawal Qualified Code(s): F14.23 - Cocaine dependence with withdrawal Breathalyzer - Breathalyzer Breathalyzer: 0 Urine Drug Screen - Test Device Lot number: [id number] Expiration date: 10/02/20 - Control Is test valid?: Yes - Results Drug screen NEGATIVE: No Urine drug screen results: [facility]ICKI-Cocaine Inpatient Rehab Admission - Rehab Decision to Admit Inpatient rehab admission?: No
[2019-01-24] MEDS ORDERED: MAGNESIUM HYDROX 2400MG/30ML ORAL SUSPENSION 30 ML CUP PO PRN (10:24)
[2019-01-24] MEDS ORDERED: hydrOXYzine PAMOATE 25 MG CAPSULE (FP) PO PRN (10:24)
[2019-01-24] MEDS ORDERED: MENTHOL/PHENOL 1 EACH UD MM PRN (10:24)
[2019-01-24] MEDS ORDERED: IBUPROFEN 400 MG TABLET (FP) PO PRN (10:24)
[2019-01-24] MEDS ORDERED: BISMUTH SUBSALICYLATE 524 MG/30 ML UD PO PRN (10:24)
[2019-01-24] MEDS ORDERED: MAGNESIUM CITRATE 300 ML BOTTLE PO PRN (10:24)
[2019-01-24] MEDS ORDERED: MELATONIN 5 MG TABLETS PO PRN (10:24)
[2019-01-24] MEDS ORDERED: METHOCARBAMOL 500 MG TABLET PO PRN (10:24)
[2019-01-24] MEDS ORDERED: MAG HYDROX/AL HYDROX/SIMETH 30 ML UNIT-DOSE CUP PO PRN (10:24)
[2019-01-24] MEDS ORDERED: ACETAMINOPHEN 325 MG TABLET (FP) PO PRN ×2 (10:24)
[2019-01-24] MEDS ORDERED: chlordiazePOXIDE HCL 25 MG CAPSULE PO PRN (10:24)
[2019-01-24] MEDS: chlordiazePOXIDE HCL 25 MG CAPSULE PO SCH ×3 (11:14→22:40)
[2019-01-24] MEDS: THIAMINE HCL 100 MG TABLET (FP) PO SCH (22:41)
[2019-01-25] MEDS: chlordiazePOXIDE HCL 25 MG CAPSULE PO SCH ×4 (06:40→22:21)
[2019-01-25 10:38] LABS: HEMATOCRIT 46.4 % (35.4-49); HEMOGLOBIN 15.3 GM/dL (11.7-16.9); MCH 28.2 pg (25.7-33.7); MCHC 33.1 g/dl (32.0-35.9); MEAN CELL VOLUME 85.2 fl (80-96); MEAN PLT VOLUME 10.3 fl (7.5-11.1); PLATELET COUNT 154 K/MM3 (134-434); RBC 5.44 M/mm3 (4.00-5.60); RDW 14.3 % (11.9-15.9); WHITE BLOOD COUNT 13.3 K/mm3 (4.0-10.0)
[2019-01-25 10:58] LABS: ALBUMIN 3.6 g/dl (3.4-5.0); BILIRUBIN,TOTAL 0.8 mg/dL (0.2-1); BLOOD UREA NITROGEN 18.9 mg/dL (7-18); CALCIUM 8.7 mg/dL (8.5-10.1); CREATININE 0.9 mg/dL (0.55-1.3); POTASSIUM 3.7 mmol/L (3.5-5.1); TOT PROT 7.1 g/dl (6.4-8.2)
[2019-01-25] MEDS: PRENATAL VITAMINS W/ FOLIC ACID TABLET (FP) PO SCH (11:18)
--- NOTE | 2019-01-25 12:05 | PN ---
[facility] CIWA - CIWA Score Nausea/Vomitin-Mild Nausea/No Vomiting Muscle Tremors: 4-Moderate,w/Arms Extend Anxiety: 4-Mod. Anxious/Guarded Agitation: 3 Paroxysmal Sweats: 2 Orientation: 2-Disoriented Date<2 days Tacttile Disturbances: 1-Very Mild Itch/Numbness Auditory Disturbances: 0-None Visual Disturbances: 0-None Headache: 3-Moderate CIWA-Ar Total Score: 20 BHS Progress Note (SOAP) Subjective: doing well with librium detox regimen tolerate food and fluid well mild nausea moderate headache Objective: 01/25/19 12:03 Vital Signs Temperature 97.0 F L 01/25/19 09:33 Pulse Rate 99 H 01/25/19 09:33 Respiratory Rate 20 01/25/19 09:33 Blood Pressure 131/79 01/25/19 09:33 O2 Sat by Pulse Oximetry (%) Laboratory Last Values WBC 13.3 K/mm3 (4.0-10.0) H 01/25/19 08:30 RBC 5.44 M/mm3 (4.00-5.60) 01/25/19 08:30 Hgb 15.3 GM/dL (11.7-16.9) 01/25/19 08:30 Hct 46.4 % (35.4-49) 01/25/19 08:30 MCV 85.2 fl (80-96) 01/25/19 08:30 MCH 28.2 pg (25.7-33.7) 01/25/19 08:30 MCHC 33.1 g/dl (32.0-35.9) 01/25/19 08:30 RDW 14.3 % (11.9-15.9) 01/25/19 08:30 Plt Count 154 K/MM3 (134-434) 01/25/19 08:30 MPV 10.3 fl (7.5-11.1) 01/25/19 08:30 Sodium 137 mmol/L (136-145) 01/25/19 08:30 Potassium 3.7 mmol/L (3.5-5.1) 01/25/19 08:30 Chloride 100 mmol/L (98-107) 01/25/19 08:30 Carbon Dioxide 28 mmol/L (21-32) 01/25/19 08:30 Anion Gap 10 MMOL/L (8-16) 01/25/19 08:30 BUN 18.9 mg/dL (7-18) H 01/25/19 08:30 Creatinine 0.9 mg/dL (0.55-1.3) 01/25/19 08:30 Est GFR (CKD-EPI)AfAm 116.65 01/25/19 08:30 Est GFR (CKD-EPI)NonAf 100.64 01/25/19 08:30 Random Glucose 122 mg/dL (74-106) H 01/25/19 08:30 Calcium 8.7 mg/dL (8.5-10.1) 01/25/19 08:30 Total Bilirubin 0.8 mg/dL (0.2-1) 01/25/19 08:30 AST 80 U/L (15-37) H 01/25/19 08:30 ALT 42 U/L (13-61) 01/25/19 08:30 Alkaline Phosphatase 80 U/L (45-117) 01/25/19 08:30 Total Protein 7.1 g/dl (6.4-8.2) 01/25/19 08:30 Albumin 3.6 g/dl (3.4-5.0) 01/25/19 08:30 RPR Titer Nonreactive (NONREACTIVE) 01/25/19 08:30 lab noted glucose elevation fasting glucose Assessment: 01/25/19 12:04 alcohol withdrawal sx Plan: continue librium detox regimen
[2019-01-25] MEDS: THIAMINE HCL 100 MG TABLET (FP) PO SCH (22:21)
[2019-01-26] MEDS: chlordiazePOXIDE HCL 25 MG CAPSULE PO SCH ×4 (06:47→22:49)
[2019-01-26] MEDS: PRENATAL VITAMINS W/ FOLIC ACID TABLET (FP) PO SCH (10:27)
[2019-01-26] MEDS ORDERED: LORATADINE 10 MG TABLET PO SCH (11:15)
--- NOTE | 2019-01-26 11:17 | PN ---
S CIWA - CIWA Score Nausea/Vomitin-Mild Nausea/No Vomiting Muscle Tremors: 3 Anxiety: 4-Mod. Anxious/Guarded Agitation: 3 Paroxysmal Sweats: 2 Orientation: 0-Oriented Tacttile Disturbances: 1-Very Mild Itch/Numbness Auditory Disturbances: 0-None Visual Disturbances: 0-None Headache: 1-Very Mild CIWA-Ar Total Score: 15 BHS Progress Note (SOAP) Subjective: c/o running nose taking claritin at home continue claritin 10 mg po daily c/o coughing none productive cough clear lung sound bilaterally on auscultation mucinx po bid patient requests treatment for chlymidia urine chlymida gono trichlo ordered encourage treatment for partner Objective: 01/26/19 11:16 Vital Signs Temperature 98.0 F 01/26/19 09:32 Pulse Rate 87 01/26/19 09:32 Respiratory Rate 16 01/26/19 09:32 Blood Pressure 118/71 01/26/19 09:32 O2 Sat by Pulse Oximetry (%) Laboratory Last Values WBC 13.3 K/mm3 (4.0-10.0) H 01/25/19 08:30 RBC 5.44 M/mm3 (4.00-5.60) 01/25/19 08:30 Hgb 15.3 GM/dL (11.7-16.9) 01/25/19 08:30 Hct 46.4 % (35.4-49) 01/25/19 08:30 MCV 85.2 fl (80-96) 01/25/19 08:30 MCH 28.2 pg (25.7-33.7) 01/25/19 08:30 MCHC 33.1 g/dl (32.0-35.9) 01/25/19 08:30 RDW 14.3 % (11.9-15.9) 01/25/19 08:30 Plt Count 154 K/MM3 (134-434) 01/25/19 08:30 MPV 10.3 fl (7.5-11.1) 01/25/19 08:30 Sodium 137 mmol/L (136-145) 01/25/19 08:30 Potassium 3.7 mmol/L (3.5-5.1) 01/25/19 08:30 Chloride 100 mmol/L (98-107) 01/25/19 08:30 Carbon Dioxide 28 mmol/L (21-32) 01/25/19 08:30 Anion Gap 10 MMOL/L (8-16) 01/25/19 08:30 BUN 18.9 mg/dL (7-18) H 01/25/19 08:30 Creatinine 0.9 mg/dL (0.55-1.3) 01/25/19 08:30 Est GFR (CKD-EPI)AfAm 116.65 01/25/19 08:30 Est GFR (CKD-EPI)NonAf 100.64 01/25/19 08:30 Random Glucose 122 mg/dL (74-106) H 01/25/19 08:30 Calcium 8.7 mg/dL (8.5-10.1) 01/25/19 08:30 Total Bilirubin 0.8 mg/dL (0.2-1) 01/25/19 08:30 AST 80 U/L (15-37) H 01/25/19 08:30 ALT 42 U/L (13-61) 01/25/19 08:30 Alkaline Phosphatase 80 U/L (45-117) 01/25/19 08:30 Total Protein 7.1 g/dl (6.4-8.2) 01/25/19 08:30 Albumin 3.6 g/dl (3.4-5.0) 01/25/19 08:30 RPR Titer Nonreactive (NONREACTIVE) 01/25/19 08:30 lab noted Assessment: 01/26/19 11:17 alcohol withdrawal sx Plan: continue librium detox regimen
[2019-01-26] MEDS: guaiFENesin 600 MG TABLET.ER (FP) PO SCH ×2 (11:38→22:48)
[2019-01-26] MEDS: THIAMINE HCL 100 MG TABLET (FP) PO SCH (22:49)
[2019-01-27] MEDS ORDERED: chlordiazePOXIDE HCL 10 MG CAPSULE PO PRN
[2019-01-27] MEDS ORDERED: chlordiazePOXIDE HCL 10 MG CAPSULE PO SCH (05:00)
[2019-01-27 06:46] VITALS: BP 124/70; PULSE 82; TEMP 97
--- NOTE | 2019-01-27 08:24 | DS ---
[facility] Detox Discharge Summary Admission Date: 01/24/19 Discharge Date: 01/27/19 - History Present History: Alcohol Dependence Additional Comments: received counselor reported that patient had verbal altercation around 0715 AM today patient prefers to leave the detox that he can follow up with [facility] today met with the patient at counselor's office patient is alert oriented x 3 denies pain report had verbal argument with a peer no physical contact cardiac S1S2 regular rate rhythm respiratory clear lung sound bilaterally extremities full range of motion Pertinent Past History: patient agrees to return to his primary care provider for chlamydia testing as well as hypertension and mental issues - Physical Exam Results Vital Signs: Vital Signs Temperature 97.0 F L 01/27/19 06:46 Pulse Rate 82 01/27/19 06:46 Respiratory Rate 18 01/27/19 06:46 Blood Pressure 124/70 01/27/19 06:46 O2 Sat by Pulse Oximetry (%) Pertinent Admission Physical Exam Findings: alcohol withdrawal sx Laboratory Last Values WBC 13.3 K/mm3 (4.0-10.0) H 01/25/19 08:30 RBC 5.44 M/mm3 (4.00-5.60) 01/25/19 08:30 Hgb 15.3 GM/dL (11.7-16.9) 01/25/19 08:30 Hct 46.4 % (35.4-49) 01/25/19 08:30 MCV 85.2 fl (80-96) 01/25/19 08:30 MCH 28.2 pg (25.7-33.7) 01/25/19 08:30 MCHC 33.1 g/dl (32.0-35.9) 01/25/19 08:30 RDW 14.3 % (11.9-15.9) 01/25/19 08:30 Plt Count 154 K/MM3 (134-434) 01/25/19 08:30 MPV 10.3 fl (7.5-11.1) 01/25/19 08:30 Sodium 137 mmol/L (136-145) 01/25/19 08:30 Potassium 3.7 mmol/L (3.5-5.1) 01/25/19 08:30 Chloride 100 mmol/L (98-107) 01/25/19 08:30 Carbon Dioxide 28 mmol/L (21-32) 01/25/19 08:30 Anion Gap 10 MMOL/L (8-16) 01/25/19 08:30 BUN 18.9 mg/dL (7-18) H 01/25/19 08:30 Creatinine 0.9 mg/dL (0.55-1.3) 01/25/19 08:30 Est GFR (CKD-EPI)AfAm 116.65 01/25/19 08:30 Est GFR (CKD-EPI)NonAf 100.64 01/25/19 08:30 Random Glucose 122 mg/dL (74-106) H 01/25/19 08:30 Calcium 8.7 mg/dL (8.5-10.1) 01/25/19 08:30 Total Bilirubin 0.8 mg/dL (0.2-1) 01/25/19 08:30 AST 80 U/L (15-37) H 01/25/19 08:30 ALT 42 U/L (13-61) 01/25/19 08:30 Alkaline Phosphatase 80 U/L (45-117) 01/25/19 08:30 Total Protein 7.1 g/dl (6.4-8.2) 01/25/19 08:30 Albumin 3.6 g/dl (3.4-5.0) 01/25/19 08:30 RPR Titer Nonreactive (NONREACTIVE) 01/25/19 08:30 patient agrees to bring in lab report to primary care provider for follow up "I think I have chlamydia" discuss safe sex and partner treatment of chlamydia - Treatment Hospital Course: Detox Protocol Followed, Detoxed Safely, Responded well, Discharged Condition Good, Rehab Referral Accepted Patient has Accepted a Rehab Referral to: [facility] - Medication Discharge Medications: Ambulatory Orders NK [No Known Home Medication] 09/21/18 - Diagnosis (1) Alcohol dependence with withdrawal Status: Acute Qualifiers: Complication of substance-induced condition: uncomplicated Qualified Code(s ): F10.230 - Alcohol dependence with withdrawal, uncomplicated (2) Hypertension Status: Chronic Qualifiers: Hypertension type: essential hypertension Qualified Code(s): I10 - Essential (primary) hypertension (3) Nicotine dependence Status: Acute Qualifiers: Nicotine product type: cigarettes Substance use status: in withdrawal Qualified Code(s): F17.213 - Nicotine dependence, cigarettes, with withdrawal (4) Seasonal allergic rhinitis Status: Chronic Qualifiers: Allergic rhinitis trigger: unspecified Qualified Code(s): J30.2 - Other seasonal allergic rhinitis - AMA Did Patient Leave Against Medical Advice: No CIWA Score - CIWA Score Nausea/Vomitin-No Nausea/No Vomiting Muscle Tremors: 2 Anxiety: 3 Agitation: 2 Paroxysmal Sweats: 1-Minimal Palms Moist Orientation: 0-Oriented Tacttile Disturbances: 1-Very Mild Itch/Numbness Auditory Disturbances: 0-None Visual Disturbances: 0-None Headache: 1-Very Mild CIWA-Ar Total Score: 10
[2019-01-28] MEDS ORDERED: chlordiazePOXIDE HCL 10 MG CAPSULE PO SCH (05:00)
[2019-01-29] MEDS ORDERED: chlordiazePOXIDE HCL 10 MG CAPSULE PO ONE (05:00)
== END 2019-01-27 09:05 | disposition home or self-care (01) | DRG 774 ==
LOC: YASAS 09:02 → Y3N 10:37
PROVIDERS: ADMIT Surgery; ATTEND Surgery
PROC: HZ2ZZZZ Detoxification Services for Substance Abuse Treatment (ICD-10-PCS; principal; 2019-01-24)
DX: F10.230 Alcohol dependence with withdrawal, uncomplicated (principal); F14.23 Cocaine dependence with withdrawal; F17.213 Nicotine dependence, cigarettes, with withdrawal; F41.9 Anxiety disorder, unspecified; I10 Essential (primary) hypertension; J30.2 Other seasonal allergic rhinitis; R11.2 Nausea with vomiting, unspecified; Z86.69 Personal history of other diseases of the nervous system and sense organs
CPT/HCPCS: 36415; 80053; 85027; 86593; 87491; 87591

== ENCOUNTER 2019-04-03 10:26 | Inpatient (IN) | payer OTHER ==
[2019-04-03 11:30] VITALS: BMI 31.1
--- NOTE | 2019-04-03 12:30 | HP ---
CIWA Score Nausea/Vomitin Muscle Tremors: 4-Moderate,w/Arms Extend Anxiety: 3 Agitation: 1-Slight > Activity Paroxysmal Sweats: 1-Minimal Palms Moist Orientation: 1-Uncertain about Date Tacttile Disturbances: 0-None Auditory Disturbances: 1-Very Mild Visual Disturbances: 1-Very Mild Sensitivity Headache: 3-Moderate CIWA-Ar Total Score: 17 - Admission Criteria OASAS Guidelines: Admission for Medically Managed Detox: Requires at least one of the followin. CIWA greater than 12 2. Seizures within the past 24 hours 3. Delirium tremens within the past 24 hours 4. Hallucinations within the past 24 hours 5. Acute intervention needed for co occurring medical disorder 6. Acute intervention needed for co occurring psychiatric disorder 7. Severe withdrawal that cannot be handled at a lower level of care (continued vomiting, continued diarrhea, abnormal vital signs) requiring intravenous medication and/or fluids 8. 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 (seizure was years ago) Psych: Yes: Addictions - Past Surgical History Past Surgical History: Yes: None - Smoking History Smoking history: Current every day smoker Have you smoked in the past 12 months: Yes Aproximately how many cigarettes per day: 20 - Alcohol/Substance Use Hx Alcohol Use: Yes History of Substance Use: reports: Cocaine - Social History Usual Living Arrangement: Yes: With Spouse Admission ROS [facility] Chief Complaint: I can't stop, I need help, I'm so sick Allergies/Adverse Reactions: Allergies Allergy/AdvReac Type Severity Reaction Status Date / Time No Known Allergies Allergy Verified 04/03/19 11:01 History of Present Illness: 49yo gentleman here for detox from alcohol. This is one of several admissions for detox. Patient last here 01/24-01/27/19. History of alcohol related seizure. He takes percocet for back pain (see [facility]) but urine tox negative for oxy and he cannot remember when he last took iit 'I've been drinking so much I can't remember hardly anything'. History of black outs, gets sick if he cannot have a drink. Lives with but not sure he can go back to her as that seems to trigger relapse. He is aware he will receive non opiate pain management while here. [facility] Others' Prescriptions Patient Name: Jorge Dhillon Jr Date: 1970 Address: [address] [place] [address] Sex: Male Rx Written Rx Dispensed Drug Quantity Days Supply Prescriber Name 03/23/2019 03/29/2019 oxycodone-acetaminophen 10-325 mg tab 90 30 Jose Eduardoabi Mariella Aamya 03/27/2019 03/27/2019 oxycodone-acetaminophen 10-325 mg tab 15 5 [facility] Patient Name: Jorge Dhillon Date: 1970 Address: [address] [place] [id number] Sex: Male Rx Written Rx Dispensed Drug Quantity Days Supply Prescriber Name 01/12/2019 01/12/2019 oxycodone-acetaminophen 10-325 mg tab 60 30 Jose Luis Jolly M 12/11/2018 12/11/2018 oxycodone-acetaminophen 10-325 mg tab 60 30 Amaya Robbin 11/30/2018 11/30/2018 oxycodone-acetaminophen 10-325 mg tab 21 7 DO Tasha Mckee Charles 05/06/2018 05/06/2018 oxycodone-acetaminophen 10-325 mg tab 90 30 Jonathan Goodman M D Exam Limitations: Clinical Condition - Ebola screening Have you traveled outside of the country in the last 21 days: No Have you had contact with anyone from an Ebola affected area: No - Review of Systems Constitutional: Loss of Appetite, Malaise, Night Sweats, Changes in sleep, Weakness EENT: reports: No Symptoms Reported Respiratory: reports: No Symptoms reported Cardiac: reports: No Symptoms Reported GI: reports: Nausea, Poor Appetite, Poor Fluid Intake, Indigestion : reports: Frequency Musculoskeletal: reports: Back Pain, Muscle Pain Integumentary: reports: Dryness, Sweating Neuro: reports: Headache, Tremors Endocrine: reports: No Symptoms Reported Hematology: reports: No Symptoms Reported Psychiatric: reports: Judgement Intact, Mood/Affect Appropiate, Anxious Other Systems: Reviewed and Negative Patient History - Patient Medical History Hx Anemia: No Hx Asthma: No Hx Chronic Obstructive Pulmonary Disease (COPD): No Hx Cancer: No Hx Cardiac Disorders: No Hx Congestive Heart Failure: No Hx Hypertension: No Hx Hypercholesterolemia: Yes (no treatment) Hx Pacemaker: No HX Cerebrovascular Accident: No Hx Seizures: Yes (03/2018) Hx Dementia: No Hx Diabetes: No Hx Gastrointestinal Disorders: No Hx Liver Disease: No Hx Genitourinary Disorders: No Hx Sexually Transmitted Disorders: No Hx Renal Disease (ESRD): No Hx Thyroid Disease: No Hx Human Immunodeficiency Virus (HIV): No Hx Hepatitis C: No Hx Depression: No Hx Suicide Attempt: No (denies) Hx Bipolar Disorder: No Hx Schizophrenia: No - Patient Surgical History Past Surgical History: No Hx Neurologic Surgery: No Hx Cataract Extraction: No Hx Cardiac Surgery: No Hx Lung Surgery: No Hx Breast Surgery: No Hx Breast Biopsy: No Hx Abdominal Surgery: No Hx Appendectomy: No Hx Cholecystectomy: No Hx Genitourinary Surgery: No Hx Section: No Hx Orthopedic Surgery: No Anesthesia Reaction: No - PPD History Previous Implant?: Yes Documented Results: Negative w/proof Implanted On Prior R Admission?: Yes Date: 11/07/17 PPD to be Administered?: Yes - Reproductive History Patient is a Female of Child Bearing Age (11 -55 yrs old): No - Smoking Cessation Smoking history: Current some day smoker Have you smoked in the past 12 months: Yes Aproximately how many cigarettes per day: 20 Hx Chewing Tobacco Use: No Initiated information on smoking cessation: Yes 'Breaking Loose' booklet given: 04/03/19 (give on floor) - Substance & Tx. History Hx Alcohol Use: Yes Hx Substance Use: Yes Substance Use Type: Alcohol, Cocaine Hx Substance Use Treatment: Yes (detox, rehab) - Substances abused Alcohol Substance route: Oral Frequency: Daily Amount used: 1 liter of hennesy and 6 12oz beers Age of first use: 13 Date of last use: 04/03/19 Cocaine Substance route: Inhalation Frequency: Daily Amount used: $10-20 Age of first use: 15 Date of last use: 04/03/19 Admission Physical Exam [facility] - Vital Signs Vital Signs: Vital Signs - 24 hr 04/03/19 11:25 Temperature 98.0 F Pulse Rate 96 H Respiratory 18 Rate Blood Pressure 157/98 - Physical General Appearance: Yes: Nourished, Appropriately Dressed, Moderate Distress, Tremorous, Irritable, Anxious HEENTM: Yes: EOMI, Hearing grossly Normal, Normocephalic, Normal Voice, Pharynx Normal, Other (tongue coated) Respiratory: Yes: Normal Breath Sounds, No Respiratory Distress Neck: Yes: No masses,lesions,Nodules, Supple Breast: Yes: Breast Exam Deferred Cardiology: Yes: Regular Rhythm, Regular Rate Abdominal: Yes: Soft Genitourinary: Yes: Frequency Back: Yes: Normal Inspection Musculoskeletal: Yes: full range of Motion, Gait Steady, Back pain, Muscle Pain Extremities: Yes: Normal Inspection, Non-Tender, Tremors Neurological: Yes: 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, Alert, Motor Strength 5/5, Normal Mood/Affect , Normal Response Integumentary: Yes: Normal Color, Dry, Warm, Other (c/o penile rash - none visible upon exam - no sores noted - patient denies discharge - states it gets really red after intercourse - he is requesting testing for GC,Chlamydia) Lymphatic: Yes: Within Normal Limits - Diagnostic (1) Alcohol dependence with withdrawal Current Visit: Yes Status: Chronic Qualifiers: Complication of substance-induced condition: uncomplicated Qualified Code(s ): F10.230 - Alcohol dependence with withdrawal, uncomplicated (2) Cocaine dependence Current Visit: Yes Status: Chronic Qualifiers: Substance use status: in withdrawal Qualified Code(s): F14.23 - Cocaine dependence with withdrawal (3) Back pain Current Visit: Yes Status: Chronic Qualifiers: Back pain location: low back pain Chronicity: acute Back pain laterality : midline Sciatica presence: without sciatica Qualified Code(s): M54.5 - Low back pain (4) Nicotine dependence Current Visit: Yes Status: Acute Qualifiers: Nicotine product type: cigarettes Substance use status: in withdrawal Qualified Code(s): F17.213 - Nicotine dependence, cigarettes, with withdrawal (5) Penile rash Current Visit: Yes Status: Acute Cleared for Admission S - Detox or Rehab [facility] Level of Care: Medically Managed Detox Regimen/Protocol: Not Applicable (ativan) Breathalyzer - Breathalyzer Breathalyzer: 0 Urine Drug Screen - Test Device Lot number: [id number] Expiration date: 12/02/20 - Control Is test valid?: Yes - Results Drug screen NEGATIVE: No Urine drug screen results: RICKI-Cocaine Inpatient Rehab Admission - Rehab Decision to Admit Inpatient rehab admission?: No
[2019-04-03] MEDS ORDERED: MAGNESIUM HYDROX 2400MG/30ML ORAL SUSPENSION 30 ML CUP PO PRN (12:44)
[2019-04-03] MEDS ORDERED: MAGNESIUM CITRATE 300 ML BOTTLE PO PRN (12:44)
[2019-04-03] MEDS ORDERED: IBUPROFEN 400 MG TABLET (FP) PO PRN (12:44)
[2019-04-03] MEDS ORDERED: BISMUTH SUBSALICYLATE 524 MG/30 ML UD PO PRN (12:44)
[2019-04-03] MEDS ORDERED: MAG HYDROX/AL HYDROX/SIMETH 30 ML UNIT-DOSE CUP PO PRN (12:44)
[2019-04-03] MEDS ORDERED: ACETAMINOPHEN 325 MG TABLET (FP) PO PRN ×2 (12:44)
[2019-04-03] MEDS ORDERED: LORazepam 1 MG TABLET PO PRN (12:44)
[2019-04-03] MEDS ORDERED: MELATONIN 5 MG TABLETS PO PRN (12:44)
[2019-04-03] MEDS ORDERED: MENTHOL/PHENOL 1 EACH UD MM PRN (12:44)
[2019-04-03] MEDS ORDERED: METHOCARBAMOL 500 MG TABLET PO PRN (12:44)
[2019-04-03] MEDS ORDERED: NICOTINE POLACRILEX 4 MG GUM BUC PRN (12:48)
[2019-04-03] MEDS ORDERED: LORazepam 2 MG TABLET PO ONE (13:00)
[2019-04-03] MEDS: LORATADINE 10 MG TABLET PO SCH (13:26)
[2019-04-03] MEDS: LIDOCAINE 5% TOPICAL PATCH TP SCH (13:34)
[2019-04-03] MEDS: LORazepam 2 MG TABLET PO SCH ×2 (18:29→22:09)
[2019-04-03] MEDS: THIAMINE HCL 100 MG TABLET (FP) PO SCH (22:09)
[2019-04-03] MEDS: LIDOCAINE PATCH REMOVAL MC SCH (22:10)
[2019-04-04] MEDS: LORazepam 2 MG TABLET PO SCH ×4 (05:57→22:28)
[2019-04-04] MEDS: PRENATAL VITAMINS W/ FOLIC ACID TABLET (FP) PO SCH (10:45)
[2019-04-04] MEDS: LORATADINE 10 MG TABLET PO SCH (10:45)
[2019-04-04] MEDS: LIDOCAINE 5% TOPICAL PATCH TP SCH (10:46)
--- NOTE | 2019-04-04 12:26 | PN ---
S CIWA - CIWA Score Nausea/Vomitin-No Nausea/No Vomiting Muscle Tremors: 3 Anxiety: 3 Agitation: 4-Moderately Restless Paroxysmal Sweats: 1-Minimal Palms Moist Orientation: 0-Oriented Tacttile Disturbances: 0-None Auditory Disturbances: 0-None Visual Disturbances: 0-None Headache: 0-None Present CIWA-Ar Total Score: 11 BHS Progress Note (SOAP) Subjective: irritable restless agitation interrupted sleep Objective: 04/04/19 12:25 Vital Signs Temperature 98.1 F 04/04/19 10:30 Pulse Rate 96 H 04/04/19 10:30 Respiratory Rate 18 04/04/19 10:30 Blood Pressure 145/78 04/04/19 10:30 O2 Sat by Pulse Oximetry (%) pending labs aaox3 ambulating no acute distress Assessment: 04/04/19 12:26 withdrawals Plan: continue detox
[2019-04-04 12:42] LABS: HEMATOCRIT 43.8 % (35.4-49); HEMOGLOBIN 14.6 GM/dL (11.7-16.9); MCH 28.8 pg (25.7-33.7); MCHC 33.4 g/dl (32.0-35.9); MEAN CELL VOLUME 86.2 fl (80-96); MEAN PLT VOLUME 10.3 fl (7.5-11.1); PLATELET COUNT 167 K/MM3 (134-434); RBC 5.08 M/mm3 (4.00-5.60); RDW 14.2 % (11.9-15.9); WHITE BLOOD COUNT 10.1 K/mm3 (4.0-10.0)
[2019-04-04 12:49] LABS: ALBUMIN 3.3 g/dl (3.4-5.0); BILIRUBIN,TOTAL 0.6 mg/dL (0.2-1); BLOOD UREA NITROGEN 11.3 mg/dL (7-18); CALCIUM 8.7 mg/dL (8.5-10.1); CREATININE 0.8 mg/dL (0.55-1.3); POTASSIUM 3.9 mmol/L (3.5-5.1); TOT PROT 6.6 g/dl (6.4-8.2)
--- NOTE | 2019-04-04 12:53 | PN ---
[facility] Progress Note Note: pt was sent to 3N detox unit because he became belligerent, threatening, and states I am going to spit and chop your head off if you are near me. Pt was contracted and told by disciplinary team that those chose of words and threatening behaviour is unacceptable. Pt agreed to go to another unit to complete his detox.
[2019-04-04] MEDS: THIAMINE HCL 100 MG TABLET (FP) PO SCH (22:28)
[2019-04-04] MEDS: LIDOCAINE PATCH REMOVAL MC SCH (22:43)
[2019-04-05] MEDS: LORazepam 1 MG TABLET PO SCH ×4 (06:59→22:22)
[2019-04-05] MEDS: LORATADINE 10 MG TABLET PO SCH (10:30)
[2019-04-05] MEDS: PRENATAL VITAMINS W/ FOLIC ACID TABLET (FP) PO SCH (10:30)
[2019-04-05] MEDS: LIDOCAINE 5% TOPICAL PATCH TP SCH (11:36)
--- NOTE | 2019-04-05 12:01 | EKG ---
Test Reason : Blood Pressure : / mmHG Vent. Rate : 084 BPM Atrial Rate : 084 BPM P-R Int : 114 ms QRS Dur : 092 ms QT Int : 412 ms P-R-T Axes : 064 027 034 degrees QTc Int : 486 ms NORMAL SINUS RHYTHM PROLONGED QT ABNORMAL ECG WHEN COMPARED WITH ECG OF 04-JUL-2018 10:08, NO SIGNIFICANT CHANGE WAS FOUND Confirmed by PAYAM LUNDBERG MD ([id number]) on 04/05/2019 12:00:38 PM Referred By: Confirmed By:PAYAM LUNDBERG MD
--- NOTE | 2019-04-05 12:32 | PN ---
S CIWA - CIWA Score Nausea/Vomitin-No Nausea/No Vomiting Muscle Tremors: 2 Anxiety: 2 Agitation: 2 Paroxysmal Sweats: No Perspiration Orientation: 0-Oriented Tacttile Disturbances: 0-None Auditory Disturbances: 0-None Visual Disturbances: 0-None Headache: 0-None Present CIWA-Ar Total Score: 6 BHS Progress Note (SOAP) Subjective: 49 years old male admitted on 04/03/19 for alcohol withdrawal sx management treated with ativan detox regimen ate breakfast resting on bed limited conversation with staff Objective: 04/05/19 12:31 Vital Signs Temperature 97.0 F L 04/05/19 09:21 Pulse Rate 86 04/05/19 09:21 Respiratory Rate 18 04/05/19 09:21 Blood Pressure 135/90 04/05/19 09:21 O2 Sat by Pulse Oximetry (%) Laboratory Last Values WBC 10.1 K/mm3 (4.0-10.0) H 04/04/19 07:50 RBC 5.08 M/mm3 (4.00-5.60) 04/04/19 07:50 Hgb 14.6 GM/dL (11.7-16.9) 04/04/19 07:50 Hct 43.8 % (35.4-49) 04/04/19 07:50 MCV 86.2 fl (80-96) 04/04/19 07:50 MCH 28.8 pg (25.7-33.7) 04/04/19 07:50 MCHC 33.4 g/dl (32.0-35.9) 04/04/19 07:50 RDW 14.2 % (11.9-15.9) 04/04/19 07:50 Plt Count 167 K/MM3 (134-434) 04/04/19 07:50 MPV 10.3 fl (7.5-11.1) 04/04/19 07:50 Sodium 140 mmol/L (136-145) 04/04/19 07:50 Potassium 3.9 mmol/L (3.5-5.1) 04/04/19 07:50 Chloride 105 mmol/L (98-107) 04/04/19 07:50 Carbon Dioxide 30 mmol/L (21-32) 04/04/19 07:50 Anion Gap 5 MMOL/L (8-16) L 04/04/19 07:50 BUN 11.3 mg/dL (7-18) 04/04/19 07:50 Creatinine 0.8 mg/dL (0.55-1.3) 04/04/19 07:50 Est GFR (CKD-EPI)AfAm 121.57 04/04/19 07:50 Est GFR (CKD-EPI)NonAf 104.89 04/04/19 07:50 Random Glucose 99 mg/dL (74-106) 04/04/19 07:50 Calcium 8.7 mg/dL (8.5-10.1) 04/04/19 07:50 Total Bilirubin 0.6 mg/dL (0.2-1) 04/04/19 07:50 AST 23 U/L (15-37) 04/04/19 07:50 ALT 26 U/L (13-61) 04/04/19 07:50 Alkaline Phosphatase 78 U/L (45-117) 04/04/19 07:50 Total Protein 6.6 g/dl (6.4-8.2) 04/04/19 07:50 Albumin 3.3 g/dl (3.4-5.0) L 04/04/19 07:50 lab noted Assessment: 04/05/19 12:31 alcohol withdrawal sx Plan: continue ativan detox regimen
--- NOTE | 2019-04-05 13:06 | CONSULT ---
[facility] Psychiatric Consult - Data Date of interview: 04/05/19 Admission source: [facility] Identifying data: Readmission to [facility] for this 49 y/o male self- referred for detoxification (ANTONIO issues : alcohol, cocaine, nicotine, opiate). Interviewed at [address] [place] [address]. Patient is single, father of five, homeless, unemployed and deprived of any source of income. Substance Abuse History: Discussed with the patient. Details in current [facility] report as follows : Smoking history: Current some day smoker. Have you smoked in the past 12 months: Yes. Aproximately how many cigarettes per day: 20. Hx Chewing Tobacco Use: No. Initiated information on smoking cessation: Yes. ' Breaking Loose' booklet given: 04/03/19 (give on floor). - Substance & Tx. History. Hx Alcohol Use: Yes. Hx Substance Use: Yes. Substance Use Type: Alcohol, Cocaine. Hx Substance Use Treatment: Yes (detox, rehab). - Substances abused. Alcohol. Substance route: Oral. Frequency: Daily. Amount used: 1 liter of hennesy and 6 12oz beers. Age of first use: 13. Date of last use: 04/03/19. Cocaine. Substance route: Inhalation. Frequency: Daily. Amount used: $10-20. Age of first use: 15. Date of last use: . Patient admits to sporadic use of percocet (toxicology not positive for opiates). Medical History: Dyslipidemia and distant history of seizures. Psychiatric History: Patient denies history of psychiatric hospitalizations, OPD care or suicide attempts. Physical/Sexual Abuse/Trauma History: Not discussed. Patient denies. Additional Comment: Urine drug screen results: RICKI-Cocaine. Noted. Mental Status Exam - Mental Status Exam Alert and Oriented to: Time, Place, Person Cognitive Function: Good Patient Appearance: Unkempt, Disheveled Mood: Hostile, Withdrawn, Irritable Affect: Mood Congruent, Constricted Patient Behavior: Fatigued, Uncooperative Speech Pattern: Clear Voice Loudness: Normal Thought Process: Intact, Goal Oriented Thought Disorder: Not Present Hallucinations: Denies Suicidal Ideation: Denies Homicidal Ideation: Denies Insight/Judgement: Poor Sleep: Well Appetite: Good (observed finishing his lunch) Gait/Station: Normal Psychiatric Findings - Problem List ([place] 1, 2,3) (1) Alcohol dependence with withdrawal Current Visit: Yes Status: Acute Qualifiers: Complication of substance-induced condition: uncomplicated Qualified Code(s ): F10.230 - Alcohol dependence with withdrawal, uncomplicated (2) Cocaine dependence Current Visit: Yes Status: Chronic Qualifiers: Substance use status: in withdrawal Qualified Code(s): F14.23 - Cocaine dependence with withdrawal (3) Nicotine dependence Current Visit: Yes Status: Chronic Qualifiers: Nicotine product type: cigarettes Substance use status: in withdrawal Qualified Code(s): F17.213 - Nicotine dependence, cigarettes, with withdrawal (4) Substance induced mood disorder Current Visit: Yes Status: Acute - Initial Treatment Plan Initial Treatment Plan: Psychoeducation. Sleep hygiene. Detoxification. AA meetings. Observation.
[2019-04-05] MEDS ORDERED: FLUCONAZOLE 100 MG TABLET (UD) PO ONE (13:15)
[2019-04-05] MEDS: CLINDAMYCIN HCL 150 MG CAPSULE (FP) PO SCH ×2 (15:26→22:22)
[2019-04-05] MEDS: THIAMINE HCL 100 MG TABLET (FP) PO SCH (22:22)
[2019-04-05] MEDS: LIDOCAINE PATCH REMOVAL MC SCH (22:25)
[2019-04-05 22:40] LABS: PH,URINE 7.5 (5.0-8.0); URINE APPEARANCE CLOUDY; URINE BILIRUBIN NEGATIVE (NEGATIVE); URINE COLOR YELLOW; URINE GLUCOSE (UA) NEGATIVE (NEGATIVE); URINE KETONE NEGATIVE (NEGATIVE); URINE LEUK ESTERASE NEGATIVE (NEGATIVE); URINE NITRITE NEGATIVE (NEGATIVE); URINE PROTEIN NEGATIVE (NEGATIVE); URINE UROBILINOGEN 0.2 mg/dL (0.2-1.0)
[2019-04-06] MEDS ORDERED: LORazepam 0.5 MG TABLET PO PRN
[2019-04-06] MEDS: LORazepam 0.5 MG TABLET PO SCH ×4 (06:59→22:12)
[2019-04-06] MEDS: CLINDAMYCIN HCL 150 MG CAPSULE (FP) PO SCH ×3 (07:26→22:11)
[2019-04-06] MEDS: LIDOCAINE 5% TOPICAL PATCH TP SCH (10:31)
[2019-04-06] MEDS: PRENATAL VITAMINS W/ FOLIC ACID TABLET (FP) PO SCH (10:31)
[2019-04-06] MEDS: LORATADINE 10 MG TABLET PO SCH (10:31)
--- NOTE | 2019-04-06 10:41 | PN ---
S CIWA - CIWA Score Nausea/Vomitin-No Nausea/No Vomiting Muscle Tremors: 1-None Visible, but [place] Anxiety: 1-Mildly Anxious Agitation: 0-Normal Activity Paroxysmal Sweats: No Perspiration Orientation: 0-Oriented Tacttile Disturbances: 0-None Auditory Disturbances: 0-None Visual Disturbances: 0-None Headache: 0-None Present CIWA-Ar Total Score: 2 BHS Progress Note (SOAP) Subjective: 49 years old male admitted on 04/03/19 for alcohol withdrawal sx management treated with ativan detox regimen ate breakfast feeling tired prefers to resting on bed today encourage the patient to discuss issues and concerns with the staff and aftercare arrangement Objective: 04/06/19 10:31 Vital Signs Temperature 97.7 F 04/06/19 09:13 Pulse Rate 85 04/06/19 09:13 Respiratory Rate 20 04/06/19 09:13 Blood Pressure 141/90 04/06/19 09:13 O2 Sat by Pulse Oximetry (%) Laboratory Last Values WBC 10.1 K/mm3 (4.0-10.0) H 04/04/19 07:50 RBC 5.08 M/mm3 (4.00-5.60) 04/04/19 07:50 Hgb 14.6 GM/dL (11.7-16.9) 04/04/19 07:50 Hct 43.8 % (35.4-49) 04/04/19 07:50 MCV 86.2 fl (80-96) 04/04/19 07:50 MCH 28.8 pg (25.7-33.7) 04/04/19 07:50 MCHC 33.4 g/dl (32.0-35.9) 04/04/19 07:50 RDW 14.2 % (11.9-15.9) 04/04/19 07:50 Plt Count 167 K/MM3 (134-434) 04/04/19 07:50 MPV 10.3 fl (7.5-11.1) 04/04/19 07:50 Sodium 140 mmol/L (136-145) 04/04/19 07:50 Potassium 3.9 mmol/L (3.5-5.1) 04/04/19 07:50 Chloride 105 mmol/L (98-107) 04/04/19 07:50 Carbon Dioxide 30 mmol/L (21-32) 04/04/19 07:50 Anion Gap 5 MMOL/L (8-16) L 04/04/19 07:50 BUN 11.3 mg/dL (7-18) 04/04/19 07:50 Creatinine 0.8 mg/dL (0.55-1.3) 04/04/19 07:50 Est GFR (CKD-EPI)AfAm 121.57 04/04/19 07:50 Est GFR (CKD-EPI)NonAf 104.89 04/04/19 07:50 Random Glucose 99 mg/dL (74-106) 04/04/19 07:50 Calcium 8.7 mg/dL (8.5-10.1) 04/04/19 07:50 Total Bilirubin 0.6 mg/dL (0.2-1) 04/04/19 07:50 AST 23 U/L (15-37) 04/04/19 07:50 ALT 26 U/L (13-61) 04/04/19 07:50 Alkaline Phosphatase 78 U/L (45-117) 04/04/19 07:50 Total Protein 6.6 g/dl (6.4-8.2) 04/04/19 07:50 Albumin 3.3 g/dl (3.4-5.0) L 04/04/19 07:50 Urine Color Yellow 04/05/19 22:30 Urine Appearance Cloudy 04/05/19 22:30 Urine pH 7.5 (5.0-8.0) D 04/05/19 22:30 Ur Specific [place] 1.016 (1.010-1.035) 04/05/19 22:30 Urine Protein Negative (NEGATIVE) 04/05/19 22:30 Urine Glucose (UA) Negative (NEGATIVE) 04/05/19 22:30 Urine Ketones Negative (NEGATIVE) 04/05/19 22:30 Urine Blood Negative (NEGATIVE) 04/05/19 22:30 Urine Nitrite Negative (NEGATIVE) 04/05/19 22:30 Urine Bilirubin Negative (NEGATIVE) 04/05/19 22:30 Urine Urobilinogen 0.2 mg/dL (0.2-1.0) 04/05/19 22:30 Ur Leukocyte Esterase Negative (NEGATIVE) 04/05/19 22:30 lab noted Assessment: 04/06/19 10:41 alcohol withdrawal sx 04/06/19 10:44 Plan: continue ativan detox regimen
[2019-04-06] MEDS: THIAMINE HCL 100 MG TABLET (FP) PO SCH (22:11)
[2019-04-06] MEDS: LIDOCAINE PATCH REMOVAL MC SCH (22:12)
[2019-04-07] MEDS ORDERED: LORazepam 0.5 MG TABLET PO ONE (05:00)
[2019-04-07] MEDS: CLINDAMYCIN HCL 150 MG CAPSULE (FP) PO SCH (06:01)
[2019-04-07 09:19] VITALS: BP 121/83; PULSE 84; TEMP 97.7
[2019-04-07] MEDS: PRENATAL VITAMINS W/ FOLIC ACID TABLET (FP) PO SCH (09:51)
[2019-04-07] MEDS: LIDOCAINE 5% TOPICAL PATCH TP SCH (09:51)
[2019-04-07] MEDS: LORATADINE 10 MG TABLET PO SCH (09:51)
--- NOTE | 2019-04-07 11:06 | DS ---
[facility] Detox Discharge Summary Admission Date: 04/03/19 Discharge Date: 04/07/19 - History Present History: Alcohol Dependence Additional Comments: 49 YEARS OLD MALE ADMITTED ON 04/03/19 FOR ALCOHOL WITHDRAWAL SX MANAGEMENT TREATED WITH ATIVAN DETOX REGIMEN PATIENT TOLERATED WELL ALERT ORIENTED X 3 CARDIAC S1S2 REGULAR RATE RHYTHM RESPIRATORY CLEAR LUNG BILATERALLY ON AUSCULTATION EXTREMITIES FULL RANGE OF MOTION - Physical Exam Results Vital Signs: Vital Signs Temperature 97.7 F 04/07/19 09:18 Pulse Rate 84 04/07/19 09:18 Respiratory Rate 18 04/07/19 09:18 Blood Pressure 121/83 04/07/19 09:18 O2 Sat by Pulse Oximetry (%) Pertinent Admission Physical Exam Findings: ALCOHOL WITHDRAWAL SX Laboratory Last Values WBC 10.1 K/mm3 (4.0-10.0) H 04/04/19 07:50 RBC 5.08 M/mm3 (4.00-5.60) 04/04/19 07:50 Hgb 14.6 GM/dL (11.7-16.9) 04/04/19 07:50 Hct 43.8 % (35.4-49) 04/04/19 07:50 MCV 86.2 fl (80-96) 04/04/19 07:50 MCH 28.8 pg (25.7-33.7) 04/04/19 07:50 MCHC 33.4 g/dl (32.0-35.9) 04/04/19 07:50 RDW 14.2 % (11.9-15.9) 04/04/19 07:50 Plt Count 167 K/MM3 (134-434) 04/04/19 07:50 MPV 10.3 fl (7.5-11.1) 04/04/19 07:50 Sodium 140 mmol/L (136-145) 04/04/19 07:50 Potassium 3.9 mmol/L (3.5-5.1) 04/04/19 07:50 Chloride 105 mmol/L (98-107) 04/04/19 07:50 Carbon Dioxide 30 mmol/L (21-32) 04/04/19 07:50 Anion Gap 5 MMOL/L (8-16) L 04/04/19 07:50 BUN 11.3 mg/dL (7-18) 04/04/19 07:50 Creatinine 0.8 mg/dL (0.55-1.3) 04/04/19 07:50 Est GFR (CKD-EPI)AfAm 121.57 04/04/19 07:50 Est GFR (CKD-EPI)NonAf 104.89 04/04/19 07:50 Random Glucose 99 mg/dL (74-106) 04/04/19 07:50 Calcium 8.7 mg/dL (8.5-10.1) 04/04/19 07:50 Total Bilirubin 0.6 mg/dL (0.2-1) 04/04/19 07:50 AST 23 U/L (15-37) 04/04/19 07:50 ALT 26 U/L (13-61) 04/04/19 07:50 Alkaline Phosphatase 78 U/L (45-117) 04/04/19 07:50 Total Protein 6.6 g/dl (6.4-8.2) 04/04/19 07:50 Albumin 3.3 g/dl (3.4-5.0) L 04/04/19 07:50 Urine Color Yellow 04/05/19 22:30 Urine Appearance Cloudy 04/05/19 22:30 Urine pH 7.5 (5.0-8.0) D 04/05/19 22:30 Ur Specific [place] 1.016 (1.010-1.035) 04/05/19 22:30 Urine Protein Negative (NEGATIVE) 04/05/19 22:30 Urine Glucose (UA) Negative (NEGATIVE) 04/05/19 22:30 Urine Ketones Negative (NEGATIVE) 04/05/19 22:30 Urine Blood Negative (NEGATIVE) 04/05/19 22:30 Urine Nitrite Negative (NEGATIVE) 04/05/19 22:30 Urine Bilirubin Negative (NEGATIVE) 04/05/19 22:30 Urine Urobilinogen 0.2 mg/dL (0.2-1.0) 04/05/19 22:30 Ur Leukocyte Esterase Negative (NEGATIVE) 04/05/19 22:30 RPR Titer Nonreactive (NONREACTIVE) 04/04/19 07:50 LAB NOTED - Treatment Hospital Course: Detox Protocol Followed, Detoxed Safely, Responded well, Discharged Condition Good, Rehab Referral Accepted Patient has Accepted a Rehab Referral to: [facility] - Medication Discharge Medications: Ambulatory Orders Loratadine [Claritin -] 10 mg PO DAILY 04/03/19 - Diagnosis (1) Alcohol dependence with withdrawal Current Visit: Yes Status: Acute Qualifiers: Complication of substance-induced condition: uncomplicated Qualified Code(s ): F10.230 - Alcohol dependence with withdrawal, uncomplicated (2) Substance induced mood disorder Current Visit: Yes Status: Suspected (3) Nicotine dependence Current Visit: Yes Status: Acute Qualifiers: Nicotine product type: cigarettes Substance use status: in withdrawal Qualified Code(s): F17.213 - Nicotine dependence, cigarettes, with withdrawal (4) Hypercholesteremia Current Visit: No Status: Acute (5) Hypertension Current Visit: Yes Status: Chronic Qualifiers: Hypertension type: essential hypertension Qualified Code(s): I10 - Essential (primary) hypertension - AMA Did Patient Leave Against Medical Advice: No CIWA Score - CIWA Score Nausea/Vomitin-No Nausea/No Vomiting Muscle Tremors: 1-None Visible, but [place] Anxiety: 0-No Anxiety, at Ease Agitation: 0-Normal Activity Paroxysmal Sweats: No Perspiration Orientation: 0-Oriented Tacttile Disturbances: 0-None Auditory Disturbances: 0-None Visual Disturbances: 0-None Headache: 0-None Present CIWA-Ar Total Score: 1
== END 2019-04-07 13:28 | disposition other institution (70) | DRG 774 ==
LOC: YASAS 10:26 → Y6N 12:52 → Y3N 04-04 12:27
PROVIDERS: ADMIT Allergy & Immunology; ATTEND Allergy & Immunology
PROC: HZ2ZZZZ Detoxification Services for Substance Abuse Treatment (ICD-10-PCS; principal; 2019-04-03)
DX: F10.230 Alcohol dependence with withdrawal, uncomplicated (principal); F14.23 Cocaine dependence with withdrawal; F17.213 Nicotine dependence, cigarettes, with withdrawal; F19.24 Other psychoactive substance dependence with psychoactive substance-induced mood disorder; I10 Essential (primary) hypertension; E78.00 Pure hypercholesterolemia, unspecified; M54.5 Low back pain; R21 Rash and other nonspecific skin eruption; Z86.69 Personal history of other diseases of the nervous system and sense organs
CPT/HCPCS: 36415; 80053; 81003; 85027; 86593; 93005; 93010

== ENCOUNTER 2019-04-07 13:48 | Inpatient (IN) | payer OTHER ==
--- NOTE | 2019-04-07 11:12 | HP ---
[facility] Rehab Assess/Revision - Admission History Admitted to Rehab from: [facility] Date of Admission to Rehab: 04/07/19 - Findings Detox History & Physical reviewed: Yes Concur with findings: Yes Comments/Additional Findings: TRANSFERRED FROM DETOX TO REHAB ADMISSION PER PROTOCOL Inpatient Rehab Admission - Rehab Decision to Admit Inpatient rehab admission?: Yes - Initial Determination Are CD services needed?: Yes Free of communicable disease: Yes Not in need of hospitalization: Yes - Rehab Admission Criteria Previous failed treatment: Yes Poor recovery environment: Yes Comorbidities: Yes Lacks judgement: Yes Patient is meeting Inpatient Rehab admission criteria:: Yes
[~2019-04-07 13:48] MED LIST: ACETAMINOPHEN 325 MG TABLET (FP) PO PRN; IBUPROFEN 400 MG TABLET (FP) PO PRN; LOPERAMIDE HCL 2 MG CAPSULE PO PRN; MAG HYDROX/AL HYDROX/SIMETH 30 ML UNIT-DOSE CUP PO PRN; MAGNESIUM CITRATE 300 ML BOTTLE PO PRN; MAGNESIUM HYDROX 2400MG/30ML ORAL SUSPENSION 30 ML CUP PO PRN; MENTHOL/PHENOL 1 EACH UD MM PRN; NICOTINE 21 MG/24 HOURS TOPICAL PATCH TD PRN; P-EPHED 60MG/TRIPROLIDI 2.5MG TABLET PO PRN; guaiFENesin 200 MG/10 ML 10 ML UNIT-DOSE CUPS PO PRN
[2019-04-07] MEDS: NICOTINE POLACRILEX 4 MG GUM BUC PRN ×2 (16:41→18:57)
[2019-04-07] MEDS: THIAMINE HCL 100 MG TABLET (FP) PO SCH (21:01)
[2019-04-07] MEDS: MELATONIN 5 MG TABLETS PO PRN (21:01)
[2019-04-07] MEDS: LIDOCAINE PATCH REMOVAL MC SCH (21:04)
--- NOTE | 2019-04-08 09:36 | CONSULT ---
[facility] Psychiatric Consult - Data Date of interview: 04/08/19 Admission source: [facility] Identifying data: Patient is a 49 year old single male, father of five, homeless, unemployed and not currently receiving financial assistance. This is one of multiple admissions for patient. Patient admitted to for alcohol, cocaine, nicotine, and opiate dependence. Substance Abuse History: Smoking Cessation. Smoking history: Current some day smoker. Have you smoked in the past 12 months: Yes. Aproximately how many cigarettes per day: 20. Hx Chewing Tobacco Use: No. Initiated information on smoking cessation: Yes. 'Breaking Loose' booklet given: 04/03/19 (give on floor ). - Substance & Tx. History. Hx Alcohol Use: Yes. Hx Substance Use: Yes. Substance Use Type: Alcohol, Cocaine. Hx Substance Use Treatment: Yes (detox, rehab). - Substances abused. Alcohol. Substance route: Oral. Frequency: Daily. Amount used: 1 liter of hennesy and 6 12oz beers. Age of first use: 13. Date of last use: 04/03/19. Cocaine. Substance route: Inhalation. Frequency: Daily. Amount used: $10-20. Age of first use: 15. Date of last use : 04/03/19 Medical History: Dyslipidemia and distant history of seizures Psychiatric History: Patient denies history of psychiatric hospitalizations, outpatient care, and suicide attempt. Physical/Sexual Abuse/Trauma History: denies. Mental Status Exam - Mental Status Exam Alert and Oriented to: Time, Place, Person Cognitive Function: Good Patient Appearance: Well Groomed Mood: Euthymic Affect: Mood Congruent Patient Behavior: Cooperative Speech Pattern: Appropriate Voice Loudness: Normal Thought Process: Goal Oriented Thought Disorder: Not Present Hallucinations: Denies Suicidal Ideation: Denies Homicidal Ideation: Denies Insight/Judgement: Poor Sleep: Fair Appetite: Fair Muscle strength/Tone: Normal Gait/Station: Normal Psychiatric Findings - Problem List ([place] 1, 2,3) (1) Alcohol use disorder Current Visit: Yes Status: Acute (2) Cocaine dependence Current Visit: Yes Status: Acute (3) Nicotine dependence Current Visit: Yes Status: Acute (4) Substance induced mood disorder Current Visit: No Status: Suspected - Initial Treatment Plan Initial Treatment Plan: Psychoeducation provided. Rehab in progress. Observation.
[2019-04-08] MEDS: PRENATAL VITAMINS W/ FOLIC ACID TABLET (FP) PO SCH (10:10)
[2019-04-08] MEDS: LORATADINE 10 MG TABLET PO SCH (10:10)
[2019-04-08] MEDS: LIDOCAINE 5% TOPICAL PATCH TP SCH (10:10)
--- NOTE | 2019-04-08 13:06 | PN ---
[facility] Progress Note Note: Pt is a 49 y/o male with a hx of ANTONIO admitted to rehab from [address] Pt reports anxiety and no sleep last night. Requesting for medication to calm down. Pt reports he has a primary care Dr. Cirilo Choi on [address] [place] [address]. Vital Signs - 24 hr 04/07/19 04/08/19 04/08/19 14:34 01:56 06:51 Temperature 97.8 F Pulse Rate 110 H Respiratory 18 18 18 Rate Blood Pressure 135/79 04/08/19 09:10 Temperature Pulse Rate 81 Respiratory 18 Rate Blood Pressure 142/84 Alert o x 3 nad oob ambulating with steady gait A/P New rehab pt Maintain safety Vistaril 50 mg po q4h prn for agitations and anxiety.
[2019-04-08] MEDS ORDERED: METHOCARBAMOL 500 MG TABLET PO PRN (13:25)
[2019-04-08] MEDS ORDERED: IBUPROFEN 400 MG TABLET (FP) PO PRN (13:26)
[2019-04-08] MEDS: NICOTINE POLACRILEX 4 MG GUM BUC PRN ×3 (13:40→21:22)
[2019-04-08] MEDS ORDERED: IBUPROFEN 600 MG TABLET (FP) PO PRN (14:06)
[2019-04-08] MEDS: hydrOXYzine PAMOATE 50 MG CAPSULE (FP) PO PRN ×2 (17:00→21:21)
[2019-04-08] MEDS: LIDOCAINE PATCH REMOVAL MC SCH (21:20)
[2019-04-08] MEDS: THIAMINE HCL 100 MG TABLET (FP) PO SCH (21:20)
[2019-04-08] MEDS: MELATONIN 5 MG TABLETS PO PRN (21:20)
[2019-04-09] MEDS: LIDOCAINE 5% TOPICAL PATCH TP SCH (10:04)
[2019-04-09] MEDS: PRENATAL VITAMINS W/ FOLIC ACID TABLET (FP) PO SCH (10:04)
[2019-04-09] MEDS: LORATADINE 10 MG TABLET PO SCH (10:04)
[2019-04-09] MEDS: NICOTINE POLACRILEX 4 MG GUM BUC PRN (16:05)
[2019-04-09] MEDS: LIDOCAINE PATCH REMOVAL MC SCH (21:08)
[2019-04-09] MEDS: hydrOXYzine PAMOATE 50 MG CAPSULE (FP) PO PRN (21:10)
[2019-04-09] MEDS: MELATONIN 5 MG TABLETS PO PRN (21:10)
[2019-04-09] MEDS: THIAMINE HCL 100 MG TABLET (FP) PO SCH (21:10)
[2019-04-10] MEDS: LORATADINE 10 MG TABLET PO SCH (10:40)
[2019-04-10] MEDS: LIDOCAINE 5% TOPICAL PATCH TP SCH (10:40)
[2019-04-10] MEDS: PRENATAL VITAMINS W/ FOLIC ACID TABLET (FP) PO SCH (10:40)
[2019-04-10] MEDS: NICOTINE POLACRILEX 4 MG GUM BUC PRN ×2 (11:40→14:58)
[2019-04-10] MEDS: hydrOXYzine PAMOATE 50 MG CAPSULE (FP) PO PRN (19:54)
[2019-04-10] MEDS: THIAMINE HCL 100 MG TABLET (FP) PO SCH (22:22)
[2019-04-10] MEDS: LIDOCAINE PATCH REMOVAL MC SCH (22:23)
[2019-04-11 06:52] VITALS: BP 143/86; PULSE 86; TEMP 97.6
[2019-04-11] MEDS: LIDOCAINE 5% TOPICAL PATCH TP SCH (10:07)
[2019-04-11] MEDS: LORATADINE 10 MG TABLET PO SCH (10:07)
[2019-04-11] MEDS: PRENATAL VITAMINS W/ FOLIC ACID TABLET (FP) PO SCH (10:08)
--- NOTE | 2019-04-11 13:11 | PN ---
[facility] Progress Note Note: informed by Nurse yuliana Arcos that patient would like to leave patient is alert,oriented x 3 the risk of relapsing is high,patient understood Vital Signs Temperature 97.6 F 04/11/19 06:52 Pulse Rate 86 04/11/19 06:52 Respiratory Rate 18 04/11/19 06:52 Blood Pressure 143/86 04/11/19 06:52 O2 Sat by Pulse Oximetry (%) patient signed release ama left the unit in good and stable condition
--- NOTE | 2019-04-11 13:20 | DS ---
[facility] Rehab Discharge Summary - [facility] Rehab Discharge Summary Admission Date: 04/07/19 Discharge Date: 04/11/19 - History Present History: Alcohol dependence, Cocaine dependence Additional Comments: follow up with out patient program as arrangement,patient signed release ama,to call 911 if not feeling well Pertinent Past History: back pain nicotine dependence - Discharge Physical Exam Vital Signs: Vital Signs Temperature 97.6 F 04/11/19 06:52 Pulse Rate 86 04/11/19 06:52 Respiratory Rate 18 04/11/19 06:52 Blood Pressure 143/86 04/11/19 06:52 O2 Sat by Pulse Oximetry (%) Pertinent Admission Physical Exam Findings: Vital Signs Temperature 97.6 F 04/11/19 06:52 Pulse Rate 86 04/11/19 06:52 Respiratory Rate 18 04/11/19 06:52 Blood Pressure 143/86 04/11/19 06:52 O2 Sat by Pulse Oximetry (%) - Treatment Discharge Condition: Discharge condition good - Medication Discharge Medications: Ambulatory Orders Loratadine [Claritin -] 10 mg PO DAILY 04/03/19 - Discharge Instructions Diet, activity, other medical instructions: Diet: Activity: Other medical instructions: - Diagnosis (1) Alcohol use disorder Current Visit: Yes Status: Acute (2) Cocaine dependence Current Visit: Yes Status: Acute (3) Nicotine dependence Current Visit: No Status: Acute Qualifiers: Nicotine product type: cigarettes Substance use status: in withdrawal Qualified Code(s): F17.213 - Nicotine dependence, cigarettes, with withdrawal (4) Back pain Current Visit: No Status: Chronic Qualifiers: Back pain location: low back pain Chronicity: acute Back pain laterality : midline Sciatica presence: without sciatica Qualified Code(s): M54.5 - Low back pain - AMA Did Patient Leave Against Medical Advice: Yes
== END 2019-04-11 13:00 | disposition left against medical advice (07) | DRG 770 ==
LOC: YASAS 13:48 → Y5N 13:50
PROVIDERS: ADMIT Neuromusculoskeletal Medicine & OMM; ATTEND Neuromusculoskeletal Medicine & OMM
PROC: HZ42ZZZ Group Counseling for Substance Abuse Treatment, Cognitive-Behavioral (ICD-10-PCS; principal; 2019-04-07)
DX: F10.20 Alcohol dependence, uncomplicated (principal); F14.20 Cocaine dependence, uncomplicated; F17.210 Nicotine dependence, cigarettes, uncomplicated; F19.24 Other psychoactive substance dependence with psychoactive substance-induced mood disorder; M54.5 Low back pain; E78.5 Hyperlipidemia, unspecified; Z86.69 Personal history of other diseases of the nervous system and sense organs

== ENCOUNTER 2019-06-03 16:50 | Inpatient (IN) | payer OTHER ==
[2019-06-03 18:38] VITALS: BMI 32.4
--- NOTE | 2019-06-03 20:34 | HP ---
CIWA Score Nausea/Vomitin Muscle Tremors: 4-Moderate,w/Arms Extend Anxiety: 4-Mod. Anxious/Guarded Agitation: 4-Moderately Restless Paroxysmal Sweats: 4-Forehead w/Sweat Beads Orientation: 1-Uncertain about Date Tacttile Disturbances: 3-Moderate Itch/Numb/Burn Auditory Disturbances: 0-None Visual Disturbances: 2-Mild Sensitivity (light) Headache: 3-Moderate CIWA-Ar Total Score: 28 - Admission Criteria OASAS Guidelines: Admission for Medically Managed Detox: Requires at least one of the followin. CIWA greater than 12 2. Seizures within the past 24 hours 3. Delirium tremens within the past 24 hours 4. Hallucinations within the past 24 hours 5. Acute intervention needed for co occurring medical disorder 6. Acute intervention needed for co occurring psychiatric disorder 7. Severe withdrawal that cannot be handled at a lower level of care (continued vomiting, continued diarrhea, abnormal vital signs) requiring intravenous medication and/or fluids 8. 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 - [facility] Chief Complaint: seeking alcohol detox Allergies/Adverse Reactions: Allergies Allergy/AdvReac Type Severity Reaction Status Date / Time No Known Allergies Allergy Verified 06/03/19 18:23 History of Present Illness: hetre for alcohol detox. self referred as he is known to the program. last here 04/2019. reports relapsing right after dc. reports daily alcohol intake. + eye opener tender as he wake up in withdrawal. last drink few hours ago. presents with c/o withdrawal sx's. he also reports cocaine abuse. hx/o withdrawal sz's last 5 years ago, + black outs, denies ivdu, avh. reports most recent clean time 2 months relapsing 3 months ago. 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 Exam Limitations: No Limitations - Ebola screening Have you traveled outside of the country in the last 21 days: No Have you had contact with anyone from an Ebola affected area: No Have you been sick,other than usual withdrawal symptoms: No Do you have a fever: No - Review of Systems Constitutional: Chills, Loss of Appetite, Malaise, Night Sweats EENT: reports: Nose Congestion Respiratory: reports: Shortness of Breath Cardiac: reports: No Symptoms Reported GI: reports: Nausea, Poor Fluid Intake, Abdominal cramping : reports: No Symptoms Reported Musculoskeletal: reports: Back Pain (chronic) Integumentary: reports: Flushing, Sweating Neuro: reports: Headache, Seizure, Tremors, Dizziness Endocrine: reports: No Symptoms Reported Hematology: reports: No Symptoms Reported Psychiatric: reports: Orientated x3 (x2), Anxious, Depressed (denies si) Other Systems: Reviewed and Negative Patient History - Patient Medical History Hx Anemia: No Hx Asthma: No Hx Chronic Obstructive Pulmonary Disease (COPD): No Hx Cancer: No Hx Cardiac Disorders: No Hx Congestive Heart Failure: No Hx Hypertension: Yes Hx Hypercholesterolemia: Yes (no treatment) Hx Pacemaker: No HX Cerebrovascular Accident: No Hx Seizures: No Hx Dementia: No Hx Diabetes: No Hx Gastrointestinal Disorders: No Hx Liver Disease: No Hx Genitourinary Disorders: No Hx Sexually Transmitted Disorders: No Hx Renal Disease (ESRD): No Hx Thyroid Disease: No Hx Human Immunodeficiency Virus (HIV): No Hx Hepatitis C: No Hx Depression: No Hx Suicide Attempt: No Hx Bipolar Disorder: No Hx Schizophrenia: No - Patient Surgical History Past Surgical History: No Hx Neurologic Surgery: No Hx Cataract Extraction: No Hx Cardiac Surgery: No Hx Lung Surgery: No Hx Breast Surgery: No Hx Breast Biopsy: No Hx Abdominal Surgery: No Hx Appendectomy: No Hx Cholecystectomy: No Hx Genitourinary Surgery: No Hx Section: No Hx Orthopedic Surgery: No Anesthesia Reaction: No - PPD History Previous Implant?: Yes Documented Results: Negative w/proof Implanted On Prior R Admission?: Yes Date: 04/05/19 PPD to be Administered?: No - Reproductive History Patient : No - Smoking Cessation Smoking history: Current every day smoker Have you smoked in the past 12 months: Yes Aproximately how many cigarettes per day: 20 Cigars Per Day: 0 Hx Chewing Tobacco Use: No Initiated information on smoking cessation: Yes 'Breaking Loose' booklet given: 06/03/19 - Substance & Tx. History Hx Alcohol Use: Yes Hx Substance Use: Yes Substance Use Type: Alcohol, Cocaine Hx Substance Use Treatment: Yes ([facility]) - Substances abused Alcohol Substance route: Oral Frequency: Daily Amount used: 1 PINT OF GLYNN/12(12 OZ BEERS) Age of first use: 13 Date of last use: 06/03/19 Cocaine Substance route: Inhalation Frequency: 1-3 times last 30 days Amount used: $100 Age of first use: 13 Date of last use: 06/03/19 Admission Physical Exam S - Vital Signs Vital Signs: Vital Signs - 24 hr 06/03/19 18:29 Temperature 98.3 F Pulse Rate 100 H Respiratory 20 Rate Blood Pressure 158/78 - Physical General Appearance: Yes: Moderate Distress, Tremorous, Sweating, Anxious HEENTM: Yes: EOMI, Normocephalic, Normal Voice, ALEXA, Pharynx Normal, Nasal Congestion Respiratory: Yes: Chest Non-Tender, Lungs Clear, No Respiratory Distress, Other (heavy breathing) Neck: Yes: No masses,lesions,Nodules, Supple, Trachea in good position Breast: Yes: Breasts Symetrical Cardiology: Yes: Regular Rhythm, Regular Rate, S1, S2 Abdominal: Yes: Normal Bowel Sounds, Non Tender, Soft, Protuberent Genitourinary: Yes: Within Normal Limits Back: Yes: Normal Inspection Musculoskeletal: Yes: full range of Motion Extremities: Yes: Normal Capillary Refill, Normal Inspection, Non-Tender, Tremors Neurological: Yes: 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, Alert, Motor Strength 5/5, Depressed Affect Integumentary: Yes: Moist, Other (cool red petichia rash noted to chest wall- chronic denies pruritis/pain) Lymphatic: Yes: Within Normal Limits - Diagnostic (1) Depressed affect Current Visit: Yes Status: Acute (2) At risk for dehydration due to poor fluid intake Current Visit: Yes Status: Acute (3) Alcohol dependence with withdrawal Current Visit: No Status: Acute Qualifiers: Complication of substance-induced condition: uncomplicated Qualified Code(s ): F10.230 - Alcohol dependence with withdrawal, uncomplicated (4) Anxious mood Current Visit: No Status: Acute (5) Cocaine dependence Current Visit: No Status: Acute (6) Hypercholesteremia Current Visit: No Status: Acute (7) Nausea and vomiting Current Visit: No Status: Acute Qualifiers: Vomiting type: unspecified Vomiting Intractability: unspecified Qualified Code(s): R11.2 - Nausea with vomiting, unspecified (8) Nicotine dependence Current Visit: No Status: Acute Qualifiers: Nicotine product type: cigarettes Substance use status: in withdrawal Qualified Code(s): F17.213 - Nicotine dependence, cigarettes, with withdrawal (9) Back pain Current Visit: No Status: Chronic Qualifiers: Back pain location: low back pain Chronicity: acute Back pain laterality : midline Sciatica presence: without sciatica Qualified Code(s): M54.5 - Low back pain (10) Hypertension Current Visit: No Status: Chronic Qualifiers: Hypertension type: essential hypertension Qualified Code(s): I10 - Essential (primary) hypertension (11) Substance induced mood disorder Current Visit: No Status: Suspected (12) Homeless Current Visit: Yes Status: Suspected Comment: reported Cleared for Admission S - Detox or Rehab [facility] Level of Care: Medically Managed Detox Regimen/Protocol: Librium Claeared for Rehab Admission: No Breathalyzer - Breathalyzer Breathalyzer: 0 Urine Drug Screen - Test Device Lot number: [id number] Expiration date: 03/29/21 - Control Is test valid?: Yes - Results Drug screen NEGATIVE: No Urine drug screen results: RICKI-Cocaine Inpatient Rehab Admission - Rehab Decision to Admit Inpatient rehab admission?: No
[2019-06-03] MEDS ORDERED: MENTHOL/PHENOL 1 EACH UD MM PRN (20:38)
[2019-06-03] MEDS ORDERED: ACETAMINOPHEN 325 MG TABLET (FP) PO PRN ×2 (20:38)
[2019-06-03] MEDS ORDERED: METHOCARBAMOL 500 MG TABLET PO PRN (20:38)
[2019-06-03] MEDS ORDERED: IBUPROFEN 400 MG TABLET (FP) PO PRN (20:38)
[2019-06-03] MEDS ORDERED: ONDANSETRON *ODT* 4 MG TABLET SL PRN (20:38)
[2019-06-03] MEDS ORDERED: MAGNESIUM CITRATE 300 ML BOTTLE PO PRN (20:38)
[2019-06-03] MEDS ORDERED: P-EPHED 60MG/TRIPROLIDI 2.5MG TABLET PO PRN (20:38)
[2019-06-03] MEDS ORDERED: BACLOFEN 10 MG TABLET (FP) PO PRN (20:38)
[2019-06-03] MEDS ORDERED: MAGNESIUM HYDROX 2400MG/30ML ORAL SUSPENSION 30 ML CUP PO PRN (20:38)
[2019-06-03] MEDS ORDERED: MAG HYDROX/AL HYDROX/SIMETH 30 ML UNIT-DOSE CUP PO PRN (20:38)
[2019-06-03] MEDS ORDERED: MELATONIN 5 MG TABLETS PO PRN (20:38)
[2019-06-03] MEDS ORDERED: guaiFENesin 200 MG/10 ML 10 ML UNIT-DOSE CUPS PO PRN (20:38)
[2019-06-03] MEDS ORDERED: chlordiazePOXIDE HCL 25 MG CAPSULE PO PRN (20:38)
[2019-06-03] MEDS ORDERED: DICYCLOMINE HCL 10 MG CAPSULE PO PRN (20:38)
[2019-06-03] MEDS ORDERED: BISMUTH SUBSALICYLATE 524 MG/30 ML UD PO PRN (20:38)
[2019-06-03] MEDS: THIAMINE HCL 100 MG TABLET (FP) PO SCH (22:27)
[2019-06-03] MEDS: chlordiazePOXIDE HCL 25 MG CAPSULE PO SCH (22:27)
[2019-06-04] MEDS: chlordiazePOXIDE HCL 25 MG CAPSULE PO SCH ×4 (05:25→22:43)
[2019-06-04 10:09] LABS: HEMATOCRIT 41.8 % (35.4-49); HEMOGLOBIN 14.3 GM/dL (11.7-16.9); MCH 28.8 pg (25.7-33.7); MCHC 34.1 g/dl (32.0-35.9); MEAN CELL VOLUME 84.6 fl (80-96); MEAN PLT VOLUME 10.3 fl (7.5-11.1); PLATELET COUNT 153 K/MM3 (134-434); RBC 4.95 M/mm3 (4.00-5.60); RDW 13.4 % (11.9-15.9); WHITE BLOOD COUNT 8.9 K/mm3 (4.0-10.0)
[2019-06-04 10:24] LABS: ALBUMIN 3.3 g/dl (3.4-5.0); BILIRUBIN,TOTAL 0.4 mg/dL (0.2-1); BLOOD UREA NITROGEN 16.4 mg/dL (7-18); CALCIUM 8.3 mg/dL (8.5-10.1); CREATININE 0.9 mg/dL (0.55-1.3); POTASSIUM 3.5 mmol/L (3.5-5.1); TOT PROT 6.6 g/dl (6.4-8.2)
[2019-06-04] MEDS: PRENATAL VITAMINS W/ FOLIC ACID TABLET (FP) PO SCH (11:00)
[2019-06-04] MEDS: NICOTINE 21 MG/24 HOURS TOPICAL PATCH TD SCH (11:15)
--- NOTE | 2019-06-04 12:01 | PN ---
S CIWA - CIWA Score Nausea/Vomitin-No Nausea/No Vomiting Muscle Tremors: 3 Anxiety: 3 Agitation: 3 Paroxysmal Sweats: 3 Orientation: 0-Oriented Tacttile Disturbances: 0-None Auditory Disturbances: 0-None Visual Disturbances: 0-None Headache: 0-None Present CIWA-Ar Total Score: 12 S Progress Note (SOAP) Subjective: irritable agitation sweats restless Objective: 06/04/19 12:00 Vital Signs Temperature 96.8 F L 06/04/19 09:54 Pulse Rate 83 06/04/19 09:54 Respiratory Rate 06/04/19 09:54 Blood Pressure 136/90 06/04/19 09:54 O2 Sat by Pulse Oximetry (%) Laboratory Tests 06/04/19 06/04/19 08:30 08:30 WBC 8.9 RBC 4.95 Hgb 14.3 Hct 41.8 MCV 84.6 MCH 28.8 MCHC 34.1 RDW 13.4 Plt Count 153 MPV 10.3 Sodium 138 Potassium 3.5 Chloride 103 Carbon Dioxide 29 Anion Gap 6 L BUN 16.4 Creatinine 0.9 Est GFR (CKD-EPI)AfAm 115.83 Est GFR (CKD-EPI)NonAf 99.94 Random Glucose 104 Calcium 8.3 L Total Bilirubin 0.4 AST 32 ALT 32 Alkaline Phosphatase 80 Total Protein 6.6 Albumin 3.3 L aaox3 ambulating no acute distress Assessment: 06/04/19 12:00 withdrawals Plan: continue detox
--- NOTE | 2019-06-04 13:44 | CONSULT ---
[facility] Psychiatric Consult - Data Date of interview: 06/04/19 Psychiatric History: Patient was approached at bedside. He told underwriter solicitation director:" You want to talk to me for what. I don't need psychiatry"
[2019-06-04] MEDS: NICOTINE POLACRILEX 2 MG GUM BUC PRN (17:49)
[2019-06-04] MEDS: THIAMINE HCL 100 MG TABLET (FP) PO SCH (22:42)
[2019-06-05] MEDS: chlordiazePOXIDE HCL 25 MG CAPSULE PO SCH ×4 (06:33→23:45)
[2019-06-05] MEDS: NICOTINE 21 MG/24 HOURS TOPICAL PATCH TD SCH (13:07)
[2019-06-05] MEDS: PRENATAL VITAMINS W/ FOLIC ACID TABLET (FP) PO SCH (13:10)
--- NOTE | 2019-06-05 13:56 | PN ---
S CIWA - CIWA Score Nausea/Vomitin-No Nausea/No Vomiting Muscle Tremors: 1-None Visible, but [place] Anxiety: 4-Mod. Anxious/Guarded Agitation: 2 Paroxysmal Sweats: 1-Minimal Palms Moist Orientation: 0-Oriented Tacttile Disturbances: 0-None Auditory Disturbances: 0-None Visual Disturbances: 0-None Headache: 0-None Present CIWA-Ar Total Score: 8 [facility] Progress Note (SOAP) Subjective: Nursing staff report that pt uncooperative with vital signs before medication. Pt was called several times and refused to come. Juke Box Mechanic went to patient and explained to him the necessity of vital signs monitoring. Pt verbalized understanding. Objective: 06/05/19 14:00 Vital Signs - 24 hr 06/04/19 06/04/19 06/04/19 14:03 17:40 21:36 Temperature 97.3 F L 97.2 F L 9.5 F L Pulse Rate 83 85 87 Respiratory 19 16 18 Rate Blood Pressure 141/74 150/80 119/65 06/04/19 06/05/19 06/05/19 21:38 00:30 03:23 Temperature 9.5 F L Pulse Rate 85 Respiratory 19 18 18 Rate Blood Pressure 133/75 06/05/19 07:06 Temperature 97.3 F L Pulse Rate 76 Respiratory 18 Rate Blood Pressure 106/50 L Laboratory Tests 06/04/19 06/04/19 08:30 08:30 WBC 8.9 RBC 4.95 Hgb 14.3 Hct 41.8 MCV 84.6 MCH 28.8 MCHC 34.1 RDW 13.4 Plt Count 153 MPV 10.3 Sodium 138 Potassium 3.5 Chloride 103 Carbon Dioxide 29 Anion Gap 6 L BUN 16.4 Creatinine 0.9 Est GFR (CKD-EPI)AfAm 115.83 Est GFR (CKD-EPI)NonAf 99.94 Random Glucose 104 Calcium 8.3 L Total Bilirubin 0.4 AST 32 ALT 32 Alkaline Phosphatase 80 Total Protein 6.6 Albumin 3.3 L Alert o x 3 nad oob ambulating with steady gait around the unit as needed. Assessment: 06/05/19 14:00 ANTONIO w/s Plan: cont detox increase po fluids maintain safety
[2019-06-05] MEDS: THIAMINE HCL 100 MG TABLET (FP) PO SCH (23:45)
[2019-06-06] MEDS ORDERED: chlordiazePOXIDE HCL 10 MG CAPSULE PO PRN
[2019-06-06] MEDS: chlordiazePOXIDE HCL 10 MG CAPSULE PO SCH ×4 (06:38→22:54)
[2019-06-06] MEDS: PRENATAL VITAMINS W/ FOLIC ACID TABLET (FP) PO SCH (11:17)
[2019-06-06] MEDS: NICOTINE POLACRILEX 2 MG GUM BUC PRN ×3 (11:17→18:33)
[2019-06-06] MEDS: NICOTINE 21 MG/24 HOURS TOPICAL PATCH TD SCH (11:17)
[2019-06-06] MEDS: hydrOXYzine PAMOATE 25 MG CAPSULE (FP) PO PRN ×2 (13:15→19:14)
[2019-06-06] MEDS: LORATADINE 10 MG TABLET PO SCH (14:17)
--- NOTE | 2019-06-06 20:18 | PN ---
[facility] CIWA - CIWA Score Nausea/Vomitin-No Nausea/No Vomiting Muscle Tremors: 1-None Visible, but [place] Anxiety: 4-Mod. Anxious/Guarded Agitation: 3 Paroxysmal Sweats: 2 Orientation: 0-Oriented Tacttile Disturbances: 0-None Auditory Disturbances: 0-None Visual Disturbances: 0-None Headache: 0-None Present CIWA-Ar Total Score: 10 [facility] Progress Note (SOAP) Subjective: Patient admitted for ETOH withdrawal sx. anxious, irritable and restless. Complain of sweating and shakes. Objective: 06/06/19 20:19 Laboratory Tests 06/04/19 06/04/19 08:30 08:30 WBC 8.9 RBC 4.95 Hgb 14.3 Hct 41.8 MCV 84.6 MCH 28.8 MCHC 34.1 RDW 13.4 Plt Count 153 MPV 10.3 Sodium 138 Potassium 3.5 Chloride 103 Carbon Dioxide 29 Anion Gap 6 L BUN 16.4 Creatinine 0.9 Est GFR (CKD-EPI)AfAm 115.83 Est GFR (CKD-EPI)NonAf 99.94 Random Glucose 104 Calcium 8.3 L Total Bilirubin 0.4 AST 32 ALT 32 Alkaline Phosphatase 80 Total Protein 6.6 Albumin 3.3 L Vital Signs Temperature 97.3 F L 06/06/19 18:19 Pulse Rate 84 06/06/19 18:19 Respiratory Rate 18 06/06/19 18:19 Blood Pressure 146/75 06/06/19 18:19 O2 Sat by Pulse Oximetry (%) PE alert and oriented x 3 skin warm, mildly moist palms +perrla eoms intact bl gi nt, nd ext full rom, amb ad kylee mild shakes felt 06/06/19 20:24 Assessment: 06/06/19 20:25 alcohol withdrawal sx Plan: continue detox c/o itching of skin which is relieved by claritin. Claritin 10mg daily ordered. monitor clinically
[2019-06-06] MEDS: THIAMINE HCL 100 MG TABLET (FP) PO SCH (22:54)
[2019-06-07] MEDS: chlordiazePOXIDE HCL 10 MG CAPSULE PO SCH ×2 (07:34→17:11)
[2019-06-07] MEDS: PRENATAL VITAMINS W/ FOLIC ACID TABLET (FP) PO SCH (10:54)
[2019-06-07] MEDS: NICOTINE 21 MG/24 HOURS TOPICAL PATCH TD SCH (10:54)
[2019-06-07] MEDS: LORATADINE 10 MG TABLET PO SCH (10:54)
--- NOTE | 2019-06-07 11:28 | PN ---
S CIWA - CIWA Score Nausea/Vomitin-No Nausea/No Vomiting Muscle Tremors: 2 Anxiety: 2 Agitation: 2 Paroxysmal Sweats: No Perspiration Orientation: 0-Oriented Tacttile Disturbances: 0-None Auditory Disturbances: 0-None Visual Disturbances: 0-None Headache: 0-None Present CIWA-Ar Total Score: 6 [facility] Progress Note (SOAP) Subjective: irritable agitation Objective: 06/07/19 11:28 Vital Signs Temperature 96.9 F L 06/07/19 09:31 Pulse Rate 86 06/07/19 09:31 Respiratory Rate 18 06/07/19 09:31 Blood Pressure 142/76 06/07/19 09:31 O2 Sat by Pulse Oximetry (%) aaox3 ambulating no acute distress Assessment: 06/07/19 11:28 mild withdrawals Plan: continue detox d/c in am
[2019-06-07] MEDS: hydrOXYzine PAMOATE 25 MG CAPSULE (FP) PO PRN (21:01)
[2019-06-07] MEDS: THIAMINE HCL 100 MG TABLET (FP) PO SCH (22:09)
[2019-06-08] MEDS ORDERED: chlordiazePOXIDE HCL 10 MG CAPSULE PO ONE (05:00)
--- NOTE | 2019-06-08 08:31 | DS ---
[facility] Detox Discharge Summary Admission Date: 06/03/19 Discharge Date: 06/08/19 - History Present History: Alcohol Dependence, Cocaine Dependence - Physical Exam Results Vital Signs: Vital Signs Temperature 97 F L 06/08/19 06:33 Pulse Rate 66 06/08/19 06:33 Respiratory Rate 18 06/08/19 06:33 Blood Pressure 125/52 L 06/08/19 06:33 O2 Sat by Pulse Oximetry (%) Pertinent Admission Physical Exam Findings: Vital Signs Temperature 97 F L 06/08/19 06:33 Pulse Rate 66 06/08/19 06:33 Respiratory Rate 18 06/08/19 06:33 Blood Pressure 125/52 L 06/08/19 06:33 O2 Sat by Pulse Oximetry (%) Laboratory Tests 06/04/19 06/04/19 08:30 08:30 WBC 8.9 RBC 4.95 Hgb 14.3 Hct 41.8 MCV 84.6 MCH 28.8 MCHC 34.1 RDW 13.4 Plt Count 153 MPV 10.3 Sodium 138 Potassium 3.5 Chloride 103 Carbon Dioxide 29 Anion Gap 6 L BUN 16.4 Creatinine 0.9 Est GFR (CKD-EPI)AfAm 115.83 Est GFR (CKD-EPI)NonAf 99.94 Random Glucose 104 Calcium 8.3 L Total Bilirubin 0.4 AST 32 ALT 32 Alkaline Phosphatase 80 Total Protein 6.6 Albumin 3.3 L aaox3 ambulating no acute distress - Treatment Hospital Course: Detox Protocol Followed, Detoxed Safely, Responded well, Discharged Condition Good, Rehab Referral Accepted - Medication Discharge Medications: Ambulatory Orders NK [No Known Home Medication] 06/03/19 - Diagnosis (1) Depressed affect Current Visit: Yes Status: Acute (2) Alcohol dependence with withdrawal Current Visit: Yes Status: Chronic Qualifiers: Complication of substance-induced condition: uncomplicated Qualified Code(s ): F10.230 - Alcohol dependence with withdrawal, uncomplicated (3) Alcohol use disorder Current Visit: No Status: Acute (4) Anxious mood Current Visit: No Status: Acute (5) Cocaine dependence Current Visit: Yes Status: Chronic Qualifiers: Substance use status: uncomplicated Qualified Code(s): F14.20 - Cocaine dependence, uncomplicated (6) Hypercholesteremia Current Visit: No Status: Acute (7) Nicotine dependence Current Visit: Yes Status: Acute Qualifiers: Nicotine product type: cigarettes Substance use status: in withdrawal Qualified Code(s): F17.213 - Nicotine dependence, cigarettes, with withdrawal (8) Cocaine dependence Current Visit: Yes Status: Chronic Qualifiers: Substance use status: uncomplicated Qualified Code(s): F14.20 - Cocaine dependence, uncomplicated (9) Hypertension Current Visit: No Status: Chronic Qualifiers: Hypertension type: essential hypertension Qualified Code(s): I10 - Essential (primary) hypertension (10) Substance induced mood disorder Current Visit: No Status: Suspected - AMA Did Patient Leave Against Medical Advice: No
[2019-06-08] MEDS: PRENATAL VITAMINS W/ FOLIC ACID TABLET (FP) PO SCH (09:26)
[2019-06-08] MEDS: LORATADINE 10 MG TABLET PO SCH (09:26)
[2019-06-08] MEDS: NICOTINE 21 MG/24 HOURS TOPICAL PATCH TD SCH (09:26)
[2019-06-08 09:39] VITALS: BP 152/78; PULSE 91; TEMP 97.5
== END 2019-06-08 09:31 | disposition home or self-care (01) | DRG 774 ==
LOC: YASAS 16:50 → Y6N 20:34
PROVIDERS: ADMIT Allergy & Immunology; ATTEND Allergy & Immunology
PROC: HZ2ZZZZ Detoxification Services for Substance Abuse Treatment (ICD-10-PCS; principal; 2019-06-03)
DX: F10.230 Alcohol dependence with withdrawal, uncomplicated (principal); F14.20 Cocaine dependence, uncomplicated; F17.213 Nicotine dependence, cigarettes, with withdrawal; F41.9 Anxiety disorder, unspecified; F19.24 Other psychoactive substance dependence with psychoactive substance-induced mood disorder; I10 Essential (primary) hypertension; E78.00 Pure hypercholesterolemia, unspecified; R63.8 Other symptoms and signs concerning food and fluid intake; R11.2 Nausea with vomiting, unspecified; M54.5 Low back pain; G89.29 Other chronic pain; Z59.0 Homelessness
CPT/HCPCS: 36415; 80053; 85027

== ENCOUNTER 2019-07-26 09:29 | Inpatient (IN) | payer OTHER ==
--- NOTE | 2019-07-26 09:49 | BHS.RME ---
Substance Use & Tx History - Substance Use History Alcohol Substance amount: 1 pint baccardi = 2 beers 12 oz Frequency of use: Daily (2 beers) Substance route: Oral Date of Last Use: 07/25/19 (4 pm) Cocaine (Powder) Substance amount: 3.5 grams Frequency of use: Daily Substance route: Inhalation (ex: sniffing or snorting) Date of Last Use: 07/25/19 Physical/Psych/Mental Status - Behavior General Behavior: Increased activity (restlessness, agitation) Eye Contact: Normal - Cooperativeness Cooperativeness: Cooperative - Thinking Thought Processes: Tight, Logical, Goal Directed Thought content: Future oriented - Physical Health Problems Is patient presently having any pain?: No Does patient presently have any injuries (include location): No Does patient currently have a fever: No Is patient : No CIWA Nausea/Vomitin Muscle Tremors: 3 Anxiety: 3 Agitation: 3 Paroxysmal Sweats: 4-Forehead w/Sweat Beads Orientation: 1-Uncertain about Date Tacttile Disturbances: 0-None Auditory Disturbances: 0-None Visual Disturbances: 1-Very Mild Sensitivity Headache: 5-Severe CIWA-Ar Total Score: 23
[2019-07-26 11:02] VITALS: BMI 32.8
--- NOTE | 2019-07-26 11:32 | HP ---
CIWA Score Nausea/Vomitin Muscle Tremors: 3 Anxiety: 3 Agitation: 3 Paroxysmal Sweats: 4-Forehead w/Sweat Beads Orientation: 1-Uncertain about Date Tacttile Disturbances: 0-None Auditory Disturbances: 0-None Visual Disturbances: 1-Very Mild Sensitivity Headache: 5-Severe CIWA-Ar Total Score: 23 - Admission Criteria OASAS Guidelines: Admission for Medically Managed Detox: Requires at least one of the followin. CIWA greater than 12 2. Seizures within the past 24 hours 3. Delirium tremens within the past 24 hours 4. Hallucinations within the past 24 hours 5. Acute intervention needed for co occurring medical disorder 6. Acute intervention needed for co occurring psychiatric disorder 7. Severe withdrawal that cannot be handled at a lower level of care (continued vomiting, continued diarrhea, abnormal vital signs) requiring intravenous medication and/or fluids 8. Admitting History and Physical - Admission Chief Complaint: " I want to stop drinking and get it right this time." History of Present Illness: 49 year old male with history of alcohol dependence with prior treatment. Completed detox on 05/24-06/08/19 and then relapsed 1 week later. He is seeking detox now and want to go to rehab thereafter. Alcohol: 1 pint baccardi and 2 beers daily first started at age 13 and last drank 07/25/19. Blackout 07/25/19, withdrawal seizures 2 mnths ago, and needs an eye exchange specialist every day. Cocaine $80 3.5 grams IN, started at age 13 and last used 07/25/19 Nicotine: 1 pack daily and started smoking at age 13 PMH: HTN, HLD, alcohol related seizures 2 months ago PSurg: None Psych: None Domiciled but poor judgment and poor recovery skills. He has no legal issues pending. Breathylyzer was 0.00 Urine tox positive for cocaine. 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) Psych: Yes: Addictions - Past Surgical History Past Surgical History: Yes: None - Smoking History Smoking history: Current every day smoker Have you smoked in the past 12 months: Yes Aproximately how many cigarettes per day: 20 - Alcohol/Substance Use Hx Alcohol Use: Yes History of Substance Use: reports: Cocaine - Social History Usual Living Arrangement: Yes: Alone Do you think of yourself as: Straight/Heterosexual ADL: Independent Occupation: unemployed History of Recent Travel: No Admission ROS S - HPI Allergies/Adverse Reactions: Allergies Allergy/AdvReac Type Severity Reaction Status Date / Time No Known Allergies Allergy Verified 07/26/19 10:59 Exam Limitations: No Limitations - Ebola screening Have you traveled outside of the country in the last 21 days: No Have you had contact with anyone from an Ebola affected area: No Have you been sick,other than usual withdrawal symptoms: No Do you have a fever: No - Review of Systems Constitutional: Chills, Diaphoresis, Unintentional Wgt. Loss EENT: reports: No Symptoms Reported Respiratory: reports: No Symptoms reported Cardiac: reports: No Symptoms Reported GI: reports: No Symptoms Reported : reports: No Symptoms Reported Musculoskeletal: reports: No Symptoms Reported Integumentary: reports: No Symptoms Reported Neuro: reports: No Symptoms reported Endocrine: reports: No Symptoms Reported Hematology: reports: No Symptoms Reported Psychiatric: reports: Judgement Intact, Mood/Affect Appropiate, Orientated x3, Agitated, Anxious Other Systems: Reviewed and Negative Patient History - Patient Medical History Hx Anemia: No Hx Asthma: No Hx Chronic Obstructive Pulmonary Disease (COPD): No Hx Cancer: No Hx Cardiac Disorders: No Hx Congestive Heart Failure: No Hx Hypertension: Yes (not on meds) Hx Hypercholesterolemia: Yes (no treatment) Hx Pacemaker: No HX Cerebrovascular Accident: No Hx Seizures: Yes (etoh seizures lasr 06/24) Hx Dementia: No Hx Diabetes: No Hx Gastrointestinal Disorders: No Hx Liver Disease: No Hx Genitourinary Disorders: No Hx Sexually Transmitted Disorders: No Hx Renal Disease (ESRD): No Hx Thyroid Disease: No Hx Human Immunodeficiency Virus (HIV): No Hx Hepatitis C: No Hx Depression: No Hx Suicide Attempt: No Hx Bipolar Disorder: No Hx Schizophrenia: No - Patient Surgical History Past Surgical History: No Hx Neurologic Surgery: No Hx Cataract Extraction: No Hx Cardiac Surgery: No Hx Lung Surgery: No Hx Breast Surgery: No Hx Breast Biopsy: No Hx Abdominal Surgery: No Hx Appendectomy: No Hx Cholecystectomy: No Hx Genitourinary Surgery: No Hx Section: No Hx Orthopedic Surgery: No Anesthesia Reaction: No - PPD History Previous Implant?: Yes Date: 04/05/19 - Smoking Cessation Smoking history: Current every day smoker Have you smoked in the past 12 months: Yes Aproximately how many cigarettes per day: 20 Cigars Per Day: 0 Hx Chewing Tobacco Use: No Initiated information on smoking cessation: Yes 'Breaking Loose' booklet given: 07/26/19 - Substances abused Alcohol Substance route: Oral Frequency: Daily Amount used: 1 pint rum/2 beers Age of first use: 13 Date of last use: 07/25/19 Cocaine Substance route: Inhalation Frequency: Daily Amount used: $80 Age of first use: 13 Date of last use: 07/25/19 Admission Physical Exam [facility] - Vital Signs Vital Signs: Vital Signs - 24 hr 07/26/19 10:59 Temperature 97.1 F L Pulse Rate 79 Respiratory 18 Rate Blood Pressure 140/82 - Physical General Appearance: Yes: Moderate Distress, Tremorous, Irritable, Sweating, Anxious HEENTM: Yes: EOMI, Hearing grossly Normal, Normal ENT Inspection, Normocephalic, Normal Voice, ALEXA, Pharynx Normal, Tm's normal Respiratory: Yes: Chest Non-Tender, Lungs Clear, Normal Breath Sounds, No Respiratory Distress, No Accessory Muscle Use Neck: Yes: No masses,lesions,Nodules, Supple, Trachea in good position Breast: Yes: Within Normal Limits Cardiology: Yes: Regular Rhythm, Regular Rate, S1, S2 Abdominal: Yes: Non Tender, Soft, Increased Bowel Sounds, Protuberent Genitourinary: Yes: Within Normal Limits Back: Yes: Normal Inspection Musculoskeletal: Yes: full range of Motion, Gait Steady, Pelvis Stable Extremities: Yes: Normal Capillary Refill, Normal Inspection 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, 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, Alert, Motor Strength 5/5, Normal Mood/Affect, Normal Response Integumentary: Yes: Normal Color, Dry, Warm Lymphatic: Yes: Within Normal Limits - Diagnostic (1) Hypercholesteremia Current Visit: Yes Status: Acute (2) Nicotine dependence Current Visit: Yes Status: Acute Qualifiers: Nicotine product type: cigarettes Substance use status: in withdrawal Qualified Code(s): F17.213 - Nicotine dependence, cigarettes, with withdrawal (3) Alcohol dependence with withdrawal Current Visit: Yes Status: Chronic Qualifiers: Complication of substance-induced condition: uncomplicated Qualified Code(s): F10.230 - Alcohol dependence with withdrawal, uncomplicated (4) Cocaine dependence Current Visit: Yes Status: Chronic Qualifiers: Substance use status: uncomplicated Qualified Code(s): F14.20 - Cocaine dependence, uncomplicated (5) Hypertension Current Visit: Yes Status: Chronic Qualifiers: Hypertension type: essential hypertension Qualified Code(s): I10 - Essential (primary) hypertension Cleared for Admission [facility] - Detox or Rehab [facility] Level of Care: Medically Managed Detox Regimen/Protocol: Librium Claeared for Rehab Admission: No Screened but not Admitted - Documentation of Visit Screened but not Admitted: No Breathalyzer - Breathalyzer Breathalyzer: 0 Urine Drug Screen - Test Device Lot number: [id number] Expiration date: 01/02/21 - Control Is test valid?: Yes - Results Drug screen NEGATIVE: No Urine drug screen results: [facility]-Cocaine Inpatient Rehab Admission - Rehab Decision to Admit Inpatient rehab admission?: No
[2019-07-26] MEDS ORDERED: chlordiazePOXIDE HCL 25 MG CAPSULE PO PRN (11:36)
[2019-07-26] MEDS ORDERED: ACETAMINOPHEN 325 MG TABLET (FP) PO PRN ×2 (11:36)
[2019-07-26] MEDS ORDERED: MENTHOL/PHENOL 1 EACH UD MM PRN (11:36)
[2019-07-26] MEDS ORDERED: MAGNESIUM HYDROX 2400MG/30ML ORAL SUSPENSION 30 ML CUP PO PRN (11:36)
[2019-07-26] MEDS ORDERED: MAG HYDROX/AL HYDROX/SIMETH 30 ML UNIT-DOSE CUP PO PRN (11:36)
[2019-07-26] MEDS ORDERED: METHOCARBAMOL 500 MG TABLET PO PRN (11:36)
[2019-07-26] MEDS ORDERED: MAGNESIUM CITRATE 300 ML BOTTLE PO PRN (11:36)
[2019-07-26] MEDS ORDERED: ONDANSETRON *ODT* 4 MG TABLET SL ONE (11:36)
[2019-07-26] MEDS ORDERED: NICOTINE POLACRILEX 2 MG GUM BUC PRN (11:36)
[2019-07-26] MEDS ORDERED: BISMUTH SUBSALICYLATE 524 MG/30 ML UD PO PRN (11:36)
--- NOTE | 2019-07-26 12:05 | HP ---
CIWA Score Nausea/Vomitin Muscle Tremors: 3 Anxiety: 3 Agitation: 3 Paroxysmal Sweats: 4-Forehead w/Sweat Beads Orientation: 1-Uncertain about Date Tacttile Disturbances: 0-None Auditory Disturbances: 0-None Visual Disturbances: 1-Very Mild Sensitivity Headache: 5-Severe CIWA-Ar Total Score: 23 - Admission Criteria OASAS Guidelines: Admission for Medically Managed Detox: Requires at least one of the followin. CIWA greater than 12 2. Seizures within the past 24 hours 3. Delirium tremens within the past 24 hours 4. Hallucinations within the past 24 hours 5. Acute intervention needed for co occurring medical disorder 6. Acute intervention needed for co occurring psychiatric disorder 7. Severe withdrawal that cannot be handled at a lower level of care (continued vomiting, continued diarrhea, abnormal vital signs) requiring intravenous medication and/or fluids 8. Admitting History and Physical - Admission Chief Complaint: " I want to go to a retirement program this time." History of Present Illness: 49 year old male with history of alcohol dependence, cocaine use disorder and crack use disorder. He was last here at [facility] on -07/10/19 completed detox and rehab and relapsed immediately thereafter. Alcohol: 1.5 pint bhupendra daily started drinking at age 21 and last drank 07/26/19 at 6AM Cocaine: 1 gbram IN, started age 21 and last used 07/26/19 at 2AM Crack: 2 gram smoking started at age 35 and last used 07/25/19 midnight. PMH: HNT, DM, GERD, HLD Psurg: None Psych: Bipolar Depression Schizophrenia He is homeless and alcohol detox wants to do detox and then go to [facility] for long-term rehab. He qualifies for detox due to poor judgment and also poor recovery environment. 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) Psych: Yes: Addictions - Past Surgical History Past Surgical History: Yes: None - Smoking History Smoking history: Current every day smoker Have you smoked in the past 12 months: Yes Aproximately how many cigarettes per day: 20 - Alcohol/Substance Use Hx Alcohol Use: Yes History of Substance Use: reports: Cocaine - Social History Usual Living Arrangement: Yes: Alone Do you think of yourself as: Straight/Heterosexual ADL: Independent Occupation: unemployed History of Recent Travel: No Admission ROS S - HPI Allergies/Adverse Reactions: Allergies Allergy/AdvReac Type Severity Reaction Status Date / Time No Known Allergies Allergy Verified 07/26/19 10:59 Exam Limitations: No Limitations - Ebola screening Have you traveled outside of the country in the last 21 days: No Have you had contact with anyone from an Ebola affected area: No Have you been sick,other than usual withdrawal symptoms: No Do you have a fever: No - Review of Systems Constitutional: Chills, Unintentional Wgt. Loss EENT: reports: No Symptoms Reported Respiratory: reports: No Symptoms reported Cardiac: reports: No Symptoms Reported GI: reports: No Symptoms Reported : reports: No Symptoms Reported Musculoskeletal: reports: No Symptoms Reported Integumentary: reports: No Symptoms Reported Neuro: reports: No Symptoms reported Endocrine: reports: No Symptoms Reported Hematology: reports: No Symptoms Reported Psychiatric: reports: Judgement Intact, Mood/Affect Appropiate, Orientated x3, Agitated, Anxious, Depressed Other Systems: Reviewed and Negative Patient History - Patient Medical History Hx Anemia: No Hx Asthma: No Hx Chronic Obstructive Pulmonary Disease (COPD): No Hx Cancer: No Hx Cardiac Disorders: No Hx Congestive Heart Failure: No Hx Hypertension: Yes (not on meds) Hx Hypercholesterolemia: Yes (no treatment) Hx Pacemaker: No HX Cerebrovascular Accident: No Hx Seizures: Yes (etoh seizures lasr 06/24) Hx Dementia: No Hx Diabetes: No Hx Gastrointestinal Disorders: No Hx Liver Disease: No Hx Genitourinary Disorders: No Hx Sexually Transmitted Disorders: No Hx Renal Disease (ESRD): No Hx Thyroid Disease: No Hx Human Immunodeficiency Virus (HIV): No Hx Hepatitis C: No Hx Depression: No Hx Suicide Attempt: No Hx Bipolar Disorder: No Hx Schizophrenia: No - Patient Surgical History Past Surgical History: No Hx Neurologic Surgery: No Hx Cataract Extraction: No Hx Cardiac Surgery: No Hx Lung Surgery: No Hx Breast Surgery: No Hx Breast Biopsy: No Hx Abdominal Surgery: No Hx Appendectomy: No Hx Cholecystectomy: No Hx Genitourinary Surgery: No Hx Section: No Hx Orthopedic Surgery: No Anesthesia Reaction: No - PPD History Previous Implant?: Yes Date: 04/05/19 - Smoking Cessation Smoking history: Current every day smoker Have you smoked in the past 12 months: Yes Aproximately how many cigarettes per day: 20 Cigars Per Day: 0 Hx Chewing Tobacco Use: No Initiated information on smoking cessation: Yes 'Breaking Loose' booklet given: 07/26/19 - Substances abused Alcohol Substance route: Oral Frequency: Daily Amount used: 1 pint rum/2 beers Age of first use: 13 Date of last use: 07/25/19 Cocaine Substance route: Inhalation Frequency: Daily Amount used: $80 Age of first use: 13 Date of last use: 07/25/19 Admission Physical Exam S - Vital Signs Vital Signs: Vital Signs - 24 hr 07/26/19 10:59 Temperature 97.1 F L Pulse Rate 79 Respiratory 18 Rate Blood Pressure 140/82 - Physical General Appearance: Yes: Nourished, Appropriately Dressed, Tremorous, Irritable, Sweating, Anxious HEENTM: Yes: EOMI, Hearing grossly Normal, Normal ENT Inspection, Normocephalic, Normal Voice, ALEXA, Pharynx Normal, Tm's normal Respiratory: Yes: Chest Non-Tender, Lungs Clear, Normal Breath Sounds, No Respiratory Distress, No Accessory Muscle Use Neck: Yes: No masses,lesions,Nodules, Supple, Trachea in good position Breast: Yes: Breast Exam Deferred Cardiology: Yes: Regular Rhythm, Regular Rate, S1, S2 Abdominal: Yes: Normal Bowel Sounds, Non Tender, Soft Genitourinary: Yes: Within Normal Limits Back: Yes: Normal Inspection Musculoskeletal: Yes: full range of Motion, Gait Steady, Pelvis Stable Extremities: Yes: Normal Capillary Refill, Normal Inspection, Normal Range of Motion, Non-Tender 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, 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, Alert, Motor Strength 5/5, Normal Mood/Affect, Normal Response Integumentary: Yes: Normal Color, Dry, Warm - Diagnostic (1) Hypercholesteremia Current Visit: Yes Status: Acute (2) Nicotine dependence Current Visit: Yes Status: Acute Qualifiers: Nicotine product type: cigarettes Substance use status: in withdrawal Qualified Code(s): F17.213 - Nicotine dependence, cigarettes, with withdrawal (3) Alcohol dependence with withdrawal Current Visit: Yes Status: Chronic Qualifiers: Complication of substance-induced condition: uncomplicated Qualified Code(s): F10.230 - Alcohol dependence with withdrawal, uncomplicated (4) Cocaine dependence Current Visit: Yes Status: Chronic Qualifiers: Substance use status: uncomplicated Qualified Code(s): F14.20 - Cocaine dependence, uncomplicated (5) Hypertension Current Visit: Yes Status: Chronic Qualifiers: Hypertension type: essential hypertension Qualified Code(s): I10 - Essential (primary) hypertension Cleared for Admission [facility] - Detox or Rehab [facility] Level of Care: Medically Managed Detox Regimen/Protocol: Librium Claeared for Rehab Admission: No Screened but not Admitted - Documentation of Visit Screened but not Admitted: No Breathalyzer - Breathalyzer Breathalyzer: 0 Urine Drug Screen - Test Device Lot number: [id number] Expiration date: 01/02/21 - Control Is test valid?: Yes - Results Drug screen NEGATIVE: No Urine drug screen results: [facility]-Cocaine Inpatient Rehab Admission - Rehab Decision to Admit Inpatient rehab admission?: No
[2019-07-26] MEDS: PRENATAL VITAMINS W/ FOLIC ACID TABLET (FP) PO SCH (13:43)
[2019-07-26] MEDS: chlordiazePOXIDE HCL 25 MG CAPSULE PO SCH ×3 (13:43→22:25)
[2019-07-26] MEDS: NICOTINE 7 MG/24 HOURS TOPICAL PATCH TD SCH (13:43)
[2019-07-26] MEDS: hydrOXYzine PAMOATE 25 MG CAPSULE (FP) PO SCH ×3 (13:44→22:25)
[2019-07-26] MEDS: IBUPROFEN 400 MG TABLET (FP) PO PRN (18:14)
[2019-07-26] MEDS: MELATONIN 5 MG TABLETS PO SCH (22:25)
[2019-07-26] MEDS: THIAMINE HCL 100 MG TABLET (FP) PO SCH (22:25)
[2019-07-27] MEDS: chlordiazePOXIDE HCL 25 MG CAPSULE PO SCH ×4 (07:31→22:06)
[2019-07-27] MEDS: hydrOXYzine PAMOATE 25 MG CAPSULE (FP) PO SCH ×5 (07:31→22:07)
[2019-07-27 10:18] LABS: HEMATOCRIT 44.3 % (35.4-49); MCH 29.4 pg (25.7-33.7); MCHC 33.8 g/dl (32.0-35.9); MEAN PLT VOLUME 10.3 fl (7.5-11.1); PLATELET COUNT 207 K/MM3 (134-434); RBC 5.09 M/mm3 (4.00-5.60); RDW 14.3 % (11.9-15.9); WHITE BLOOD COUNT 9.9 K/mm3 (4.0-10.0)
[2019-07-27 10:20] LABS: ALBUMIN 3.3 g/dl (3.4-5.0); BILIRUBIN,TOTAL 0.3 mg/dL (0.2-1); BLOOD UREA NITROGEN 10.8 mg/dL (7-18); CALCIUM 8.4 mg/dL (8.5-10.1); CREATININE 0.8 mg/dL (0.55-1.3); TOT PROT 6.7 g/dl (6.4-8.2)
[2019-07-27] MEDS ORDERED: cloNIDine HCL 0.1 MG TABLET PO PRN ×2 (10:27→10:28)
--- NOTE | 2019-07-27 10:29 | PN ---
S CIWA - CIWA Score Nausea/Vomitin-Mild Nausea/No Vomiting Muscle Tremors: 4-Moderate,w/Arms Extend Anxiety: 4-Mod. Anxious/Guarded Agitation: 3 Paroxysmal Sweats: 2 Orientation: 0-Oriented Tacttile Disturbances: 0-None Auditory Disturbances: 0-None Visual Disturbances: 2-Mild Sensitivity Headache: 2-Mild CIWA-Ar Total Score: 18 BHS Progress Note (SOAP) Subjective: 49 years old male admitted on 07/26/19 for alcohol withdrawal sx management treating with librium detox regiment feeling tired resting in bed prefers to sleep in bed limited conversation with staff Objective: 07/27/19 10:26 Vital Signs Temperature 97.5 F L 07/27/19 06:50 Pulse Rate 82 07/27/19 06:50 Respiratory Rate 18 07/27/19 06:50 Blood Pressure 142/84 07/27/19 06:50 O2 Sat by Pulse Oximetry (%) 96 07/27/19 06:50 Laboratory Last Values WBC 9.9 K/mm3 (4.0-10.0) 07/27/19 07:00 RBC 5.09 M/mm3 (4.00-5.60) 07/27/19 07:00 Hgb 15.0 GM/dL (11.7-16.9) 07/27/19 07:00 Hct 44.3 % (35.4-49) 07/27/19 07:00 MCV 87.0 fl (80-96) 07/27/19 07:00 MCH 29.4 pg (25.7-33.7) 07/27/19 07:00 MCHC 33.8 g/dl (32.0-35.9) 07/27/19 07:00 RDW 14.3 % (11.9-15.9) 07/27/19 07:00 Plt Count 207 K/MM3 (134-434) D 07/27/19 07:00 MPV 10.3 fl (7.5-11.1) 07/27/19 07:00 Sodium 139 mmol/L (136-145) 07/27/19 07:00 Potassium 4.0 mmol/L (3.5-5.1) 07/27/19 07:00 Chloride 106 mmol/L (98-107) 07/27/19 07:00 Carbon Dioxide 29 mmol/L (21-32) 07/27/19 07:00 Anion Gap 4 MMOL/L (8-16) L 07/27/19 07:00 BUN 10.8 mg/dL (7-18) 07/27/19 07:00 Creatinine 0.8 mg/dL (0.55-1.3) 07/27/19 07:00 Est GFR (CKD-EPI)AfAm 121.57 07/27/19 07:00 Est GFR (CKD-EPI)NonAf 104.89 07/27/19 07:00 Random Glucose 96 mg/dL (74-106) 07/27/19 07:00 Calcium 8.4 mg/dL (8.5-10.1) L 07/27/19 07:00 Total Bilirubin 0.3 mg/dL (0.2-1) 07/27/19 07:00 AST 15 U/L (15-37) 07/27/19 07:00 ALT 22 U/L (13-61) 07/27/19 07:00 Alkaline Phosphatase 77 U/L (45-117) 07/27/19 07:00 Total Protein 6.7 g/dl (6.4-8.2) 07/27/19 07:00 Albumin 3.3 g/dl (3.4-5.0) L 07/27/19 07:00 lab noted 07/27/19 10:27 bp elevation sporadically clonidine 0.1 mg po prn Assessment: 07/27/19 10:28 alcohol withdrawal Plan: librium regiment
[2019-07-27] MEDS: PRENATAL VITAMINS W/ FOLIC ACID TABLET (FP) PO SCH (10:48)
[2019-07-27] MEDS: NICOTINE 7 MG/24 HOURS TOPICAL PATCH TD SCH (10:48)
[2019-07-27] MEDS: IBUPROFEN 400 MG TABLET (FP) PO PRN (10:50)
[2019-07-27] MEDS: MELATONIN 5 MG TABLETS PO SCH (22:04)
[2019-07-27] MEDS: THIAMINE HCL 100 MG TABLET (FP) PO SCH (22:05)
[2019-07-28] MEDS: chlordiazePOXIDE HCL 25 MG CAPSULE PO SCH ×4 (05:41→22:17)
[2019-07-28] MEDS: hydrOXYzine PAMOATE 25 MG CAPSULE (FP) PO SCH ×5 (05:41→22:17)
--- NOTE | 2019-07-28 10:21 | PN ---
[facility] CIWA - CIWA Score Nausea/Vomitin-Mild Nausea/No Vomiting Muscle Tremors: 3 Anxiety: 4-Mod. Anxious/Guarded Agitation: 1-Slight > Activity Paroxysmal Sweats: 2 Orientation: 0-Oriented Tacttile Disturbances: 0-None Auditory Disturbances: 0-None Visual Disturbances: 2-Mild Sensitivity Headache: 0-None Present CIWA-Ar Total Score: 13 BHS Progress Note (SOAP) Subjective: 49 years old male admitted on 07/28/19 for alcohol withdrawal sx management treating with librium detox regiment feeling better today less tremor mild restlessness anxious about aftercare Objective: 07/28/19 10:20 Vital Signs Temperature 96.3 F L 07/28/19 08:53 Pulse Rate 88 07/28/19 08:53 Respiratory Rate 18 07/28/19 08:53 Blood Pressure 126/79 07/28/19 08:53 O2 Sat by Pulse Oximetry (%) 95 07/28/19 05:56 Laboratory Last Values WBC 9.9 K/mm3 (4.0-10.0) 07/27/19 07:00 RBC 5.09 M/mm3 (4.00-5.60) 07/27/19 07:00 Hgb 15.0 GM/dL (11.7-16.9) 07/27/19 07:00 Hct 44.3 % (35.4-49) 07/27/19 07:00 MCV 87.0 fl (80-96) 07/27/19 07:00 MCH 29.4 pg (25.7-33.7) 07/27/19 07:00 MCHC 33.8 g/dl (32.0-35.9) 07/27/19 07:00 RDW 14.3 % (11.9-15.9) 07/27/19 07:00 Plt Count 207 K/MM3 (134-434) D 07/27/19 07:00 MPV 10.3 fl (7.5-11.1) 07/27/19 07:00 Sodium 139 mmol/L (136-145) 07/27/19 07:00 Potassium 4.0 mmol/L (3.5-5.1) 07/27/19 07:00 Chloride 106 mmol/L (98-107) 07/27/19 07:00 Carbon Dioxide 29 mmol/L (21-32) 07/27/19 07:00 Anion Gap 4 MMOL/L (8-16) L 07/27/19 07:00 BUN 10.8 mg/dL (7-18) 07/27/19 07:00 Creatinine 0.8 mg/dL (0.55-1.3) 07/27/19 07:00 Est GFR (CKD-EPI)AfAm 121.57 07/27/19 07:00 Est GFR (CKD-EPI)NonAf 104.89 07/27/19 07:00 Random Glucose 96 mg/dL (74-106) 07/27/19 07:00 Calcium 8.4 mg/dL (8.5-10.1) L 07/27/19 07:00 Total Bilirubin 0.3 mg/dL (0.2-1) 07/27/19 07:00 AST 15 U/L (15-37) 07/27/19 07:00 ALT 22 U/L (13-61) 07/27/19 07:00 Alkaline Phosphatase 77 U/L (45-117) 07/27/19 07:00 Total Protein 6.7 g/dl (6.4-8.2) 07/27/19 07:00 Albumin 3.3 g/dl (3.4-5.0) L 07/27/19 07:00 Syphilis Serology Non-reactive (NONREACTIVE) 07/27/19 10:00 T.pallidum Ab (MHA) Cancelled 07/27/19 07:00 lab noted Assessment: 07/28/19 10:20 alcohol withdrawal Plan: librium regiment
[2019-07-28] MEDS: PRENATAL VITAMINS W/ FOLIC ACID TABLET (FP) PO SCH (10:36)
[2019-07-28] MEDS: NICOTINE 7 MG/24 HOURS TOPICAL PATCH TD SCH (10:36)
[2019-07-28] MEDS: IBUPROFEN 400 MG TABLET (FP) PO PRN (12:18)
[2019-07-28] MEDS: THIAMINE HCL 100 MG TABLET (FP) PO SCH (22:17)
[2019-07-28] MEDS: MELATONIN 5 MG TABLETS PO SCH (22:17)
[2019-07-29] MEDS ORDERED: chlordiazePOXIDE HCL 10 MG CAPSULE PO PRN
[2019-07-29] MEDS: chlordiazePOXIDE HCL 10 MG CAPSULE PO SCH ×4 (06:17→22:15)
[2019-07-29] MEDS: hydrOXYzine PAMOATE 25 MG CAPSULE (FP) PO SCH ×5 (06:17→22:15)
[2019-07-29] MEDS: NICOTINE 7 MG/24 HOURS TOPICAL PATCH TD SCH (10:22)
[2019-07-29] MEDS: PRENATAL VITAMINS W/ FOLIC ACID TABLET (FP) PO SCH (10:22)
--- NOTE | 2019-07-29 10:25 | PN ---
[facility] CIWA - CIWA Score Nausea/Vomitin-Mild Nausea/No Vomiting Muscle Tremors: 1-None Visible, but [place] Anxiety: 2 Agitation: 2 Paroxysmal Sweats: No Perspiration Orientation: 0-Oriented Tacttile Disturbances: 1-Very Mild Itch/Numbness Auditory Disturbances: 0-None Visual Disturbances: 0-None Headache: 1-Very Mild CIWA-Ar Total Score: 8 BHS Progress Note (SOAP) Subjective: alert,irritable,anxious,interrupted sleep Objective: 07/29/19 10:23 Vital Signs Temperature 98.2 F 07/29/19 08:44 Pulse Rate 94 H 07/29/19 08:44 Respiratory Rate 18 07/29/19 08:44 Blood Pressure 124/77 07/29/19 08:44 O2 Sat by Pulse Oximetry (%) 95 07/28/19 22:35 07/29/19 10:24 Laboratory Last Values WBC 9.9 K/mm3 (4.0-10.0) 07/27/19 07:00 RBC 5.09 M/mm3 (4.00-5.60) 07/27/19 07:00 Hgb 15.0 GM/dL (11.7-16.9) 07/27/19 07:00 Hct 44.3 % (35.4-49) 07/27/19 07:00 MCV 87.0 fl (80-96) 07/27/19 07:00 MCH 29.4 pg (25.7-33.7) 07/27/19 07:00 MCHC 33.8 g/dl (32.0-35.9) 07/27/19 07:00 RDW 14.3 % (11.9-15.9) 07/27/19 07:00 Plt Count 207 K/MM3 (134-434) D 07/27/19 07:00 MPV 10.3 fl (7.5-11.1) 07/27/19 07:00 Sodium 139 mmol/L (136-145) 07/27/19 07:00 Potassium 4.0 mmol/L (3.5-5.1) 07/27/19 07:00 Chloride 106 mmol/L (98-107) 07/27/19 07:00 Carbon Dioxide 29 mmol/L (21-32) 07/27/19 07:00 Anion Gap 4 MMOL/L (8-16) L 07/27/19 07:00 BUN 10.8 mg/dL (7-18) 07/27/19 07:00 Creatinine 0.8 mg/dL (0.55-1.3) 07/27/19 07:00 Est GFR (CKD-EPI)AfAm 121.57 07/27/19 07:00 Est GFR (CKD-EPI)NonAf 104.89 07/27/19 07:00 Random Glucose 96 mg/dL (74-106) 07/27/19 07:00 Calcium 8.4 mg/dL (8.5-10.1) L 07/27/19 07:00 Total Bilirubin 0.3 mg/dL (0.2-1) 07/27/19 07:00 AST 15 U/L (15-37) 07/27/19 07:00 ALT 22 U/L (13-61) 07/27/19 07:00 Alkaline Phosphatase 77 U/L (45-117) 07/27/19 07:00 Total Protein 6.7 g/dl (6.4-8.2) 07/27/19 07:00 Albumin 3.3 g/dl (3.4-5.0) L 07/27/19 07:00 Syphilis Serology Non-reactive (NONREACTIVE) 07/27/19 10:00 T.pallidum Ab (MHA) Cancelled 07/27/19 07:00 Assessment: 07/29/19 10:24 withdrawal symptom Plan: continue detox librium regimen
[2019-07-29] MEDS: MELATONIN 5 MG TABLETS PO SCH (22:15)
[2019-07-29] MEDS: THIAMINE HCL 100 MG TABLET (FP) PO SCH (22:15)
[2019-07-30] MEDS ORDERED: chlordiazePOXIDE HCL 10 MG CAPSULE PO SCH (05:00)
[2019-07-30] MEDS: hydrOXYzine PAMOATE 25 MG CAPSULE (FP) PO SCH ×5 (06:33→22:20)
--- NOTE | 2019-07-30 08:31 | PN ---
[facility] CIWA - CIWA Score Nausea/Vomitin-Mild Nausea/No Vomiting Muscle Tremors: None Anxiety: 0-No Anxiety, at Ease Agitation: 0-Normal Activity Paroxysmal Sweats: 1-Minimal Palms Moist Orientation: 1-Uncertain about Date Tacttile Disturbances: 0-None Auditory Disturbances: 1-Very Mild Visual Disturbances: 1-Very Mild Sensitivity Headache: 1-Very Mild CIWA-Ar Total Score: 6 BHS Progress Note (SOAP) Subjective: Pt states he refused Librium as it makes him feel dizzy Objective: 07/30/19 08:27 Laboratory Tests 07/27/19 07/27/19 07/27/19 07:00 07:00 07:00 WBC 9.9 RBC 5.09 Hgb 15.0 Hct 44.3 MCV 87.0 MCH 29.4 MCHC 33.8 RDW 14.3 Plt Count 207 D MPV 10.3 Sodium 139 Potassium 4.0 Chloride 106 Carbon Dioxide 29 Anion Gap 4 L BUN 10.8 Creatinine 0.8 Est GFR (CKD-EPI)AfAm 121.57 Est GFR (CKD-EPI)NonAf 104.89 Random Glucose 96 Calcium 8.4 L Total Bilirubin 0.3 AST 15 ALT 22 Alkaline Phosphatase 77 Total Protein 6.7 Albumin 3.3 L Syphilis Serology T.pallidum Ab (A) Cancelled 07/27/19 10:00 WBC RBC Hgb Hct MCV MCH MCHC RDW Plt Count MPV Sodium Potassium Chloride Carbon Dioxide Anion Gap BUN Creatinine Est GFR (CKD-EPI)AfAm Est GFR (CKD-EPI)NonAf Random Glucose Calcium Total Bilirubin AST ALT Alkaline Phosphatase Total Protein Albumin Syphilis Serology Non-reactive T.pallidum Ab (A) Vital Signs Temperature 97.0 F L 07/30/19 05:57 Pulse Rate 78 07/30/19 05:57 Respiratory Rate 18 07/30/19 05:57 Blood Pressure 115/66 07/30/19 05:57 O2 Sat by Pulse Oximetry (%) 93 L 07/30/19 05:57 PE Gnl: WDWN, in no distress Mental status: awake, alert, nl language function Motor: moves limbs well Coord; nl Assessment: 07/30/19 08:30 1. Alcohol use disorder 2. complaints of dizziness Plan: 1. will d/c last 2 doses of Librium 2. will order 2 doses of Ativan which may cause less dizziness. 3. discharge tomorrow
[2019-07-30] MEDS: PRENATAL VITAMINS W/ FOLIC ACID TABLET (FP) PO SCH (10:15)
[2019-07-30] MEDS: NICOTINE 7 MG/24 HOURS TOPICAL PATCH TD SCH (10:16)
[2019-07-30] MEDS: LORazepam 1 MG TABLET PO SCH (17:40)
[2019-07-30] MEDS ORDERED: LORazepam 1 MG TABLET PO PRN (18:00)
[2019-07-30] MEDS: MELATONIN 5 MG TABLETS PO SCH (22:20)
[2019-07-30] MEDS: THIAMINE HCL 100 MG TABLET (FP) PO SCH (22:20)
[2019-07-31] MEDS ORDERED: chlordiazePOXIDE HCL 10 MG CAPSULE PO ONE (05:00)
[2019-07-31] MEDS: hydrOXYzine PAMOATE 25 MG CAPSULE (FP) PO SCH (06:37)
[2019-07-31] MEDS: LORazepam 1 MG TABLET PO SCH (06:37)
--- NOTE | 2019-07-31 08:43 | DS ---
[facility] Detox Discharge Summary Admission Date: 07/26/19 Discharge Date: 07/31/19 - History Present History: Alcohol Dependence Pertinent Past History: Pt was admitted for alcohol detox- BRYAN at admission was 0. Pt is now going to halfway and will go to [facility] in a couple of days. Pt has no complaints today. Pt is on no medications. Vital Signs - 24 hr 07/30/19 07/30/19 07/30/19 12:55 16:42 21:00 Temperature 97 F L 97 F L 97.2 F L Pulse Rate 87 87 77 Respiratory 18 18 19 Rate Blood Pressure 124/75 124/81 114/68 O2 Sat by Pulse 99 96 Oximetry (%) 07/31/19 07/31/19 00:38 06:12 Temperature 97.3 F L Pulse Rate 84 Respiratory 18 20 Rate Blood Pressure 137/90 O2 Sat by Pulse 97 Oximetry (%) Laboratory Tests 07/27/19 07/27/19 07/27/19 07:00 07:00 07:00 WBC 9.9 RBC 5.09 Hgb 15.0 Hct 44.3 MCV 87.0 MCH 29.4 MCHC 33.8 RDW 14.3 Plt Count 207 D MPV 10.3 Sodium 139 Potassium 4.0 Chloride 106 Carbon Dioxide 29 Anion Gap 4 L BUN 10.8 Creatinine 0.8 Est GFR (CKD-EPI)AfAm 121.57 Est GFR (CKD-EPI)NonAf 104.89 Random Glucose 96 Calcium 8.4 L Total Bilirubin 0.3 AST 15 ALT 22 Alkaline Phosphatase 77 Total Protein 6.7 Albumin 3.3 L Syphilis Serology T.pallidum Ab ([facility]) Cancelled 07/27/19 10:00 WBC RBC Hgb Hct MCV MCH MCHC RDW Plt Count MPV Sodium Potassium Chloride Carbon Dioxide Anion Gap BUN Creatinine Est GFR (CKD-EPI)AfAm Est GFR (CKD-EPI)NonAf Random Glucose Calcium Total Bilirubin AST ALT Alkaline Phosphatase Total Protein Albumin Syphilis Serology Non-reactive T.pallidum Ab (A) Active Medications Generic Name Dose Route Start Last Admin Trade Name Freq PRN Reason Stop Dose Admin Acetaminophen 650 mg 07/26/19 11:36 Tylenol - PO Q6H PRN PAIN LEVEL 4 - 6 Acetaminophen 650 mg 07/26/19 11:36 Tylenol - PO Q6H PRN FEVER Al Hydroxide/Mg Hydroxide 30 ml 07/26/19 11:36 Mylanta Oral Suspension - PO Q6H PRN DYSPEPSIA Bismuth Subsalicylate 524 mg 07/26/19 11:36 Pepto-Bismol - PO Q1H PRN DIARRHEA Clonidine 0.1 mg 07/27/19 10:28 Catapres - PO Q6H PRN HYPERTENSION Eucalyptus/Menthol/Phenol/Sorbitol 1 each 07/26/19 11:36 Cepastat Lozenge - MM 08/01/19 11:36 Q4H PRN SORE THROAT Hydroxyzine Pamoate 25 mg 07/26/19 14:00 07/31/19 06:37 Vistaril - PO 08/01/19 11:36 Not Given Q4HWA [facility] Ibuprofen 400 mg 07/26/19 11:36 07/28/19 12:18 Motrin - PO 400 mg Q6H PRN Administration PAIN LEVEL 1 - 3 Magnesium Citrate 300 ml 07/26/19 11:36 Citroma - PO Q48H PRN CONSTIPATION Magnesium Hydroxide 30 ml 07/26/19 11:36 Milk Of Magnesia - PO PRN PRN CONSTIPATION Melatonin 5 mg 07/26/19 22:00 07/30/19 22:20 Melatonin PO Not Given HS [facility] Methocarbamol 500 mg 07/26/19 11:36 07/26/19 22:25 Robaxin - PO 08/01/19 11:36 500 mg Q6H PRN Administration MUSCLE SPASMS Nicotine 7 mg 07/26/19 12:00 07/30/19 10:16 Nicoderm Patch - TD Not Given DAILY [facility] Nicotine Polacrilex 2 mg 07/26/19 11:36 07/30/19 10:15 Nicorette Gum - BUC 2 mg Q2H PRN Administration NICOTINE REPLACEMENT RX Multivit/Folic Acid/Iron 1 tab 07/26/19 11:45 07/30/19 10:15 Vitamins (Sjr) - PO 1 tab DAILY [facility] Administration Thiamine HCl 100 mg 07/26/19 22:00 07/30/19 22:20 Vitamin B1 - PO Not Given HS [facility] alert and oriented ambulatory - Physical Exam Results Vital Signs: Vital Signs Temperature 97.3 F L 07/31/19 06:12 Pulse Rate 84 07/31/19 06:12 Respiratory Rate 20 07/31/19 06:12 Blood Pressure 137/90 07/31/19 06:12 O2 Sat by Pulse Oximetry (%) 97 07/31/19 06:12 - Medication Discharge Medications: Ambulatory Orders NK [No Known Home Medication] 06/03/19
[2019-07-31 09:04] VITALS: BP 131/95; PULSE 88; TEMP 97.7
== END 2019-07-31 08:54 | disposition home or self-care (01) | DRG 774 ==
LOC: YASAS 09:29 → Y3N 11:41
PROVIDERS: ADMIT Allergy & Immunology; ATTEND Allergy & Immunology
PROC: HZ2ZZZZ Detoxification Services for Substance Abuse Treatment (ICD-10-PCS; principal; 2019-07-26)
DX: F10.230 Alcohol dependence with withdrawal, uncomplicated (principal); F14.20 Cocaine dependence, uncomplicated; F17.210 Nicotine dependence, cigarettes, uncomplicated; F20.9 Schizophrenia, unspecified; F31.9 Bipolar disorder, unspecified; I10 Essential (primary) hypertension; K21.9 Gastro-esophageal reflux disease without esophagitis; E78.5 Hyperlipidemia, unspecified; Z86.39 Personal history of other endocrine, nutritional and metabolic disease
CPT/HCPCS: 36415; 80053; 85027

== ENCOUNTER 2019-12-23 13:54 | Inpatient (IN) | payer OTHER ==
--- NOTE | 2019-12-23 14:39 | BHS.RME ---
Substance Use & Tx History - Substance Use History Alcohol Substance amount: 1 liter courtney Frequency of use: Daily Substance route: Oral Date of Last Use: 12/23/19 Cocaine- Powder Substance amount: $60 Frequency of use: Daily Substance route: Inhalation (ex: sniffing or snorting) Date of Last Use: 12/23/19 Nicotine Substance amount: 1 pack Frequency of use: Daily Substance route: Smoking Date of Last Use: 12/23/19 Physical/Psych/Mental Status - Behavior General Behavior: Increased activity (restlessness, agitation) Eye Contact: Normal - Cooperativeness Cooperativeness: Cooperative - Thinking Thought Processes: Tight, Logical, Goal Directed Thought content: Future oriented - Physical Health Problems Is patient presently having any pain?: No Does patient presently have any injuries (include location): No Does patient currently have a fever: No Is patient : No CIWA Nausea/Vomitin-No Nausea/No Vomiting Muscle Tremors: 3 Anxiety: 3 Agitation: 3 Paroxysmal Sweats: 1-Minimal Palms Moist Orientation: 1-Uncertain about Date Tacttile Disturbances: 1-Very Mild Itch/Numbness Auditory Disturbances: 0-None Visual Disturbances: 1-Very Mild Sensitivity Headache: 2-Mild CIWA-Ar Total Score: 15
--- NOTE | 2019-12-23 15:27 | HP ---
CIWA Score Nausea/Vomitin-No Nausea/No Vomiting Muscle Tremors: 3 Anxiety: 3 Agitation: 3 Paroxysmal Sweats: 1-Minimal Palms Moist Orientation: 1-Uncertain about Date Tacttile Disturbances: 1-Very Mild Itch/Numbness Auditory Disturbances: 0-None Visual Disturbances: 1-Very Mild Sensitivity Headache: 2-Mild CIWA-Ar Total Score: 15 - Admission Criteria OASAS Guidelines: Admission for Medically Managed Detox: Requires at least one of the followin. CIWA greater than 12 2. Seizures within the past 24 hours 3. Delirium tremens within the past 24 hours 4. Hallucinations within the past 24 hours 5. Acute intervention needed for co occurring medical disorder 6. Acute intervention needed for co occurring psychiatric disorder 7. Severe withdrawal that cannot be handled at a lower level of care (continued vomiting, continued diarrhea, abnormal vital signs) requiring intravenous medication and/or fluids 8. Admitting History and Physical - Admission Chief Complaint: " I relapsed after I left here and even though I went back to my methadone program, I started using again." History of Present Illness: 49 year old male with history of opioid dependence with intoxication and early withdrawals seeking detox. Substance Use & Tx History - Substance Use History Alcohol Substance amount: 1 liter courtney Frequency of use: Daily Substance route: Oral Date of Last Use: 12/23/19 Patient admits to multiple blackouts, last one 2 weeks ago, and endorses the need for an eye manufacturers representative every day to stave off withdrawals Cocaine- Powder Substance amount: $60 Frequency of use: Daily Substance route: Inhalation (ex: sniffing or snorting) Date of Last Use: 12/23/19 Nicotine Substance amount: 1 pack Frequency of use: Daily Substance route: Smoking Date of Last Use: 12/23/19 PMH: Herniated lumbar discs, Scoliosis, Seasonal allergies, Urticaria Psurg: None Psych: Insomnia Lives with and at times with friends. Has no legal issues pending. BRYAN=0.071 CIWA=15 Patient meets criteria for detox as he has multiple medical co-morbidities and is at high risk for relapse. 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 was years ago) Psych: Yes: Addictions ENT: Yes: Allergic Rhinitis, Other (Urticaria Chronic) - Past Surgical History Past Surgical History: Yes: None - Smoking History Smoking history: Current every day smoker Have you smoked in the past 12 months: Yes Aproximately how many cigarettes per day: 20 - Alcohol/Substance Use Hx Alcohol Use: Yes History of Substance Use: reports: Cocaine - Social History Usual Living Arrangement: Yes: With Spouse Do you think of yourself as: Straight/Heterosexual ADL: Independent Occupation: unemployed History of Recent Travel: No Admission ROS BHS - HPI Allergies/Adverse Reactions: Allergies Allergy/AdvReac Type Severity Reaction Status Date / Time No Known Allergies Allergy Verified 09/27/19 12:53 Exam Limitations: No Limitations - Ebola screening Have you traveled outside of the country in the last 21 days: No Have you had contact with anyone from an Ebola affected area: No Have you been sick,other than usual withdrawal symptoms: No Do you have a fever: No - Review of Systems Constitutional: Diaphoresis EENT: reports: No Symptoms Reported Respiratory: reports: No Symptoms reported Cardiac: reports: No Symptoms Reported GI: reports: No Symptoms Reported : reports: No Symptoms Reported Musculoskeletal: reports: No Symptoms Reported Integumentary: reports: No Symptoms Reported Neuro: reports: No Symptoms reported Endocrine: reports: No Symptoms Reported Hematology: reports: No Symptoms Reported Psychiatric: reports: Judgement Intact, Orientated x3, Agitated, Anxious Other Systems: Reviewed and Negative Patient History - Patient Medical History Hx Anemia: No Hx Asthma: No Hx Chronic Obstructive Pulmonary Disease (COPD): No Hx Cancer: No Hx Cardiac Disorders: No Hx Congestive Heart Failure: No Hx Hypertension: Yes (not on meds) Hx Hypercholesterolemia: Yes (no treatment) Hx Pacemaker: No HX Cerebrovascular Accident: No Hx Seizures: Yes (5 YEARS AGO RELATED TO ETOH WITHDRAWAL) Hx Dementia: No Hx Diabetes: No Hx Gastrointestinal Disorders: No Hx Liver Disease: No Hx Genitourinary Disorders: No Hx Sexually Transmitted Disorders: No Hx Renal Disease (ESRD): No Hx Thyroid Disease: No Hx Human Immunodeficiency Virus (HIV): No Hx Hepatitis C: No Hx Depression: No Hx Suicide Attempt: No Hx Bipolar Disorder: No Hx Schizophrenia: No - Patient Surgical History Past Surgical History: No Hx Neurologic Surgery: No Hx Cataract Extraction: No Hx Cardiac Surgery: No Hx Lung Surgery: No Hx Breast Surgery: No Hx Breast Biopsy: No Hx Abdominal Surgery: No Hx Appendectomy: No Hx Cholecystectomy: No Hx Genitourinary Surgery: No Hx Section: No Hx Orthopedic Surgery: No Anesthesia Reaction: No - PPD History Previous Implant?: Yes Documented Results: Negative w/proof Implanted On Prior [facility] Admission?: Yes Date: 04/05/19 PPD to be Administered?: No - Smoking Cessation Smoking history: Current every day smoker Have you smoked in the past 12 months: Yes Aproximately how many cigarettes per day: 20 Cigars Per Day: 0 Hx Chewing Tobacco Use: No Initiated information on smoking cessation: Yes 'Breaking Loose' booklet given: 12/23/19 - Substances abused Alcohol Substance route: Oral Frequency: Daily Amount used: 1 liter hennesy Age of first use: 13 Date of last use: 12/23/19 Cocaine Other (specify): $60 Substance route: Inhalation Frequency: Daily Amount used: $60 Age of first use: 13 Date of last use: 12/23/19 Admission Physical Exam S - Physical General Appearance: Yes: Mild Distress, Irritable, Sweating, Anxious HEENTM: Yes: EOMI, Hearing grossly Normal, Normal ENT Inspection, Normocephalic, Normal Voice, ALEXA, Pharynx Normal, Tm's normal Respiratory: Yes: Chest Non-Tender, Lungs Clear, Normal Breath Sounds, No Respiratory Distress, No Accessory Muscle Use Neck: Yes: No masses,lesions,Nodules, Supple, Trachea in good position Breast: Yes: Within Normal Limits Cardiology: Yes: Regular Rhythm, Regular Rate, S1, S2 Abdominal: Yes: Normal Bowel Sounds, Non Tender, Soft, Protuberent Genitourinary: Yes: Within Normal Limits Back: Yes: Normal Inspection Musculoskeletal: Yes: full range of Motion, Gait Steady, Pelvis Stable Extremities: Yes: Normal Capillary Refill, Normal Inspection, Normal Range of Motion, Non-Tender Neurological: Yes: pm technician II-XII NML intact, 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, Alert, Motor Strength 5/5, Normal Mood/Affect, Normal Response Integumentary: Yes: Normal Color, Dry, Warm Lymphatic: Yes: Within Normal Limits - Diagnostic (1) Alcohol dependence with withdrawal Current Visit: Yes Status: Acute Qualifiers: Complication of substance-induced condition: uncomplicated Qualified Code(s): F10.230 - Alcohol dependence with withdrawal, uncomplicated (2) Anxious mood Current Visit: Yes Status: Acute (3) Cocaine dependence Current Visit: Yes Status: Chronic Qualifiers: Substance use status: uncomplicated Qualified Code(s): F14.20 - Cocaine dependence, uncomplicated (4) Hypercholesteremia Current Visit: Yes Status: Chronic (5) Hypertension Current Visit: Yes Status: Chronic Qualifiers: Hypertension type: essential hypertension Qualified Code(s): I10 - Essential (primary) hypertension (6) Nicotine dependence Current Visit: Yes Status: Chronic Qualifiers: Nicotine product type: cigarettes Substance use status: uncomplicated Qualified Code(s): F17.210 - Nicotine dependence, cigarettes, uncomplicated (7) Non compliance with medical treatment Current Visit: Yes Status: Chronic Breathalyzer - Breathalyzer Breathalyzer: 0.071 Urine Drug Screen - Test Device Lot number: [id number] Expiration date: 08/10/21 - Control Is test valid?: Yes - Results Drug screen NEGATIVE: No Urine drug screen results: [facility]-Cocaine Inpatient Rehab Admission - Rehab Decision to Admit Inpatient rehab admission?: No
[2019-12-23] MEDS ORDERED: ONDANSETRON *ODT* 4 MG TABLET SL ONE (15:34)
[2019-12-23] MEDS ORDERED: IBUPROFEN 400 MG TABLET (FP) PO PRN (15:34)
[2019-12-23] MEDS ORDERED: BISMUTH SUBSALICYLATE 524 MG/30 ML UD PO PRN (15:34)
[2019-12-23] MEDS ORDERED: METHOCARBAMOL 500 MG TABLET PO PRN (15:34)
[2019-12-23] MEDS ORDERED: chlordiazePOXIDE HCL 25 MG CAPSULE PO PRN (15:34)
[2019-12-23] MEDS ORDERED: MAG HYDROX/AL HYDROX/SIMETH 30 ML UNIT-DOSE CUP PO PRN (15:34)
[2019-12-23] MEDS ORDERED: MAGNESIUM HYDROX 2400MG/30ML ORAL SUSPENSION 30 ML CUP PO PRN (15:34)
[2019-12-23] MEDS ORDERED: ACETAMINOPHEN 325 MG TABLET (FP) PO PRN ×2 (15:34)
[2019-12-23] MEDS ORDERED: MAGNESIUM CITRATE 300 ML BOTTLE PO PRN (15:34)
[2019-12-23] MEDS ORDERED: MENTHOL/PHENOL 1 EACH UD MM PRN (15:34)
[2019-12-23] MEDS: PRENATAL VITAMINS W/ FOLIC ACID TABLET (FP) PO SCH (17:31)
[2019-12-23] MEDS: chlordiazePOXIDE HCL 25 MG CAPSULE PO SCH ×2 (17:32→22:57)
[2019-12-23] MEDS: NICOTINE POLACRILEX 2 MG GUM BUC PRN (17:32)
[2019-12-23] MEDS: hydrOXYzine PAMOATE 25 MG CAPSULE (FP) PO SCH ×2 (17:32→22:56)
[2019-12-23] MEDS: NICOTINE 7 MG/24 HOURS TOPICAL PATCH TD SCH (17:36)
[2019-12-23] MEDS: MELATONIN 5 MG TABLETS PO SCH (22:56)
[2019-12-23] MEDS: THIAMINE HCL 100 MG TABLET (FP) PO SCH (22:57)
[2019-12-24] MEDS: chlordiazePOXIDE HCL 25 MG CAPSULE PO SCH ×4 (06:21→23:02)
[2019-12-24] MEDS: hydrOXYzine PAMOATE 25 MG CAPSULE (FP) PO SCH ×5 (06:21→23:03)
[2019-12-24 10:22] LABS: HEMATOCRIT 47.2 % (35.4-49); HEMOGLOBIN 15.7 GM/dL (11.7-16.9); MCHC 33.4 g/dl (32.0-35.9); MEAN PLT VOLUME 10.2 fl (7.5-11.1); PLATELET COUNT 190 K/MM3 (134-434); RBC 5.42 M/mm3 (4.00-5.60); RDW 14.5 % (11.9-15.9); WHITE BLOOD COUNT 9.7 K/mm3 (4.0-10.0)
[2019-12-24 10:31] LABS: CALCIUM 8.6 mg/dL (8.5-10.1); POTASSIUM 4.2 mmol/L (3.5-5.1)
[2019-12-24 10:38] LABS: ALBUMIN 3.4 g/dl (3.4-5.0); BILIRUBIN,TOTAL 0.6 mg/dL (0.2-1); BLOOD UREA NITROGEN 11.4 mg/dL (7-18); CREATININE 0.9 mg/dL (0.55-1.3); TOT PROT 6.9 g/dl (6.4-8.2)
[2019-12-24] MEDS: LORATADINE 10 MG TABLET PO SCH (11:07)
[2019-12-24] MEDS: PRENATAL VITAMINS W/ FOLIC ACID TABLET (FP) PO SCH (11:08)
[2019-12-24] MEDS: NICOTINE 7 MG/24 HOURS TOPICAL PATCH TD SCH (11:10)
--- NOTE | 2019-12-24 11:23 | PN ---
S CIWA - CIWA Score Nausea/Vomitin-No Nausea/No Vomiting Muscle Tremors: 2 Anxiety: 3 Agitation: 0-Normal Activity Paroxysmal Sweats: 3 Orientation: 0-Oriented Tacttile Disturbances: 0-None Auditory Disturbances: 0-None Visual Disturbances: 0-None Headache: 2-Mild CIWA-Ar Total Score: 10 BHS Progress Note (SOAP) Subjective: c/o anxiety, headache, shakes, and sweats. Objective: 12/24/19 11:22 Vital Signs 12/24/19 12/24/19 06:53 09:07 Temperature 97.3 F L 97.3 F L Pulse Rate 85 91 H Respiratory 18 18 Rate Blood Pressure 119/71 142/89 O2 Sat by Pulse 95 Oximetry (%) Laboratory Last Values WBC 9.7 K/mm3 (4.0-10.0) 12/24/19 07:50 RBC 5.42 M/mm3 (4.00-5.60) 12/24/19 07:50 Hgb 15.7 GM/dL (11.7-16.9) 12/24/19 07:50 Hct 47.2 % (35.4-49) 12/24/19 07:50 MCV 87.0 fl (80-96) 12/24/19 07:50 MCH 29.0 pg (25.7-33.7) 12/24/19 07:50 MCHC 33.4 g/dl (32.0-35.9) 12/24/19 07:50 RDW 14.5 % (11.9-15.9) 12/24/19 07:50 Plt Count 190 K/MM3 (134-434) 12/24/19 07:50 MPV 10.2 fl (7.5-11.1) 12/24/19 07:50 Sodium 142 mmol/L (136-145) 12/24/19 07:50 Potassium 4.2 mmol/L (3.5-5.1) 12/24/19 07:50 Chloride 109 mmol/L (98-107) H 12/24/19 07:50 Carbon Dioxide 25 mmol/L (21-32) 12/24/19 07:50 Anion Gap 8 MMOL/L (8-16) 12/24/19 07:50 BUN 11.4 mg/dL (7-18) 12/24/19 07:50 Creatinine 0.9 mg/dL (0.55-1.3) 12/24/19 07:50 Est GFR (CKD-EPI)AfAm 115.83 12/24/19 07:50 Est GFR (CKD-EPI)NonAf 99.94 12/24/19 07:50 Random Glucose 110 mg/dL (74-106) H 12/24/19 07:50 Calcium 8.6 mg/dL (8.5-10.1) 12/24/19 07:50 Total Bilirubin 0.6 mg/dL (0.2-1) 12/24/19 07:50 AST 18 U/L (15-37) 12/24/19 07:50 ALT 26 U/L (13-61) 12/24/19 07:50 Alkaline Phosphatase 85 U/L (45-117) 12/24/19 07:50 Total Protein 6.9 g/dl (6.4-8.2) 12/24/19 07:50 Albumin 3.4 g/dl (3.4-5.0) 12/24/19 07:50 Syphilis Serology Non-reactive (NONREACTIVE) 12/24/19 07:50 Labs noted. Assessment: 12/24/19 11:22 AOX3, in no acute respiratory distress. Full ROM, ambulating in the unit. Withdrawal symptoms. Plan: continue detox.
[2019-12-24] MEDS: MELATONIN 5 MG TABLETS PO SCH (23:02)
[2019-12-24] MEDS: THIAMINE HCL 100 MG TABLET (FP) PO SCH (23:03)
[2019-12-25] MEDS: chlordiazePOXIDE HCL 25 MG CAPSULE PO SCH ×4 (07:33→23:10)
[2019-12-25] MEDS: hydrOXYzine PAMOATE 25 MG CAPSULE (FP) PO SCH ×5 (07:34→23:10)
[2019-12-25] MEDS: NICOTINE 7 MG/24 HOURS TOPICAL PATCH TD SCH (11:14)
[2019-12-25] MEDS: PRENATAL VITAMINS W/ FOLIC ACID TABLET (FP) PO SCH (11:14)
[2019-12-25] MEDS: LORATADINE 10 MG TABLET PO SCH (11:14)
[2019-12-25] MEDS: NICOTINE POLACRILEX 2 MG GUM BUC PRN (11:17)
--- NOTE | 2019-12-25 12:10 | PN ---
S CIWA - CIWA Score Nausea/Vomitin-No Nausea/No Vomiting Muscle Tremors: None Anxiety: 2 Agitation: 1-Slight > Activity Paroxysmal Sweats: 3 Orientation: 0-Oriented Tacttile Disturbances: 0-None Auditory Disturbances: 0-None Visual Disturbances: 0-None Headache: 2-Mild CIWA-Ar Total Score: 8 BHS Progress Note (SOAP) Subjective: c/o sweats, anxiety, and headache. Objective: 12/25/19 12:11 Vital Signs 12/25/19 12/25/19 06:42 09:25 Temperature 97.7 F 98.3 F Pulse Rate 61 81 Respiratory 18 20 Rate Blood Pressure 138/81 119/83 O2 Sat by Pulse 99 95 Oximetry (%) Laboratory Last Values WBC 9.7 K/mm3 (4.0-10.0) 12/24/19 07:50 RBC 5.42 M/mm3 (4.00-5.60) 12/24/19 07:50 Hgb 15.7 GM/dL (11.7-16.9) 12/24/19 07:50 Hct 47.2 % (35.4-49) 12/24/19 07:50 MCV 87.0 fl (80-96) 12/24/19 07:50 MCH 29.0 pg (25.7-33.7) 12/24/19 07:50 MCHC 33.4 g/dl (32.0-35.9) 12/24/19 07:50 RDW 14.5 % (11.9-15.9) 12/24/19 07:50 Plt Count 190 K/MM3 (134-434) 12/24/19 07:50 MPV 10.2 fl (7.5-11.1) 12/24/19 07:50 Sodium 142 mmol/L (136-145) 12/24/19 07:50 Potassium 4.2 mmol/L (3.5-5.1) 12/24/19 07:50 Chloride 109 mmol/L (98-107) H 12/24/19 07:50 Carbon Dioxide 25 mmol/L (21-32) 12/24/19 07:50 Anion Gap 8 MMOL/L (8-16) 12/24/19 07:50 BUN 11.4 mg/dL (7-18) 12/24/19 07:50 Creatinine 0.9 mg/dL (0.55-1.3) 12/24/19 07:50 Est GFR (CKD-EPI)AfAm 115.83 12/24/19 07:50 Est GFR (CKD-EPI)NonAf 99.94 12/24/19 07:50 Random Glucose 110 mg/dL (74-106) H 12/24/19 07:50 Calcium 8.6 mg/dL (8.5-10.1) 12/24/19 07:50 Total Bilirubin 0.6 mg/dL (0.2-1) 12/24/19 07:50 AST 18 U/L (15-37) 12/24/19 07:50 ALT 26 U/L (13-61) 12/24/19 07:50 Alkaline Phosphatase 85 U/L (45-117) 12/24/19 07:50 Total Protein 6.9 g/dl (6.4-8.2) 12/24/19 07:50 Albumin 3.4 g/dl (3.4-5.0) 12/24/19 07:50 Syphilis Serology Non-reactive (NONREACTIVE) 12/24/19 07:50 COVID-19 ([facility]) Not detected (Not Detected) 12/23/19 18:50 Labs noted. Assessment: 12/25/19 12:11 AOX3, in no acute respiratory distress. Full ROM, ambulating in the unit. Withdrawal symptoms. Plan: continue detox.
[2019-12-25] MEDS: THIAMINE HCL 100 MG TABLET (FP) PO SCH (23:10)
[2019-12-25] MEDS: MELATONIN 5 MG TABLETS PO SCH (23:10)
[2019-12-26] MEDS ORDERED: chlordiazePOXIDE HCL 10 MG CAPSULE PO PRN
[2019-12-26] MEDS: chlordiazePOXIDE HCL 10 MG CAPSULE PO SCH ×2 (07:27→10:55)
[2019-12-26] MEDS: hydrOXYzine PAMOATE 25 MG CAPSULE (FP) PO SCH ×3 (07:27→15:23)
[2019-12-26] MEDS: PRENATAL VITAMINS W/ FOLIC ACID TABLET (FP) PO SCH (10:55)
[2019-12-26] MEDS: NICOTINE 7 MG/24 HOURS TOPICAL PATCH TD SCH (10:55)
[2019-12-26] MEDS: LORATADINE 10 MG TABLET PO SCH (10:55)
--- NOTE | 2019-12-26 14:59 | PN ---
S CIWA - CIWA Score Nausea/Vomitin-No Nausea/No Vomiting Muscle Tremors: 1-None Visible, but [place] Anxiety: 1-Mildly Anxious Agitation: 2 Paroxysmal Sweats: No Perspiration Orientation: 0-Oriented Tacttile Disturbances: 1-Very Mild Itch/Numbness Auditory Disturbances: 0-None Visual Disturbances: 1-Very Mild Sensitivity Headache: 0-None Present CIWA-Ar Total Score: 6 BHS Progress Note (SOAP) Subjective: 49 years old male admitted on 12/23/19 for alcohol withdrawal sx management treating with librium detox regiment reports heavy medication "make me sleepy" discontinue vistaril and adjusting librium dosage Objective: 12/26/19 14:58 Vital Signs - 24 hr 12/25/19 12/25/19 12/26/19 17:03 20:55 05:38 Temperature 97.5 F L 98.4 F 97.4 F L Pulse Rate 98 H 83 72 Respiratory 18 16 16 Rate Blood Pressure 156/102 H 121/78 122/81 O2 Sat by Pulse 94 L 96 Oximetry (%) 12/26/19 12/26/19 08:33 13:05 Temperature 96.1 F L 97.3 F L Pulse Rate 70 85 Respiratory 18 18 Rate Blood Pressure 150/90 126/85 O2 Sat by Pulse 96 95 Oximetry (%) Laboratory Tests 12/23/19 12/24/19 12/24/19 18:50 07:50 07:50 WBC 9.7 RBC 5.42 Hgb 15.7 Hct 47.2 MCV 87.0 MCH 29.0 MCHC 33.4 RDW 14.5 Plt Count 190 MPV 10.2 Sodium Potassium Chloride Carbon Dioxide Anion Gap BUN Creatinine Est GFR (CKD-EPI)AfAm Est GFR (CKD-EPI)NonAf Random Glucose Calcium Total Bilirubin AST ALT Alkaline Phosphatase Total Protein Albumin Syphilis Serology Non-reactive COVID-19 ([facility]) Not detected 12/24/19 07:50 WBC RBC Hgb Hct MCV MCH MCHC RDW Plt Count MPV Sodium 142 Potassium 4.2 Chloride 109 H Carbon Dioxide 25 Anion Gap 8 BUN 11.4 Creatinine 0.9 Est GFR (CKD-EPI)AfAm 115.83 Est GFR (CKD-EPI)NonAf 99.94 Random Glucose 110 H Calcium 8.6 Total Bilirubin 0.6 AST 18 ALT 26 Alkaline Phosphatase 85 Total Protein 6.9 Albumin 3.4 Syphilis Serology COVID-19 ([facility]) glucose elevation encourage weight loss 12/26/19 14:59 Assessment: 12/26/19 15:00 alcohol withdrawal Plan: modified librium regiment
[2019-12-26] MEDS ORDERED: chlordiazePOXIDE HCL 10 MG CAPSULE PO SCH (17:00)
[2019-12-26] MEDS ORDERED: chlordiazePOXIDE 5 MG CAPSULE PO SCH (17:21)
[2019-12-26] MEDS: chlordiazePOXIDE 5 MG CAPSULE PO SCH ×2 (18:18→22:50)
[2019-12-26] MEDS: MELATONIN 5 MG TABLETS PO SCH (22:50)
[2019-12-26] MEDS: THIAMINE HCL 100 MG TABLET (FP) PO SCH (22:50)
[2019-12-27] MEDS ORDERED: chlordiazePOXIDE HCL 10 MG CAPSULE PO SCH ×2 (05:00)
[2019-12-27] MEDS: chlordiazePOXIDE 5 MG CAPSULE PO SCH ×2 (07:08→18:08)
[2019-12-27] MEDS: LORATADINE 10 MG TABLET PO SCH (10:21)
[2019-12-27] MEDS: NICOTINE 7 MG/24 HOURS TOPICAL PATCH TD SCH (10:21)
[2019-12-27] MEDS: PRENATAL VITAMINS W/ FOLIC ACID TABLET (FP) PO SCH (10:21)
--- NOTE | 2019-12-27 12:10 | PN ---
S CIWA - CIWA Score Nausea/Vomitin-No Nausea/No Vomiting Muscle Tremors: 1-None Visible, but [place] Anxiety: 1-Mildly Anxious Agitation: 0-Normal Activity Paroxysmal Sweats: No Perspiration Orientation: 0-Oriented Tacttile Disturbances: 0-None Auditory Disturbances: 0-None Visual Disturbances: 1-Very Mild Sensitivity Headache: 0-None Present CIWA-Ar Total Score: 3 BHS Progress Note (SOAP) Subjective: 49 years old male was admitted on 12/23/19 for alcohol withdrawal sx management treating with librium detox regiment feels better today less tremor mild muscle aches limited conversation with staff Objective: 12/27/19 12:13 Vital Signs - 24 hr 12/26/19 12/26/19 12/26/19 13:05 16:45 20:42 Temperature 97.3 F L 96.6 F L 97.5 F L Pulse Rate 85 106 H 80 Respiratory 18 18 16 Rate Blood Pressure 126/85 141/90 121/67 O2 Sat by Pulse 95 96 Oximetry (%) 12/27/19 12/27/19 05:40 08:54 Temperature 97.1 F L 97.5 F L Pulse Rate 86 82 Respiratory 16 18 Rate Blood Pressure 108/71 116/73 O2 Sat by Pulse 95 Oximetry (%) Laboratory Tests 12/23/19 12/24/19 12/24/19 18:50 07:50 07:50 WBC 9.7 RBC 5.42 Hgb 15.7 Hct 47.2 MCV 87.0 MCH 29.0 MCHC 33.4 RDW 14.5 Plt Count 190 MPV 10.2 Sodium Potassium Chloride Carbon Dioxide Anion Gap BUN Creatinine Est GFR (CKD-EPI)AfAm Est GFR (CKD-EPI)NonAf Random Glucose Calcium Total Bilirubin AST ALT Alkaline Phosphatase Total Protein Albumin Syphilis Serology Non-reactive COVID-19 ([facility]) Not detected 12/24/19 07:50 WBC RBC Hgb Hct MCV MCH MCHC RDW Plt Count MPV Sodium 142 Potassium 4.2 Chloride 109 H Carbon Dioxide 25 Anion Gap 8 BUN 11.4 Creatinine 0.9 Est GFR (CKD-EPI)AfAm 115.83 Est GFR (CKD-EPI)NonAf 99.94 Random Glucose 110 H Calcium 8.6 Total Bilirubin 0.6 AST 18 ALT 26 Alkaline Phosphatase 85 Total Protein 6.9 Albumin 3.4 Syphilis Serology COVID-19 ([facility]) 12/27/19 12:14 lab noted Assessment: 12/27/19 12:14 alcohol withdrawal Plan: librium regiment
[2019-12-27] MEDS: NICOTINE POLACRILEX 2 MG GUM BUC PRN (14:22)
[2019-12-27] MEDS: THIAMINE HCL 100 MG TABLET (FP) PO SCH (22:55)
[2019-12-27] MEDS: MELATONIN 5 MG TABLETS PO SCH (22:55)
[2019-12-28] MEDS ORDERED: chlordiazePOXIDE HCL 10 MG CAPSULE PO ONE (05:00)
[2019-12-28] MEDS ORDERED: chlordiazePOXIDE 5 MG CAPSULE PO ONE (05:00)
[2019-12-28 08:55] VITALS: BP 129/87; PULSE 84; TEMP 97.7
[2019-12-28] MEDS: PRENATAL VITAMINS W/ FOLIC ACID TABLET (FP) PO SCH (09:30)
[2019-12-28] MEDS: NICOTINE 7 MG/24 HOURS TOPICAL PATCH TD SCH (09:30)
[2019-12-28] MEDS: LORATADINE 10 MG TABLET PO SCH (09:30)
--- NOTE | 2019-12-28 14:26 | DS ---
[facility] Detox Discharge Summary Admission Date: 12/23/19 Discharge Date: 12/28/19 - History Present History: Alcohol Dependence Additional Comments: 49 years old male was admitted on 12/23/19 for alcohol withdrawal sx management treated with librium detox regiment mr valverde has completed the librium regiment and is tolerated well General Appearance: Yes: no Distress, not Irritable, no Sweating, mild Anxious HEENTM: Yes: EOMI, Hearing grossly Normal, Normal ENT Inspection, Normocephalic, Normal Voice, ALEXA, Pharynx Normal, Tm's normal Respiratory: Yes: Chest Non-Tender, Lungs Clear, Normal Breath Sounds, No Respiratory Distress, No Accessory Muscle Use Neck: Yes: No masses,lesions,Nodules, Supple, Trachea in good position Breast: Yes: Within Normal Limits Cardiology: Yes: Regular Rhythm, Regular Rate, S1, S2 Abdominal: Yes: Normal Bowel Sounds, Non Tender, Soft, Protuberent Genitourinary: Yes: Within Normal Limits Back: Yes: Normal Inspection Musculoskeletal: Yes: full range of Motion, Gait Steady, Pelvis Stable Extremities: Yes: Normal Capillary Refill, Normal Inspection, Normal Range of Motion, Non-Tender 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, 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, Alert, Motor Strength 5/5, Normal Mood/Affect, Normal Response Integumentary: Yes: Normal Color, Dry, Warm Lymphatic: Yes: Within Normal Limits Pertinent Past History: time for discharge 33 minutes - Physical Exam Results Vital Signs: Vital Signs Temperature 97.7 F 12/28/19 06:11 Pulse Rate 84 12/28/19 06:11 Respiratory Rate 18 12/28/19 06:11 Blood Pressure 129/87 12/28/19 06:11 O2 Sat by Pulse Oximetry (%) 98 12/28/19 06:11 Pertinent Admission Physical Exam Findings: alcohol withdrawal Laboratory Tests 12/23/19 12/24/19 12/24/19 18:50 07:50 07:50 WBC 9.7 RBC 5.42 Hgb 15.7 Hct 47.2 MCV 87.0 MCH 29.0 MCHC 33.4 RDW 14.5 Plt Count 190 MPV 10.2 Sodium Potassium Chloride Carbon Dioxide Anion Gap BUN Creatinine Est GFR (CKD-EPI)AfAm Est GFR (CKD-EPI)NonAf Random Glucose Calcium Total Bilirubin AST ALT Alkaline Phosphatase Total Protein Albumin Syphilis Serology Non-reactive COVID-19 ([facility]) Not detected 12/24/19 07:50 WBC RBC Hgb Hct MCV MCH MCHC RDW Plt Count MPV Sodium 142 Potassium 4.2 Chloride 109 H Carbon Dioxide 25 Anion Gap 8 BUN 11.4 Creatinine 0.9 Est GFR (CKD-EPI)AfAm 115.83 Est GFR (CKD-EPI)NonAf 99.94 Random Glucose 110 H Calcium 8.6 Total Bilirubin 0.6 AST 18 ALT 26 Alkaline Phosphatase 85 Total Protein 6.9 Albumin 3.4 Syphilis Serology COVID-19 ([facility]) Vital Signs - 24 hr 12/27/19 12/27/19 12/28/19 16:51 20:59 06:11 Temperature 97.5 F L 98 F 97.7 F Pulse Rate 84 77 84 Respiratory 18 18 18 Rate Blood Pressure 147/98 112/63 129/87 O2 Sat by Pulse 97 95 98 Oximetry (%) lab noted - Treatment Hospital Course: Detox Protocol Followed, Detoxed Safely, Responded well, Discharged Condition Good, Rehab Referral Accepted Patient has Accepted [facility] - Medication Discharge Medications: Ambulatory Orders NK [No Known Home Medication] 06/03/19 - Diagnosis (1) Alcohol dependence with withdrawal Status: Acute Qualifiers: Complication of substance-induced condition: uncomplicated Qualified Code(s): F10.230 - Alcohol dependence with withdrawal, uncomplicated (2) Hypercholesteremia Status: Chronic (3) Hypertension Status: Chronic Qualifiers: Hypertension type: essential hypertension Qualified Code(s): I10 - Essential (primary) hypertension (4) Nicotine dependence Status: Acute Qualifiers: Nicotine product type: cigarettes Substance use status: in withdrawal Qualified Code(s): F17.213 - Nicotine dependence, cigarettes, with withdrawal (5) Substance induced mood disorder Status: Suspected - AMA Did Patient Leave Against Medical Advice: No CIWA Score - CIWA Score Nausea/Vomitin-No Nausea/No Vomiting Muscle Tremors: 1-None Visible, but [place] Anxiety: 0-No Anxiety, at Ease Agitation: 0-Normal Activity Paroxysmal Sweats: No Perspiration Orientation: 0-Oriented Tacttile Disturbances: 0-None Auditory Disturbances: 0-None Visual Disturbances: 0-None Headache: 0-None Present CIWA-Ar Total Score: 1
== END 2019-12-28 09:01 | disposition home or self-care (01) | DRG 774 ==
LOC: YASAS 13:54 → Y3N 16:52
PROVIDERS: ADMIT Allergy & Immunology; ATTEND Allergy & Immunology
PROC: HZ2ZZZZ Detoxification Services for Substance Abuse Treatment (ICD-10-PCS; principal; 2019-12-23)
DX: F10.230 Alcohol dependence with withdrawal, uncomplicated (principal); F14.20 Cocaine dependence, uncomplicated; F17.213 Nicotine dependence, cigarettes, with withdrawal; F19.24 Other psychoactive substance dependence with psychoactive substance-induced mood disorder; F41.9 Anxiety disorder, unspecified; I10 Essential (primary) hypertension; E78.00 Pure hypercholesterolemia, unspecified; J30.2 Other seasonal allergic rhinitis; L50.8 Other urticaria; M51.26 Other intervertebral disc displacement, lumbar region; Z86.69 Personal history of other diseases of the nervous system and sense organs; Z91.19 Patient's noncompliance with other medical treatment and regimen
CPT/HCPCS: 36415; 80053; 85027; 86780; U0003

== ENCOUNTER 2020-01-20 12:04 | Inpatient (IN) | payer OTHER ==
--- NOTE | 2020-01-20 12:31 | BHS.RME ---
Substance Use & Tx History - Substance Use History Alcohol Substance amount: 1 liter courtney Frequency of use: Daily Substance route: Oral Date of Last Use: 01/20/20 (1 beer this morning started age 13) Cocaine- Powder Substance amount: $20 Frequency of use: Daily Substance route: Inhalation (ex: sniffing or snorting) Date of Last Use: 01/19/20 (started age 15) Nicotine Substance amount: 1 pack Frequency of use: Daily Substance route: Smoking Date of Last Use: 01/20/20 (started age 13) Other Opiates/Synthetics Substance amount: oxy and percocet Frequency of use: Daily Substance route: Oral Date of Last Use: 01/13/20 (started age 40 unable to get it on streets now) - Last Treatment Date of last treatment: 12/26-12/31/19 completed detox Treatment type: Substance Use Disorder ([facility]) Where was last treatment: Detox Physical/Psych/Mental Status - Behavior General Behavior: Increased activity (restlessness, agitation) Eye Contact: Normal - Cooperativeness Cooperativeness: Cooperative - Thinking Thought Processes: Tight, Logical, Goal Directed - Physical Health Problems Is patient presently having any pain?: No Does patient presently have any injuries (include location): No Does patient currently have a fever: No Is patient : No CIWA Nausea/Vomitin-Mild Nausea/No Vomiting Muscle Tremors: 4-Moderate,w/Arms Extend Anxiety: 4-Mod. Anxious/Guarded Agitation: 3 Paroxysmal Sweats: 4-Forehead w/Sweat Beads Orientation: 1-Uncertain about Date Tacttile Disturbances: 0-None Auditory Disturbances: 1-Very Mild Visual Disturbances: 2-Mild Sensitivity Headache: 3-Moderate CIWA-Ar Total Score: 23
[2020-01-20] MEDS ORDERED: chlordiazePOXIDE HCL 25 MG CAPSULE ONE (13:57)
--- NOTE | 2020-01-20 14:01 | HP ---
CIWA Score Nausea/Vomitin-Mild Nausea/No Vomiting Muscle Tremors: 4-Moderate,w/Arms Extend Anxiety: 4-Mod. Anxious/Guarded Agitation: 3 Paroxysmal Sweats: 4-Forehead w/Sweat Beads Orientation: 1-Uncertain about Date Tacttile Disturbances: 0-None Auditory Disturbances: 1-Very Mild Visual Disturbances: 2-Mild Sensitivity Headache: 3-Moderate CIWA-Ar Total Score: 23 - Admission Criteria OASAS Guidelines: Admission for Medically Managed Detox: Requires at least one of the followin. CIWA greater than 12 2. Seizures within the past 24 hours 3. Delirium tremens within the past 24 hours 4. Hallucinations within the past 24 hours 5. Acute intervention needed for co occurring medical disorder 6. Acute intervention needed for co occurring psychiatric disorder 7. Severe withdrawal that cannot be handled at a lower level of care (continued vomiting, continued diarrhea, abnormal vital signs) requiring intravenous medication and/or fluids 8. Admitting History and Physical - Admission Chief Complaint: Mr. Dhillon is a 49 yo man who presents to [facility] requesting detox admission for alcohol use disorder. History of Present Illness: Mr. Dhillon is a 49 yo man who presents to [facility] requesting detox admission for alcohol use disorder. He as last her ebetween December 26 and December 30, detoxed, but relapsed 2 days post discharge. PMH: scoliosis, herniated disc x3, multiple bulging discs PSH: jaw fracture, right psych: none SoC: homeless on the streets Legal: none Substance Use History Alcohol Substance amount: 1 liter courtney Frequency of use: Daily Substance route: Oral Date of Last Use: 01/20/20 (1 beer this morning started age 13) No hx of seizures Blackout, last was 6 weeks ago Cocaine- Powder Substance amount: $20 Frequency of use: Daily Substance route: Inhalation (ex: sniffing or snorting) Date of Last Use: 01/19/20 (started age 15) Nicotine Substance amount: 1 pack Frequency of use: Daily Substance route: Smoking Date of Last Use: 01/20/20 (started age 13) Other Opiates/Synthetics Substance amount: oxy and percocet Frequency of use: Daily Substance route: Oral Date of Last Use: 01/13/20 (started age 40 unable to get it on streets now) last use 7-14 days ago - Last Treatment Date of last treatment: 12/26-12/31/19 completed detox Treatment type: Substance Use Disorder (ANTONIO) Where was last treatment: DetoxOthers' Prescriptions Patient Name: Jorge Dhillon Jr Date: 1970 Address: [address] [place] [address] Sex: Male Rx Written Rx Dispensed Drug Quantity Days Supply Prescriber Name 04/22/2019 04/26/2019 oxycodone-acetaminophen 10-325 mg tab 90 30 Jose Luis Jolly M Payment Method Insurance * 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 [employer] Rx #3 03/23/2019 03/29/2019 oxycodone-acetaminophen 10-325 mg tab 90 30 Sung Jolly M - Past Medical History 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 Allergies/Adverse Reactions: Allergies Allergy/AdvReac Type Severity Reaction Status Date / Time No Known Allergies Allergy Verified 01/20/20 13:56 Exam Limitations: No Limitations - Ebola screening Have you traveled outside of the country in the last 21 days: No Have you been sick,other than usual withdrawal symptoms: No Do you have a fever: No - Review of Systems Constitutional: Changes in sleep (trouble falling and staying asleep) EENT: reports: Blurred Vision (wears glasses, not with him, for reading) Respiratory: reports: No Symptoms reported Cardiac: reports: No Symptoms Reported GI: reports: Nausea : reports: No Symptoms Reported Musculoskeletal: reports: Back Pain (chronic, radiates to the left more than right posterior leg) Integumentary: reports: No Symptoms Reported Neuro: reports: Headache (12/12 bitemporal, he attributes to withdrawal) Endocrine: reports: No Symptoms Reported Hematology: reports: No Symptoms Reported Psychiatric: reports: Depressed (no SI/SA) Patient History - Patient Medical History Hx Anemia: No Hx Asthma: No Hx Chronic Obstructive Pulmonary Disease (COPD): No Hx Cancer: No Hx Cardiac Disorders: No Hx Congestive Heart Failure: No Hx Hypertension: No Hx Hypercholesterolemia: Yes (no treatment) Hx Pacemaker: No HX Cerebrovascular Accident: No Hx Seizures: Yes Hx Dementia: No Hx Diabetes: No Hx Gastrointestinal Disorders: No Hx Liver Disease: No Hx Genitourinary Disorders: No Hx Sexually Transmitted Disorders: No Hx Renal Disease (ESRD): No Hx Thyroid Disease: No Hx Human Immunodeficiency Virus (HIV): No Hx Hepatitis C: No Hx Depression: No Hx Suicide Attempt: No Hx Bipolar Disorder: No Hx Schizophrenia: No - Patient Surgical History Past Surgical History: No Hx Neurologic Surgery: No Hx Cataract Extraction: No Hx Cardiac Surgery: No Hx Lung Surgery: No Hx Breast Surgery: No Hx Breast Biopsy: No Hx Abdominal Surgery: No Hx Appendectomy: No Hx Cholecystectomy: No Hx Genitourinary Surgery: No Hx Section: No Hx Orthopedic Surgery: No Anesthesia Reaction: No - PPD History Date: 04/05/19 - Smoking Cessation Smoking history: Current every day smoker Have you smoked in the past 12 months: Yes Aproximately how many cigarettes per day: 20 Cigars Per Day: 0 Hx Chewing Tobacco Use: No Initiated information on smoking cessation: Yes 'Breaking Loose' booklet given: 01/20/20 Admission Physical Exam S - Physical General Appearance: Yes: Appropriately Dressed, Mild Distress, Sweating, Anxious HEENTM: Yes: EOMI, Hearing grossly Normal, Normocephalic, Normal Voice Respiratory: Yes: Lungs Clear, No Respiratory Distress, No Accessory Muscle Use Neck: Yes: Within Normal Limits, Supple Breast: Yes: Breast Exam Deferred Cardiology: Yes: Regular Rhythm, Regular Rate Abdominal: Yes: Normal Bowel Sounds, Non Tender, Soft, Protuberent Genitourinary: Yes: Other (deferred) Back: Yes: Normal Inspection Musculoskeletal: Yes: Gait Steady Extremities: Yes: Normal Inspection, Non-Tender Neurological: Yes: Alert, Normal Response Integumentary: Yes: Other (superficial scratch right medial forearm, pt not sure how it happened) - Diagnostic (1) Opiate use Current Visit: Yes Status: Acute Comment: 1. no use in 7 to 14 days, will observe clinically 2. substance use education (2) Chronic low back pain with bilateral sciatica Current Visit: Yes Status: Chronic Comment: 1. prn NSAID (3) Alcohol dependence with withdrawal Current Visit: No Status: Acute Qualifiers: Complication of substance-induced condition: uncomplicated Qualified Code(s): F10.230 - Alcohol dependence with withdrawal, uncomplicated Comment: 1. Admit alcohol detox 2. start Librium 3. routine labs (4) Depressed affect Current Visit: No Status: Acute Comment: 1. pt declined psychiatry referral, states "family problems" (5) Nicotine dependence Current Visit: No Status: Acute Qualifiers: Nicotine product type: cigarettes Substance use status: in withdrawal Qualified Code(s): F17.213 - Nicotine dependence, cigarettes, with withdrawal Comment: 1. Nicotine replacement therapy (6) Cocaine dependence Current Visit: No Status: Chronic Qualifiers: Substance use status: uncomplicated Qualified Code(s): F14.20 - Cocaine dependence, uncomplicated Comment: 1. substance use education Cleared for Admission S - Detox or Rehab [facility] Level of Care: Medically Managed Detox Regimen/Protocol: Librium Breathalyzer - Breathalyzer Breathalyzer: 0.011 Urine Drug Screen - Test Device Lot number: [id number] Expiration date: 08/10/21 - Control Is test valid?: Yes - Results Drug screen NEGATIVE: No Urine drug screen results: RICKI-Cocaine Inpatient Rehab Admission - Rehab Decision to Admit Inpatient rehab admission?: No
[2020-01-20] MEDS ORDERED: MAG HYDROX/AL HYDROX/SIMETH 30 ML UNIT-DOSE CUP PO PRN (14:07)
[2020-01-20] MEDS ORDERED: ACETAMINOPHEN 325 MG TABLET (FP) PO PRN ×2 (14:07)
[2020-01-20] MEDS ORDERED: MAGNESIUM HYDROX 2400MG/30ML ORAL SUSPENSION 30 ML CUP PO PRN (14:07)
[2020-01-20] MEDS ORDERED: NICOTINE POLACRILEX 2 MG GUM BUC PRN (14:07)
[2020-01-20] MEDS ORDERED: BISMUTH SUBSALICYLATE 262 MG/15 ML BTL PO PRN (14:07)
[2020-01-20] MEDS ORDERED: MAGNESIUM CITRATE 300 ML BOTTLE PO PRN (14:07)
[2020-01-20] MEDS ORDERED: ONDANSETRON *ODT* 4 MG TABLET SL PRN (14:07)
[2020-01-20] MEDS ORDERED: chlordiazePOXIDE HCL 25 MG CAPSULE PO PRN (14:07)
[2020-01-20] MEDS ORDERED: MENTHOL/PHENOL 1 EACH UD MM PRN (14:07)
[2020-01-20] MEDS ORDERED: IBUPROFEN 400 MG TABLET (FP) PO PRN (14:07)
[2020-01-20] MEDS ORDERED: METHOCARBAMOL 500 MG TABLET PO PRN (14:07)
[2020-01-20] MEDS ORDERED: chlordiazePOXIDE HCL 10 MG CAPSULE PO ONE (14:09)
[2020-01-20 14:20] VITALS: BMI 30.7
[2020-01-20 17:16] LABS: HEMATOCRIT 42.9 % (35.4-49); HEMOGLOBIN 14.3 GM/dL (11.7-16.9); MCH 28.2 pg (25.7-33.7); MCHC 33.3 g/dl (32.0-35.9); MEAN CELL VOLUME 84.6 fl (80-96); MEAN PLT VOLUME 10.7 fl (7.5-11.1); PLATELET COUNT 189 K/MM3 (134-434); RBC 5.07 M/mm3 (4.00-5.60); RDW 13.8 % (11.9-15.9); WHITE BLOOD COUNT 9.8 K/mm3 (4.0-10.0)
[2020-01-20 17:24] LABS: ALBUMIN 3.5 g/dl (3.4-5.0); BILIRUBIN,TOTAL 0.4 mg/dL (0.2-1); BLOOD UREA NITROGEN 12.6 mg/dL (7-18); CALCIUM 8.6 mg/dL (8.5-10.1); POTASSIUM 3.8 mmol/L (3.5-5.1); TOT PROT 7.3 g/dl (6.4-8.2)
[2020-01-20] MEDS: chlordiazePOXIDE HCL 25 MG CAPSULE PO SCH ×2 (17:57→23:30)
[2020-01-20] MEDS: hydrOXYzine PAMOATE 25 MG CAPSULE (FP) PO SCH ×2 (17:59→23:30)
[2020-01-20] MEDS: MELATONIN 5 MG TABLETS PO SCH (23:30)
[2020-01-20] MEDS: THIAMINE HCL 100 MG TABLET (FP) PO SCH (23:30)
[2020-01-21] MEDS: chlordiazePOXIDE HCL 25 MG CAPSULE PO SCH ×3 (05:25→18:32)
[2020-01-21] MEDS: hydrOXYzine PAMOATE 25 MG CAPSULE (FP) PO SCH ×2 (05:28→11:47)
--- NOTE | 2020-01-21 10:05 | PN ---
S CIWA - CIWA Score Nausea/Vomitin Muscle Tremors: 2 Anxiety: 2 Agitation: 2 Paroxysmal Sweats: 1-Minimal Palms Moist Orientation: 0-Oriented Tacttile Disturbances: 1-Very Mild Itch/Numbness Auditory Disturbances: 0-None Visual Disturbances: 0-None Headache: 2-Mild CIWA-Ar Total Score: 12 BHS Progress Note (SOAP) Subjective: alert,irritable,anxious,interrupted sleep,tremor,aching pain Objective: 01/21/20 16:11 Vital Signs Temperature 97.8 F 01/21/20 12:55 Pulse Rate 76 01/21/20 12:55 Respiratory Rate 18 01/21/20 12:55 Blood Pressure 125/69 01/21/20 12:55 O2 Sat by Pulse Oximetry (%) 98 01/21/20 12:55 Laboratory Last Values WBC 9.8 K/mm3 (4.0-10.0) 01/20/20 14:00 RBC 5.07 M/mm3 (4.00-5.60) 01/20/20 14:00 Hgb 14.3 GM/dL (11.7-16.9) 01/20/20 14:00 Hct 42.9 % (35.4-49) 01/20/20 14:00 MCV 84.6 fl (80-96) 01/20/20 14:00 MCH 28.2 pg (25.7-33.7) 01/20/20 14:00 MCHC 33.3 g/dl (32.0-35.9) 01/20/20 14:00 RDW 13.8 % (11.9-15.9) 01/20/20 14:00 Plt Count 189 K/MM3 (134-434) 01/20/20 14:00 MPV 10.7 fl (7.5-11.1) 01/20/20 14:00 Sodium 139 mmol/L (136-145) 01/20/20 14:00 Potassium 3.8 mmol/L (3.5-5.1) 01/20/20 14:00 Chloride 105 mmol/L (98-107) 01/20/20 14:00 Carbon Dioxide 30 mmol/L (21-32) 01/20/20 14:00 Anion Gap 5 MMOL/L (8-16) L 01/20/20 14:00 BUN 12.6 mg/dL (7-18) 01/20/20 14:00 Creatinine 1.0 mg/dL (0.55-1.3) 01/20/20 14:00 Est GFR (CKD-EPI)AfAm 101.98 01/20/20 14:00 Est GFR (CKD-EPI)NonAf 87.99 01/20/20 14:00 Random Glucose 125 mg/dL (74-106) H 01/20/20 14:00 Calcium 8.6 mg/dL (8.5-10.1) 01/20/20 14:00 Total Bilirubin 0.4 mg/dL (0.2-1) 01/20/20 14:00 AST 20 U/L (15-37) 01/20/20 14:00 ALT 26 U/L (13-61) 01/20/20 14:00 Alkaline Phosphatase 96 U/L (45-117) 01/20/20 14:00 Total Protein 7.3 g/dl (6.4-8.2) 01/20/20 14:00 Albumin 3.5 g/dl (3.4-5.0) 01/20/20 14:00 Syphilis Serology Non-reactive (NONREACTIVE) 01/20/20 14:00 COVID-19 ([facility]) Not detected (Not Detected) 01/20/20 14:24 HIV Ag/Ab Combo Qual Negative (NEGATIVE) 01/20/20 14:00 Assessment: 01/21/20 16:12 withdrawal symptom Plan: continue detox librium regimen,fasting glucose in am,initial glucose is 125
[2020-01-21] MEDS ORDERED: hydrOXYzine PAMOATE 25 MG CAPSULE (FP) PO PRN (11:14)
[2020-01-21] MEDS: PRENATAL VITAMINS W/ FOLIC ACID TABLET (FP) PO SCH (11:46)
[2020-01-21] MEDS: NICOTINE 7 MG/24 HOURS TOPICAL PATCH TD SCH (11:47)
[2020-01-22] MEDS: THIAMINE HCL 100 MG TABLET (FP) PO SCH ×2 (00:26→22:57)
[2020-01-22] MEDS: MELATONIN 5 MG TABLETS PO SCH ×2 (00:26→22:57)
[2020-01-22] MEDS: chlordiazePOXIDE HCL 25 MG CAPSULE PO SCH ×5 (00:26→22:57)
[2020-01-22] MEDS: NICOTINE 7 MG/24 HOURS TOPICAL PATCH TD SCH (12:59)
[2020-01-22] MEDS: PRENATAL VITAMINS W/ FOLIC ACID TABLET (FP) PO SCH (12:59)
--- NOTE | 2020-01-22 13:46 | PN ---
[facility] CIWA - CIWA Score Nausea/Vomitin-No Nausea/No Vomiting Muscle Tremors: 2 Anxiety: 3 Agitation: 2 Paroxysmal Sweats: 2 Orientation: 0-Oriented Tacttile Disturbances: 2-Mild Itch/Numbness/Burn Auditory Disturbances: 0-None Visual Disturbances: 0-None Headache: 0-None Present CIWA-Ar Total Score: 11 S Progress Note (SOAP) Subjective: Complaints of anxiety, tremors, agitation and sweats. Objective: 01/22/20 13:45 Vital Signs 01/22/20 01/22/20 09:15 12:30 Temperature 98.2 F 98.4 F Pulse Rate 80 72 Respiratory 20 20 Rate Blood Pressure 147/83 133/67 O2 Sat by Pulse 95 98 Oximetry (%) Laboratory Last Values WBC 9.8 K/mm3 (4.0-10.0) 01/20/20 14:00 RBC 5.07 M/mm3 (4.00-5.60) 01/20/20 14:00 Hgb 14.3 GM/dL (11.7-16.9) 01/20/20 14:00 Hct 42.9 % (35.4-49) 01/20/20 14:00 MCV 84.6 fl (80-96) 01/20/20 14:00 MCH 28.2 pg (25.7-33.7) 01/20/20 14:00 MCHC 33.3 g/dl (32.0-35.9) 01/20/20 14:00 RDW 13.8 % (11.9-15.9) 01/20/20 14:00 Plt Count 189 K/MM3 (134-434) 01/20/20 14:00 MPV 10.7 fl (7.5-11.1) 01/20/20 14:00 Sodium 139 mmol/L (136-145) 01/20/20 14:00 Potassium 3.8 mmol/L (3.5-5.1) 01/20/20 14:00 Chloride 105 mmol/L (98-107) 01/20/20 14:00 Carbon Dioxide 30 mmol/L (21-32) 01/20/20 14:00 Anion Gap 5 MMOL/L (8-16) L 01/20/20 14:00 BUN 12.6 mg/dL (7-18) 01/20/20 14:00 Creatinine 1.0 mg/dL (0.55-1.3) 01/20/20 14:00 Est GFR (CKD-EPI)AfAm 101.98 01/20/20 14:00 Est GFR (CKD-EPI)NonAf 87.99 01/20/20 14:00 Random Glucose 125 mg/dL (74-106) H 01/20/20 14:00 Fasting Glucose 108 mg/dL (74-106) H 01/22/20 07:45 Calcium 8.6 mg/dL (8.5-10.1) 01/20/20 14:00 Total Bilirubin 0.4 mg/dL (0.2-1) 01/20/20 14:00 AST 20 U/L (15-37) 01/20/20 14:00 ALT 26 U/L (13-61) 01/20/20 14:00 Alkaline Phosphatase 96 U/L (45-117) 01/20/20 14:00 Total Protein 7.3 g/dl (6.4-8.2) 01/20/20 14:00 Albumin 3.5 g/dl (3.4-5.0) 01/20/20 14:00 Syphilis Serology Non-reactive (NONREACTIVE) 01/20/20 14:00 COVID-19 ([facility]) Not detected (Not Detected) 01/20/20 14:24 HIV Ag/Ab Combo Qual Negative (NEGATIVE) 01/20/20 14:00 Labs noted. Assessment: 01/22/20 13:45 Alert and oriented x 3, in no acute respiratory distress. Full ROM, ambulating in unit without assistance. Skin warm to touch without any lesions. Withdrawal symptoms. Plan: Continue detox protocol.
[2020-01-23] MEDS ORDERED: chlordiazePOXIDE HCL 10 MG CAPSULE PO PRN
[2020-01-23] MEDS: chlordiazePOXIDE HCL 10 MG CAPSULE PO SCH ×4 (07:00→22:24)
[2020-01-23] MEDS: NICOTINE 7 MG/24 HOURS TOPICAL PATCH TD SCH (11:27)
[2020-01-23] MEDS: PRENATAL VITAMINS W/ FOLIC ACID TABLET (FP) PO SCH (11:27)
[2020-01-23] MEDS ORDERED: cloNIDine HCL 0.1 MG TABLET PO PRN (14:19)
--- NOTE | 2020-01-23 14:19 | PN ---
S CIWA - CIWA Score Nausea/Vomitin-No Nausea/No Vomiting Muscle Tremors: 2 Anxiety: 2 Agitation: 2 Paroxysmal Sweats: 2 Orientation: 0-Oriented Tacttile Disturbances: 0-None Auditory Disturbances: 0-None Visual Disturbances: 0-None Headache: 0-None Present CIWA-Ar Total Score: 8 BHS Progress Note (SOAP) Subjective: Anxious Objective: 01/23/20 14:14 Last Vital Signs Temp Pulse Resp BP Pulse Ox 98.0 F 80 19 142/72 96 01/23/20 12:16 01/23/20 12:16 01/23/20 12:16 01/23/20 12:16 01/23/20 12:16 Elevated b/p noted Laboratory Tests 01/20/20 01/20/20 01/20/20 14:00 14:00 14:00 WBC 9.8 RBC 5.07 Hgb 14.3 Hct 42.9 MCV 84.6 MCH 28.2 MCHC 33.3 RDW 13.8 Plt Count 189 MPV 10.7 Sodium 139 Potassium 3.8 Chloride 105 Carbon Dioxide 30 Anion Gap 5 L BUN 12.6 Creatinine 1.0 Est GFR (CKD-EPI)AfAm 101.98 Est GFR (CKD-EPI)NonAf 87.99 Random Glucose 125 H Fasting Glucose Calcium 8.6 Total Bilirubin 0.4 AST 20 ALT 26 Alkaline Phosphatase 96 Total Protein 7.3 Albumin 3.5 Syphilis Serology COVID-19 ([facility]) HIV Ag/Ab Combo Qual Negative 01/20/20 01/20/20 01/22/20 14:00 14:24 07:45 WBC RBC Hgb Hct MCV MCH MCHC RDW Plt Count MPV Sodium Potassium Chloride Carbon Dioxide Anion Gap BUN Creatinine Est GFR (CKD-EPI)AfAm Est GFR (CKD-EPI)NonAf Random Glucose Fasting Glucose 108 H Calcium Total Bilirubin AST ALT Alkaline Phosphatase Total Protein Albumin Syphilis Serology Non-reactive COVID-19 ([facility]) Not detected HIV Ag/Ab Combo Qual Labs reviewed: mild hyperglycemia most likely r/t withdrawal Assessment: 01/23/20 14:17 Withdrawal sxs Noted with elevated b/p and mild hyperglycemia Plan: Continue detox Encourage PO water intake Elevated b/p: denies htn, could be r/t anxiety, start clonidine prn Mild hyperglycemia: denies DM, most likely withdrawal related
[2020-01-23] MEDS: THIAMINE HCL 100 MG TABLET (FP) PO SCH (22:24)
[2020-01-23] MEDS: MELATONIN 5 MG TABLETS PO SCH (22:25)
[2020-01-24] MEDS ORDERED: chlordiazePOXIDE HCL 10 MG CAPSULE PO SCH (05:00)
--- NOTE | 2020-01-24 08:57 | DS ---
[facility] Detox Discharge Summary Admission Date: 01/20/20 Discharge Date: 01/24/20 - History Present History: Alcohol Dependence, Cocaine Dependence - Physical Exam Results Vital Signs: Vital Signs Temperature 97.1 F L 01/24/20 05:08 Pulse Rate 52 L 01/24/20 05:08 Respiratory Rate 18 01/24/20 05:08 Blood Pressure 116/67 01/24/20 05:08 O2 Sat by Pulse Oximetry (%) 97 01/24/20 05:08 Pertinent Admission Physical Exam Findings: Vital Signs Temperature 97.1 F L 01/24/20 05:08 Pulse Rate 52 L 01/24/20 05:08 Respiratory Rate 18 01/24/20 05:08 Blood Pressure 116/67 01/24/20 05:08 O2 Sat by Pulse Oximetry (%) 97 01/24/20 05:08 Laboratory Tests 01/20/20 01/20/20 01/20/20 14:00 14:00 14:00 WBC 9.8 RBC 5.07 Hgb 14.3 Hct 42.9 MCV 84.6 MCH 28.2 MCHC 33.3 RDW 13.8 Plt Count 189 MPV 10.7 Sodium 139 Potassium 3.8 Chloride 105 Carbon Dioxide 30 Anion Gap 5 L BUN 12.6 Creatinine 1.0 Est GFR (CKD-EPI)AfAm 101.98 Est GFR (CKD-EPI)NonAf 87.99 Random Glucose 125 H Fasting Glucose Calcium 8.6 Total Bilirubin 0.4 AST 20 ALT 26 Alkaline Phosphatase 96 Total Protein 7.3 Albumin 3.5 Syphilis Serology COVID-19 ([facility]) HIV Ag/Ab Combo Qual Negative 01/20/20 01/20/20 01/22/20 14:00 14:24 07:45 WBC RBC Hgb Hct MCV MCH MCHC RDW Plt Count MPV Sodium Potassium Chloride Carbon Dioxide Anion Gap BUN Creatinine Est GFR (CKD-EPI)AfAm Est GFR (CKD-EPI)NonAf Random Glucose Fasting Glucose 108 H Calcium Total Bilirubin AST ALT Alkaline Phosphatase Total Protein Albumin Syphilis Serology Non-reactive COVID-19 ([facility]) Not detected HIV Ag/Ab Combo Qual aaox3 ambulating no acute distress lungs CTA - Treatment Hospital Course: Detox Protocol Followed, Detoxed Safely, Responded well, Discharged Condition Good, Rehab Referral Accepted - Medication Discharge Medications: Ambulatory Orders NK [No Known Home Medication] 06/03/19 - Diagnosis (1) Chronic low back pain with bilateral sciatica Current Visit: Yes Status: Chronic (2) Alcohol dependence with withdrawal Current Visit: Yes Status: Chronic Qualifiers: Complication of substance-induced condition: uncomplicated Qualified Code(s): F10.230 - Alcohol dependence with withdrawal, uncomplicated (3) Alcohol use disorder Current Visit: No Status: Acute (4) Anxious mood Current Visit: No Status: Acute (5) Depressed affect Current Visit: No Status: Acute (6) Nicotine dependence Current Visit: Yes Status: Chronic Qualifiers: Nicotine product type: cigarettes Substance use status: uncomplicated Qualified Code(s): F17.210 - Nicotine dependence, cigarettes, uncomplicated (7) Cocaine dependence Current Visit: Yes Status: Chronic Qualifiers: Substance use status: uncomplicated Qualified Code(s): F14.20 - Cocaine dependence, uncomplicated (8) Hypercholesteremia Current Visit: Yes Status: Chronic (9) Hypertension Current Visit: Yes Status: Chronic Qualifiers: Hypertension type: essential hypertension Qualified Code(s): I10 - Essential (primary) hypertension (10) Substance induced mood disorder Current Visit: No Status: Suspected - AMA Did Patient Leave Against Medical Advice: No
[2020-01-24 08:59] VITALS: BP 155/87; PULSE 74; TEMP 97.7
[2020-01-25] MEDS ORDERED: chlordiazePOXIDE HCL 10 MG CAPSULE PO ONE (05:00)
== END 2020-01-24 09:24 | disposition home or self-care (01) | DRG 773 ==
LOC: YASAS 12:04 → Y6N 14:01
PROVIDERS: ADMIT Allergy & Immunology; ATTEND Allergy & Immunology
PROC: HZ2ZZZZ Detoxification Services for Substance Abuse Treatment (ICD-10-PCS; principal; 2020-01-20)
DX: F10.230 Alcohol dependence with withdrawal, uncomplicated (principal); F14.20 Cocaine dependence, uncomplicated; F11.10 Opioid abuse, uncomplicated; F17.210 Nicotine dependence, cigarettes, uncomplicated; F19.24 Other psychoactive substance dependence with psychoactive substance-induced mood disorder; F41.9 Anxiety disorder, unspecified; I10 Essential (primary) hypertension; E78.00 Pure hypercholesterolemia, unspecified; M54.41 Lumbago with sciatica, right side; M54.42 Lumbago with sciatica, left side; M41.9 Scoliosis, unspecified; R45.89 Other symptoms and signs involving emotional state; R73.9 Hyperglycemia, unspecified; Z86.69 Personal history of other diseases of the nervous system and sense organs; Z59.0 Homelessness
CPT/HCPCS: 36415; 80053; 82947; 85027; 86780; 87389; J0735; U0003

== ENCOUNTER 2020-05-29 10:46 | Inpatient (IN) | payer OTHER ==
[2020-05-29 12:35] VITALS: BMI 31.0
[2020-05-29] MEDS ORDERED: MAGNESIUM CITRATE 300 ML BOTTLE PO PRN (15:04)
[2020-05-29] MEDS ORDERED: ONDANSETRON *ODT* 4 MG TABLET SL PRN (15:04)
[2020-05-29] MEDS ORDERED: IBUPROFEN 400 MG TABLET (FP) PO PRN (15:04)
[2020-05-29] MEDS ORDERED: METHOCARBAMOL 500 MG TABLET PO PRN (15:04)
[2020-05-29] MEDS ORDERED: MAGNESIUM HYDROX 2400MG/30ML ORAL SUSPENSION 30 ML CUP PO PRN (15:04)
[2020-05-29] MEDS ORDERED: guaiFENesin 200 MG/10 ML 10 ML UNIT-DOSE CUPS PO PRN (15:04)
[2020-05-29] MEDS ORDERED: NICOTINE POLACRILEX 2 MG GUM BUC PRN (15:04)
[2020-05-29] MEDS ORDERED: ACETAMINOPHEN 325 MG TABLET (FP) PO PRN ×2 (15:04)
[2020-05-29] MEDS ORDERED: P-EPHED 60MG/TRIPROLIDI 2.5MG TABLET PO PRN (15:04)
[2020-05-29] MEDS ORDERED: hydrOXYzine PAMOATE 25 MG CAPSULE (FP) PO PRN (15:04)
[2020-05-29] MEDS ORDERED: MENTHOL/PHENOL 1 EACH UD MM PRN (15:04)
[2020-05-29] MEDS ORDERED: MAG HYDROX/AL HYDROX/SIMETH 30 ML UNIT-DOSE CUP PO PRN (15:04)
[2020-05-29] MEDS ORDERED: MELATONIN 5 MG TABLETS PO PRN (15:04)
[2020-05-29] MEDS ORDERED: BISMUTH SUBSALICYLATE 524 MG/30 ML UD PO PRN (15:04)
[2020-05-29] MEDS ORDERED: chlordiazePOXIDE HCL 25 MG CAPSULE PO PRN (15:06)
[2020-05-29] MEDS: chlordiazePOXIDE HCL 25 MG CAPSULE PO SCH ×2 (17:29→22:55)
[2020-05-29] MEDS ORDERED: THIAMINE HCL 100 MG TABLET (FP) PO SCH (22:00)
[2020-05-30] MEDS: chlordiazePOXIDE HCL 25 MG CAPSULE PO SCH ×3 (06:08→10:55)
[2020-05-30 09:29] VITALS: BP 133/69; PULSE 82; TEMP 97.8
[2020-05-30] MEDS ORDERED: PRENATAL VITAMINS W/ FOLIC ACID TABLET (FP) PO SCH (10:00)
[2020-05-30] MEDS ORDERED: LIDOCAINE 5% TOPICAL PATCH TP SCH (10:00)
[2020-05-30 11:35] LABS: HEMOGLOBIN 14.1 GM/dL (11.7-16.9); MCHC 33.7 g/dl (32.0-35.9); MEAN CELL VOLUME 86.1 fl (80-96); MEAN PLT VOLUME 10.1 fl (7.5-11.1); PLATELET COUNT 171 K/MM3 (134-434); RBC 4.88 M/mm3 (4.00-5.60); RDW 14.3 % (11.9-15.9); WHITE BLOOD COUNT 9.7 K/mm3 (4.0-10.0)
[2020-05-30 11:51] LABS: CALCIUM 8.4 mg/dL (8.5-10.1)
[2020-05-30 11:52] LABS: ALBUMIN 3.1 g/dl (3.4-5.0); BLOOD UREA NITROGEN 13.5 mg/dL (7-18)
[2020-05-30 11:55] LABS: CREATININE 0.9 mg/dL (0.55-1.3)
[2020-05-30 11:56] LABS: BILIRUBIN,TOTAL 0.4 mg/dL (0.2-1); TOT PROT 6.4 g/dl (6.4-8.2)
[2020-05-30] MEDS ORDERED: LIDOCAINE PATCH REMOVAL MC SCH (22:00)
[2020-05-31] MEDS ORDERED: chlordiazePOXIDE HCL 25 MG CAPSULE PO SCH (05:00)
[2020-06-01] MEDS ORDERED: chlordiazePOXIDE HCL 10 MG CAPSULE PO PRN
[2020-06-01] MEDS ORDERED: chlordiazePOXIDE HCL 10 MG CAPSULE PO SCH (05:00)
[2020-06-02] MEDS ORDERED: chlordiazePOXIDE HCL 10 MG CAPSULE PO SCH (05:00)
[2020-06-03] MEDS ORDERED: chlordiazePOXIDE HCL 10 MG CAPSULE PO ONE (05:00)
== END 2020-05-30 13:25 | disposition left against medical advice (07) | DRG 770 ==
LOC: YASAS 10:46 → Y3N 15:38
PROVIDERS: ADMIT Allergy & Immunology; ATTEND Allergy & Immunology
PROC: HZ2ZZZZ Detoxification Services for Substance Abuse Treatment (ICD-10-PCS; principal; 2020-05-29)
DX: F10.230 Alcohol dependence with withdrawal, uncomplicated (principal); F11.20 Opioid dependence, uncomplicated; F14.20 Cocaine dependence, uncomplicated; F17.210 Nicotine dependence, cigarettes, uncomplicated; F19.24 Other psychoactive substance dependence with psychoactive substance-induced mood disorder; F41.9 Anxiety disorder, unspecified; I10 Essential (primary) hypertension; E78.00 Pure hypercholesterolemia, unspecified; M54.41 Lumbago with sciatica, right side; M54.42 Lumbago with sciatica, left side; J30.9 Allergic rhinitis, unspecified; Z86.69 Personal history of other diseases of the nervous system and sense organs
CPT/HCPCS: 36415; 80053; 85027; 86780; C9803; U0003

== ENCOUNTER 2020-10-27 09:56 | Inpatient (IN) | payer OTHER ==
[2020-10-27 11:18] VITALS: BMI 30.1
[2020-10-27] MEDS ORDERED: diphenhydrAMINE HCL 50 MG CAPSULE PO ONE (11:49)
[2020-10-27] MEDS ORDERED: diphenhydrAMINE HCL 25 MG CAPSULE (FP) PO ONE (11:58)
[2020-10-27] MEDS ORDERED: MAG HYDROX/AL HYDROX/SIMETH 30 ML UNIT-DOSE CUP PO PRN (12:04)
[2020-10-27] MEDS ORDERED: BISMUTH SUBSALICYLATE 262 MG/15 ML BTL PO PRN (12:04)
[2020-10-27] MEDS ORDERED: diazePAM 5 MG TABLET PO PRN (12:04)
[2020-10-27] MEDS ORDERED: IBUPROFEN 400 MG TABLET (FP) PO PRN (12:04)
[2020-10-27] MEDS ORDERED: MENTHOL/PHENOL 1 EACH UD MM PRN (12:04)
[2020-10-27] MEDS ORDERED: MAGNESIUM CITRATE 300 ML BOTTLE PO PRN (12:04)
[2020-10-27] MEDS ORDERED: METHOCARBAMOL 500 MG TABLET PO PRN (12:04)
[2020-10-27] MEDS ORDERED: MAGNESIUM HYDROX 2400MG/30ML ORAL SUSPENSION 30 ML CUP PO PRN (12:04)
[2020-10-27] MEDS ORDERED: ONDANSETRON *ODT* 4 MG TABLET SL PRN (12:04)
[2020-10-27] MEDS ORDERED: NICOTINE POLACRILEX 2 MG GUM BUC PRN (12:04)
[2020-10-27] MEDS ORDERED: ACETAMINOPHEN 325 MG TABLET (FP) PO PRN ×2 (12:04)
[2020-10-27] MEDS ORDERED: ALBUTEROL SO4 HFA INHALER IH PRN (12:36)
[2020-10-27] MEDS: NICOTINE 21 MG/24 HOURS TOPICAL PATCH TD SCH (13:09)
[2020-10-27] MEDS: hydrOXYzine PAMOATE 25 MG CAPSULE (FP) PO SCH ×3 (13:10→23:20)
[2020-10-27] MEDS: PRENATAL VITAMINS W/ FOLIC ACID TABLET (FP) PO SCH (13:10)
[2020-10-27] MEDS: diazePAM 5 MG TABLET PO SCH ×3 (13:10→23:21)
[2020-10-27] MEDS: LISINOPRIL 20 MG TABLET PO SCH (13:10)
[2020-10-27 15:13] LABS: HEMATOCRIT 44.7 % (35.4-49); HEMOGLOBIN 15.3 GM/dL (11.7-16.9); MCH 28.7 pg (25.7-33.7); MCHC 34.3 g/dl (32.0-35.9); MEAN CELL VOLUME 83.7 fl (80-96); MEAN PLT VOLUME 10.7 fl (7.5-11.1); PLATELET COUNT 166 10^3/uL (134-434); RBC 5.34 M/mm3 (4.00-5.60); WHITE BLOOD COUNT 12.7 K/mm3 (4.0-10.0)
[2020-10-27 15:19] LABS: ALBUMIN 4.4 g/dl (3.4-5.0)
[2020-10-27 15:20] LABS: BLOOD UREA NITROGEN 12.3 mg/dL (7-18)
[2020-10-27 15:22] LABS: CREATININE 0.9 mg/dL (0.55-1.3)
[2020-10-27 15:24] LABS: BILIRUBIN,TOTAL 0.9 mg/dL (0.2-1); TOT PROT 8.2 g/dl (6.4-8.2)
[2020-10-27 17:42] LABS: HIV INTERPRETATION NEGATIVE (NEGATIVE)
[2020-10-27] MEDS: FAMOTIDINE 20 MG TABLET PO SCH (23:19)
[2020-10-27] MEDS: THIAMINE HCL 100 MG TABLET (FP) PO SCH (23:19)
[2020-10-27] MEDS: MONTELUKAST NA 10 MG TABLET PO SCH (23:19)
[2020-10-27] MEDS: CYCLOBENZAPRINE HCL 10 MG TABLET (FP) PO SCH (23:20)
[2020-10-27] MEDS: MELATONIN 5 MG TABLETS PO SCH (23:21)
[2020-10-28] MEDS: diazePAM 5 MG TABLET PO SCH ×4 (06:45→22:44)
[2020-10-28] MEDS: hydrOXYzine PAMOATE 25 MG CAPSULE (FP) PO SCH ×5 (06:45→22:43)
[2020-10-28] MEDS: NICOTINE 21 MG/24 HOURS TOPICAL PATCH TD SCH (12:13)
[2020-10-28] MEDS: PRENATAL VITAMINS W/ FOLIC ACID TABLET (FP) PO SCH (12:13)
[2020-10-28] MEDS: LISINOPRIL 20 MG TABLET PO SCH (12:14)
[2020-10-28] MEDS: MELATONIN 5 MG TABLETS PO SCH (22:43)
[2020-10-28] MEDS: CYCLOBENZAPRINE HCL 10 MG TABLET (FP) PO SCH (22:43)
[2020-10-28] MEDS: THIAMINE HCL 100 MG TABLET (FP) PO SCH (22:43)
[2020-10-28] MEDS: MONTELUKAST NA 10 MG TABLET PO SCH (22:43)
[2020-10-28] MEDS: FAMOTIDINE 20 MG TABLET PO SCH (22:43)
[2020-10-29] MEDS: diazePAM 5 MG TABLET PO SCH ×3 (08:01→23:15)
[2020-10-29] MEDS: hydrOXYzine PAMOATE 25 MG CAPSULE (FP) PO SCH ×5 (08:02→23:15)
[2020-10-29 09:26] LABS: BASO % 1.4 % (0-2.0); EOS % 4.3 % (0-4.5); LYMPH % 26.4 % (8-40); MCH 28.9 pg (25.7-33.7); MEAN CELL VOLUME 85.1 fl (80-96); MEAN PLT VOLUME 10.4 fl (7.5-11.1); MONO % 8.7 % (3.8-10.2); NEUT % 59.2 % (42.8-82.8); PLATELET COUNT 167 10^3/uL (134-434); RBC 5.17 M/mm3 (4.00-5.60); RDW 14.3 % (11.9-15.9); WHITE BLOOD COUNT 10.8 K/mm3 (4.0-10.0)
[2020-10-29 10:07] LABS: BLOOD UREA NITROGEN 11.7 mg/dL (7-18); CALCIUM 8.4 mg/dL (8.5-10.1)
[2020-10-29 10:12] LABS: BILIRUBIN,TOTAL 0.6 mg/dL (0.2-1); TOT PROT 6.8 g/dl (6.4-8.2)
[2020-10-29 10:16] LABS: ALBUMIN 3.4 g/dl (3.4-5.0); CREATININE 0.8 mg/dL (0.55-1.3)
[2020-10-29] MEDS: LISINOPRIL 20 MG TABLET PO SCH (10:46)
[2020-10-29] MEDS: PRENATAL VITAMINS W/ FOLIC ACID TABLET (FP) PO SCH (10:46)
[2020-10-29] MEDS: NICOTINE 21 MG/24 HOURS TOPICAL PATCH TD SCH (10:47)
[2020-10-29] MEDS: THIAMINE HCL 100 MG TABLET (FP) PO SCH (23:15)
[2020-10-29] MEDS: MONTELUKAST NA 10 MG TABLET PO SCH (23:15)
[2020-10-29] MEDS: FAMOTIDINE 20 MG TABLET PO SCH (23:15)
[2020-10-29] MEDS: CYCLOBENZAPRINE HCL 10 MG TABLET (FP) PO SCH (23:15)
[2020-10-29] MEDS: MELATONIN 5 MG TABLETS PO SCH (23:15)
[2020-10-30] MEDS: diazePAM 5 MG TABLET PO SCH ×2 (06:36→18:00)
[2020-10-30] MEDS: hydrOXYzine PAMOATE 25 MG CAPSULE (FP) PO SCH ×5 (06:36→22:39)
[2020-10-30] MEDS: NICOTINE 21 MG/24 HOURS TOPICAL PATCH TD SCH (10:26)
[2020-10-30] MEDS: PRENATAL VITAMINS W/ FOLIC ACID TABLET (FP) PO SCH (10:27)
[2020-10-30] MEDS: LISINOPRIL 20 MG TABLET PO SCH (10:27)
[2020-10-30] MEDS: CYCLOBENZAPRINE HCL 10 MG TABLET (FP) PO SCH (22:38)
[2020-10-30] MEDS: MELATONIN 5 MG TABLETS PO SCH (22:38)
[2020-10-30] MEDS: MONTELUKAST NA 10 MG TABLET PO SCH (22:39)
[2020-10-30] MEDS: FAMOTIDINE 20 MG TABLET PO SCH (22:39)
[2020-10-30] MEDS: THIAMINE HCL 100 MG TABLET (FP) PO SCH (22:39)
[2020-10-31] MEDS: hydrOXYzine PAMOATE 25 MG CAPSULE (FP) PO SCH (05:31)
[2020-10-31 05:54] VITALS: BP 138/96; PULSE 96; TEMP 97.5
[2020-10-31] MEDS ORDERED: diazePAM 5 MG TABLET PO ONE (06:00)
== END 2020-10-31 06:32 | disposition home or self-care (01) | DRG 774 ==
LOC: YASAS 09:56 → Y3N 11:45
PROVIDERS: ADMIT Allergy & Immunology; ATTEND Allergy & Immunology
PROC: HZ2ZZZZ Detoxification Services for Substance Abuse Treatment (ICD-10-PCS; principal; 2020-10-27)
DX: F10.230 Alcohol dependence with withdrawal, uncomplicated (principal); F14.20 Cocaine dependence, uncomplicated; F17.210 Nicotine dependence, cigarettes, uncomplicated; I10 Essential (primary) hypertension; E78.00 Pure hypercholesterolemia, unspecified; J45.909 Unspecified asthma, uncomplicated; K21.9 Gastro-esophageal reflux disease without esophagitis; M54.41 Lumbago with sciatica, right side; M54.42 Lumbago with sciatica, left side; G89.29 Other chronic pain; Z86.69 Personal history of other diseases of the nervous system and sense organs
CPT/HCPCS: 36415; 80053; 85025; 85027; 86780; 87389; C9803; U0003; U0005

== ENCOUNTER 2020-11-21 18:45 | Inpatient (IN) | payer OTHER ==
[2020-11-21 10:54] VITALS: BMI 31.9
[2020-11-21] MEDS ORDERED: MENTHOL/PHENOL 1 EACH UD MM PRN (20:22)
[2020-11-21] MEDS ORDERED: MAGNESIUM HYDROX 2400MG/30ML ORAL SUSPENSION 30 ML CUP PO PRN (20:22)
[2020-11-21] MEDS ORDERED: ONDANSETRON *ODT* 4 MG TABLET SL PRN (20:22)
[2020-11-21] MEDS ORDERED: MAG HYDROX/AL HYDROX/SIMETH 30 ML UNIT-DOSE CUP PO PRN (20:22)
[2020-11-21] MEDS ORDERED: BISMUTH SUBSALICYLATE 524 MG/30 ML PO PRN (20:22)
[2020-11-21] MEDS ORDERED: NICOTINE POLACRILEX 2 MG GUM BUC PRN (20:22)
[2020-11-21] MEDS ORDERED: MAGNESIUM CITRATE 300 ML BOTTLE PO PRN (20:22)
[2020-11-21] MEDS ORDERED: diazePAM 5 MG TABLET PO PRN (20:22)
[2020-11-21] MEDS ORDERED: ACETAMINOPHEN 325 MG TABLET (FP) PO PRN ×2 (20:22)
[2020-11-21] MEDS: MELATONIN 5 MG TABLETS PO SCH (22:31)
[2020-11-21] MEDS: THIAMINE HCL 100 MG TABLET (FP) PO SCH (22:32)
[2020-11-21] MEDS: diazePAM 5 MG TABLET PO SCH (22:32)
[2020-11-22] MEDS: diazePAM 5 MG TABLET PO SCH ×4 (06:48→22:46)
[2020-11-22 10:23] LABS: CALCIUM 8.3 mg/dL (8.5-10.1)
[2020-11-22 10:24] LABS: ALBUMIN 3.3 g/dl (3.4-5.0); BLOOD UREA NITROGEN 9.8 mg/dL (7-18); HEMATOCRIT 46.6 % (35.4-49); HEMOGLOBIN 15.5 GM/dL (11.7-16.9); MCH 28.4 pg (25.7-33.7); MCHC 33.2 g/dl (32.0-35.9); MEAN CELL VOLUME 85.4 fl (80-96); MEAN PLT VOLUME 10.1 fl (7.5-11.1); PLATELET COUNT 163 10^3/uL (134-434); RBC 5.45 M/mm3 (4.00-5.60); WHITE BLOOD COUNT 10.6 K/mm3 (4.0-10.0)
[2020-11-22 10:27] LABS: BILIRUBIN,TOTAL 0.6 mg/dL (0.2-1); TOT PROT 6.8 g/dl (6.4-8.2)
[2020-11-22 10:28] LABS: CREATININE 0.7 mg/dL (0.55-1.3)
[2020-11-22] MEDS: METHOCARBAMOL 500 MG TABLET PO PRN ×2 (11:41→17:49)
[2020-11-22] MEDS: PRENATAL VITAMINS W/ FOLIC ACID TABLET (FP) PO SCH (11:41)
[2020-11-22] MEDS: NICOTINE 21 MG/24 HOURS TOPICAL PATCH TD SCH (11:43)
[2020-11-22] MEDS: IBUPROFEN 400 MG TABLET (FP) PO PRN (17:58)
[2020-11-22] MEDS: THIAMINE HCL 100 MG TABLET (FP) PO SCH (22:45)
[2020-11-22] MEDS: MELATONIN 5 MG TABLETS PO SCH (22:45)
[2020-11-23] MEDS: diazePAM 5 MG TABLET PO SCH ×3 (05:55→22:45)
[2020-11-23] MEDS: IBUPROFEN 400 MG TABLET (FP) PO PRN ×2 (05:58→17:53)
[2020-11-23] MEDS: METHOCARBAMOL 500 MG TABLET PO PRN ×2 (06:00→21:38)
[2020-11-23] MEDS: NICOTINE 21 MG/24 HOURS TOPICAL PATCH TD SCH (10:54)
[2020-11-23] MEDS: PRENATAL VITAMINS W/ FOLIC ACID TABLET (FP) PO SCH (10:54)
[2020-11-23] MEDS ORDERED: IBUPROFEN 400 MG TABLET (FP) PO ONE (18:16)
[2020-11-23] MEDS: LIDOCAINE 5% TOPICAL PATCH TP SCH (20:59)
[2020-11-23] MEDS: LIDOCAINE PATCH REMOVAL MC SCH (22:46)
[2020-11-23] MEDS: THIAMINE HCL 100 MG TABLET (FP) PO SCH (22:46)
[2020-11-23] MEDS: MELATONIN 5 MG TABLETS PO SCH (22:46)
[2020-11-24] MEDS: diazePAM 5 MG TABLET PO SCH ×2 (07:08→19:16)
[2020-11-24] MEDS: LIDOCAINE 5% TOPICAL PATCH TP SCH (10:45)
[2020-11-24] MEDS: NICOTINE 21 MG/24 HOURS TOPICAL PATCH TD SCH (10:46)
[2020-11-24] MEDS: PRENATAL VITAMINS W/ FOLIC ACID TABLET (FP) PO SCH (10:46)
[2020-11-24] MEDS: IBUPROFEN 400 MG TABLET (FP) PO PRN (20:01)
[2020-11-24] MEDS: METHOCARBAMOL 500 MG TABLET PO PRN (20:02)
[2020-11-24] MEDS: LIDOCAINE PATCH REMOVAL MC SCH (23:09)
[2020-11-24] MEDS: MELATONIN 5 MG TABLETS PO SCH (23:09)
[2020-11-24] MEDS: THIAMINE HCL 100 MG TABLET (FP) PO SCH (23:10)
[2020-11-25] MEDS ORDERED: diazePAM 5 MG TABLET PO ONE (06:00)
[2020-11-25 06:47] VITALS: TEMP 97
[2020-11-25 10:19] VITALS: BP 162/90; PULSE 64
[2020-11-25] MEDS: LIDOCAINE 5% TOPICAL PATCH TP SCH (10:25)
[2020-11-25] MEDS: IBUPROFEN 400 MG TABLET (FP) PO PRN (10:26)
[2020-11-25] MEDS: PRENATAL VITAMINS W/ FOLIC ACID TABLET (FP) PO SCH (10:26)
[2020-11-25] MEDS: NICOTINE 21 MG/24 HOURS TOPICAL PATCH TD SCH (10:26)
== END 2020-11-25 16:00 | disposition home or self-care (01) | DRG 774 ==
LOC: YASAS 18:45 → Y3N 20:49
PROVIDERS: ADMIT Allergy & Immunology; ATTEND Allergy & Immunology
PROC: HZ2ZZZZ Detoxification Services for Substance Abuse Treatment (ICD-10-PCS; principal; 2020-11-21)
DX: F10.230 Alcohol dependence with withdrawal, uncomplicated (principal); F14.20 Cocaine dependence, uncomplicated; F17.210 Nicotine dependence, cigarettes, uncomplicated; E78.00 Pure hypercholesterolemia, unspecified; I10 Essential (primary) hypertension; J45.909 Unspecified asthma, uncomplicated; K21.9 Gastro-esophageal reflux disease without esophagitis; M54.41 Lumbago with sciatica, right side; M54.42 Lumbago with sciatica, left side
CPT/HCPCS: 36415; 71250-TC; 80053; 85027; 86780; 93005; 93010; C9803; U0003; U0005

== ENCOUNTER 2020-11-25 16:10 | Inpatient (IN) | payer OTHER ==
[2020-11-25] MEDS ORDERED: MENTHOL/PHENOL 1 EACH UD MM PRN (16:23)
[2020-11-25] MEDS ORDERED: guaiFENesin 200 MG/10 ML 10 ML UNIT-DOSE CUPS PO PRN (16:23)
[2020-11-25] MEDS ORDERED: P-EPHED 60MG/TRIPROLIDI 2.5MG TABLET PO PRN (16:23)
[2020-11-25] MEDS ORDERED: ACETAMINOPHEN 325 MG TABLET (FP) PO PRN (16:23)
[2020-11-25] MEDS ORDERED: NICOTINE POLACRILEX 2 MG GUM BUC PRN (16:23)
[2020-11-25] MEDS ORDERED: MAG HYDROX/AL HYDROX/SIMETH 30 ML UNIT-DOSE CUP PO PRN (16:23)
[2020-11-25] MEDS ORDERED: LOPERAMIDE HCL 2 MG CAPSULE PO PRN (16:23)
[2020-11-25] MEDS ORDERED: MAGNESIUM HYDROX 2400MG/30ML ORAL SUSPENSION 30 ML CUP PO PRN (16:23)
[2020-11-25] MEDS ORDERED: MAGNESIUM CITRATE 300 ML BOTTLE PO PRN (16:23)
[2020-11-25] MEDS: hydrOXYzine PAMOATE 25 MG CAPSULE (FP) PO SCH ×2 (17:14→22:01)
[2020-11-25] MEDS: THIAMINE HCL 100 MG TABLET (FP) PO SCH (22:00)
[2020-11-25] MEDS: MELATONIN 5 MG TABLETS PO SCH (22:01)
[2020-11-25] MEDS: IBUPROFEN 400 MG TABLET (FP) PO PRN (22:02)
[2020-11-26] MEDS: hydrOXYzine PAMOATE 25 MG CAPSULE (FP) PO SCH ×5 (07:06→22:23)
[2020-11-26] MEDS: IBUPROFEN 400 MG TABLET (FP) PO PRN (09:28)
[2020-11-26] MEDS ORDERED: PRENATAL VITAMINS W/ FOLIC ACID TABLET (FP) PO SCH (10:00)
[2020-11-26] MEDS ORDERED: NICOTINE 7 MG/24 HOURS TOPICAL PATCH TD SCH (10:00)
[2020-11-26] MEDS ORDERED: LIDOCAINE 5% TOPICAL PATCH TP SCH (13:00)
[2020-11-26] MEDS ORDERED: LIDOCAINE PATCH REMOVAL MC SCH (22:00)
[2020-11-26] MEDS: THIAMINE HCL 100 MG TABLET (FP) PO SCH (22:23)
[2020-11-26] MEDS: MELATONIN 5 MG TABLETS PO SCH (22:23)
[2020-11-27] MEDS: IBUPROFEN 400 MG TABLET (FP) PO PRN (06:06)
[2020-11-27] MEDS: hydrOXYzine PAMOATE 25 MG CAPSULE (FP) PO SCH (06:06)
[2020-11-27 07:23] VITALS: BP 155/81; PULSE 76; TEMP 97.7
[2020-11-27] MEDS ORDERED: LISINOPRIL 20 MG TABLET PO SCH (10:00)
== END 2020-11-27 09:18 | disposition left against medical advice (07) | DRG 770 ==
LOC: YASAS 16:10 → Y3W 16:11
PROVIDERS: ADMIT Allergy & Immunology; ATTEND Allergy & Immunology
PROC: HZ42ZZZ Group Counseling for Substance Abuse Treatment, Cognitive-Behavioral (ICD-10-PCS; principal; 2020-11-25)
DX: F10.20 Alcohol dependence, uncomplicated (principal); F14.20 Cocaine dependence, uncomplicated; I10 Essential (primary) hypertension

== ENCOUNTER 2020-12-24 10:32 | Inpatient (IN) | payer OTHER ==
[2020-12-24 12:15] VITALS: BMI 30.4
[2020-12-24] MEDS ORDERED: diazePAM 5 MG TABLET PO PRN (15:46)
[2020-12-24] MEDS ORDERED: MAG HYDROX/AL HYDROX/SIMETH 30 ML UNIT-DOSE CUP PO PRN (15:46)
[2020-12-24] MEDS ORDERED: BISMUTH SUBSALICYLATE 524 MG/30 ML PO PRN (15:46)
[2020-12-24] MEDS ORDERED: MAGNESIUM CITRATE 300 ML BOTTLE PO PRN (15:46)
[2020-12-24] MEDS ORDERED: MENTHOL/PHENOL 1 EACH UD MM PRN (15:46)
[2020-12-24] MEDS ORDERED: METHOCARBAMOL 500 MG TABLET PO PRN (15:46)
[2020-12-24] MEDS ORDERED: NICOTINE 10 MG CARTRIDGE (INHALER) IH PRN (15:46)
[2020-12-24] MEDS ORDERED: ACETAMINOPHEN 325 MG TABLET (FP) PO PRN ×2 (15:46)
[2020-12-24] MEDS ORDERED: MAGNESIUM HYDROX 2400MG/30ML ORAL SUSPENSION 30 ML CUP PO PRN (15:46)
[2020-12-24] MEDS ORDERED: IBUPROFEN 400 MG TABLET (FP) PO PRN (15:46)
[2020-12-24] MEDS ORDERED: ONDANSETRON *ODT* 4 MG TABLET SL PRN (15:46)
[2020-12-24] MEDS: diazePAM 5 MG TABLET PO SCH ×2 (18:51→23:12)
[2020-12-24] MEDS: hydrOXYzine PAMOATE 25 MG CAPSULE (FP) PO SCH ×2 (18:51→23:12)
[2020-12-24] MEDS: THIAMINE HCL 100 MG TABLET (FP) PO SCH (23:12)
[2020-12-24] MEDS: MELATONIN 5 MG TABLETS PO SCH (23:13)
[2020-12-25] MEDS: hydrOXYzine PAMOATE 25 MG CAPSULE (FP) PO SCH ×5 (06:20→23:19)
[2020-12-25] MEDS: diazePAM 5 MG TABLET PO SCH ×4 (06:53→23:20)
[2020-12-25] MEDS: PRENATAL VITAMINS W/ FOLIC ACID TABLET (FP) PO SCH (10:57)
[2020-12-25] MEDS: NICOTINE 7 MG/24 HOURS TOPICAL PATCH TD SCH (10:57)
[2020-12-25 17:13] LABS: HEMATOCRIT 43.6 % (35.4-49); HEMOGLOBIN 14.8 GM/dL (11.7-16.9); MCH 29.2 pg (25.7-33.7); MCHC 33.9 g/dl (32.0-35.9); MEAN CELL VOLUME 86.1 fl (80-96); MEAN PLT VOLUME 10.5 fl (7.5-11.1); PLATELET COUNT 158 10^3/uL (134-434); RBC 5.06 M/mm3 (4.00-5.60); WHITE BLOOD COUNT 9.9 K/mm3 (4.0-10.0)
[2020-12-25 17:17] LABS: CALCIUM 8.6 mg/dL (8.5-10.1)
[2020-12-25 17:18] LABS: ALBUMIN 3.3 g/dl (3.4-5.0); BLOOD UREA NITROGEN 11.8 mg/dL (7-18)
[2020-12-25 17:21] LABS: CREATININE 0.9 mg/dL (0.55-1.3)
[2020-12-25 17:22] LABS: BILIRUBIN,TOTAL 0.4 mg/dL (0.2-1)
[2020-12-25 17:23] LABS: TOT PROT 6.6 g/dl (6.4-8.2)
[2020-12-25] MEDS: THIAMINE HCL 100 MG TABLET (FP) PO SCH (23:19)
[2020-12-25] MEDS: MELATONIN 5 MG TABLETS PO SCH (23:19)
[2020-12-26] MEDS: hydrOXYzine PAMOATE 25 MG CAPSULE (FP) PO SCH ×5 (06:00→21:33)
[2020-12-26] MEDS: diazePAM 5 MG TABLET PO SCH ×3 (06:00→21:33)
[2020-12-26] MEDS ORDERED: LISINOPRIL 20 MG TABLET PO SCH (10:45)
[2020-12-26] MEDS: NICOTINE 7 MG/24 HOURS TOPICAL PATCH TD SCH (10:47)
[2020-12-26] MEDS: PRENATAL VITAMINS W/ FOLIC ACID TABLET (FP) PO SCH (10:47)
[2020-12-26] MEDS: MELATONIN 5 MG TABLETS PO SCH (21:33)
[2020-12-26] MEDS: THIAMINE HCL 100 MG TABLET (FP) PO SCH (21:33)
[2020-12-27] MEDS ORDERED: diazePAM 5 MG TABLET PO SCH (06:00)
[2020-12-27] MEDS: hydrOXYzine PAMOATE 25 MG CAPSULE (FP) PO SCH (06:11)
[2020-12-27 09:55] VITALS: BP 147/93; PULSE 93; TEMP 98.5
[2020-12-28] MEDS ORDERED: diazePAM 5 MG TABLET PO ONE (06:00)
== END 2020-12-27 10:24 | disposition home or self-care (01) | DRG 774 ==
LOC: YASAS 10:32 → Y6N 17:46
PROVIDERS: ADMIT Allergy & Immunology; ATTEND Allergy & Immunology
PROC: HZ2ZZZZ Detoxification Services for Substance Abuse Treatment (ICD-10-PCS; principal; 2020-12-24)
DX: F10.230 Alcohol dependence with withdrawal, uncomplicated (principal); F13.230 Sedative, hypnotic or anxiolytic dependence with withdrawal, uncomplicated; F14.20 Cocaine dependence, uncomplicated; F17.210 Nicotine dependence, cigarettes, uncomplicated; I10 Essential (primary) hypertension; J45.20 Mild intermittent asthma, uncomplicated; K21.9 Gastro-esophageal reflux disease without esophagitis; J30.2 Other seasonal allergic rhinitis; M54.41 Lumbago with sciatica, right side; M54.42 Lumbago with sciatica, left side; G89.29 Other chronic pain
CPT/HCPCS: 36415; 80053; 85027; 86780; C9803; U0003; U0005

== ENCOUNTER 2021-06-14 12:17 | Inpatient (IN) | payer OTHER ==
[2021-06-14] MEDS ORDERED: ACETAMINOPHEN 325 MG TABLET (FP) PO PRN ×2 (14:45)
[2021-06-14] MEDS ORDERED: METHOCARBAMOL 500 MG TABLET PO PRN (14:45)
[2021-06-14] MEDS ORDERED: chlordiazePOXIDE HCL 25 MG CAPSULE PO PRN (14:45)
[2021-06-14] MEDS ORDERED: MAG HYDROX/AL HYDROX/SIMETH 30 ML UNIT-DOSE CUP PO PRN (14:45)
[2021-06-14] MEDS ORDERED: ONDANSETRON *ODT* 4 MG TABLET SL PRN (14:45)
[2021-06-14] MEDS ORDERED: BISMUTH SUBSALICYLATE 524 MG/30 ML PO PRN (14:45)
[2021-06-14] MEDS ORDERED: MENTHOL/PHENOL 1 EACH UD MM PRN (14:45)
[2021-06-14] MEDS ORDERED: NICOTINE 10 MG CARTRIDGE (INHALER) IH PRN (14:45)
[2021-06-14] MEDS ORDERED: IBUPROFEN 400 MG TABLET (FP) PO PRN (14:45)
[2021-06-14] MEDS ORDERED: MAGNESIUM HYDROX 2400MG/30ML ORAL SUSPENSION 30 ML CUP PO PRN (14:45)
[2021-06-14] MEDS ORDERED: MAGNESIUM CITRATE 300 ML BOTTLE PO PRN (14:45)
[2021-06-14 15:24] VITALS: BMI 30.4
[2021-06-14] MEDS ORDERED: chlordiazePOXIDE HCL 25 MG CAPSULE ONE (16:12)
[2021-06-14] MEDS: NICOTINE 14 MG/24 HOURS TOPICAL PATCH TD SCH (20:27)
[2021-06-14] MEDS: PRENATAL VITAMINS W/ FOLIC ACID TABLET (FP) PO SCH (20:27)
[2021-06-14] MEDS: hydrOXYzine PAMOATE 25 MG CAPSULE (FP) PO SCH ×2 (20:29→22:42)
[2021-06-14] MEDS: chlordiazePOXIDE HCL 25 MG CAPSULE PO SCH ×2 (20:29→22:43)
[2021-06-14] MEDS: MELATONIN 5 MG TABLETS PO SCH (22:42)
[2021-06-14] MEDS: THIAMINE HCL 100 MG TABLET (FP) PO SCH (22:43)
[2021-06-15] MEDS: chlordiazePOXIDE HCL 25 MG CAPSULE PO SCH ×4 (07:30→23:20)
[2021-06-15] MEDS: hydrOXYzine PAMOATE 25 MG CAPSULE (FP) PO SCH ×5 (07:30→23:20)
[2021-06-15 10:57] LABS: CALCIUM 8.2 mg/dL (8.5-10.1); HEMATOCRIT 42.5 % (35.4-49); HEMOGLOBIN 14.7 GM/dL (11.7-16.9); MCH 29.6 pg (25.7-33.7); MCHC 34.7 g/dl (32.0-35.9); MEAN CELL VOLUME 85.4 fl (80-96); MEAN PLT VOLUME 9.9 fl (7.5-11.1); PLATELET COUNT 188 10^3/uL (134-434); RBC 4.97 M/mm3 (4.00-5.60); RDW 14.5 % (11.9-15.9); WHITE BLOOD COUNT 8.8 K/mm3 (4.0-10.0)
[2021-06-15 10:58] LABS: ALBUMIN 3.1 g/dl (3.4-5.0); BLOOD UREA NITROGEN 9.7 mg/dL (7-18)
[2021-06-15 11:01] LABS: CREATININE 0.9 mg/dL (0.55-1.3)
[2021-06-15 11:02] LABS: BILIRUBIN,TOTAL 0.2 mg/dL (0.2-1); TOT PROT 6.2 g/dl (6.4-8.2)
[2021-06-15] MEDS: NICOTINE 14 MG/24 HOURS TOPICAL PATCH TD SCH (11:04)
[2021-06-15] MEDS: PRENATAL VITAMINS W/ FOLIC ACID TABLET (FP) PO SCH (11:04)
[2021-06-15] MEDS: THIAMINE HCL 100 MG TABLET (FP) PO SCH (23:20)
[2021-06-15] MEDS: MELATONIN 5 MG TABLETS PO SCH (23:20)
[2021-06-16] MEDS: chlordiazePOXIDE HCL 25 MG CAPSULE PO SCH ×4 (07:00→23:06)
[2021-06-16] MEDS: hydrOXYzine PAMOATE 25 MG CAPSULE (FP) PO SCH ×5 (07:08→23:07)
[2021-06-16] MEDS: PRENATAL VITAMINS W/ FOLIC ACID TABLET (FP) PO SCH (10:49)
[2021-06-16] MEDS: NICOTINE 14 MG/24 HOURS TOPICAL PATCH TD SCH (10:49)
[2021-06-16] MEDS: MELATONIN 5 MG TABLETS PO SCH (23:06)
[2021-06-16] MEDS: THIAMINE HCL 100 MG TABLET (FP) PO SCH (23:07)
[2021-06-17] MEDS ORDERED: chlordiazePOXIDE HCL 10 MG CAPSULE PO PRN
[2021-06-17] MEDS: chlordiazePOXIDE HCL 10 MG CAPSULE PO SCH ×4 (06:44→23:00)
[2021-06-17] MEDS: hydrOXYzine PAMOATE 25 MG CAPSULE (FP) PO SCH ×5 (06:44→23:01)
[2021-06-17] MEDS: NICOTINE 14 MG/24 HOURS TOPICAL PATCH TD SCH (10:44)
[2021-06-17] MEDS: PRENATAL VITAMINS W/ FOLIC ACID TABLET (FP) PO SCH (10:44)
[2021-06-17 21:08] VITALS: PULSE 84; TEMP 96.8
[2021-06-17] MEDS: CALCIUM CARBONATE 650 MG TABLET PO SCH (23:00)
[2021-06-17] MEDS: MELATONIN 5 MG TABLETS PO SCH (23:00)
[2021-06-17] MEDS: THIAMINE HCL 100 MG TABLET (FP) PO SCH (23:01)
[2021-06-18] MEDS ORDERED: chlordiazePOXIDE HCL 10 MG CAPSULE PO SCH (05:00)
[2021-06-18 06:01] VITALS: BP 131/91
[2021-06-18] MEDS: hydrOXYzine PAMOATE 25 MG CAPSULE (FP) PO SCH ×2 (06:26→11:32)
[2021-06-18] MEDS: PRENATAL VITAMINS W/ FOLIC ACID TABLET (FP) PO SCH (11:32)
[2021-06-18] MEDS: CALCIUM CARBONATE 650 MG TABLET PO SCH (11:32)
[2021-06-18] MEDS: NICOTINE 14 MG/24 HOURS TOPICAL PATCH TD SCH (11:32)
[2021-06-19] MEDS ORDERED: chlordiazePOXIDE HCL 10 MG CAPSULE PO ONE (05:00)
== END 2021-06-18 14:12 | disposition home or self-care (01) | DRG 773 ==
LOC: YASAS 12:17 → Y3N 19:30
PROVIDERS: ADMIT Allergy & Immunology; ATTEND Allergy & Immunology
PROC: HZ2ZZZZ Detoxification Services for Substance Abuse Treatment (ICD-10-PCS; principal; 2021-06-14)
DX: F10.230 Alcohol dependence with withdrawal, uncomplicated (principal); F11.20 Opioid dependence, uncomplicated; F14.20 Cocaine dependence, uncomplicated; F17.210 Nicotine dependence, cigarettes, uncomplicated; E46 Unspecified protein-calorie malnutrition; E83.51 Hypocalcemia; Z68.30 Body mass index [BMI] 30.0-30.9, adult
CPT/HCPCS: 36415; 80053; 85027; 86780; C9803; U0003; U0005

== ENCOUNTER 2021-07-20 10:25 | Inpatient (IN) | payer OTHER ==
[2021-07-20 19:09] VITALS: BMI 29.7
[2021-07-20] MEDS ORDERED: IBUPROFEN 400 MG TABLET (FP) PO PRN (20:34)
[2021-07-20] MEDS ORDERED: MELATONIN 5 MG TABLETS PO PRN (20:34)
[2021-07-20] MEDS ORDERED: MAGNESIUM CITRATE 300 ML BOTTLE PO PRN (20:34)
[2021-07-20] MEDS ORDERED: DICYCLOMINE HCL 10 MG CAPSULE PO PRN (20:34)
[2021-07-20] MEDS ORDERED: MAGNESIUM HYDROX 2400MG/30ML ORAL SUSPENSION 30 ML CUP PO PRN (20:34)
[2021-07-20] MEDS ORDERED: MENTHOL/PHENOL 1 EACH UD MM PRN (20:34)
[2021-07-20] MEDS ORDERED: hydrOXYzine PAMOATE 25 MG CAPSULE (FP) PO PRN (20:34)
[2021-07-20] MEDS ORDERED: NICOTINE POLACRILEX 2 MG GUM BUC PRN (20:34)
[2021-07-20] MEDS ORDERED: LOPERAMIDE HCL 2 MG CAPSULE PO PRN (20:34)
[2021-07-20] MEDS ORDERED: METHOCARBAMOL 500 MG TABLET PO PRN (20:34)
[2021-07-20] MEDS ORDERED: P-EPHED 60MG/TRIPROLIDI 2.5MG TABLET PO PRN (20:34)
[2021-07-20] MEDS ORDERED: BISMUTH SUBSALICYLATE 524 MG/30 ML PO PRN (20:34)
[2021-07-20] MEDS ORDERED: ACETAMINOPHEN 325 MG TABLET (FP) PO PRN ×2 (20:34)
[2021-07-20] MEDS ORDERED: MAG HYDROX/AL HYDROX/SIMETH 30 ML UNIT-DOSE CUP PO PRN (20:34)
[2021-07-20] MEDS ORDERED: ONDANSETRON *ODT* 4 MG TABLET SL PRN (20:34)
[2021-07-20] MEDS ORDERED: chlordiazePOXIDE HCL 25 MG CAPSULE PO PRN (20:36)
[2021-07-20] MEDS ORDERED: chlordiazePOXIDE HCL 25 MG CAPSULE PO ONE (20:36)
[2021-07-20] MEDS: chlordiazePOXIDE HCL 25 MG CAPSULE PO SCH (23:40)
[2021-07-20] MEDS: CEPHALEXIN MONOHYDRATE 500 MG CAPSULE (UD) PO SCH (23:40)
[2021-07-20] MEDS: THIAMINE HCL 100 MG TABLET (FP) PO SCH (23:40)
[2021-07-21] MEDS: chlordiazePOXIDE HCL 25 MG CAPSULE PO SCH ×4 (06:00→23:17)
[2021-07-21 11:35] LABS: HEMATOCRIT 41.5 % (35.4-49); HEMOGLOBIN 14.1 GM/dL (11.7-16.9); MCH 29.2 pg (25.7-33.7); MEAN CELL VOLUME 85.9 fl (80-96); MEAN PLT VOLUME 9.7 fl (7.5-11.1); PLATELET COUNT 171 10^3/uL (134-434); RBC 4.83 M/mm3 (4.00-5.60); RDW 13.8 % (11.9-15.9); WHITE BLOOD COUNT 9.1 K/mm3 (4.0-10.0)
[2021-07-21 12:48] LABS: BLOOD UREA NITROGEN 10.5 mg/dL (7-18)
[2021-07-21 12:51] LABS: CREATININE 0.8 mg/dL (0.55-1.3)
[2021-07-21 12:53] LABS: BILIRUBIN,TOTAL 0.5 mg/dL (0.2-1); TOT PROT 6.1 g/dl (6.4-8.2)
[2021-07-21] MEDS: CEPHALEXIN MONOHYDRATE 500 MG CAPSULE (UD) PO SCH ×2 (13:30→23:17)
[2021-07-21] MEDS: PRENATAL VITAMINS W/ FOLIC ACID TABLET (FP) PO SCH (13:30)
[2021-07-21] MEDS: THIAMINE HCL 100 MG TABLET (FP) PO SCH (23:17)
[2021-07-22] MEDS: chlordiazePOXIDE HCL 10 MG CAPSULE PO SCH ×4 (05:56→23:00)
[2021-07-22] MEDS: CEPHALEXIN MONOHYDRATE 500 MG CAPSULE (UD) PO SCH ×2 (10:49→22:57)
[2021-07-22] MEDS: PRENATAL VITAMINS W/ FOLIC ACID TABLET (FP) PO SCH (10:49)
[2021-07-22] MEDS: THIAMINE HCL 100 MG TABLET (FP) PO SCH (23:00)
[2021-07-23] MEDS ORDERED: chlordiazePOXIDE HCL 10 MG CAPSULE PO PRN
[2021-07-23] MEDS: chlordiazePOXIDE HCL 10 MG CAPSULE PO SCH ×2 (06:04→18:09)
[2021-07-23] MEDS: CEPHALEXIN MONOHYDRATE 500 MG CAPSULE (UD) PO SCH ×2 (11:25→22:25)
[2021-07-23] MEDS: PRENATAL VITAMINS W/ FOLIC ACID TABLET (FP) PO SCH (11:25)
[2021-07-23] MEDS: THIAMINE HCL 100 MG TABLET (FP) PO SCH (22:26)
[2021-07-24] MEDS ORDERED: chlordiazePOXIDE HCL 10 MG CAPSULE PO ONE (05:00)
[2021-07-24 06:08] LABS: SARS-CoV-2 NAA Not Detected (Not Detected)
[2021-07-24 09:17] VITALS: BP 123/62; PULSE 63; TEMP 98.2
[2021-07-24] MEDS: CEPHALEXIN MONOHYDRATE 500 MG CAPSULE (UD) PO SCH (11:18)
[2021-07-24] MEDS: PRENATAL VITAMINS W/ FOLIC ACID TABLET (FP) PO SCH (11:19)
== END 2021-07-24 11:32 | disposition other institution (70) | DRG 774 ==
LOC: YASAS 10:25 → Y6N 22:44
PROVIDERS: ADMIT Allergy & Immunology; ATTEND Allergy & Immunology
PROC: HZ2ZZZZ Detoxification Services for Substance Abuse Treatment (ICD-10-PCS; principal; 2021-07-20)
DX: F10.230 Alcohol dependence with withdrawal, uncomplicated (principal); F14.10 Cocaine abuse, uncomplicated; F17.213 Nicotine dependence, cigarettes, with withdrawal; I10 Essential (primary) hypertension; L02.512 Cutaneous abscess of left hand; K21.9 Gastro-esophageal reflux disease without esophagitis
CPT/HCPCS: 36415; 80053; 85027; 86780; C9803-CS; U0003; U0005

== ENCOUNTER 2022-02-13 10:03 | Inpatient (IN) | payer OTHER ==
[2022-02-13 11:49] VITALS: BMI 28.8
[2022-02-13] MEDS ORDERED: MAGNESIUM CITRATE 300 ML BOTTLE PO PRN (12:28)
[2022-02-13] MEDS ORDERED: NICOTINE 10 MG CARTRIDGE (INHALER) IH PRN (12:28)
[2022-02-13] MEDS ORDERED: LOPERAMIDE HCL 2 MG CAPSULE PO PRN (12:28)
[2022-02-13] MEDS ORDERED: BISMUTH SUBSALICYLATE 262 MG/15 ML BTL PO PRN (12:28)
[2022-02-13] MEDS ORDERED: IBUPROFEN 400 MG TABLET (FP) PO PRN (12:28)
[2022-02-13] MEDS ORDERED: diazePAM 5 MG TABLET PO PRN (12:28)
[2022-02-13] MEDS ORDERED: DICYCLOMINE HCL 10 MG CAPSULE PO PRN (12:28)
[2022-02-13] MEDS ORDERED: ONDANSETRON *ODT* 4 MG TABLET SL PRN (12:28)
[2022-02-13] MEDS ORDERED: MAG HYDROX/AL HYDROX/SIMETH 30 ML UNIT-DOSE CUP PO PRN (12:28)
[2022-02-13] MEDS ORDERED: NALOXONE HCL (KLOXXADO) 8 MG SPRAY NS PRN (12:28)
[2022-02-13] MEDS ORDERED: MAGNESIUM HYDROX 2400MG/30ML ORAL SUSPENSION 30 ML CUP PO PRN (12:28)
[2022-02-13] MEDS ORDERED: BENZOCAINE/MENTHOL (CHLORASEPTIC ) LOZENGE MM PRN (12:28)
[2022-02-13] MEDS ORDERED: ACETAMINOPHEN 325 MG TABLET (FP) PO PRN ×2 (12:28)
[2022-02-13] MEDS: LORATADINE 10 MG TABLET PO SCH (14:21)
[2022-02-13] MEDS: diazePAM 5 MG TABLET PO SCH ×2 (14:21→22:30)
[2022-02-13] MEDS: PRENATAL VITAMINS W/ FOLIC ACID TABLET (FP) PO SCH (14:21)
[2022-02-13] MEDS: NICOTINE 21 MG/24 HOURS TOPICAL PATCH TD SCH (14:22)
[2022-02-13 16:43] LABS: CALCIUM 8.5 mg/dL (8.5-10.1)
[2022-02-13 16:44] LABS: ALBUMIN 3.3 g/dl (3.4-5.0); BLOOD UREA NITROGEN 13.2 mg/dL (7-18)
[2022-02-13 16:47] LABS: CREATININE 0.9 mg/dL (0.55-1.3); TOT PROT 6.9 g/dl (6.4-8.2)
[2022-02-13 16:49] LABS: BILIRUBIN,TOTAL 0.2 mg/dL (0.2-1)
[2022-02-13 16:55] LABS: HEMATOCRIT 42.6 % (35.4-49); HEMOGLOBIN 14.1 GM/dL (11.7-16.9); MCH 28.1 pg (25.7-33.7); MCHC 33.1 g/dl (32.0-35.9); MEAN CELL VOLUME 84.9 fl (80-96); MEAN PLT VOLUME 10.2 fl (7.5-11.1); PLATELET COUNT 261 10^3/uL (134-434); RBC 5.01 M/mm3 (4.00-5.60); RDW 13.6 % (11.9-15.9); WHITE BLOOD COUNT 10.2 K/mm3 (4.0-10.0)
[2022-02-13] MEDS: MELATONIN 5 MG TABLETS PO SCH (22:30)
[2022-02-13] MEDS: THIAMINE HCL 100 MG TABLET (FP) PO SCH (22:30)
[2022-02-14] MEDS: diazePAM 5 MG TABLET PO SCH ×4 (04:45→23:48)
[2022-02-14] MEDS: PRENATAL VITAMINS W/ FOLIC ACID TABLET (FP) PO SCH (11:12)
[2022-02-14] MEDS: LORATADINE 10 MG TABLET PO SCH (11:12)
[2022-02-14] MEDS: NICOTINE 21 MG/24 HOURS TOPICAL PATCH TD SCH (11:12)
[2022-02-14] MEDS: IBUPROFEN 600 MG TABLET (FP) PO PRN (14:46)
[2022-02-14] MEDS: METHOCARBAMOL 500 MG TABLET PO PRN (14:47)
[2022-02-14] MEDS: THIAMINE HCL 100 MG TABLET (FP) PO SCH (23:48)
[2022-02-14] MEDS: MELATONIN 5 MG TABLETS PO SCH (23:48)
[2022-02-15] MEDS: diazePAM 5 MG TABLET PO SCH ×3 (06:04→23:09)
[2022-02-15] MEDS: PRENATAL VITAMINS W/ FOLIC ACID TABLET (FP) PO SCH (10:37)
[2022-02-15] MEDS: NICOTINE 21 MG/24 HOURS TOPICAL PATCH TD SCH (10:38)
[2022-02-15] MEDS: LORATADINE 10 MG TABLET PO SCH (10:38)
[2022-02-15] MEDS: METHOCARBAMOL 500 MG TABLET PO PRN (10:40)
[2022-02-15] MEDS: IBUPROFEN 600 MG TABLET (FP) PO PRN (10:40)
[2022-02-15] MEDS: THIAMINE HCL 100 MG TABLET (FP) PO SCH (23:07)
[2022-02-15] MEDS: MELATONIN 5 MG TABLETS PO SCH (23:07)
[2022-02-16] MEDS: diazePAM 5 MG TABLET PO SCH ×2 (05:57→18:11)
[2022-02-16] MEDS: NICOTINE 21 MG/24 HOURS TOPICAL PATCH TD SCH (11:01)
[2022-02-16] MEDS: LORATADINE 10 MG TABLET PO SCH (11:01)
[2022-02-16] MEDS: PRENATAL VITAMINS W/ FOLIC ACID TABLET (FP) PO SCH (11:01)
[2022-02-16] MEDS: THIAMINE HCL 100 MG TABLET (FP) PO SCH (22:56)
[2022-02-16] MEDS: MELATONIN 5 MG TABLETS PO SCH (22:56)
[2022-02-16 23:10] VITALS: RESP 18
[2022-02-17] MEDS ORDERED: diazePAM 5 MG TABLET PO ONE (06:00)
[2022-02-17 06:56] VITALS: BP 143/74; PULSE 54; TEMP 97.5
== END 2022-02-17 10:38 | disposition home or self-care (01) | DRG 773 ==
LOC: YASAS 10:03 → Y3N 13:07
PROVIDERS: ADMIT Allergy & Immunology; ATTEND Surgery
PROC: HZ2ZZZZ Detoxification Services for Substance Abuse Treatment (ICD-10-PCS; principal; 2022-02-13)
DX: F11.23 Opioid dependence with withdrawal (principal); F10.230 Alcohol dependence with withdrawal, uncomplicated; F14.20 Cocaine dependence, uncomplicated; F17.210 Nicotine dependence, cigarettes, uncomplicated; F41.9 Anxiety disorder, unspecified; I10 Essential (primary) hypertension; J30.9 Allergic rhinitis, unspecified; K21.9 Gastro-esophageal reflux disease without esophagitis
CPT/HCPCS: 36415; 80053; 85027; 86780; 87811; C9803-CS; U0003; U0005

== ENCOUNTER 2022-05-24 10:20 | Inpatient (IN) | payer OTHER ==
[2022-05-24 12:20] VITALS: BMI 31.3
[2022-05-24] MEDS ORDERED: BENZOCAINE/MENTHOL (CHLORASEPTIC ) LOZENGE MM PRN (12:47)
[2022-05-24] MEDS ORDERED: MAG HYDROX/AL HYDROX/SIMETH 30 ML UNIT-DOSE CUP PO PRN (12:47)
[2022-05-24] MEDS ORDERED: BISMUTH SUBSALICYLATE 524 MG/30 ML PO PRN (12:47)
[2022-05-24] MEDS ORDERED: ONDANSETRON *ODT* 4 MG TABLET SL PRN (12:47)
[2022-05-24] MEDS ORDERED: NALOXONE HCL (KLOXXADO) 8 MG SPRAY NS PRN (12:47)
[2022-05-24] MEDS ORDERED: LOPERAMIDE HCL 2 MG CAPSULE PO PRN (12:47)
[2022-05-24] MEDS ORDERED: ACETAMINOPHEN 325 MG TABLET (FP) PO PRN ×2 (12:47)
[2022-05-24] MEDS ORDERED: POLYETHYLENE GLYCOL (HEALTHYLAX) 3350 17 GM PACKET PO PRN (12:47)
[2022-05-24] MEDS ORDERED: DICYCLOMINE HCL 10 MG CAPSULE PO PRN (12:47)
[2022-05-24] MEDS ORDERED: IBUPROFEN 400 MG TABLET (FP) PO PRN (12:47)
[2022-05-24] MEDS ORDERED: METHOCARBAMOL 500 MG TABLET PO PRN (12:47)
[2022-05-24] MEDS ORDERED: IBUPROFEN 600 MG TABLET (FP) PO PRN (12:47)
[2022-05-24] MEDS ORDERED: hydrOXYzine PAMOATE 25 MG CAPSULE (FP) PO PRN (12:47)
[2022-05-24] MEDS ORDERED: diazePAM 5 MG TABLET PO PRN (12:47)
[2022-05-24] MEDS ORDERED: MAGNESIUM HYDROX 2400MG/30ML ORAL SUSPENSION 30 ML CUP PO PRN (12:47)
[2022-05-24] MEDS ORDERED: NICOTINE 10 MG CARTRIDGE (INHALER) IH PRN (12:47)
[2022-05-24] MEDS: NICOTINE 14 MG/24 HOURS TOPICAL PATCH TD SCH (14:29)
[2022-05-24] MEDS: PRENATAL VITAMINS W/ FOLIC ACID TABLET (FP) PO SCH (14:29)
[2022-05-24 17:18] LABS: HEMATOCRIT 40.3 % (35.4-49); HEMOGLOBIN 13.2 GM/dL (11.7-16.9); MCH 27.7 pg (25.7-33.7); MCHC 32.8 g/dl (32.0-35.9); MEAN CELL VOLUME 84.5 fl (80-96); MEAN PLT VOLUME 10.5 fl (7.5-11.1); PLATELET COUNT 186 10^3/uL (134-434); RBC 4.78 M/mm3 (4.00-5.60); RDW 14.5 % (11.9-15.9)
[2022-05-24 17:21] LABS: ALBUMIN 3.7 g/dl (3.4-5.0); BLOOD UREA NITROGEN 14.3 mg/dL (7-18)
[2022-05-24 17:24] LABS: BILIRUBIN,TOTAL 0.6 mg/dL (0.2-1)
[2022-05-24 17:25] LABS: TOT PROT 7.3 g/dl (6.4-8.2)
[2022-05-24] MEDS: diazePAM 5 MG TABLET PO SCH ×2 (17:35→23:05)
[2022-05-24] MEDS: MELATONIN 5 MG TABLETS PO SCH (23:04)
[2022-05-24] MEDS: THIAMINE HCL 100 MG TABLET (FP) PO SCH (23:05)
[2022-05-25] MEDS: diazePAM 5 MG TABLET PO SCH ×4 (05:56→22:40)
[2022-05-25] MEDS: PRENATAL VITAMINS W/ FOLIC ACID TABLET (FP) PO SCH (10:44)
[2022-05-25] MEDS: NICOTINE 14 MG/24 HOURS TOPICAL PATCH TD SCH (10:44)
[2022-05-25] MEDS: LACTULOSE 20 GM/30 ML UDC (FOR ORAL USE ONLY) PO SCH ×2 (14:19→22:40)
[2022-05-25] MEDS: THIAMINE HCL 100 MG TABLET (FP) PO SCH (22:40)
[2022-05-25] MEDS: MELATONIN 5 MG TABLETS PO SCH (22:40)
[2022-05-26] MEDS: LACTULOSE 20 GM/30 ML UDC (FOR ORAL USE ONLY) PO SCH ×4 (06:04→22:31)
[2022-05-26] MEDS: diazePAM 5 MG TABLET PO SCH ×3 (06:04→22:32)
[2022-05-26] MEDS: PRENATAL VITAMINS W/ FOLIC ACID TABLET (FP) PO SCH (10:33)
[2022-05-26] MEDS: NICOTINE 14 MG/24 HOURS TOPICAL PATCH TD SCH (10:33)
[2022-05-26] MEDS: THIAMINE HCL 100 MG TABLET (FP) PO SCH (22:31)
[2022-05-26] MEDS: MELATONIN 5 MG TABLETS PO SCH (22:31)
[2022-05-27] MEDS: diazePAM 5 MG TABLET PO SCH ×2 (06:12→18:00)
[2022-05-27] MEDS: LACTULOSE 20 GM/30 ML UDC (FOR ORAL USE ONLY) PO SCH ×3 (06:12→22:54)
[2022-05-27] MEDS: NICOTINE 14 MG/24 HOURS TOPICAL PATCH TD SCH (09:14)
[2022-05-27] MEDS: PRENATAL VITAMINS W/ FOLIC ACID TABLET (FP) PO SCH (09:14)
[2022-05-27] MEDS: LORATADINE 10 MG TABLET PO SCH (11:04)
[2022-05-27] MEDS: MELATONIN 5 MG TABLETS PO SCH (22:54)
[2022-05-27] MEDS: THIAMINE HCL 100 MG TABLET (FP) PO SCH (22:54)
[2022-05-28] MEDS ORDERED: diazePAM 5 MG TABLET PO ONE (06:00)
[2022-05-28] MEDS: LACTULOSE 20 GM/30 ML UDC (FOR ORAL USE ONLY) PO SCH ×2 (07:11→13:24)
[2022-05-28] MEDS: PRENATAL VITAMINS W/ FOLIC ACID TABLET (FP) PO SCH (09:33)
[2022-05-28] MEDS: NICOTINE 14 MG/24 HOURS TOPICAL PATCH TD SCH (09:33)
[2022-05-28] MEDS: LORATADINE 10 MG TABLET PO SCH (09:33)
[2022-05-28 13:23] VITALS: BP 145/86; PULSE 73; RESP 19; TEMP 97.7
== END 2022-05-28 13:29 | disposition home or self-care (01) | DRG 773 ==
LOC: YASAS 10:20 → Y3N 13:50
PROVIDERS: ADMIT Allergy & Immunology; ATTEND Family Medicine
PROC: HZ2ZZZZ Detoxification Services for Substance Abuse Treatment (ICD-10-PCS; principal; 2022-05-24)
DX: F10.230 Alcohol dependence with withdrawal, uncomplicated (principal); F11.20 Opioid dependence, uncomplicated; F14.20 Cocaine dependence, uncomplicated; F17.210 Nicotine dependence, cigarettes, uncomplicated; E72.20 Disorder of urea cycle metabolism, unspecified; D72.819 Decreased white blood cell count, unspecified; E78.5 Hyperlipidemia, unspecified; I10 Essential (primary) hypertension; J30.2 Other seasonal allergic rhinitis; K21.9 Gastro-esophageal reflux disease without esophagitis
CPT/HCPCS: 36415; 80053; 82140; 85027; 86780; 87811; C9803-CS; U0003; U0005

== ENCOUNTER 2022-06-21 14:03 | Inpatient (IN) | payer OTHER ==
[2022-06-21 14:48] VITALS: BMI 31.0
[2022-06-21] MEDS ORDERED: ACETAMINOPHEN 325 MG TABLET (FP) PO PRN ×2 (22:51)
[2022-06-21] MEDS ORDERED: DICYCLOMINE HCL 10 MG CAPSULE PO PRN (22:51)
[2022-06-21] MEDS ORDERED: MAG HYDROX/AL HYDROX/SIMETH 30 ML UNIT-DOSE CUP PO PRN (22:51)
[2022-06-21] MEDS ORDERED: POLYETHYLENE GLYCOL (HEALTHYLAX) 3350 17 GM PACKET PO PRN (22:51)
[2022-06-21] MEDS ORDERED: BENZOCAINE/MENTHOL (CHLORASEPTIC ) LOZENGE MM PRN (22:51)
[2022-06-21] MEDS ORDERED: IBUPROFEN 600 MG TABLET (FP) PO PRN (22:51)
[2022-06-21] MEDS ORDERED: NICOTINE POLACRILEX 4 MG GUM BUC PRN (22:51)
[2022-06-21] MEDS ORDERED: IBUPROFEN 400 MG TABLET (FP) PO PRN (22:51)
[2022-06-21] MEDS ORDERED: LOPERAMIDE HCL 2 MG CAPSULE PO PRN (22:51)
[2022-06-21] MEDS ORDERED: METHOCARBAMOL 500 MG TABLET PO PRN (22:51)
[2022-06-21] MEDS ORDERED: hydrOXYzine PAMOATE 25 MG CAPSULE (FP) PO PRN (22:51)
[2022-06-21] MEDS ORDERED: BISMUTH SUBSALICYLATE 524 MG/30 ML PO PRN (22:51)
[2022-06-21] MEDS ORDERED: MAGNESIUM HYDROX 2400MG/30ML ORAL SUSPENSION 30 ML CUP PO PRN (22:51)
[2022-06-21] MEDS ORDERED: ONDANSETRON *ODT* 4 MG TABLET SL PRN (22:51)
[2022-06-21] MEDS ORDERED: NALOXONE HCL (KLOXXADO) 8 MG SPRAY NS PRN (22:51)
[2022-06-22] MEDS: NICOTINE 21 MG/24 HOURS TOPICAL PATCH TD SCH (09:15)
[2022-06-22] MEDS: PRENATAL VITAMINS W/ FOLIC ACID TABLET (FP) PO SCH (09:15)
[2022-06-22] MEDS ORDERED: diazePAM 5 MG TABLET PO PRN (10:22)
[2022-06-22] MEDS ORDERED: diazePAM 5 MG TABLET ONE (11:53)
[2022-06-22] MEDS: diazePAM 5 MG TABLET PO SCH ×3 (11:55→22:41)
[2022-06-22] MEDS: MELATONIN 5 MG TABLETS PO SCH (22:41)
[2022-06-22] MEDS: THIAMINE HCL 100 MG TABLET (FP) PO SCH (22:42)
[2022-06-23] MEDS: diazePAM 5 MG TABLET PO SCH ×4 (06:24→22:35)
[2022-06-23] MEDS: PRENATAL VITAMINS W/ FOLIC ACID TABLET (FP) PO SCH (10:52)
[2022-06-23] MEDS: NICOTINE 21 MG/24 HOURS TOPICAL PATCH TD SCH (10:53)
[2022-06-23] MEDS ORDERED: LORATADINE 10 MG TABLET PO ONE (12:34)
[2022-06-23] MEDS: MELATONIN 5 MG TABLETS PO SCH (22:35)
[2022-06-23] MEDS: THIAMINE HCL 100 MG TABLET (FP) PO SCH (22:35)
[2022-06-24] MEDS: diazePAM 5 MG TABLET PO SCH ×3 (05:55→22:32)
[2022-06-24] MEDS: NICOTINE 21 MG/24 HOURS TOPICAL PATCH TD SCH (11:05)
[2022-06-24] MEDS: PRENATAL VITAMINS W/ FOLIC ACID TABLET (FP) PO SCH (11:06)
[2022-06-24 13:34] LABS: HEMATOCRIT 41.9 % (35.4-49); HEMOGLOBIN 13.8 GM/dL (11.7-16.9); MCH 28.2 pg (25.7-33.7); MEAN CELL VOLUME 85.4 fl (80-96); MEAN PLT VOLUME 10.2 fl (7.5-11.1); PLATELET COUNT 208 10^3/uL (134-434); RBC 4.91 M/mm3 (4.00-5.60); RDW 14.4 % (11.9-15.9); WHITE BLOOD COUNT 9.5 K/mm3 (4.0-10.0)
[2022-06-24 13:43] LABS: CALCIUM 8.6 mg/dL (8.5-10.1)
[2022-06-24 13:44] LABS: ALBUMIN 3.1 g/dl (3.4-5.0); BLOOD UREA NITROGEN 13.4 mg/dL (7-18)
[2022-06-24 13:46] LABS: CREATININE 0.8 mg/dL (0.55-1.3)
[2022-06-24 13:47] LABS: BILIRUBIN,TOTAL 0.4 mg/dL (0.2-1); TOT PROT 6.5 g/dl (6.4-8.2)
[2022-06-24] MEDS: MELATONIN 5 MG TABLETS PO SCH (22:31)
[2022-06-24] MEDS: THIAMINE HCL 100 MG TABLET (FP) PO SCH (22:32)
[2022-06-25] MEDS: diazePAM 5 MG TABLET PO SCH ×2 (05:30→05:37)
[2022-06-25 06:49] VITALS: BP 124/74; PULSE 77; RESP 17; TEMP 97.8
[2022-06-26] MEDS ORDERED: diazePAM 5 MG TABLET PO ONE (06:00)
== END 2022-06-25 08:59 | disposition home or self-care (01) | DRG 774 ==
LOC: YASAS 14:03 → Y3N 06-22 11:50
PROVIDERS: ADMIT Allergy & Immunology; ATTEND Surgery
PROC: HZ2ZZZZ Detoxification Services for Substance Abuse Treatment (ICD-10-PCS; principal; 2022-06-22)
DX: F10.230 Alcohol dependence with withdrawal, uncomplicated (principal); F14.20 Cocaine dependence, uncomplicated; F17.210 Nicotine dependence, cigarettes, uncomplicated; E78.5 Hyperlipidemia, unspecified; I10 Essential (primary) hypertension
CPT/HCPCS: 36415; 80053; 85027; 86780; 87811; C9803-CS; U0003; U0005

== ENCOUNTER 2022-12-15 13:53 | Inpatient (IN) | payer OTHER ==
[2022-12-15 15:07] VITALS: BMI 29.2
[2022-12-15] MEDS ORDERED: BENZOCAINE/MENTHOL (CHLORASEPTIC ) LOZENGE MM PRN (22:21)
[2022-12-15] MEDS ORDERED: NALOXONE HCL (KLOXXADO) 8 MG SPRAY NS PRN (22:21)
[2022-12-15] MEDS ORDERED: IBUPROFEN 400 MG TABLET (FP) PO PRN (22:21)
[2022-12-15] MEDS ORDERED: DICYCLOMINE HCL 10 MG CAPSULE PO PRN (22:21)
[2022-12-15] MEDS ORDERED: MAG HYDROX/AL HYDROX/SIMETH 30 ML UNIT-DOSE CUP PO PRN (22:21)
[2022-12-15] MEDS ORDERED: MAGNESIUM HYDROX 2400MG/30ML ORAL SUSPENSION 30 ML CUP PO PRN (22:21)
[2022-12-15] MEDS ORDERED: POLYETHYLENE GLYCOL (HEALTHYLAX) 3350 17 GM PACKET PO PRN (22:21)
[2022-12-15] MEDS ORDERED: NALOXONE HCL 0.4 MG/ML VIAL IM PRN (22:21)
[2022-12-15] MEDS ORDERED: LOPERAMIDE HCL 2 MG CAPSULE PO PRN (22:21)
[2022-12-15] MEDS ORDERED: ACETAMINOPHEN 325 MG TABLET (FP) PO PRN (22:21)
[2022-12-15] MEDS ORDERED: guaiFENesin 600 MG TABLET.ER (FP) PO PRN (22:21)
[2022-12-15] MEDS ORDERED: METHOCARBAMOL 500 MG TABLET PO PRN (22:21)
[2022-12-15] MEDS ORDERED: ONDANSETRON *ODT* 4 MG TABLET SL PRN (22:21)
[2022-12-15] MEDS ORDERED: IBUPROFEN 600 MG TABLET (FP) PO PRN (22:21)
[2022-12-15] MEDS ORDERED: BISMUTH SUBSALICYLATE 524 MG/30 ML PO PRN (22:21)
[2022-12-15] MEDS ORDERED: BENZONATATE 200 MG CAPSULE PO PRN (22:21)
[2022-12-15] MEDS ORDERED: diazePAM 5 MG TABLET PO PRN (22:25)
[2022-12-15] MEDS ORDERED: diazePAM 5 MG TABLET ONE (23:12)
[2022-12-15] MEDS: diazePAM 5 MG TABLET PO SCH (23:18)
[2022-12-16] MEDS: diazePAM 5 MG TABLET PO SCH ×3 (06:10→22:32)
[2022-12-16] MEDS: NICOTINE 21 MG/24 HOURS TOPICAL PATCH TD SCH (10:45)
[2022-12-16] MEDS: PRENATAL VITAMINS W/ FOLIC ACID TABLET (FP) PO SCH (10:45)
[2022-12-16] MEDS: MELATONIN 5 MG TABLETS PO SCH (22:32)
[2022-12-16] MEDS: THIAMINE HCL 100 MG TABLET (FP) PO SCH (22:32)
[2022-12-17] MEDS: diazePAM 5 MG TABLET PO SCH ×3 (06:01→22:11)
[2022-12-17] MEDS: NICOTINE POLACRILEX 2 MG GUM BUC PRN (10:42)
[2022-12-17] MEDS: PRENATAL VITAMINS W/ FOLIC ACID TABLET (FP) PO SCH (10:44)
[2022-12-17] MEDS: NICOTINE 21 MG/24 HOURS TOPICAL PATCH TD SCH (10:44)
[2022-12-17] MEDS: MELATONIN 5 MG TABLETS PO SCH (22:11)
[2022-12-17] MEDS: THIAMINE HCL 100 MG TABLET (FP) PO SCH (22:11)
[2022-12-18] MEDS: diazePAM 5 MG TABLET PO SCH ×2 (06:02→17:39)
[2022-12-18] MEDS: PRENATAL VITAMINS W/ FOLIC ACID TABLET (FP) PO SCH (10:26)
[2022-12-18] MEDS: NICOTINE 21 MG/24 HOURS TOPICAL PATCH TD SCH (10:27)
[2022-12-18] MEDS: NICOTINE POLACRILEX 2 MG GUM BUC PRN ×3 (10:39→17:42)
[2022-12-18] MEDS: MELATONIN 5 MG TABLETS PO SCH (22:23)
[2022-12-18] MEDS: THIAMINE HCL 100 MG TABLET (FP) PO SCH (22:23)
[2022-12-19] MEDS ORDERED: diazePAM 5 MG TABLET PO ONE (06:00)
[2022-12-19 06:22] VITALS: BP 104/62; PULSE 71; RESP 17; TEMP 97.6
[2022-12-19] MEDS: PRENATAL VITAMINS W/ FOLIC ACID TABLET (FP) PO SCH (09:30)
[2022-12-19] MEDS: NICOTINE 21 MG/24 HOURS TOPICAL PATCH TD SCH (09:30)
== END 2022-12-19 09:39 | disposition home or self-care (01) | DRG 774 ==
LOC: YASAS 13:53 → Y6N 22:41
PROVIDERS: ADMIT Allergy & Immunology; ATTEND Allergy & Immunology
PROC: HZ2ZZZZ Detoxification Services for Substance Abuse Treatment (ICD-10-PCS; principal; 2022-12-15)
DX: F10.230 Alcohol dependence with withdrawal, uncomplicated (principal); F13.230 Sedative, hypnotic or anxiolytic dependence with withdrawal, uncomplicated; F14.20 Cocaine dependence, uncomplicated; F17.213 Nicotine dependence, cigarettes, with withdrawal; E78.00 Pure hypercholesterolemia, unspecified; I10 Essential (primary) hypertension; J45.909 Unspecified asthma, uncomplicated; K21.9 Gastro-esophageal reflux disease without esophagitis; M54.50 Low back pain, unspecified; G89.29 Other chronic pain
CPT/HCPCS: 87635

== ENCOUNTER 2023-04-01 09:56 | Inpatient (IN) | payer OTHER ==
[2023-04-01 10:24] VITALS: BMI 29.7
[2023-04-01] MEDS ORDERED: BISMUTH SUBSALICYLATE 524 MG/30 ML PO PRN (10:50)
[2023-04-01] MEDS ORDERED: MAG HYDROX/AL HYDROX/SIMETH 30 ML UNIT-DOSE CUP PO PRN (10:50)
[2023-04-01] MEDS ORDERED: IBUPROFEN 600 MG TABLET (FP) PO PRN (10:50)
[2023-04-01] MEDS ORDERED: NALOXONE HCL (KLOXXADO) 8 MG SPRAY NS PRN (10:50)
[2023-04-01] MEDS ORDERED: ONDANSETRON *ODT* 4 MG TABLET SL PRN (10:50)
[2023-04-01] MEDS ORDERED: LOPERAMIDE HCL 2 MG CAPSULE PO PRN (10:50)
[2023-04-01] MEDS ORDERED: POLYETHYLENE GLYCOL (HEALTHYLAX) 3350 17 GM PACKET PO PRN (10:50)
[2023-04-01] MEDS ORDERED: BENZONATATE 200 MG CAPSULE PO PRN (10:50)
[2023-04-01] MEDS ORDERED: MAGNESIUM HYDROX 2400MG/30ML ORAL SUSPENSION 30 ML CUP PO PRN (10:50)
[2023-04-01] MEDS ORDERED: BENZOCAINE/MENTHOL (CHLORASEPTIC ) LOZENGE MM PRN (10:50)
[2023-04-01] MEDS ORDERED: guaiFENesin 600 MG TABLET.ER (FP) PO PRN (10:50)
[2023-04-01] MEDS ORDERED: NALOXONE HCL 0.4 MG/ML VIAL IM PRN (10:50)
[2023-04-01] MEDS ORDERED: METHOCARBAMOL 500 MG TABLET PO PRN (10:50)
[2023-04-01] MEDS ORDERED: ACETAMINOPHEN 325 MG TABLET (FP) PO PRN (10:50)
[2023-04-01] MEDS ORDERED: hydrOXYzine PAMOATE 25 MG CAPSULE (FP) PO PRN (10:50)
[2023-04-01] MEDS ORDERED: IBUPROFEN 400 MG TABLET (FP) PO PRN (10:50)
[2023-04-01] MEDS ORDERED: chlordiazePOXIDE HCL 25 MG CAPSULE PO PRN (11:02)
[2023-04-01] MEDS ORDERED: IBUPROFEN 400 MG TABLET (FP) PO ONE (11:18)
[2023-04-01] MEDS ORDERED: chlordiazePOXIDE HCL 25 MG CAPSULE ONE (11:18)
[2023-04-01] MEDS: chlordiazePOXIDE HCL 25 MG CAPSULE PO SCH ×3 (11:20→23:10)
[2023-04-01] MEDS: THIAMINE HCL 100 MG TABLET (FP) PO SCH (23:10)
[2023-04-01] MEDS: MELATONIN 5 MG TABLETS PO SCH (23:10)
[2023-04-02] MEDS: chlordiazePOXIDE HCL 25 MG CAPSULE PO SCH ×4 (05:42→23:09)
[2023-04-02] MEDS: PRENATAL VITAMINS W/ FOLIC ACID TABLET (FP) PO SCH (10:30)
[2023-04-02] MEDS: NICOTINE 21 MG/24 HOURS TOPICAL PATCH TD SCH (10:31)
[2023-04-02 10:33] LABS: HEMATOCRIT 47.2 % (35.4-49); HEMOGLOBIN 15.5 GM/dL (11.7-16.9); MCHC 32.9 g/dl (32.0-35.9); MEAN CELL VOLUME 85.2 fl (80-96); MEAN PLT VOLUME 9.8 fl (7.5-11.1); PLATELET COUNT 145 10^3/uL (134-434); RBC 5.55 M/mm3 (4.00-5.60); RDW 14.3 % (11.9-15.9); WHITE BLOOD COUNT 5.1 K/mm3 (4.0-10.0)
[2023-04-02 12:09] LABS: POTASSIUM 3.6 mmol/L (3.5-5.1)
[2023-04-02 12:12] LABS: CALCIUM 8.9 mg/dL (8.5-10.1)
[2023-04-02 12:13] LABS: ALBUMIN 3.6 g/dl (3.4-5.0); BLOOD UREA NITROGEN 23.1 mg/dL (7-18)
[2023-04-02 12:17] LABS: TOT PROT 7.3 g/dl (6.4-8.2)
[2023-04-02 12:18] LABS: BILIRUBIN,TOTAL 1.1 mg/dL (0.2-1)
[2023-04-02] MEDS: THIAMINE HCL 100 MG TABLET (FP) PO SCH (23:09)
[2023-04-02] MEDS: MELATONIN 5 MG TABLETS PO SCH (23:09)
[2023-04-03] MEDS: chlordiazePOXIDE HCL 25 MG CAPSULE PO SCH ×4 (05:57→23:03)
[2023-04-03] MEDS: PRENATAL VITAMINS W/ FOLIC ACID TABLET (FP) PO SCH (10:20)
[2023-04-03] MEDS: NICOTINE 21 MG/24 HOURS TOPICAL PATCH TD SCH (10:20)
[2023-04-03] MEDS: MELATONIN 5 MG TABLETS PO SCH (23:03)
[2023-04-03] MEDS: THIAMINE HCL 100 MG TABLET (FP) PO SCH (23:04)
[2023-04-04] MEDS ORDERED: chlordiazePOXIDE HCL 10 MG CAPSULE PO PRN
[2023-04-04] MEDS: chlordiazePOXIDE HCL 10 MG CAPSULE PO SCH ×4 (06:42→23:11)
[2023-04-04] MEDS: NICOTINE 21 MG/24 HOURS TOPICAL PATCH TD SCH (09:27)
[2023-04-04] MEDS: PRENATAL VITAMINS W/ FOLIC ACID TABLET (FP) PO SCH (09:27)
[2023-04-04] MEDS ORDERED: diphenhydrAMINE HCL 25 MG CAPSULE (FP) PO ONE (16:05)
[2023-04-04] MEDS: THIAMINE HCL 100 MG TABLET (FP) PO SCH (23:11)
[2023-04-04] MEDS: MELATONIN 5 MG TABLETS PO SCH (23:11)
[2023-04-05] MEDS: chlordiazePOXIDE HCL 10 MG CAPSULE PO SCH ×2 (06:20→17:29)
[2023-04-05] MEDS: NICOTINE 21 MG/24 HOURS TOPICAL PATCH TD SCH (10:05)
[2023-04-05] MEDS: NICOTINE POLACRILEX 2 MG GUM BUC PRN ×2 (10:06→13:37)
[2023-04-05] MEDS: PRENATAL VITAMINS W/ FOLIC ACID TABLET (FP) PO SCH (10:06)
[2023-04-05] MEDS: THIAMINE HCL 100 MG TABLET (FP) PO SCH (22:06)
[2023-04-05] MEDS: MELATONIN 5 MG TABLETS PO SCH (22:06)
[2023-04-06] MEDS ORDERED: chlordiazePOXIDE HCL 10 MG CAPSULE PO ONE (05:00)
[2023-04-06 09:03] VITALS: BP 112/64; PULSE 72; RESP 16; TEMP 97.3
[2023-04-06] MEDS: NICOTINE POLACRILEX 2 MG GUM BUC PRN (09:38)
[2023-04-06] MEDS: NICOTINE 21 MG/24 HOURS TOPICAL PATCH TD SCH (10:53)
[2023-04-06] MEDS: PRENATAL VITAMINS W/ FOLIC ACID TABLET (FP) PO SCH (10:53)
== END 2023-04-06 11:00 | disposition home or self-care (01) | DRG 775 ==
LOC: YASAS 09:56 → Y6N 12:28
PROVIDERS: ADMIT Allergy & Immunology; ATTEND Surgery
PROC: HZ2ZZZZ Detoxification Services for Substance Abuse Treatment (ICD-10-PCS; principal; 2023-04-01)
DX: F10.230 Alcohol dependence with withdrawal, uncomplicated (principal); F17.210 Nicotine dependence, cigarettes, uncomplicated; E78.00 Pure hypercholesterolemia, unspecified; I10 Essential (primary) hypertension; J30.9 Allergic rhinitis, unspecified; K21.9 Gastro-esophageal reflux disease without esophagitis; M54.50 Low back pain, unspecified; G89.29 Other chronic pain; R73.9 Hyperglycemia, unspecified
CPT/HCPCS: 36415; 80053; 80307; 85027; 86780; 87635; 87811; 93005; 93010

== ENCOUNTER 2024-04-06 10:03 | Inpatient (IN) | payer OTHER ==
[2024-04-06 11:03] VITALS: BMI 29.2
[2024-04-06] MEDS ORDERED: NICOTINE POLACRILEX 2 MG GUM BUC PRN (11:27)
[2024-04-06] MEDS ORDERED: POLYETHYLENE GLYCOL (HEALTHYLAX) 3350 17 GM PACKET PO PRN (11:27)
[2024-04-06] MEDS ORDERED: BENZOCAINE/MENTHOL (CHLORASEPTIC ) LOZENGE MM PRN (11:27)
[2024-04-06] MEDS ORDERED: IBUPROFEN 400 MG TABLET (FP) PO PRN (11:27)
[2024-04-06] MEDS ORDERED: BISMUTH SUBSALICYLATE 262 MG/15 ML BTL PO PRN (11:27)
[2024-04-06] MEDS ORDERED: IBUPROFEN 600 MG TABLET (FP) PO PRN (11:27)
[2024-04-06] MEDS ORDERED: ACETAMINOPHEN 325 MG TABLET (FP) PO PRN (11:27)
[2024-04-06] MEDS ORDERED: BENZONATATE 200 MG CAPSULE PO PRN (11:27)
[2024-04-06] MEDS ORDERED: guaiFENesin 600 MG TABLET.ER (FP) PO PRN (11:27)
[2024-04-06] MEDS ORDERED: DICYCLOMINE HCL 10 MG CAPSULE PO PRN (11:27)
[2024-04-06] MEDS ORDERED: MAG HYDROX/AL HYDROX/SIMETH 30 ML UNIT-DOSE CUP PO PRN (11:27)
[2024-04-06] MEDS ORDERED: MAGNESIUM HYDROX 2400MG/30ML ORAL SUSPENSION 30 ML CUP PO PRN (11:27)
[2024-04-06] MEDS ORDERED: NICOTINE POLACRILEX 2 MG LOZENGE BC PRN (11:27)
[2024-04-06] MEDS ORDERED: LOPERAMIDE HCL 2 MG CAPSULE PO PRN (11:27)
[2024-04-06] MEDS ORDERED: ONDANSETRON *ODT* 4 MG TABLET SL PRN (11:27)
[2024-04-06] MEDS ORDERED: diazePAM 5 MG TABLET PO PRN (11:32)
[2024-04-06] MEDS ORDERED: diazePAM 5 MG TABLET ONE (12:20)
[2024-04-06] MEDS: diazePAM 5 MG TABLET PO SCH (12:23)
[2024-04-06 17:02] LABS: POTASSIUM 3.7 mmol/L (3.5-5.1)
[2024-04-06 17:02] LABS: HEMATOCRIT 45.8 % (35.4-49); HEMOGLOBIN 15.5 GM/dL (11.7-16.9); MCH 29.3 pg (25.7-33.7); MCHC 33.8 g/dl (32.0-35.9); MEAN CELL VOLUME 86.6 fl (80-96); PLATELET COUNT 199 10^3/uL (134-434); RBC 5.29 M/mm3 (4.00-5.60); RDW 14.2 % (11.9-15.9); WHITE BLOOD COUNT 10.8 K/mm3 (4.0-10.0)
[2024-04-06 17:05] LABS: ALBUMIN 3.5 g/dl (3.4-5.0); BLOOD UREA NITROGEN 12.9 mg/dL (7-18)
[2024-04-06 17:08] LABS: CREATININE 1.1 mg/dL (0.55-1.3)
[2024-04-06 17:09] LABS: BILIRUBIN,TOTAL 0.7 mg/dL (0.2-1)
[2024-04-06 17:10] LABS: TOT PROT 7.2 g/dl (6.4-8.2)
[2024-04-06] MEDS: THIAMINE 100 MG TABLET PO SCH (23:07)
[2024-04-06] MEDS: MELATONIN 5 MG TABLETS PO SCH (23:08)
[2024-04-07] MEDS: METHOCARBAMOL 500 MG TABLET PO PRN (10:29)
[2024-04-07] MEDS: PRENATAL VITAMINS W/ FOLIC ACID TABLET (FP) PO SCH (10:30)
[2024-04-08] MEDS: diazePAM 5 MG TABLET PO SCH (06:20)
[2024-04-08] MEDS ORDERED: HYDROCORTISONE 0.5% TOPICAL CREAM 30 GM TUBE TP PRN (10:54)
[2024-04-08] MEDS: LORATADINE 10 MG TABLET PO SCH (11:12)
[2024-04-09] MEDS: diazePAM 5 MG TABLET PO SCH (06:14)
[2024-04-09] MEDS: NALOXONE (NYS OPIOID OVERDOSE PROGRAM) 4 MG/0.1 ML SPRAY NS SCH (13:12)
[2024-04-10] MEDS: diazePAM 5 MG TABLET PO ONE (06:35)
[2024-04-10 06:50] VITALS: BP 118/68; PULSE 68; RESP 17; TEMP 97.6
== END 2024-04-10 10:10 | disposition other institution (70) | DRG 774 ==
LOC: YASAS 10:03 → Y6N 12:37
PROVIDERS: ADMIT Allergy & Immunology; ATTEND Surgery
PROC: HZ2ZZZZ Detoxification Services for Substance Abuse Treatment (ICD-10-PCS; principal; 2024-04-06)
DX: F10.230 Alcohol dependence with withdrawal, uncomplicated (principal); F14.10 Cocaine abuse, uncomplicated; F17.210 Nicotine dependence, cigarettes, uncomplicated; I10 Essential (primary) hypertension; L25.9 Unspecified contact dermatitis, unspecified cause
CPT/HCPCS: 36415; 80053; 80305; 80307; 85027; 86780; 93005; 93010

== ENCOUNTER 2024-07-26 10:01 | Inpatient (IN) | payer OTHER ==
[2024-07-26 10:48] VITALS: BMI 28.3
[2024-07-26] MEDS ORDERED: LOPERAMIDE HCL 2 MG CAPSULE PO PRN (11:23)
[2024-07-26] MEDS ORDERED: ACETAMINOPHEN 325 MG TABLET (FP) PO PRN (11:23)
[2024-07-26] MEDS ORDERED: POLYETHYLENE GLYCOL (HEALTHYLAX) 3350 17 GM PACKET PO PRN (11:23)
[2024-07-26] MEDS ORDERED: BENZONATATE 200 MG CAPSULE PO PRN (11:23)
[2024-07-26] MEDS ORDERED: ONDANSETRON *ODT* 4 MG TABLET SL PRN (11:23)
[2024-07-26] MEDS ORDERED: DICYCLOMINE HCL 10 MG CAPSULE PO PRN (11:23)
[2024-07-26] MEDS ORDERED: IBUPROFEN 400 MG TABLET (FP) PO PRN (11:23)
[2024-07-26] MEDS ORDERED: BENZOCAINE/MENTHOL (CHLORASEPTIC ) LOZENGE MM PRN (11:23)
[2024-07-26] MEDS ORDERED: IBUPROFEN 600 MG TABLET (FP) PO PRN (11:23)
[2024-07-26] MEDS ORDERED: MAGNESIUM HYDROX 2400MG/30ML ORAL SUSPENSION 30 ML CUP PO PRN (11:23)
[2024-07-26] MEDS ORDERED: guaiFENesin 600 MG TABLET.ER (FP) PO PRN (11:23)
[2024-07-26] MEDS ORDERED: NALOXONE (NARCAN) HCL 4 MG/0.1 ML SPRAY NS PRN (11:23)
[2024-07-26] MEDS ORDERED: BISMUTH SUBSALICYLATE 262 MG/15 ML BTL PO PRN (11:23)
[2024-07-26] MEDS ORDERED: MAG HYDROX/AL HYDROX/SIMETH 30 ML UNIT-DOSE CUP PO PRN (11:23)
[2024-07-26] MEDS ORDERED: NICOTINE POLACRILEX 2 MG GUM BUC PRN (11:23)
[2024-07-26] MEDS ORDERED: amLODIPine BESYLATE 5 MG TABLET (FP) ONE (12:08)
[2024-07-26] MEDS: amLODIPine BESYLATE 5 MG TABLET (FP) PO SCH (12:11)
[2024-07-26] MEDS ORDERED: HYDROCORTISONE 0.5% TOPICAL CREAM 30 GM TUBE TP PRN (12:15)
[2024-07-26] MEDS: LORATADINE 10 MG TABLET PO ONE (12:55)
[2024-07-26] MEDS: NALTREXONE HCL 50 MG TABLET PO ONE ×2 (16:02→18:44)
[2024-07-26 17:21] LABS: CHOLESTEROL 157 mg/dL (50-200)
[2024-07-26 17:22] LABS: HDL CHOLESTEROL 37 mg/dL (40-60); LDL CHOLESTEROL (ONLY SJRH) 102 mg/dL (5-100)
[2024-07-26] MEDS: MELATONIN 5 MG TABLETS PO SCH (22:29)
[2024-07-26] MEDS: THIAMINE 100 MG TABLET PO SCH (22:29)
[2024-07-26] MEDS: MIRTAZAPINE 15 MG TABLET (FP) PO SCH (22:29)
[2024-07-27 09:44] LABS: HEMATOCRIT 45.8 % (40.1-51.0); HEMOGLOBIN 15.2 g/dL (13.7-17.5); MCHC 33.2 g/dl (32.3-36.5); MEAN CELL VOLUME 85.4 fl (79.0-92.2); MEAN PLT VOLUME 12.5 fl (9.4-12.4); PLATELET COUNT # 212 x10^3/uL (163-337)
[2024-07-27 09:51] LABS: POTASSIUM 3.5 mmol/L (3.5-5.1)
[2024-07-27 10:09] LABS: BLOOD UREA NITROGEN 12.4 mg/dL (7-18); CALCIUM 8.9 mg/dL (8.5-10.1)
[2024-07-27 10:10] LABS: ALBUMIN 3.5 g/dl (3.4-5.0)
[2024-07-27 10:13] LABS: CREATININE 0.9 mg/dL (0.55-1.3)
[2024-07-27 10:14] LABS: BILIRUBIN,TOTAL 0.5 mg/dL (0.2-1); TOT PROT 7.1 g/dl (6.4-8.2)
[2024-07-27] MEDS: NALTREXONE HCL 50 MG TABLET PO SCH (10:29)
[2024-07-27] MEDS: hydrOXYzine PAMOATE 25 MG CAPSULE (FP) PO PRN (10:29)
[2024-07-27] MEDS: METHOCARBAMOL 500 MG TABLET PO PRN (10:29)
[2024-07-27] MEDS: LORATADINE 10 MG TABLET PO SCH (10:29)
[2024-07-27] MEDS: PRENATAL VITAMINS W/ FOLIC ACID TABLET (FP) PO SCH (10:29)
[2024-07-27 20:47] VITALS: RESP 18
[2024-07-28 06:51] VITALS: TEMP 97.7
[2024-07-28 08:50] VITALS: BP 107/66; PULSE 81
== END 2024-07-28 09:56 | disposition home or self-care (01) | DRG 774 ==
LOC: YASAS 10:01 → Y6N 11:57
PROVIDERS: ADMIT Allergy & Immunology; ATTEND Allergy & Immunology
PROC: HZ2ZZZZ Detoxification Services for Substance Abuse Treatment (ICD-10-PCS; principal; 2024-07-26)
DX: F10.20 Alcohol dependence, uncomplicated (principal); F14.20 Cocaine dependence, uncomplicated; F17.210 Nicotine dependence, cigarettes, uncomplicated; F41.9 Anxiety disorder, unspecified; I10 Essential (primary) hypertension; J45.909 Unspecified asthma, uncomplicated
CPT/HCPCS: 36415; 80053; 80061; 80305; 80307; 85027; 86780; 93005; 93010